=== PATIENT | female | born 1930 | race Caucasian/White ===

== ENCOUNTER 2017-01-24 07:34 | Observation (INO) | payer BC, MEDICARE ==
[2017-01-24] MEDS ORDERED: Zofran 4 MG/2 ML VIAL IV ONE (08:01)
[2017-01-24] MEDS ORDERED: Sodium Chloride 0.9% 1000 ML 1,000 ML IV STA (08:01)
[2017-01-24] MEDS ORDERED: Zofran 4 MG/2 ML VIAL ONE (08:03)
[2017-01-24] MEDS ORDERED: Sodium Chloride 0.9% 1000 ML 1,000 ML ONE (08:04)
[2017-01-24 08:14] LABS: BASOPHIL % 0.2 % (0.0-0.4); Granulocytes % 71.8 % (36.0-66.0); Lymphocytes % 14.2 % (24.0-44.0); Mean Cell Volume 100.2 fl (78-100); Mean Corpuscular Hemoglobin 32.6 pg (26-32); Mean Platelet Volume 8.9 fl (6-9.5); Monocytes % 11.8 % (0.0-12.0); Platelet Count 303 K/mm3 (150-450); Red Cell Distribution Width 13.2 % (11.5-14.0); White Blood Count 5.4 K/mm3 (4.0-10.5)
[2017-01-24 08:28] LABS: COMPLETE URINE MICROSCOPIC? YES; Collection Type CATH; Ph 8.5 (5-6)
[2017-01-24 08:29] LABS: ADD URINE CULTURE? YES (NO); Bacteria RARE /HPF (NEGATIVE)
--- NOTE | 2017-01-24 08:36 | ERPHSYRPT ---
- History of Present Illness Time Seen by Provider: 01/24/17 07:45 Historian: patient Exam Limitations: no limitations Patient Subjective Stated Complaint: vomiting/diarrhea since yesterday Triage Nursing Assessment: vomiting x3 since yesterday. diarrhea x2 since yesterday. frontal headache. poor appetite. moist oral membranes. skin warm/dry Timing/Duration: yesterday Activities at Onset: none Quality: cramping Abdominal Pain Onset Location: generalized abdomen Pain Radiation: no radiation Severity of Pain-Max: mild Severity of Pain-Current: mild Modifying Factors: Improves With: vomiting Associated Symptoms: diarrhea, nausea Previous symptoms: no prior history Allergies/Adverse Reactions: No Known Drug Allergies Allergy (Unverified 01/24/17 07:49) Home Medications: Amiodarone HCl 200 mg [Cordarone 200 MG] 200 mg PO DAILY 08/10/13 [History ] Clopidogrel Bisulfate 75 mg [PLAVIX 75 MG Tablet] 75 mg PO DAILY 08/10/13 [History] Hydrocodone/APAP 10/325 mg [[place] 10/325 MG Tablet] 1 tab PO Q6H PRN PRN 08/10/13 [History] Metoprolol Succinate 50 mg [Toprol Xl 50 MG] 50 mg PO BIDPRN PRN 08/10/13 [History] Pramipexole Di-HCl [Mirapex] 0.25 mg PO HS 08/10/13 [History] Pravastatin Sodium [Pravachol] 20 mg PO HS 08/10/13 [History] Zolpidem Tartrate 5 mg [Ambien 5 MG Tablet] 5 mg PO HS PRN PRN 08/10/13 [ History] Docusate Sodium 100 mg [Colace 100 MG] 1 tab PO DAILY 08/21/13 [History] Duloxetine HCl [Cymbalta] 60 mg PO DAILY 08/21/13 [History] Furosemide 20 mg [Lasix 20 mg] 20 mg PO DAILY 08/21/13 [History] Multivitamin [Multivitamins] 1 each PO DAILY 01/24/17 [History] Hx Tetanus, Diphtheria Vaccination/Date Given: Yes Hx Influenza Vaccination/Date Given: No Hx Pneumococcal Vaccination/Date Given: No Immunizations Up to Date: Yes - Review of Systems Constitutional: No Symptoms Eyes: No Symptoms Ears, Nose, & Throat: No Symptoms Respiratory: No Symptoms Cardiac: No Symptoms Abdominal/Gastrointestinal: Nausea, Vomiting, Diarrhea Genitourinary Symptoms: No Symptoms Musculoskeletal: No Symptoms Skin: No Symptoms Neurological: No Symptoms Psychological: No Symptoms Endocrine: No Symptoms Hematologic/Lymphatic: No Symptoms Immunological/Allergic: No Symptoms - Past Medical History Pertinent Past Medical History: Yes Neurological History: No Pertinent History ENT History: No Pertinent History Cardiac History: Angina, Coronary Artery Disease, High Cholesterol, Hypertension Respiratory History: No Pertinent History Endocrine Medical History: No Pertinent History Musculoskeletal History: Arthritis GI Medical History: No Pertinent History History: No Pertinent History Psycho-Social History: No Pertinent History Female Reproductive Disorders: Breast Cancer - Past Surgical History Past Surgical History: Yes Neuro Surgical History: No Pertinent History Cardiac: CABG, Cardiac Catheterization, Pacemaker Respiratory: No Pertinent History Gastrointestinal: No Pertinent History Genitourinary: No Pertinent History Musculoskeletal: Orthopedic Surgery Female Surgical History: Lumpectomy Other Surgical History: lumbar fusion with plate - Social History Smoking Status: Never smoker Exposure to second hand smoke: No Drug Use: none Patient Lives Alone: Yes - Female History Hx Now: No - Nursing Vital Signs Nursing Vital Signs: Initial Vital Signs Temperature 98.4 F Temperature Source Oral Pulse Rate 76 Respiratory Rate 20 Blood Pressure [Right Arm] 138/76 Pain Intensity 0 - Physical Exam General Appearance: moderate distress Eye Exam: PERRL/EOMI, eyes nml inspection Ears, Nose, Throat Exam: normal ENT inspection, pharynx normal Neck Exam: normal inspection, non-tender, supple Cardiovascular Exam: regular rate/rhythm, normal heart sounds, normal peripheral pulses Gastrointestinal/Abdomen Exam: soft, normal bowel sounds Back Exam: normal inspection, normal range of motion Extremity Exam: normal inspection, normal range of motion, pelvis stable Neurologic Exam: alert, oriented x 3, cooperative Skin Exam: normal color, warm, dry SpO2 Interpretation: normal SpO2: 94 Oxygen Delivery: Room Air - Course Nursing assessment & vital signs reviewed: Yes EKG Interpreted by Me: RATE (78. AV paced with 100% capture. ), Right Lerona Deviation (slightly D/T pacemaker) Ordered Tests: Active Orders 24 hr Category Date Time Status EKG-ER Only STAT Care 01/24/17 08:22 Active IV Insertion STAT Care 01/24/17 08:00 Active Orthostatic Vital Signs STAT Care 01/24/17 08:16 Active cath [Cath for Specimen-Straight] STAT Care 01/24/17 08:00 Active CBC W DIFF Stat Lab 01/24/17 08:00 Completed CMP Stat Lab 01/24/17 08:00 Completed CULTURE,URINE Stat Lab 01/24/17 08:00 Received LIPASE Stat Lab 01/24/17 08:00 Completed TROPONIN Stat Lab 01/24/17 08:00 Completed UA W/ MICROSCOPIC Stat Lab 01/24/17 08:00 Completed Medication Summary Discontinued Medications Generic Name Dose Route Start Last Admin Trade Name Judy PRN Reason Stop Dose Admin Sodium Chloride 1,000 mls @ 999 mls/hr 01/24/17 08:01 01/24/17 08:06 Sodium Chloride 0.9% 1000 Ml IV 01/24/17 09:01 999 mls/hr .Q1H1M STA Administration Sodium Chloride Confirm 01/24/17 08:04 Sodium Chloride 0.9% 1000 Ml Administered 01/24/17 08:05 Dose 1,000 mls @ ud .ROUTE .STK-MED ONE Ondansetron HCl 4 mg 01/24/17 08:01 01/24/17 08:06 Zofran 4 Mg/2 Ml Vial IV 01/24/17 08:02 4 mg STAT ONE Administration Ondansetron HCl Confirm 01/24/17 08:03 Zofran 4 Mg/2 Ml Vial Administered 01/24/17 08:04 Dose 4 mg .ROUTE .STK-MED ONE Lab/Rad Data: Laboratory Result Diagrams 01/24/17 08:00 01/24/17 08:00 Laboratory Results 01/24/17 01/24/17 01/24/17 Range/Units 08:00 08:00 08:00 WBC 5.4 (4.0-10.5) K/mm3 RBC 4.30 (4.1-5.4) M/mm3 Hgb 14.0 (12.0-16.0) gm/dl Hct 43.1 (35-47) % MCV 100.2 H (78-100) fl MCH 32.6 H (26-32) pg MCHC 32.5 (32-36) g/dl RDW 13.2 (11.5-14.0) % Plt Count 303 (150-450) K/mm3 MPV 8.9 (6-9.5) fl Gran % 71.8 H (36.0-66.0) % Lymphocytes % 14.2 L (24.0-44.0) % Monocytes % 11.8 (0.0-12.0) % Eosinophils % 2.0 (0.00-5.0) % Basophils % 0.2 (0.0-0.4) % Basophils # 0.01 (0-0.4) Sodium 140 (136-145) mEq/L Potassium 4.0 (3.5-5.1) mEq/L Chloride 99 (98-107) mEq/L Carbon Dioxide 30.2 (21-32) mEq/L Anion Gap 15.1 H (5-15) MEQ/L BUN 19 (9-20) mg/dL Creatinine 1.22 (0.55-1.30) mg/dl Estimated GFR 45 ML/MIN Glucose 108 (70-110) MG/DL Calcium 9.6 (8.5-10.1) mg/dL Total Bilirubin 0.60 (0.2-1.0) mg/dL AST 16 (15-37) U/L ALT 10 L (12-78) U/L Alkaline Phosphatase 70 (46-116) U/L Troponin I < 0.017 (0.000-0.056) ng/ml Serum Total Protein 7.9 (6.4-8.2) gm/dL Albumin 3.5 (3.4-5.0) g/dL Lipase 77 (73-393) U/L Ur Collection Type CATH Urine Color YELLOW (YELLOW) Urine Appearance CLEAR (CLEAR) Urine pH 8.5 (5-6) Ur Specific [place] 1.015 (1.005-1.025) Urine Protein TRACE (Negative) Urine Glucose (UA) NEGATIVE (NEGATIVE) mg/dL Urine Ketones NEGATIVE (NEGATIVE) Urine Nitrite NEGATIVE (NEGATIVE) Urine Bilirubin NEGATIVE (NEGATIVE) Urine Urobilinogen 0.2 (0-1) mg/dL Urine WBC (Auto) NEGATIVE (NEGATIVE) Urine RBC (Auto) NEGATIVE (0-5) [place]/ul Urine Microscopic RBC 0-2 (0-2) /HPF Urine Bacteria RARE (NEGATIVE) /HPF Specimen Received 01/24/17 0800 - Progress Progress: improved Discussed with : Nabil Will see patient in: hospital (observation) Counseled pt/family regarding: lab results, diagnosis, need for follow-up, rad results - Departure Time of Disposition: 09:30 Departure Disposition: Observation Clinical Impression: Pacemaker Vomiting Qualifiers: Vomiting type: unspecified Vomiting Intractability: unspecified Nausea presence : with nausea Qualified Code(s): R11.2 - Nausea with vomiting, unspecified Condition: Stable Critical Care Time: No
[2017-01-24 08:39] LABS: ALBUMIN 3.5 g/dL (3.4-5.0); ALKALINE PHOSPHATASE 70 U/L (46-116); ANION GAP 15.1 MEQ/L (5-15); BLOOD UREA NITROGEN 19 mg/dL (9-20); CHLORIDE 99 mEq/L (98-107); Carbon Dioxide 30.2 mEq/L (21-32); Glucose 108 MG/DL (70-110); LIPASE 77 U/L (73-393); SGOT/AST 16 U/L (15-37); SGPT/ALT 10 U/L (12-78); SODIUM 140 mEq/L (136-145); Total Protein 7.9 gm/dL (6.4-8.2)
[2017-01-24 08:42] LABS: TROPONIN < 0.017 ng/ml (0.000-0.056)
--- NOTE | 2017-01-24 09:44 | XRAY ---
Indication: Vomiting. Comparison: August 29, 2013. Portable chest again demonstrates cardiomegaly, CABG surgery, and left-sided dual-lead pacemaker. Vascularity normal. Stable blunting of the left costophrenic angle and focal eventration of the right hemidiaphragm. Remaining lungs clear. Bony thorax intact again with mild osteopenia, degenerative changes, scoliosis, and right axillary surgical clips. New spinal stimulator leads terminates mid thoracic spine. Impression: Nonacute chest with chronic features as detailed.
[2017-01-24] MEDS ORDERED: Norflex 60 MG/2 ML IM ONE (10:00)
[2017-01-24] MEDS ORDERED: TORAdol 30 mg Injection IM ONE (10:00)
[2017-01-24] MEDS ORDERED: TYLENOL 325 MG PO PRN (10:21)
[2017-01-24] MEDS ORDERED: Zofran 4 MG/2 ML VIAL IV PRN (10:21)
[2017-01-24] MEDS ORDERED: MAALOX ES 30 ML UNIT DOSE PO PRN (10:21)
[2017-01-24] MEDS ORDERED: MILK OF MAGNESIA 30 ML PO PRN (10:21)
[2017-01-24] MEDS ORDERED: Senokot-S Tablet PO PRN (10:21)
[2017-01-24] MEDS: Ecotrin 325 MG PO SCH (10:45)
[2017-01-24] MEDS: Pepcid 20 MG VIAL IV SCH ×2 (10:45→20:53)
[2017-01-24] MEDS: Sodium Chloride 0.9% 500 ML 500 ML IV SCH ×2 (10:45→20:55)
--- NOTE | 2017-01-24 12:41 | PCM.HP ---
History of Present Illness - Chief Complaint Chief Complaint: CHEST PAIN PATHWAY History of Present Illness: is a 86 year old female who presented to the ER this morning complaining of vomiting and diarrhea for 1 day. She has had 3 episodes of vomiting and 2-3 loose stools since yesterday, c/o fatigue. She denies chest pain, dyspnea or palpitations. She reports a history of CAD with hx of CABG, pacemaker and sees Dr Levy. She also has chronic back pain with a stimulator in place, she has not rain out of pain medication or abruptly stopped. She sees Dr De Guzman so was admitted to me as a service patient. She is feeling better after receiving IV fluids and nausea meds in the ER. - Review of Systems Constitutional: No Fever, No Chills Respiratory: No Cough, No Short Of Breath Cardiac: No Chest Pain, No Edema, No Syncope Abdominal/Gastrointestinal: Nausea, Vomiting, Diarrhea Genitourinary Symptoms: No Dysuria Skin: No Rash All Other Systems: Reviewed and Negative Medications & Allergies Home Medications: Home Medication List Amiodarone HCl 200 mg [Cordarone 200 MG] 200 mg PO DAILY 08/10/13 [ History Confirmed 01/24/17] Clopidogrel Bisulfate 75 mg [PLAVIX 75 MG Tablet] 75 mg PO DAILY 08/10/13 [History Confirmed 01/24/17] Hydrocodone/APAP 10/325 mg [[place] 10/325 MG Tablet] 1 tab PO Q6H PRN PRN 08/10/13 [History Confirmed 01/24/17] Metoprolol Succinate 50 mg [Toprol Xl 50 MG] 50 mg PO BIDPRN PRN 08/10/13 [History Confirmed 01/24/17] Pramipexole Di-HCl [Mirapex] 0.25 mg PO HS 08/10/13 [History Confirmed 01/24/17] Pravastatin Sodium [Pravachol] 20 mg PO HS 08/10/13 [History Confirmed 01/24/17] Zolpidem Tartrate 5 mg [Ambien 5 MG Tablet] 5 mg PO HS PRN PRN 08/10/13 [ History Confirmed 01/24/17] Docusate Sodium 100 mg [Colace 100 MG] 1 tab PO DAILY 08/21/13 [History Confirmed 01/24/17] Duloxetine HCl [Cymbalta] 60 mg PO DAILY 08/21/13 [History Confirmed 01/24/17] Furosemide 20 mg [Lasix 20 mg] 20 mg PO DAILY 08/21/13 [History Confirmed 01/24/17] Multivitamin [Multivitamins] 1 each PO DAILY 01/24/17 [History Confirmed ] Allergies/Adverse Reactions: Allergies Allergy/AdvReac Type Severity Reaction Status Date / Time No Known Drug Allergies Allergy Unverified 01/24/17 07:49 - Past Medical History Past Medical History: Yes Neurological History: No Pertinent History ENT History: No Pertinent History Cardiac History: Angina, Coronary Artery Disease, High Cholesterol, Hypertension Respiratory History: No Pertinent History Endocrine Medical History: No Pertinent History Musculoskelatal History: Arthritis GI Medical History: No Pertinent History History: No Pertinent History Pyscho-Social History: No Pertinent History Reproductive Disorders: Breast Cancer - Female History Are you now?: No - Past Surgical History Past Surgical History: Yes Neuro Surgical History: No Pertinent History Cardiac History: CABG, Cardiac Catheterization, Pacemaker Respiratory Surgery: No Pertinent History GI Surgical History: No Pertinent History Genitourinary Surgical Hx: No Pertinent History Musculskeletal Surgical Hx: Orthopedic Surgery Female Surgical History: Lumpectomy Other Surgical History: lumbar fusion with plate - Social History Smoking Status: Never smoker Exposure to second hand smoke: No Alcohol: None Drug Use: none - Physical Exam Vital Signs: Vital Signs - 24 hr Temp Pulse Resp BP Pulse Ox 01/24/17 11:25 98.4 F 82 20 171/79 95 01/24/17 10:31 98.4 F 82 20 171/79 95 01/24/17 09:57 67 18 134/100 01/24/17 09:41 94 L 01/24/17 08:57 76 20 138/76 01/24/17 07:44 98.4 F 76 18 155/95 94 L General Appearance: no apparent distress, alert Neurologic Exam: alert, oriented x 3, cooperative, normal mood/affect, nml cerebellar function, nml station & gait, sensation nml, No motor deficits Eye Exam: PERRL/EOMI, eyes nml inspection Neck Exam: normal inspection, non-tender, supple, full range of motion Respiratory Exam: normal breath sounds, lungs clear, No respiratory distress Cardiovascular Exam: regular rate/rhythm, normal heart sounds, normal peripheral pulses Gastrointestinal/Abdomen Exam: soft, normal bowel sounds, No tenderness, No mass Extremity Exam: normal inspection, normal range of motion, pelvis stable Skin Exam: normal color, warm, dry, No rash Results - Other Procedures and Tests Respiratory Therapy 01/24/17 16:25 EKG ONCE 01/25/17 05:00 EKG ONCE 01/26/17 05:00 EKG ONCE 01/27/17 05:00 EKG ONCE Assessment/Plan (1) Vomiting Current Visit: Yes Status: Acute Qualifiers: Vomiting type: unspecified Vomiting Intractability: unspecified Nausea presence: with nausea Qualified Code(s): R11.2 - Nausea with vomiting, unspecified Assessment & Plan: labs reassuring, will hydrate and treat with anti-emetics at this time Code(s): R11.10 - VOMITING, UNSPECIFIED (2) Diarrhea Current Visit: Yes Status: Acute Assessment & Plan: if continues will check stool studies Code(s): R19.7 - [place], UNSPECIFIED (3) Coronary artery disease Current Visit: Yes Status: Acute Assessment & Plan: stable at this time, no indication of angina or acute coronary syndrome etc Code(s): I25.10 - ATHSCL HEART DISEASE OF [place] CORONARY ARTERY W/O ANG PCTRS (4) Chronic back pain Current Visit: Yes Status: Acute Assessment & Plan: stable Code(s): M54.9 - D[place], UNSPECIFIED; G89.29 - OTHER CHRONIC PAIN
[2017-01-24] MEDS: Cymbalta 30 MG Capsule PO SCH (14:21)
[2017-01-24] MEDS: Imdur 30 MG PO SCH (14:21)
[2017-01-24] MEDS: Ranexa 500 MG PO SCH ×2 (14:21→20:53)
[2017-01-24] MEDS: NEURONTIN 300 MG PO SCH ×2 (14:22→20:53)
[2017-01-24] MEDS: NORCO 5/325 MG PO PRN ×2 (14:22→20:51)
[2017-01-24] MEDS: Zestril 5 MG PO SCH (14:25)
[2017-01-24] MEDS: Wellbutrin XL 150 MG PO SCH (14:27)
[2017-01-24] MEDS ORDERED: Mirapex 0.5 MG Tablet ONE (19:02)
[2017-01-24] MEDS ORDERED: Mirapex 0.5 MG Tablet PO SCH (22:00)
[2017-01-24] MEDS ORDERED: PRAMIPEXOLE DI HCL 0.5 MG PO SCH (22:00)
[2017-01-25] MEDS: NORCO 5/325 MG PO PRN ×2 (04:08→08:04)
[2017-01-25] MEDS: Sodium Chloride 0.9% 500 ML 500 ML IV SCH (06:19)
[2017-01-25 06:39] LABS: Cholesterol 147 mg/dL (100-200); LDL, DIRECT 66 mg/dL (5-99); TRIGLYCERIDE 105 mg/dL (30-200)
[2017-01-25 06:42] LABS: TROPONIN < 0.017 ng/ml (0.000-0.056)
--- NOTE | 2017-01-25 07:51 | PCM.DS ---
Discharge Summary Date of Admission: 01/24/17 10:10 Admitting Physician: BERTRAND BURDICK Primary Care Provider: SABA HARDEN Allergies Allergies No Known Drug Allergies Allergy (Unverified 01/24/17 07:49) Hospital Summary - Hospital Course Hospital Course: patient was admitted with vomiting, diarrhea and weakness. has hx CAD and pacemaker, she is doing well at this time. tolerating regular diet, no vomiting or diarrhea overnight. she denies any pain at this time. - Vitals & Intake/Output Vital Signs: Vital Signs Temperature 98.8 F 01/25/17 03:59 Pulse Rate 77 01/25/17 03:59 Respiratory Rate 17 01/25/17 03:59 Blood Pressure 122/59 01/25/17 03:59 O2 Sat by Pulse Oximetry 92 L 01/25/17 03:59 Intake & Output: Intake & Output 01/22/17 01/23/17 01/24/17 01/25/17 11:59 11:59 11:59 11:59 Intake Total 1740 Output Total 250 1100 Balance -250 640 Weight 82.554 kg 87.543 kg - Lab Result Diagrams: 01/24/17 08:00 01/24/17 08:00 Lab Results-Last 24 Hrs: Lab Results-Last 24 Hours 01/25/17 Range/Units 05:50 Troponin I < 0.017 (0.000-0.056) ng/ml Triglycerides 105 (30-200) mg/dL Cholesterol 147 (100-200) mg/dL LDL Cholesterol 66 (5-99) mg/dL HDL Cholesterol 71 H (35-60) mg/dL Heart Disease Risk Ratio 2.1 - Procedures and Test Procedures and Tests throughout Hospitalization: Therapy Orders & Screens 01/24/17 16:25 EKG ONCE Comment: Diagnosis: CHEST PAIN PATHWAY 01/25/17 05:00 EKG ONCE Comment: Diagnosis: CHEST PAIN PATHWAY 01/26/17 05:00 EKG ONCE Comment: Diagnosis: CHEST PAIN PATHWAY 01/27/17 05:00 EKG ONCE Comment: Diagnosis: CHEST PAIN PATHWAY Discharge Exam General Appearance: no apparent distress, alert Respiratory Exam: normal breath sounds, lungs clear, No respiratory distress Cardiovascular Exam: regular rate/rhythm, normal heart sounds Gastrointestinal/Abdomen Exam: soft, No tenderness, No mass Extremity Exam: normal inspection, normal range of motion Final Diagnosis/Problem List - Final Discharge Diagnosis/Problem (1) Vomiting Current Visit: Yes Status: Acute (2) Diarrhea Current Visit: Yes Status: Acute (3) Coronary artery disease Current Visit: Yes Status: Acute (4) Chronic back pain Current Visit: Yes Status: Acute - Discharge Disposition: Home, Self-Care Condition: Stable Prescriptions: Continue Pramipexole Di-HCl [Mirapex] 0.5 mg PO HS Duloxetine HCl [Cymbalta] 60 mg PO DAILY Bupropion HCl [Bupropion Xl] 150 mg PO DAILY Lisinopril 5 mg [Zestril 5 MG] 5 mg PO DAILY Ranolazine 500 MG [Ranexa 500 MG] 500 mg PO BID Hydrocodone/Acetaminophen [Hydrocodon-Acetaminophen 5-325] 1 tab PO Q4HPRN PRN PRN Reason: Pain Isosorbide Mononitrate 30 mg [Imdur 30 MG] 30 mg PO DAILY Gabapentin 300 mg PO TID Follow up with: SABA HARDEN [Primary Care Provider] - Forms: Patient Portal Information
[2017-01-25] MEDS: Imdur 30 MG PO SCH (08:04)
[2017-01-25] MEDS: Zestril 5 MG PO SCH (08:04)
[2017-01-25] MEDS: Ecotrin 325 MG PO SCH (08:04)
[2017-01-25] MEDS: Cymbalta 30 MG Capsule PO SCH (08:04)
[2017-01-25] MEDS: NEURONTIN 300 MG PO SCH (08:05)
[2017-01-25] MEDS: Ranexa 500 MG PO SCH (08:05)
[2017-01-25] MEDS: Wellbutrin XL 150 MG PO SCH (08:06)
[2017-01-25 08:08] VITALS: BP 123/68; PULSE 73; O2SAT 91
[2017-01-25] MEDS: Pepcid 20 MG VIAL IV SCH (09:40)
[2017-01-25] MEDS ORDERED: NON-FORMULARY ITEM (Duloxetine Hcl [Cymbalta] 60 MG) PO SCH (10:00)
== END 2017-01-25 09:44 | disposition home or self-care (01) ==
LOC: ED 07:34 → MED SURG 10:10
PROVIDERS: ADMIT Family Medicine; ATTEND Family Medicine
DX: R11.2 Nausea with vomiting, unspecified (principal); R19.7 Diarrhea, unspecified; I25.810 Atherosclerosis of coronary artery bypass graft(s) without angina pectoris; I10 Essential (primary) hypertension; M54.9 Dorsalgia, unspecified; G89.29 Other chronic pain; F45.42 Pain disorder with related psychological factors; Z79.899 Other long term (current) drug therapy; M19.90 Unspecified osteoarthritis, unspecified site; Z95.0 Presence of cardiac pacemaker; Z85.3 Personal history of malignant neoplasm of breast
CPT/HCPCS: 36000; 36415; 71010; 80053; 80061; 81000; 83690; 83721; 84484; 85025; 87086; 93005; 93268; 96360; 96374; 99285; G0378; J2405; P9612; A9270-GY

== ENCOUNTER 2017-05-08 17:31 | Observation (INO) | payer MEDICARE ==
[2017-05-08] MEDS ORDERED: Sodium Chloride 0.9% 1000 ML 1,000 ML IV SCH (18:15)
[2017-05-08 18:17] LABS: BASOPHIL % 0.2 % (0.0-0.4); Eosinophil % 3.7 % (0.00-5.0); Granulocytes % 65.8 % (36.0-66.0); Lymphocytes % 18.1 % (24.0-44.0); Mean Cell Volume 101.1 fl (78-100); Mean Platelet Volume 9.1 fl (6-9.5); Monocytes % 12.2 % (0.0-12.0); Platelet Count 231 K/mm3 (150-450); Red Cell Distribution Width 13.2 % (11.5-14.0); White Blood Count 5.1 K/mm3 (4.0-10.5)
[2017-05-08] MEDS ORDERED: Sodium Chloride 0.9% 1000 ML 1,000 ML ONE (18:22)
[2017-05-08 18:23] LABS: Mean Corpuscular Hemoglobin 34.5 pg (26-32)
[2017-05-08 18:31] LABS: Lactic Acid 2.3 (0.4-2.0)
[2017-05-08 18:44] LABS: ALBUMIN 3.5 g/dL (3.4-5.0); ANION GAP 14.5 MEQ/L (5-15); BILIRUBIN,TOTAL 0.3 mg/dL (0.2-1.0); Carbon Dioxide 30.9 mEq/L (21-32); Potassium 4.6 mEq/L (3.5-5.1); Total Protein 6.5 gm/dL (6.4-8.2)
[2017-05-08 19:01] LABS: Collection Type CATH; Glucose NEGATIVE (NEGATIVE); Leukocyte Esterase NEGATIVE (NEGATIVE)
[2017-05-08 19:02] LABS: ADD URINE CULTURE? NO (NO); Bilirubin NEGATIVE (NEGATIVE); Blood NEGATIVE Ery/ul (0-5); COMPLETE URINE MICROSCOPIC? NO
--- NOTE | 2017-05-08 19:16 | ERPHSYRPT ---
- History of Present Illness Time Seen by Provider: 05/08/17 18:04 Source: patient Patient Subjective Stated Complaint: PT REPORTS LOW BLOOD PRESSURE INTERMITTANT SINCE YETERDAY-REPORTS BP WAS 70/50 AT HOME-REPORTS DIZZINESS DURING THESE EPISODES-DENIES PAIN-DENIES VOMITING OR DIARRHEA Triage Nursing Assessment: PT PALE WARM ET DRY-MILD UNIVERSAL WEAKNESS NOTED TO EXTREMETIES-UNIVERSAL IN NATURE-LUNGS CLEAR-CAP REFILL 4 SECONDS IN RIGHT HAND Physician History: CC: low BP Hx: 86 y/o patient of Dr Ralph Harden and Mildred with hx of CHF, pacemaker. She had recent C diff colitis treated with two rounds of abtx ending 10 days ago. The diarrhea is gone. She was unable to take her normal meds. She has now restarted them. She noted episodes of general weakness, fatigue, and low BP since yesterday. No syncope. No fever or chills. Not particularly short of breath. No V/D. No chest or abd pain. Timing/Duration: yesterday Severity: moderate Allergies/Adverse Reactions: No Known Drug Allergies Allergy (Verified 05/08/17 18:00) Home Medications: Duloxetine HCl [Cymbalta] 60 mg PO DAILY 08/21/13 [History] Gabapentin 300 mg PO TID 01/24/17 [History] Isosorbide Mononitrate 30 mg [Imdur 30 MG] 30 mg PO DAILY 01/24/17 [History ] Lisinopril 5 mg [Zestril 5 MG] 5 mg PO DAILY 01/24/17 [History] Ranolazine 500 MG [Ranexa 500 MG] 500 mg PO BID 01/24/17 [History] Cyanocobalamin (Vitamin B-12) [B-12] 1,000 mcg PO DAILY 05/08/17 [History] Furosemide 20 mg [Lasix 20 mg] 20 mg PO DAILY 05/08/17 [History] Pravastatin Sodium [Pravachol] 20 mg PO HS 05/08/17 [History] Hx Tetanus, Diphtheria Vaccination/Date Given: Yes Hx Influenza Vaccination/Date Given: No Hx Pneumococcal Vaccination/Date Given: No Immunizations Up to Date: Yes - Review of Systems Constitutional: Fatigue, Malaise, Weakness, No Fever, No Chills Eyes: No Symptoms Ears, Nose, & Throat: No Symptoms Respiratory: No Cough, No Dyspnea Cardiac: No Chest Pain Abdominal/Gastrointestinal: No Abdominal Pain, No Nausea, No Vomiting, No Diarrhea Genitourinary Symptoms: No Dysuria Musculoskeletal: No Back Pain Skin: No Rash Neurological: No Headache All Other Systems: Reviewed and Negative - Past Medical History Pertinent Past Medical History: Yes Neurological History: No Pertinent History ENT History: No Pertinent History Cardiac History: Angina, Coronary Artery Disease, High Cholesterol, Hypertension Respiratory History: No Pertinent History Endocrine Medical History: No Pertinent History Musculoskeletal History: Arthritis GI Medical History: No Pertinent History History: No Pertinent History Psycho-Social History: No Pertinent History Female Reproductive Disorders: Breast Cancer - Past Surgical History Past Surgical History: Yes Neuro Surgical History: No Pertinent History Cardiac: CABG, Cardiac Catheterization, Pacemaker Respiratory: No Pertinent History Gastrointestinal: No Pertinent History Genitourinary: No Pertinent History Musculoskeletal: Orthopedic Surgery Female Surgical History: Lumpectomy Other Surgical History: lumbar fusion with plate - Social History Smoking Status: Never smoker Exposure to second hand smoke: No Drug Use: none Patient Lives Alone: No - Female History Hx Now: No - Nursing Vital Signs Nursing Vital Signs: Initial Vital Signs Temperature 98.4 F 05/08/17 17:57 Pulse Rate 84 05/08/17 17:57 Respiratory Rate 18 05/08/17 17:57 Blood Pressure 92/50 05/08/17 17:57 O2 Sat by Pulse Oximetry 98 05/08/17 17:57 Pain Scale Pain Intensity 0 - Physical Exam General Appearance: alert Eye Exam: PERRL/EOMI Ears, Nose, Throat Exam: normal ENT inspection, dry mucous membranes Neck Exam: normal inspection, supple Respiratory Exam: diminished breath sounds Cardiovascular Exam: regular rate/rhythm Gastrointestinal/Abdomen Exam: soft, No tenderness, No distention, No mass, No guarding Back Exam: normal inspection Extremity Exam: normal inspection, normal range of motion Neurologic Exam: alert, oriented x 3, cooperative, sensation nml, No motor deficits Skin Exam: warm, dry, No rash SpO2 Interpretation: hypoxic, O2 applied SpO2: 89 Oxygen Delivery: Room Air - Course Nursing assessment & vital signs reviewed: Yes EKG Interpreted by Me: RATE (85 pacemaker rhythm) - Radiology Exams cxr X-ray Interpretation: Reviewed by me (CM, pacemaker, no failure) Ordered Tests: Active Orders 24 hr Category Date Time Status Cath for Specimen-Straight STAT Care 05/08/17 18:05 Active EKG-ER Only STAT Care 05/08/17 18:04 Active IV Insertion STAT Care 05/08/17 18:04 Active Oxygen-ED Only NASAL CANNULA 2 lpm Care 05/08/17 19:09 Active CHEST 1 VIEW (PORTABLE) Stat Exams 05/08/17 19:09 Taken CBC W DIFF Stat Lab 05/08/17 18:10 Completed CMP Stat Lab 05/08/17 18:10 Completed Lactic Acid Stat Lab 05/08/17 18:15 Results NT PRO BNP Stat Lab 05/08/17 18:00 Completed TROPONIN Stat Lab 05/08/17 18:00 Completed UA W/RFX UR CULTURE Stat Lab 05/08/17 18:50 Completed Medication Summary Generic Name Dose Route Start Last Admin Trade Name Freq PRN Reason Stop Dose Admin Sodium Chloride 1,000 mls @ 100 mls/hr 05/08/17 18:15 05/08/17 18:35 Sodium Chloride 0.9% 1000 Ml IV 06/07/17 18:14 100 mls/hr .Q10H TONYA Administration Lab/Rad Data: Laboratory Result Diagrams 05/08/17 18:10 05/08/17 18:10 Laboratory Results 05/08/17 05/08/17 05/08/17 Range/Units 18:50 18:15 18:10 WBC (4.0-10.5) K/mm3 RBC (4.1-5.4) M/mm3 Hgb (12.0-16.0) gm/dl Hct (35-47) % MCV (78-100) fl MCH (26-32) pg MCHC (32-36) g/dl RDW (11.5-14.0) % Plt Count (150-450) K/mm3 MPV (6-9.5) fl Gran % (36.0-66.0) % Lymphocytes % (24.0-44.0) % Monocytes % (0.0-12.0) % Eosinophils % (0.00-5.0) % Basophils % (0.0-0.4) % Basophils # (0-0.4) Sodium 141 (136-145) mEq/L Potassium 4.6 (3.5-5.1) mEq/L Chloride 100 (98-107) mEq/L Carbon Dioxide 30.9 (21-32) mEq/L Anion Gap 14.5 (5-15) MEQ/L BUN 34 H (9-20) mg/dL Creatinine 1.95 H (0.55-1.30) mg/dl Estimated GFR 26 ML/MIN Glucose 93 (70-110) MG/DL Lactic Acid 2.3 H (0.4-2.0) Calcium 8.8 (8.5-10.1) mg/dL Total Bilirubin 0.30 (0.2-1.0) mg/dL AST 15 (15-37) U/L ALT 10 L (12-78) U/L Alkaline Phosphatase 80 (46-116) U/L Troponin I (0.000-0.056) ng/ml NT-Pro-B Natriuret Pep (0-450) pg/ml Serum Total Protein 6.5 (6.4-8.2) gm/dL Albumin 3.5 (3.4-5.0) g/dL Ur Collection Type CATH Urine Color YELLOW (YELLOW) Urine Appearance CLEAR (CLEAR) Urine pH 5.0 (5-6) Ur Specific [place] 1.020 (1.005-1.025) Urine Protein NEGATIVE (Negative) Urine Ketones NEGATIVE (NEGATIVE) Urine Blood NEGATIVE (0-5) [place]/ul Urine Nitrite NEGATIVE (NEGATIVE) Urine Bilirubin NEGATIVE (NEGATIVE) Urine Urobilinogen NORMAL (0-1) mg/dL Ur Leukocyte Esterase NEGATIVE (NEGATIVE) Urine Glucose NEGATIVE (NEGATIVE) mg/dL Specimen Received 05/08/17:1850 05/08/17 05/08/17 05/08/17 Range/Units 18:10 18:00 18:00 WBC 5.1 (4.0-10.5) K/mm3 RBC 3.50 L (4.1-5.4) M/mm3 Hgb 12.1 (12.0-16.0) gm/dl Hct 35.4 (35-47) % MCV 101.1 H (78-100) fl MCH 34.5 H (26-32) pg MCHC 34.2 (32-36) g/dl RDW 13.2 (11.5-14.0) % Plt Count 231 (150-450) K/mm3 MPV 9.1 (6-9.5) fl Gran % 65.8 (36.0-66.0) % Lymphocytes % 18.1 L (24.0-44.0) % Monocytes % 12.2 H (0.0-12.0) % Eosinophils % 3.7 (0.00-5.0) % Basophils % 0.2 (0.0-0.4) % Basophils # 0.01 (0-0.4) Sodium (136-145) mEq/L Potassium (3.5-5.1) mEq/L Chloride (98-107) mEq/L Carbon Dioxide (21-32) mEq/L Anion Gap (5-15) MEQ/L BUN (9-20) mg/dL Creatinine (0.55-1.30) mg/dl Estimated GFR ML/MIN Glucose (70-110) MG/DL Lactic Acid (0.4-2.0) Calcium (8.5-10.1) mg/dL Total Bilirubin (0.2-1.0) mg/dL AST (15-37) U/L ALT (12-78) U/L Alkaline Phosphatase (46-116) U/L Troponin I < 0.017 (0.000-0.056) ng/ml NT-Pro-B Natriuret Pep 221 (0-450) pg/ml Serum Total Protein (6.4-8.2) gm/dL Albumin (3.4-5.0) g/dL Ur Collection Type Urine Color (YELLOW) Urine Appearance (CLEAR) Urine pH (5-6) Ur Specific [place] (1.005-1.025) Urine Protein (Negative) Urine Ketones (NEGATIVE) Urine Blood (0-5) [place]/ul Urine Nitrite (NEGATIVE) Urine Bilirubin (NEGATIVE) Urine Urobilinogen (0-1) mg/dL Ur Leukocyte Esterase (NEGATIVE) Urine Glucose (NEGATIVE) mg/dL Specimen Received - Progress Progress Note: 05/08/17 19:54 Orthostatic- standing BP dropped to 80/40. No sign of infection. No current heart failure. It appears her medication is culprit and may have some dehydration. Called Dr Booker (oc) for observation, hold meds, IVF hydration gently. Counseled pt/family regarding: lab results, diagnosis, need for follow-up, rad results - Departure Time of Disposition: 19:55 Departure Disposition: Observation Clinical Impression: Orthostatic hypotension, Dehydration Condition: Fair Critical Care Time: No Referrals: SABA HARDEN [Primary Care Provider] -
[2017-05-08] MEDS: Ranexa 500 MG PO SCH (21:36)
[2017-05-08] MEDS: NEURONTIN 300 MG PO SCH (21:36)
[2017-05-08] MEDS ORDERED: ZOCOR 20MG PO SCH (22:00)
[2017-05-09] MEDS: Dextrose 5% -0.45 NaCl 1000 ML 1,000 ML IV SCH ×2 (04:28→13:28)
[2017-05-09 06:10] LABS: ANION GAP 10.9 MEQ/L (5-15); Carbon Dioxide 32.5 mEq/L (21-32); Potassium 4.9 mEq/L (3.5-5.1)
--- NOTE | 2017-05-09 08:34 | XRAY ---
Indication: Hypotension. Comparison: January 24, 2017. Portable chest unchanged again demonstrating cardiomegaly, CABG surgery, left-sided pacemaker, left costophrenic angle blunting, and hiatal hernia. Remaining lungs clear. No new/acute cardiopulmonary abnormalities.
--- NOTE | 2017-05-09 09:13 | PCM.DCORD ---
- Discharge Discharge Date: 05/09/17 Disposition: Home, Self-Care Condition: Fair Prescriptions: New Cefdinir 300 mg [Omnicef 300 mg] 300 mg PO BID #6 capsule Continue Duloxetine HCl [Cymbalta] 60 mg PO DAILY Ranolazine 500 MG [Ranexa 500 MG] 500 mg PO BID Gabapentin 300 mg PO TID Cyanocobalamin (Vitamin B-12) [B-12] 1,000 mcg PO DAILY Pravastatin Sodium [Pravachol] 20 mg PO HS Discontinued Lisinopril 5 mg [Zestril 5 MG] 5 mg PO DAILY Isosorbide Mononitrate 30 mg [Imdur 30 MG] 30 mg PO DAILY Furosemide 20 mg [Lasix 20 mg] 20 mg PO DAILY Nitroglycerin 0.4 mg Tablet [Nitrostat 0.4 MG Tablet] 0.4 mg SL UD Follow up with: SABA HARDEN [Primary Care Provider] - Forms: Patient Portal Information
[2017-05-09] MEDS: Ranexa 500 MG PO SCH (10:00)
[2017-05-09] MEDS ORDERED: NON-FORMULARY ITEM (Duloxetine Hcl [Cymbalta] 60 MG) PO SCH (10:00)
[2017-05-09] MEDS ORDERED: Vitamin B-12 500 MCG PO SCH (10:00)
[2017-05-09] MEDS ORDERED: NON-FORMULARY ITEM (Cyanocobalamin (Vitamin B-12) [B-12] 1,000 MCG) PO SCH (10:00)
[2017-05-09] MEDS: NEURONTIN 300 MG PO SCH (10:00)
[2017-05-09] MEDS ORDERED: Cymbalta 30 MG Capsule PO SCH (10:00)
[2017-05-09 11:04] VITALS: BP 122/68; PULSE 77; O2SAT 96
--- NOTE | 2017-05-09 14:19 | SSS ---
ADMISSION DIAGNOSES: 1) Hypotension. 2) Dehydration. 3) History of coronary artery disease. 4) History of chronic kidney disease stage IV. DISCHARGE DIAGNOSES: 1) HYPOTENSION. 2) DEHYDRATION. 3) HISTORY OF CORONARY ARTERY DISEASE. 4) HISTORY OF CHRONIC KIDNEY DISEASE STAGE IV. HISTORY OF PRESENT ILLNESS: This is an 86 year old patient without a physician in the local area. She usually sees Dr. De Guzman as her primary care physician and Dr. Levy as her precipitate washer. She presented to the emergency department with history of feeling dizzy with standing. She denied any recent falls but did have some falls approximately two months ago when she got up to quickly which she reports her primary care doctor was aware of. She reports that she just finished up two rounds of antibiotic for Clostridium difficile and feels like she was not drinking enough and has not had a good appetite. She reports her blood pressure sometimes varies. She reports feeling much better after being in the hospital overnight with IV fluids and was requesting discharge. REVIEW OF SYSTEMS: She denied chest pain. No dyspnea. No nausea or vomiting. She had some lower extremity edema which she said she takes Lasix for as needed and thinks this may have also attributed to her hypotension and dehydration. Otherwise review of systems is negative. PAST MEDICAL HISTORY: Coronary artery disease, congestive heart failure, pacemaker, syncope, chronic kidney disease stage IV, back pain. PAST SURGICAL HISTORY: She had coronary artery bypass graft x4, pacemaker placement, stimulator for her back, right lumpectomy for breast cancer and back surgery. MEDICATIONS: Vitamin B12 1,000 mcg daily, Cymbalta 60 mg daily, gabapentin 300 mg t.i.d., Pravastatin 20 mg q.h.s., Ranexa 500 mg b.i.d., lisinopril 5 mg p.o. daily, isosorbide mononitrate 30 mg p.o. daily. ALLERGIES: NKDA. SOCIAL HISTORY: She denies any tobacco or alcohol use. She is and lives with her and her will soon be turning 89. FAMILY HISTORY: Her mother is and had ovarian cancer, thyroid problems and arthritis. Her father is and had an aneurysm when he was in his 80's but lived to be 98. PHYSICAL EXAMINATION: VITAL SIGNS: Temperature current 97.9F, temperature max 98.4F, heart rate 68 to 94, respiratory rate 18 to 25, blood pressure 88 to 128 over 51 to 68 and at the time of discharge 122/68.0. Oxygen saturation 97% on 2 liters nasal cannula at the time of discharge. She had orthostatic vitals checked before discharge: Lying blood pressure 128/67, heart rate 71. Sitting blood pressure 120/63, heart rate 94. Standing blood pressure 125/65 with heart rate 85. GENERAL: The patient was lying in bed, pleasant, talkative lady in no acute distress. CVS: Her heart had a regular rate and rhythm. No murmurs, gallops or rubs. Pacemaker in place on her chest wall. CHEST: Clear to auscultation bilaterally. No crackles or wheezes were appreciated. ABDOMEN: Soft, nontender, nondistended with normal bowel sounds. SKIN: Warm, dry and intact. EXTREMITIES: No clubbing, cyanosis or edema. LABORATORY DATA AND TESTS: CBC within normal limits. Creatinine 1.59 at the time of discharge. CMP was normal on admission. UA was negative. Chest x-ray was read as history of cardiomegaly, coronary artery bypass graft surgery, left-sided pacemaker, left costophrenic angle blunting and hiatal hernia, remaining lungs clear. No new acute cardiopulmonary abnormalities. Please see the radiologist report for the full dictation. ASSESSMENT AND PLAN: 1) HYPOTENSION: This was corrected overnight with IV fluids as well as holding Lasix, lisinopril and isosorbide. The patient was not orthostatic at the time of discharge and was feeling well and able to ambulate without any problems. 2) DEHYDRATION: Again this was resolved with IV fluids overnight. 3) HISTORY OF CORONARY ARTERY DISEASE: I continued her Ranexa but we did hold her isosorbide, lisinopril and asked her to follow up with her primary care doctor and precipitate washer after discharge. 4) HISTORY OF CHRONIC KIDNEY DISEASE STAGE IV: This was stable during her hospitalization. DISPOSITION: The patient was discharged to home to follow up with Dr. Clark De Guzman and Dr. Miguel Levy. DISCHARGE MEDICATIONS: She is resuming all of her home medications except lisinopril, isosorbide and Lasix.
== END 2017-05-09 14:20 | disposition home or self-care (01) ==
LOC: ED 17:31 → MED SURG 20:26
PROVIDERS: ADMIT Internal Medicine; ATTEND Internal Medicine
DX: I95.9 Hypotension, unspecified (principal); E86.0 Dehydration; Z86.79 Personal history of other diseases of the circulatory system; Z87.19 Personal history of other diseases of the digestive system
CPT/HCPCS: 36000; 36415; 71010; 80048; 80053; 81002; 83605; 83880; 84484; 85025; 93005; 93268; 94760; 96360; 96365; 99285; G0378; P9612; A9270-GY

== ENCOUNTER 2018-01-15 15:42 | Emergency (ER) | payer MEDICARE ==
--- NOTE | 2018-01-15 16:44 | ERPHSYRPT ---
- History of Present Illness Time Seen by Provider: 01/15/18 16:36 Historian: patient Exam Limitations: no limitations Patient Subjective Stated Complaint: DIARRHEA FOR TWO DAYS. RECENT HX OF C-DIFF Triage Nursing Assessment: TO ROOM PER W/C. SKIN W/D, PALE. RESP EASY. ABD SOFT, TENDER. NORMAL BOWEL SOUNDS. Physician History: 87-year-old white female arrives with complaint of loose stools 4-5 times a day lower abdominal discomfort symptoms going on for 2 days she denies any vomiting no fevers. Patient does state she has a history of C. difficile in the past. Past medical history includes angina, coronary artery disease, hyperlipidemia, high blood pressure, arthritis. Past surgical history includes CABG, cardiac catheter, pacer, lumpectomy, orthopedic surgery, lumbar fusion Timing/Duration: day(s) (2 days) Activities at Onset: none Quality: cramping Abdominal Pain Onset Location: suprapubic Severity of Pain-Max: moderate Severity of Pain-Current: mild Associated Symptoms: diarrhea, No back, No chest pain, No diaphoresis, No fever/ chills, No fatigue, No headache, No heartburn, No loss of appetite, No nausea, No neck pain, No rash, No shortness of breath, No syncope, No vomiting, No weakness Previous symptoms: same symptoms as today Allergies/Adverse Reactions: No Known Drug Allergies Allergy (Verified 01/15/18 15:59) Home Medications: Duloxetine HCl [Cymbalta] 60 mg PO DAILY 08/21/13 [History] Gabapentin 300 mg PO TID 01/24/17 [History] Ranolazine 500 MG [Ranexa 500 MG] 500 mg PO BID 01/24/17 [History] Cyanocobalamin (Vitamin B-12) [B-12] 1,000 mcg PO DAILY 05/08/17 [History] Pravastatin Sodium [Pravachol] 20 mg PO HS 05/08/17 [History] Aspirin [Hustler Aspirin] 81 mg PO DAILY 01/15/18 [History] Bupropion HCl 150 mg Sr [Wellbutrin SR 150 MG] 150 mg PO DAILY 01/15/18 [ History] Fluocinonide 60 gm TP BID 01/15/18 [History] Furosemide 20 mg [Lasix 20 mg] 20 mg PO DAILY 01/15/18 [History] Hydrocodone/APAP 10/325 mg [Cedar 10/325 MG Tablet] 1 tab PO Q6H PRN PRN 01/15/18 [History] Isosorbide Mononitrate 30 mg [Imdur 30 MG] 30 mg PO DAILY 01/15/18 [History ] Lisinopril 5 mg [Zestril 5 MG] 5 mg PO DAILY 01/15/18 [History] Metoprolol Succinate 50 mg [Toprol Xl 50 MG] 50 mg PO BID 01/15/18 [ History] Pramipexole Di-HCl [Mirapex] 0.25 mg PO HS 01/15/18 [History] Pyridoxine HCl (Vitamin B6) [Vitamin B-6] 100 mg PO DAILY 01/15/18 [History] Hx Tetanus, Diphtheria Vaccination/Date Given: No Hx Influenza Vaccination/Date Given: Yes Hx Pneumococcal Vaccination/Date Given: Yes - Review of Systems Constitutional: No Fever, No Chills Eyes: No Symptoms Ears, Nose, & Throat: No Symptoms Respiratory: No Cough, No Dyspnea Cardiac: No Chest Pain, No Edema, No Syncope Abdominal/Gastrointestinal: Abdominal Pain, Diarrhea, No Nausea, No Vomiting, No Constipation, No Hematemesis, No Hematochezia, No Melena, No Dysphagia, No Appetite Changes Genitourinary Symptoms: No Dysuria Musculoskeletal: No Back Pain, No Neck Pain Skin: No Rash Neurological: No Dizziness, No Focal Weakness, No Sensory Changes Psychological: No Symptoms Endocrine: No Symptoms All Other Systems: Reviewed and Negative - Past Medical History Pertinent Past Medical History: Yes Neurological History: No Pertinent History ENT History: No Pertinent History Cardiac History: Angina, Coronary Artery Disease, High Cholesterol, Hypertension Respiratory History: No Pertinent History Endocrine Medical History: No Pertinent History Musculoskeletal History: Arthritis GI Medical History: No Pertinent History History: No Pertinent History Psycho-Social History: No Pertinent History Female Reproductive Disorders: Breast Cancer - Past Surgical History Past Surgical History: Yes Neuro Surgical History: No Pertinent History Cardiac: CABG, Cardiac Catheterization, Pacemaker Respiratory: No Pertinent History Gastrointestinal: No Pertinent History Genitourinary: No Pertinent History Musculoskeletal: Orthopedic Surgery Female Surgical History: Lumpectomy Other Surgical History: lumbar fusion with plate - Social History Smoking Status: Never smoker Exposure to second hand smoke: No Drug Use: none Patient Lives Alone: No - Female History Hx Now: No - Nursing Vital Signs Nursing Vital Signs: Initial Vital Signs Temperature 97.6 F 01/15/18 15:55 Pulse Rate 73 01/15/18 15:55 Respiratory Rate 16 01/15/18 15:55 Blood Pressure 192/88 01/15/18 15:55 O2 Sat by Pulse Oximetry 97 01/15/18 15:55 Pain Scale Pain Intensity 4 - Physical Exam General Appearance: no apparent distress, alert Eye Exam: PERRL/EOMI, eyes nml inspection Ears, Nose, Throat Exam: normal ENT inspection, pharynx normal, moist mucous membranes Neck Exam: normal inspection, non-tender, supple, full range of motion Respiratory Exam: normal breath sounds, lungs clear, No respiratory distress Cardiovascular Exam: regular rate/rhythm, normal heart sounds Gastrointestinal/Abdomen Exam: soft, No tenderness, No mass Back Exam: normal inspection, normal range of motion, No CVA tenderness, No vertebral tenderness Extremity Exam: normal inspection, normal range of motion, pelvis stable Neurologic Exam: alert, oriented x 3, cooperative, box hinge and lock attacher II-XII nml as tested, normal mood/affect, nml cerebellar function, sensation nml, No motor deficits Skin Exam: normal color SpO2 Interpretation: normal (97%) SpO2: 97 Oxygen Delivery: Room Air Ordered Tests: Active Orders 24 hr Category Date Time Status IV Insertion STAT Care 01/15/18 16:40 Active AMYLASE Stat Lab 01/15/18 16:51 Completed CBC W DIFF Stat Lab 01/15/18 16:51 Completed CMP Stat Lab 01/15/18 16:51 Completed CULTURE,URINE Stat Lab 01/15/18 17:47 Received LIPASE Stat Lab 01/15/18 16:51 Completed Occult Blood,Stool Other Stat Lab 01/15/18 18:48 Ordered UA W/ MICROSCOPIC Stat Lab 01/15/18 17:47 Completed Medication Summary Generic Name Dose Route Start Last Admin Trade Name Freq PRN Reason Stop Dose Admin Sodium Chloride 1,000 mls @ 100 mls/hr 01/15/18 16:45 01/15/18 17:00 Sodium Chloride 0.9% 1000 Ml IV 02/14/18 16:44 100 mls/hr .Q10H TONYA Administration Lab/Rad Data: Laboratory Result Diagrams 01/15/18 16:51 01/15/18 16:51 Laboratory Results 01/15/18 01/15/18 01/15/18 Range/Units 17:47 16:51 16:51 WBC 5.0 (4.0-10.5) K/mm3 RBC 4.00 L (4.1-5.4) M/mm3 Hgb 13.9 (12.0-16.0) gm/dl Hct 40.8 (35-47) % MCV 102.0 H (78-100) fl MCH 34.7 H (26-32) pg MCHC 34.1 (32-36) g/dl RDW 13.5 (11.5-14.0) % Plt Count 257 (150-450) K/mm3 MPV 8.8 (6-9.5) fl Gran % 65.2 (36.0-66.0) % Eos # (Auto) 0.09 (0-0.5) Absolute Lymphs (auto) 1.04 (1.0-4.6) Absolute Monos (auto) 0.61 (0.0-1.3) Lymphocytes % 20.7 L (24.0-44.0) % Monocytes % 12.1 H (0.0-12.0) % Eosinophils % 1.8 (0.00-5.0) % Basophils % 0.2 (0.0-0.4) % Absolute Granulocytes 3.28 (1.4-6.9) Basophils # 0.01 (0-0.4) Sodium 141 (137-145) mmol/L Potassium 3.8 (3.5-5.1) mmol/L Chloride 104 (98-107) mmol/L Carbon Dioxide 27 (22-30) mmol/L Anion Gap 13.0 (5-15) MEQ/L BUN 18 H (7-17) mg/dL Creatinine 0.92 (0.52-1.04) mg/dL Estimated GFR > 60.0 ML/MIN Glucose 93 (74-106) mg/dL Calcium 9.1 (8.4-10.2) mg/dL Total Bilirubin 0.60 (0.2-1.3) mg/dL AST 22 (14-36) U/L ALT 10 (0-35) U/L Alkaline Phosphatase 71 (38-126) U/L Serum Total Protein 6.9 (6.3-8.2) g/dL Albumin 3.8 (3.5-5.0) g/dL Amylase 59 (30-110) U/L Lipase 28 (23-300) U/L Ur Collection Type VOID Urine Color YELLOW (YELLOW) Urine Appearance CLEAR (CLEAR) Urine pH 7.0 (5-6) Ur Specific [place] 1.015 (1.005-1.025) Urine Protein TRACE (Negative) Urine Ketones MODERATE (NEGATIVE) Urine Blood TRACE NON-HEM (0-5) [place]/ul Urine Nitrite NEGATIVE (NEGATIVE) Urine Bilirubin NEGATIVE (NEGATIVE) Urine Urobilinogen NORMAL (0-1) mg/dL Ur Leukocyte Esterase NEGATIVE (NEGATIVE) Urine Microscopic RBC 0-2 (0-2) /HPF Ur Epithelial Cells RARE (FEW) /HPF Urine Culture Reflexed YES (NO) Urine Glucose NEGATIVE (NEGATIVE) mg/dL Specimen Received 01/15/18 1801 - Progress Progress: improved Progress Note: 01/15/18 18:54 87-year-old white female who has had a previous history of C. difficile. Arrives with complaint of 4-6 loose stools a day for 2 days she has some suprapubic tenderness. On physical examination patient is nontender abdomen is soft bowel sounds are positive. Labs are essentially normal. Patient is unable to produce stool for C. difficile. Rectal exam no obvious blood. Will release patient will give patient a slip for C. difficile for the lab results to Dr. Harden. Patient will be placed on clear fluids tonight. Patient appears to be stable and is in no distress vitals are stable. - Departure Time of Disposition: 18:55 Departure Disposition: Home Clinical Impression: Hx of Clostridium difficile infection Abdominal pain Qualifiers: Abdominal location: unspecified location Qualified Code(s): R10.9 - Unspecified abdominal pain Diarrhea Qualifiers: Diarrhea type: unspecified type Qualified Code(s): R19.7 - Diarrhea, unspecified Condition: Fair Critical Care Time: No Referrals: SABA HARDEN [Primary Care Provider] - Additional Instructions: Return home. Plenty of fluids. Clear fluids 24 hours if diarrhea or abdominal pain. Follow-up with your family doctor. You'll be given a slip for C. difficile. Bring sample to lab in accordance to lab instructions. Return for acute distress or for severe symptoms.
[2018-01-15] MEDS ORDERED: Sodium Chloride 0.9% 1000 ML 1,000 ML IV SCH (16:45)
[2018-01-15 16:54] LABS: BASOPHIL % 0.2 % (0.0-0.4); Basophil (Absolute #) 0.01 (0-0.4); Eosinophil % 1.8 % (0.00-5.0); Eosinophil (Absolute #) 0.09 (0-0.5); Granulocyte Absolute (ANC) 3.28 (1.4-6.9); Granulocytes % 65.2 % (36.0-66.0); Hematocrit 40.8 % (35-47); Hemoglobin 13.9 gm/dl (12.0-16.0); Lymphocyte (Absolute #) 1.04 (1.0-4.6); Lymphocytes % 20.7 % (24.0-44.0); Mean Corpuscular Hgb Concent. 34.1 g/dl (32-36); Mean Platelet Volume 8.8 fl (6-9.5); Monocyte (Absolute #) 0.61 (0.0-1.3); Monocytes % 12.1 % (0.0-12.0); Platelet Count 257 K/mm3 (150-450); Red Cell Distribution Width 13.5 % (11.5-14.0)
[2018-01-15 16:55] LABS: Mean Corpuscular Hemoglobin 34.7 pg (26-32)
[2018-01-15] MEDS ORDERED: Sodium Chloride 0.9% 1000 ML 1,000 ML ONE (16:58)
[2018-01-15 17:25] LABS: ALBUMIN 3.8 g/dL (3.5-5.0); ALKALINE PHOSPHATASE 71 U/L (38-126); AMYLASE 59 U/L (30-110); BLOOD UREA NITROGEN 18 mg/dL (7-17); CHLORIDE 104 mmol/L (98-107); Calcium 9.1 mg/dL (8.4-10.2); Carbon Dioxide 27 mmol/L (22-30); Creatinine 1 0.92 mg/dL (0.52-1.04); Glucose 93 mg/dL (74-106); LIPASE 28 U/L (23-300); Potassium 3.8 mmol/L (3.5-5.1); SGOT/AST 22 U/L (14-36); SGPT/ALT 10 U/L (0-35); SODIUM 141 mmol/L (137-145); Total Protein 6.9 g/dL (6.3-8.2)
[2018-01-15 18:01] LABS: Appearance CLEAR (CLEAR); Leukocyte Esterase NEGATIVE (NEGATIVE); Nitrite NEGATIVE (NEGATIVE); Specific Gravity 1.015 (1.005-1.025)
[2018-01-15 18:02] LABS: Bilirubin NEGATIVE (NEGATIVE); Blood TRACE NON-HEM Ery/ul (0-5); Glucose NEGATIVE (NEGATIVE); Ketones MODERATE (NEGATIVE); Protein,Urine Dip TRACE (Negative); Urobilinogen NORMAL mg/dL (0-1)
[2018-01-15 18:06] LABS: Epithelial Cells RARE /HPF (FEW); RBC 0-2 /HPF (0-2)
[2018-01-15 18:30] VITALS: BP 162/85
[2018-01-15 18:34] VITALS: PULSE 49
[2018-01-15 18:57] VITALS: O2SAT 97
== END 2018-01-15 17:30 | disposition home or self-care (01) ==
LOC: ED 15:42
DX: R19.7 Diarrhea, unspecified (principal); R10.9 Unspecified abdominal pain; Z79.82 Long term (current) use of aspirin; Z79.899 Other long term (current) drug therapy
CPT/HCPCS: 36000; 36415; 80053; 81000; 82150; 82272; 83690; 85025; 87086; 99283

== ENCOUNTER 2018-03-16 12:04 | Emergency (ER) | payer MEDICARE ==
--- NOTE | 2018-03-16 12:51 | ERPHSYRPT ---
- History of Present Illness Time Seen by Provider: 03/16/18 12:49 Historian: patient, family Exam Limitations: no limitations Patient Subjective Stated Complaint: has had vomiting and loose stool since . vomited x 1 now. has + C-Diff. abd pain at a 5 today. Triage Nursing Assessment: alert and ambulatory with walker.. has had a fall on sunday and was seen at [facility] and cleared of injry. has had vomiting and loose stools since .. mid abdominal pain no pain on palpation. + BS x 4 quads. denies urinazry sx. Physician History: The patient is a 7-year-old female with her daughter complaining that she has recurrent episode of C. difficile that began on . She complains of nausea, vomiting, and diarrhea. This has happened the other 2 times she had infection. The first time was several months ago when she was treated with vancomycin. The second time was January 15 and once again she was treated with vancomycin. She comes in requesting another treatment with vancomycin. She has some abdominal cramping. She denies fever or chills. She has vomited only a few times each day for the past 3 days. She's had numerous loose and watery stools over the past 3 days. Her past medical history is significant for C. difficile infection, hypertension, high cholesterol, edema, coronary artery disease, CABG, cardiac stent placement, and cardiac pacemaker. Timing/Duration: day(s) (3), gradual onset Activities at Onset: none Quality: cramping Abdominal Pain Onset Location: generalized abdomen Pain Radiation: no radiation Severity of Pain-Max: mild Severity of Pain-Current: mild Modifying Factors: Improves With: defecating Associated Symptoms: diarrhea, nausea, vomiting Previous symptoms: same symptoms as today, recently treated Allergies/Adverse Reactions: No Known Drug Allergies Allergy (Verified 03/16/18 14:41) Home Medications: Duloxetine HCl [Cymbalta] 60 mg PO DAILY 08/21/13 [History] Gabapentin 300 mg PO TID 01/24/17 [History] Ranolazine 500 MG [Ranexa 500 MG] 500 mg PO BID 01/24/17 [History] Cyanocobalamin (Vitamin B-12) [B-12] 1,000 mcg PO DAILY 05/08/17 [History] Pravastatin Sodium [Pravachol] 20 mg PO HS 05/08/17 [History] Aspirin [[place] Aspirin] 81 mg PO DAILY 01/15/18 [History] Bupropion HCl 150 mg Sr [Wellbutrin SR 150 MG] 150 mg PO DAILY 01/15/18 [ History] Fluocinonide 60 gm TP BID 01/15/18 [History] Furosemide 20 mg [Lasix 20 mg] 20 mg PO DAILY 01/15/18 [History] Hydrocodone/APAP 10/325 mg [[place] 10/325 MG Tablet] 1 tab PO Q6H PRN PRN 01/15/18 [History] Isosorbide Mononitrate 30 mg [Imdur 30 MG] 30 mg PO DAILY 01/15/18 [History ] Lisinopril 5 mg [Zestril 5 MG] 5 mg PO DAILY 01/15/18 [History] Metoprolol Succinate 50 mg [Toprol Xl 50 MG] 50 mg PO BID 01/15/18 [ History] Pramipexole Di-HCl [Mirapex] 0.25 mg PO HS 01/15/18 [History] Pyridoxine HCl (Vitamin B6) [Vitamin B-6] 100 mg PO DAILY 01/15/18 [History] Hx Tetanus, Diphtheria Vaccination/Date Given: No Hx Influenza Vaccination/Date Given: Yes Hx Pneumococcal Vaccination/Date Given: Yes Immunizations Up to Date: Yes - Review of Systems Constitutional: No Fever, No Chills Eyes: No Symptoms Ears, Nose, & Throat: No Symptoms Respiratory: No Cough, No Dyspnea Cardiac: No Chest Pain, No Edema, No Syncope Abdominal/Gastrointestinal: Abdominal Pain, Nausea, Vomiting, Diarrhea Genitourinary Symptoms: No Dysuria Musculoskeletal: No Back Pain, No Neck Pain Skin: No Rash Neurological: No Dizziness, No Focal Weakness, No Sensory Changes Psychological: No Symptoms Endocrine: No Symptoms Hematologic/Lymphatic: No Symptoms Immunological/Allergic: No Symptoms All Other Systems: Reviewed and Negative - Past Medical History Pertinent Past Medical History: Yes Neurological History: No Pertinent History ENT History: No Pertinent History Cardiac History: Angina, Coronary Artery Disease, High Cholesterol, Hypertension Respiratory History: No Pertinent History Endocrine Medical History: No Pertinent History Musculoskeletal History: Arthritis GI Medical History: No Pertinent History History: No Pertinent History Psycho-Social History: No Pertinent History Female Reproductive Disorders: Breast Cancer - Past Surgical History Past Surgical History: Yes Neuro Surgical History: No Pertinent History Cardiac: CABG, Cardiac Catheterization, Pacemaker Respiratory: No Pertinent History Gastrointestinal: No Pertinent History Genitourinary: No Pertinent History Musculoskeletal: Orthopedic Surgery Female Surgical History: Lumpectomy Other Surgical History: lumbar fusion with plate - Social History Smoking Status: Never smoker Exposure to second hand smoke: No Drug Use: none Patient Lives Alone: No - Female History Hx Now: No - Nursing Vital Signs Nursing Vital Signs: Initial Vital Signs Temperature 98.6 F 03/16/18 12:19 Pulse Rate 80 03/16/18 12:19 Respiratory Rate 18 03/16/18 12:19 Blood Pressure 186/101 03/16/18 12:19 O2 Sat by Pulse Oximetry 98 03/16/18 12:19 Pain Scale Pain Intensity 5 - Physical Exam General Appearance: no apparent distress, alert Eye Exam: PERRL/EOMI, eyes nml inspection Ears, Nose, Throat Exam: normal ENT inspection, pharynx normal, moist mucous membranes Neck Exam: normal inspection, non-tender, supple, full range of motion Respiratory Exam: normal breath sounds, lungs clear, No respiratory distress Cardiovascular Exam: regular rate/rhythm, normal heart sounds Gastrointestinal/Abdomen Exam: tenderness (mild) Pelvic Exam: not done Rectal Exam: not done Back Exam: normal inspection, normal range of motion, No CVA tenderness, No vertebral tenderness Extremity Exam: normal inspection, normal range of motion, pelvis stable Neurologic Exam: alert, oriented x 3, cooperative, normal mood/affect, nml cerebellar function, sensation nml, No motor deficits Skin Exam: normal color, warm, dry SpO2 Interpretation: normal SpO2: 98 Ordered Tests: Active Orders 24 hr Category Date Time Status OBSTR/ACUTE ABDOMEN SERIES Stat Exams 03/16/18 12:52 Taken BMP Stat Lab 03/16/18 13:15 Completed CBC W DIFF Stat Lab 03/16/18 13:15 Completed Lactic Acid Stat Lab 03/16/18 13:20 Completed Medication Summary Discontinued Medications Generic Name Dose Route Start Last Admin Trade Name Freq PRN Reason Stop Dose Admin Sodium Chloride 500 mls @ 999 mls/hr 03/16/18 12:51 03/16/18 14:35 Sodium Chloride 0.9% 1000 Ml IV 03/16/18 13:21 Infused .Q31M STA Infusion Sodium Chloride Confirm 03/16/18 13:16 Sodium Chloride 0.9% 1000 Ml Administered 03/16/18 13:17 Dose 1,000 mls @ ud .ROUTE .STK-MED ONE Ondansetron HCl 4 mg 03/16/18 12:53 03/16/18 13:24 Zofran 4 Mg/2 Ml Vial IV 03/16/18 12:54 4 mg STAT ONE Administration Ondansetron HCl Confirm 03/16/18 13:16 Zofran 4 Mg/2 Ml Vial Administered 03/16/18 13:17 Dose 4 mg .ROUTE .STK-MED ONE Lab/Rad Data: Laboratory Result Diagrams 03/16/18 13:15 03/16/18 13:15 Laboratory Results 03/16/18 03/16/18 03/16/18 Range/Units 15:22 13:20 13:15 WBC (4.0-10.5) K/mm3 RBC (4.1-5.4) M/mm3 Hgb (12.0-16.0) gm/dl Hct (35-47) % MCV (78-100) fl MCH (26-32) pg MCHC (32-36) g/dl RDW (11.5-14.0) % Plt Count (150-450) K/mm3 MPV (6-9.5) fl Gran % (36.0-66.0) % Eos # (Auto) (0-0.5) Absolute Lymphs (auto) (1.0-4.6) Absolute Monos (auto) (0.0-1.3) Lymphocytes % (24.0-44.0) % Monocytes % (0.0-12.0) % Eosinophils % (0.00-5.0) % Basophils % (0.0-0.4) % Absolute Granulocytes (1.4-6.9) Basophils # (0-0.4) Sodium 141 (137-145) mmol/L Potassium 4.2 (3.5-5.1) mmol/L Chloride 102 (98-107) mmol/L Carbon Dioxide 28 (22-30) mmol/L Anion Gap 15.0 (5-15) MEQ/L BUN 16 (7-17) mg/dL Creatinine 0.86 (0.52-1.04) mg/dL Estimated GFR > 60.0 ML/MIN Glucose 98 (74-106) mg/dL Lactic Acid 1.6 (0.4-2.0) Calcium 9.4 (8.4-10.2) mg/dL Stl C. diff Tox B Gene POSITIVE (NEGATIVE) C.difficile 027-NAP1-B1 PRESUMPTIVE NEGATIVE (NEGATIVE) 03/16/18 Range/Units 13:15 WBC 5.2 (4.0-10.5) K/mm3 RBC 4.19 (4.1-5.4) M/mm3 Hgb 14.1 (12.0-16.0) gm/dl Hct 41.8 (35-47) % MCV 99.8 (78-100) fl MCH 33.7 H (26-32) pg MCHC 33.7 (32-36) g/dl RDW 13.1 (11.5-14.0) % Plt Count 249 (150-450) K/mm3 MPV 8.9 (6-9.5) fl Gran % 58.6 (36.0-66.0) % Eos # (Auto) 0.11 (0-0.5) Absolute Lymphs (auto) 1.25 (1.0-4.6) Absolute Monos (auto) 0.78 (0.0-1.3) Lymphocytes % 24.1 (24.0-44.0) % Monocytes % 15.0 H (0.0-12.0) % Eosinophils % 2.1 (0.00-5.0) % Basophils % 0.2 (0.0-0.4) % Absolute Granulocytes 3.04 (1.4-6.9) Basophils # 0.01 (0-0.4) Sodium (137-145) mmol/L Potassium (3.5-5.1) mmol/L Chloride (98-107) mmol/L Carbon Dioxide (22-30) mmol/L Anion Gap (5-15) MEQ/L BUN (7-17) mg/dL Creatinine (0.52-1.04) mg/dL Estimated GFR ML/MIN Glucose (74-106) mg/dL Lactic Acid (0.4-2.0) Calcium (8.4-10.2) mg/dL Stl C. diff Tox B Gene (NEGATIVE) C.difficile 027-NAP1-B1 (NEGATIVE) - Progress Progress: improved Counseled pt/family regarding: lab results, diagnosis, need for follow-up - Departure Time of Disposition: 16:26 Departure Disposition: Home Clinical Impression: C. difficile diarrhea Condition: Stable Critical Care Time: No Referrals: SABA HARDEN [Primary Care Provider] - Additional Instructions: Once again you have C. difficile diarrhea. This was verified by laboratory testing today. Take vancomycin 125 mg orally 4 times a day for 10 days. Follow -up with your primary medical doctor next week for further discussion and possible treatment. Stay well hydrated. Prescriptions: Vancomycin HCl [Vancocin HCl] 125 mg PO QID #40 capsule
[2018-03-16] MEDS ORDERED: Zofran 4 MG/2 ML VIAL IV ONE (12:53)
[2018-03-16] MEDS ORDERED: Sodium Chloride 0.9% 1000 ML 1,000 ML ONE (13:16)
[2018-03-16] MEDS ORDERED: Zofran 4 MG/2 ML VIAL ONE (13:16)
[2018-03-16 13:26] LABS: BASOPHIL % 0.2 % (0.0-0.4); Basophil (Absolute #) 0.01 (0-0.4); Eosinophil % 2.1 % (0.00-5.0); Eosinophil (Absolute #) 0.11 (0-0.5); Granulocyte Absolute (ANC) 3.04 (1.4-6.9); Granulocytes % 58.6 % (36.0-66.0); Hematocrit 41.8 % (35-47); Hemoglobin 14.1 gm/dl (12.0-16.0); Lymphocyte (Absolute #) 1.25 (1.0-4.6); Lymphocytes % 24.1 % (24.0-44.0); Mean Cell Volume 99.8 fl (78-100); Mean Corpuscular Hemoglobin 33.7 pg (26-32); Mean Corpuscular Hgb Concent. 33.7 g/dl (32-36); Mean Platelet Volume 8.9 fl (6-9.5); Monocyte (Absolute #) 0.78 (0.0-1.3); Platelet Count 249 K/mm3 (150-450); Red Blood Count 4.19 M/mm3 (4.1-5.4); Red Cell Distribution Width 13.1 % (11.5-14.0); White Blood Count 5.2 K/mm3 (4.0-10.5)
[2018-03-16 13:42] LABS: BLOOD UREA NITROGEN 16 mg/dL (7-17); CHLORIDE 102 mmol/L (98-107); Calcium 9.4 mg/dL (8.4-10.2); Carbon Dioxide 28 mmol/L (22-30); Creatinine 1 0.86 mg/dL (0.52-1.04); Glucose 98 mg/dL (74-106); Potassium 4.2 mmol/L (3.5-5.1); SODIUM 141 mmol/L (137-145)
[2018-03-16 16:14] LABS: 027 TOX PROD PRESUMPTIVE NEGATIVE (NEGATIVE); TOXIGENIC C. DIFF ORG POSITIVE (NEGATIVE)
[2018-03-16 16:50] VITALS: BP 167/85; PULSE 82; O2SAT 95
--- NOTE | 2018-03-16 21:33 | XRAY ---
Indication: Nausea and vomiting. History C. difficile. Comparison: Chest exam May 08, 2017. 2 views of the abdomen nonacute in nonobstructed. Left pelvic calcified uterine fibroid versus large phlebolith. Remaining solid organs unremarkable. Moderate/advanced multilevel degenerative spondylosis, mild double curvature scoliosis, lower lumbar fusion surgery, and right-sided spinal stimulator with leads terminating T11 level. Single PA chest is clear again with cardiomegaly, left-sided dual-lead pacemaker, and large hiatal hernia. Bony thorax intact again with mild degenerative changes and scoliosis. Impression: 1. Nonacute nonobstructed abdomen. 2. One view chest demonstrates stable cardiomegaly and large hiatal hernia. No new/acute cardiopulmonary abnormalities.
[2018-03-18 12:11] LABS: Source: Feces
== END 2018-03-16 16:49 | disposition home or self-care (01) ==
LOC: ED 12:04
DX: A04.72 Enterocolitis due to Clostridium difficile, not specified as recurrent (principal); I25.810 Atherosclerosis of coronary artery bypass graft(s) without angina pectoris; I10 Essential (primary) hypertension; M19.90 Unspecified osteoarthritis, unspecified site; Z85.3 Personal history of malignant neoplasm of breast; Z95.0 Presence of cardiac pacemaker; Z79.899 Other long term (current) drug therapy
CPT/HCPCS: 36000; 36415; 74022; 80048; 83605; 85025; 87045; 87046; 87177; 87209; 87335; 87493; 96360; 96374; 99284; J2405

== ENCOUNTER 2018-04-15 12:53 | Emergency (ER) | payer MEDICARE ==
--- NOTE | 2018-04-15 13:21 | ERPHSYRPT ---
- History of Present Illness Time Seen by Provider: 04/15/18 13:17 Source: patient Patient Subjective Stated Complaint: STATES SHE WAS PUTTING WALKER INTO CAR AT [employer] AND LOST BALANCE AND FELL BACK ONTO CONCRETE STATES SHE HIT BACK OF HER HEAD AND RIGHT SIDE OF BODY. STATES SHE WAS DIZZY PRIOR TO FALL, BUT THIS IS CHRONIC. STATES PAIN IN RIGHT KNEE WELL. Triage Nursing Assessment: PT ALERT AND ORIENTED X 3. RAISED ROUND AREA ON POSTERIOR RIGHT HEADED NOTED. NO OPEN AREAS. LUNGS CLEAR. DENIES COUGH OR CONGESTION. PUPILS PERRLA. DENIES NAUSEA, VOMITING, DIARRHEA. MODERATE EDEMA TO BILATERAL LOWER EXTREMETIES. Physician History: mild to mod dizzy today [employer] boat [employer] and fell off the walker striking her head, mild headache, pt refused pain med, no neck pain, no bleeding, mild ache of the right knee, no other injury, speech fluent Allergies/Adverse Reactions: No Known Drug Allergies Allergy (Verified 03/16/18 14:41) Home Medications: Duloxetine HCl [Cymbalta] 60 mg PO DAILY 08/21/13 [History] Gabapentin 300 mg PO TID 01/24/17 [History] Ranolazine 500 MG [Ranexa 500 MG] 500 mg PO BID 01/24/17 [History] Cyanocobalamin (Vitamin B-12) [B-12] 1,000 mcg PO DAILY 05/08/17 [History] Pravastatin Sodium [Pravachol] 20 mg PO HS 05/08/17 [History] Aspirin [[place] Aspirin] 81 mg PO DAILY 01/15/18 [History] Bupropion HCl 150 mg Sr [Wellbutrin SR 150 MG] 150 mg PO DAILY 01/15/18 [ History] Fluocinonide 60 gm TP BID 01/15/18 [History] Furosemide 20 mg [Lasix 20 mg] 20 mg PO DAILY 01/15/18 [History] Hydrocodone/APAP 10/325 mg [[place] 10/325 MG Tablet] 1 tab PO Q6H PRN PRN 01/15/18 [History] Isosorbide Mononitrate 30 mg [Imdur 30 MG] 30 mg PO DAILY 01/15/18 [History ] Lisinopril 5 mg [Zestril 5 MG] 5 mg PO DAILY 01/15/18 [History] Metoprolol Succinate 50 mg [Toprol Xl 50 MG] 50 mg PO BID 01/15/18 [ History] Pramipexole Di-HCl [Mirapex] 0.25 mg PO HS 01/15/18 [History] Pyridoxine HCl (Vitamin B6) [Vitamin B-6] 100 mg PO DAILY 01/15/18 [History] Hx Tetanus, Diphtheria Vaccination/Date Given: Yes Hx Influenza Vaccination/Date Given: Yes Hx Pneumococcal Vaccination/Date Given: Yes Immunizations Up to Date: Yes - Review of Systems Constitutional: No Fever Eyes: No Vision Changes Ears, Nose, & Throat: No Mouth Pain Respiratory: No Dyspnea Cardiac: No Chest Pain Abdominal/Gastrointestinal: No Abdominal Pain, No Nausea, No Vomiting Genitourinary Symptoms: No Dysuria Musculoskeletal: Fall, No Back Pain, No Neck Pain Skin: No Rash Neurological: Dizziness, No Focal Weakness, No Lethargy, No Speech Changes - Past Medical History Pertinent Past Medical History: Yes Neurological History: No Pertinent History ENT History: No Pertinent History Cardiac History: Angina, Coronary Artery Disease, High Cholesterol, Hypertension Respiratory History: No Pertinent History Endocrine Medical History: No Pertinent History Musculoskeletal History: Arthritis GI Medical History: Other History: No Pertinent History Psycho-Social History: No Pertinent History Female Reproductive Disorders: Breast Cancer Other Medical History: C-DIFF DIAGNOSED AND BEGAN TREATMENT 4 WEEKS AGO - Past Surgical History Past Surgical History: Yes Neuro Surgical History: No Pertinent History Cardiac: CABG, Cardiac Catheterization, Pacemaker Respiratory: No Pertinent History Gastrointestinal: No Pertinent History Genitourinary: No Pertinent History Musculoskeletal: Orthopedic Surgery Female Surgical History: Lumpectomy Other Surgical History: lumbar fusion with plate - Social History Smoking Status: Never smoker Exposure to second hand smoke: No Drug Use: none Patient Lives Alone: No - Nursing Vital Signs Nursing Vital Signs: Initial Vital Signs Respiratory Rate 20 04/15/18 12:53 Blood Pressure 138/74 04/15/18 12:53 O2 Sat by Pulse Oximetry 93 L 04/15/18 12:53 Pain Scale Pain Intensity 5 - Deport Coma Score Best Eye Response ([place]): (4) open spontaneously Best Verbal Response ([place]ort): (5) oriented Best Motor Response ([place]): (6) obeys commands Leatha Total: 15 - Physical Exam General Appearance: no apparent distress Head Injury: contusions Eye Exam: bilateral eye: PERRL, EOMI ENT Exam: airway nml Neck Exam: supple, full range of motion, normal alignment Cardiovascular/Respiratory Exam: chest non-tender, regular rate/rhythm Gastrointestinal/Abdominal Exam: soft, non tender Back Exam: other (tender right scalp and anterior right knee, full milly, sen and pulses intact, nontender all spiinous processes on the back, nontender right hip and ankle) Extremity Exam: pelvis stable Mental Status Exam: alert, oriented x 3, cooperative apns Exam: normal hearing, normal speech, PERRL Skin Exam: warm, dry SpO2 Interpretation: borderline oxygenation SpO2: 93 Oxygen Delivery: Room Air - Course Nursing assessment & vital signs reviewed: Yes EKG Interpreted by Me: Other (av paced 71) - Radiology Exams Knee X-ray Interpretation: Discussed w/ radiologist, No Fracture - CT Exams Head CT Interpretation: Discussed w/radiologist, Other (no bleed) Ordered Tests: Active Orders 24 hr Category Date Time Status Terminal Supervisor STAT Care 04/15/18 13:21 Active EKG-ER Only STAT Care 04/15/18 13:21 Active IV Insertion STAT Care 04/15/18 13:21 Active Orthostatic Vital Signs STAT Care 04/15/18 14:39 Active HEAD WITHOUT CONTRAST [CT] Stat Exams 04/15/18 13:27 Completed KNEE (3 VIEWS) Stat Exams 04/15/18 13:48 Completed CBC W DIFF Stat Lab 04/15/18 14:01 Completed CMP Stat Lab 04/15/18 14:01 Completed PROTIME WITH INR Stat Lab 04/15/18 14:01 Completed TROPONIN Q3H Lab 04/15/18 14:01 Completed TROPONIN Q3H Lab 04/15/18 16:30 Ordered TROPONIN Q3H Lab 04/15/18 19:30 Ordered TROPONIN Q3H Lab 04/15/18 22:30 Ordered TROPONIN Q3H Lab 04/16/18 01:30 Ordered Lab/Rad Data: Laboratory Result Diagrams 04/15/18 14:01 04/15/18 14:01 Laboratory Results 04/15/18 04/15/18 04/15/18 Range/Units 14:01 14:01 14:01 WBC (4.0-10.5) K/mm3 RBC (4.1-5.4) M/mm3 Hgb (12.0-16.0) gm/dl Hct (35-47) % MCV (78-100) fl MCH (26-32) pg MCHC (32-36) g/dl RDW (11.5-14.0) % Plt Count (150-450) K/mm3 MPV (6-9.5) fl Gran % (36.0-66.0) % Eos # (Auto) (0-0.5) Absolute Lymphs (auto) (1.0-4.6) Absolute Monos (auto) (0.0-1.3) Lymphocytes % (24.0-44.0) % Monocytes % (0.0-12.0) % Eosinophils % (0.00-5.0) % Basophils % (0.0-0.4) % Absolute Granulocytes (1.4-6.9) Basophils # (0-0.4) PT 12.1 (9.95-12.35) SECONDS INR 1.04 (0.8-3.0) Sodium 139 (137-145) mmol/L Potassium 4.3 (3.5-5.1) mmol/L Chloride 100 (98-107) mmol/L Carbon Dioxide 30 (22-30) mmol/L Anion Gap 12.7 (5-15) MEQ/L BUN 34 H (7-17) mg/dL Creatinine 1.33 H (0.52-1.04) mg/dL Estimated GFR 40.2 ML/MIN Glucose 79 (74-106) mg/dL Calcium 9.0 (8.4-10.2) mg/dL Total Bilirubin 0.30 (0.2-1.3) mg/dL AST 20 (14-36) U/L ALT 9 (0-35) U/L Alkaline Phosphatase 64 (38-126) U/L Troponin I < 0.012 (0.000-0.034) ng/mL Serum Total Protein 6.1 L (6.3-8.2) g/dL Albumin 3.6 (3.5-5.0) g/dL 04/15/18 Range/Units 14:01 WBC 5.3 (4.0-10.5) K/mm3 RBC 3.56 L (4.1-5.4) M/mm3 Hgb 11.8 L (12.0-16.0) gm/dl Hct 35.6 (35-47) % MCV 100.0 (78-100) fl MCH 33.1 H (26-32) pg MCHC 33.1 (32-36) g/dl RDW 12.7 (11.5-14.0) % Plt Count 247 (150-450) K/mm3 MPV 8.9 (6-9.5) fl Gran % 63.7 (36.0-66.0) % Eos # (Auto) 0.13 (0-0.5) Absolute Lymphs (auto) 1.09 (1.0-4.6) Absolute Monos (auto) 0.68 (0.0-1.3) Lymphocytes % 20.7 L (24.0-44.0) % Monocytes % 12.9 H (0.0-12.0) % Eosinophils % 2.5 (0.00-5.0) % Basophils % 0.2 (0.0-0.4) % Absolute Granulocytes 3.35 (1.4-6.9) Basophils # 0.01 (0-0.4) PT (9.95-12.35) SECONDS INR (0.8-3.0) Sodium (137-145) mmol/L Potassium (3.5-5.1) mmol/L Chloride (98-107) mmol/L Carbon Dioxide (22-30) mmol/L Anion Gap (5-15) MEQ/L BUN (7-17) mg/dL Creatinine (0.52-1.04) mg/dL Estimated GFR ML/MIN Glucose (74-106) mg/dL Calcium (8.4-10.2) mg/dL Total Bilirubin (0.2-1.3) mg/dL AST (14-36) U/L ALT (0-35) U/L Alkaline Phosphatase (38-126) U/L Troponin I (0.000-0.034) ng/mL Serum Total Protein (6.3-8.2) g/dL Albumin (3.5-5.0) g/dL - Progress Progress: unchanged Counseled pt/family regarding: lab results, diagnosis, need for follow-up, rad results - Departure Time of Disposition: 15:17 Departure Disposition: Home Clinical Impression: Head injury Qualifiers: Encounter type: initial encounter Qualified Code(s): S09.90XA - Unspecified injury of head, initial encounter Condition: Stable Critical Care Time: No Referrals: SABA HARDEN [Primary Care Provider] - Instructions: Contusion (DC) Additional Instructions: ice, tylenol, see your doctor, return if worse
--- NOTE | 2018-04-15 13:59 | XRAY ---
Indication: Head injury following fall. Multiple contiguous axial images obtained through the head without contrast. Comparison: June 17, 2009. Age-appropriate global atrophy and minimal periventricular degenerative micro-ischemia bilaterally. No acute intracranial hemorrhage, abnormal extra-axial fluid collection, or mass effect. Fourth ventricle is midline without hydrocephalus. Bony calvarium intact. Small right posterior scalp hematoma. Minimal mucosal thickening of the left sphenoid sinus and minimal opacification of the inferior right mastoid air cells. Remaining visualized paranasal sinuses and mastoid air cells are clear. Impression: 1. Right posterior scalp hematoma. No underlying fracture or acute intracranial abnormalities. 2. Normal aging brain as evidenced by atrophy and degenerative micro-ischemia. 3. Incidental minimal left sphenoid sinus mucosal thickening and partial opacification of the right mastoid air cells both presumed inflammatory. CT DI 51.54
--- NOTE | 2018-04-15 14:01 | XRAY ---
Indication: Pain following fall. Comparison: None 3 views of the right knee demonstrates mild osteopenia, moderate/advanced tricompartmental degenerative changes, and scattered vascular calcifications. No other bony, articular, or soft tissue abnormalities.
[2018-04-15 14:03] LABS: BASOPHIL % 0.2 % (0.0-0.4); Basophil (Absolute #) 0.01 (0-0.4); Eosinophil % 2.5 % (0.00-5.0); Eosinophil (Absolute #) 0.13 (0-0.5); Granulocyte Absolute (ANC) 3.35 (1.4-6.9); Granulocytes % 63.7 % (36.0-66.0); Hematocrit 35.6 % (35-47); Hemoglobin 11.8 gm/dl (12.0-16.0); Lymphocyte (Absolute #) 1.09 (1.0-4.6); Lymphocytes % 20.7 % (24.0-44.0); Mean Corpuscular Hemoglobin 33.1 pg (26-32); Mean Corpuscular Hgb Concent. 33.1 g/dl (32-36); Mean Platelet Volume 8.9 fl (6-9.5); Monocyte (Absolute #) 0.68 (0.0-1.3); Monocytes % 12.9 % (0.0-12.0); Platelet Count 247 K/mm3 (150-450); Red Blood Count 3.56 M/mm3 (4.1-5.4); Red Cell Distribution Width 12.7 % (11.5-14.0); White Blood Count 5.3 K/mm3 (4.0-10.5)
[2018-04-15 14:23] LABS: ALBUMIN 3.6 g/dL (3.5-5.0); ANION GAP 12.7 MEQ/L (5-15); BILIRUBIN,TOTAL 0.3 mg/dL (0.2-1.3); Creatinine 1 1.33 mg/dL (0.52-1.04); Potassium 4.3 mmol/L (3.5-5.1); Total Protein 6.1 g/dL (6.3-8.2)
[2018-04-15 14:32] VITALS: PULSE 70
[2018-04-15 14:33] LABS: INR 1.04 (0.8-3.0)
[2018-04-15 15:09] VITALS: BP 113/62
[2018-04-15 15:20] VITALS: O2SAT 93
== END 2018-04-15 15:45 | disposition home or self-care (01) ==
LOC: ED 12:53
DX: S09.90XA Unspecified injury of head, initial encounter (principal); R42 Dizziness and giddiness; R51 Headache; M25.561 Pain in right knee; Z79.899 Other long term (current) drug therapy; W18.39XA Other fall on same level, initial encounter; Y92.512 Supermarket, store or market as the place of occurrence of the external cause
CPT/HCPCS: 36000; 36415; 70450; 73562; 80053; 84484; 85025; 85610; 93005; 93041; 99284; 99291

== ENCOUNTER 2018-05-25 08:32 | Emergency (ER) | payer MEDICARE ==
[2018-05-25] MEDS ORDERED: Zofran 4 MG/2 ML VIAL IV ONE (09:11)
[2018-05-25] MEDS ORDERED: Sodium Chloride 0.9% 1000 ML 1,000 ML IV STA (09:11)
--- NOTE | 2018-05-25 09:11 | ERPHSYRPT ---
- History of Present Illness Time Seen by Provider: 05/25/18 09:07 Source: patient, family Exam Limitations: no limitations Patient Subjective Stated Complaint: pt reports diarrhea starting yesterday, reports approx 12 diarrhea stools. states she has recently taken 3 courses of vancomycin for c diff. reports nausea. Triage Nursing Assessment: pt is aox3, pupils perrl, afebrile, resps easy and non labored, radial pulses strong and equal, abd soft non tender, bowel sounds present and active x4. skin pale warm dry. Physician History: The patient is an 87-year-old female with her daughter complaining of watery diarrhea that began 2 days ago. She has a loose bowel movement every 2 hours. She has a recent history of C. difficile infection. I saw the patient in this ER on March 16, 2018 for the same complaint. On that date she had C. difficile positive stool. She was treated at that time with vancomycin. She feels like she has same infection again today. She is nauseated. She denies abdominal pain. Her past medical history is significant for C. difficile infection, hypertension, cardiac pacemaker, and high cholesterol. Timing/Duration: day(s) (3), sudden, worse Severity: severe Modifying Factors: Improves With: nothing Associated Symptoms: nausea, other (diarrhea), No vomiting, No abdominal pain Allergies/Adverse Reactions: No Known Drug Allergies Allergy (Verified 05/25/18 08:49) Home Medications: Duloxetine HCl [Cymbalta] 60 mg PO DAILY 08/21/13 [History] Gabapentin 300 mg PO TID 01/24/17 [History] Ranolazine 500 MG [Ranexa 500 MG] 500 mg PO BID 01/24/17 [History] Cyanocobalamin (Vitamin B-12) [B-12] 1,000 mcg PO DAILY 05/08/17 [History] Pravastatin Sodium [Pravachol] 20 mg PO HS 05/08/17 [History] Aspirin [[place] Aspirin] 81 mg PO DAILY 01/15/18 [History] Bupropion HCl 150 mg Sr [Wellbutrin SR 150 MG] 150 mg PO DAILY 01/15/18 [ History] Fluocinonide 60 gm TP BID 01/15/18 [History] Furosemide 20 mg [Lasix 20 mg] 20 mg PO DAILY 01/15/18 [History] Hydrocodone/APAP 10/325 mg [[place] 10/325 MG Tablet] 1 tab PO Q6H PRN PRN 01/15/18 [History] Isosorbide Mononitrate 30 mg [Imdur 30 MG] 30 mg PO DAILY 01/15/18 [History ] Lisinopril 5 mg [Zestril 5 MG] 5 mg PO DAILY 01/15/18 [History] Metoprolol Succinate 50 mg [Toprol Xl 50 MG] 50 mg PO BID 01/15/18 [ History] Pramipexole Di-HCl [Mirapex] 0.25 mg PO HS 01/15/18 [History] Pyridoxine HCl (Vitamin B6) [Vitamin B-6] 100 mg PO DAILY 01/15/18 [History] Hx Tetanus, Diphtheria Vaccination/Date Given: Yes Hx Influenza Vaccination/Date Given: No Hx Pneumococcal Vaccination/Date Given: Yes Immunizations Up to Date: Yes - Review of Systems Constitutional: No Fever, No Chills Eyes: No Symptoms Ears, Nose, & Throat: No Symptoms Respiratory: No Cough, No Dyspnea Cardiac: No Chest Pain, No Edema, No Syncope Abdominal/Gastrointestinal: Nausea, Diarrhea, No Vomiting Genitourinary Symptoms: No Dysuria Musculoskeletal: No Back Pain, No Neck Pain Skin: No Rash Neurological: No Dizziness, No Focal Weakness, No Sensory Changes Psychological: No Symptoms Endocrine: No Symptoms Hematologic/Lymphatic: No Symptoms Immunological/Allergic: No Symptoms All Other Systems: Reviewed and Negative - Past Medical History Pertinent Past Medical History: Yes Neurological History: No Pertinent History ENT History: No Pertinent History Cardiac History: Angina, Coronary Artery Disease, High Cholesterol, Hypertension Respiratory History: No Pertinent History Endocrine Medical History: No Pertinent History Musculoskeletal History: Arthritis GI Medical History: Other History: No Pertinent History Psycho-Social History: No Pertinent History Female Reproductive Disorders: Breast Cancer Other Medical History: C-DIFF DIAGNOSED AND BEGAN TREATMENT 4 WEEKS AGO - Past Surgical History Past Surgical History: Yes Neuro Surgical History: No Pertinent History Cardiac: CABG, Cardiac Catheterization, Pacemaker Respiratory: No Pertinent History Gastrointestinal: No Pertinent History Genitourinary: No Pertinent History Musculoskeletal: Orthopedic Surgery Female Surgical History: Lumpectomy Other Surgical History: lumbar fusion with plate - Social History Smoking Status: Never smoker Exposure to second hand smoke: No Drug Use: none Patient Lives Alone: No - Female History Hx Now: No - Nursing Vital Signs Nursing Vital Signs: Initial Vital Signs Temperature 98.4 F 05/25/18 08:40 Pulse Rate 76 05/25/18 08:40 Respiratory Rate 20 05/25/18 08:40 Blood Pressure 172/94 05/25/18 08:40 O2 Sat by Pulse Oximetry 95 05/25/18 08:40 Pain Scale Pain Intensity 0 - Physical Exam General Appearance: mild distress Eye Exam: PERRL/EOMI, eyes nml inspection Ears, Nose, Throat Exam: dry mucous membranes Neck Exam: normal inspection, non-tender, supple, full range of motion Respiratory Exam: normal breath sounds, lungs clear, No respiratory distress Cardiovascular Exam: regular rate/rhythm, murmur Gastrointestinal/Abdomen Exam: soft, other (hyperactive BS), No tenderness Pelvic Exam: not done Rectal Exam: not done Back Exam: normal inspection, normal range of motion, No CVA tenderness, No vertebral tenderness Extremity Exam: normal inspection, normal range of motion, pelvis stable Neurologic Exam: alert, oriented x 3, cooperative, normal mood/affect, nml cerebellar function, nml station & gait, sensation nml, No motor deficits Skin Exam: normal color, warm, dry, No rash Lymphatic Exam: No adenopathy SpO2 Interpretation: normal SpO2: 95 Oxygen Delivery: Room Air Ordered Tests: Active Orders 24 hr Category Date Time Status IV Insertion STAT Care 05/25/18 09:11 Active Orthostatic Vital Signs STAT Care 05/25/18 09:11 Active Oxygen-ED Only NASAL CANNULA 2 lpm Care 05/25/18 09:48 Active BMP Stat Lab 05/25/18 09:20 Completed CBC W DIFF Stat Lab 05/25/18 09:20 Completed Lactic Acid Stat Lab 05/25/18 09:11 Completed Medication Summary Generic Name Dose Route Start Last Admin Trade Name Freq PRN Reason Stop Dose Admin Sodium Chloride 1,000 mls @ 999 mls/hr 05/25/18 09:11 05/25/18 09:26 Sodium Chloride 0.9% 1000 Ml IV 05/25/18 10:11 999 mls/hr .Q1H1M STA Administration Discontinued Medications Generic Name Dose Route Start Last Admin Trade Name Freq PRN Reason Stop Dose Admin Sodium Chloride Confirm 05/25/18 09:24 Sodium Chloride 0.9% 1000 Ml Administered 05/25/18 09:25 Dose 1,000 mls @ ud .ROUTE .STK-MED ONE Ondansetron HCl 4 mg 05/25/18 09:11 05/25/18 09:26 Zofran 4 Mg/2 Ml Vial IV 05/25/18 09:12 4 mg STAT ONE Administration Ondansetron HCl Confirm 05/25/18 09:24 Zofran 4 Mg/2 Ml Vial Administered 05/25/18 09:25 Dose 4 mg .ROUTE .STK-MED ONE Lab/Rad Data: Laboratory Result Diagrams 05/25/18 09:20 05/25/18 09:20 Laboratory Results 05/25/18 05/25/18 05/25/18 Range/Units 09:20 09:20 09:11 WBC 6.2 (4.0-10.5) K/mm3 RBC 4.01 L (4.1-5.4) M/mm3 Hgb 13.4 (12.0-16.0) gm/dl Hct 38.9 (35-47) % MCV 97.0 (78-100) fl MCH 33.4 H (26-32) pg MCHC 34.4 (32-36) g/dl RDW 13.7 (11.5-14.0) % Plt Count 241 (150-450) K/mm3 MPV 8.7 (6-9.5) fl Gran % 69.8 H (36.0-66.0) % Eos # (Auto) 0.09 (0-0.5) Absolute Lymphs (auto) 1.02 (1.0-4.6) Absolute Monos (auto) 0.77 (0.0-1.3) Lymphocytes % 16.3 L (24.0-44.0) % Monocytes % 12.3 H (0.0-12.0) % Eosinophils % 1.4 (0.00-5.0) % Basophils % 0.2 (0.0-0.4) % Absolute Granulocytes 4.35 (1.4-6.9) Basophils # 0.01 (0-0.4) Sodium 139 (137-145) mmol/L Potassium 3.6 (3.5-5.1) mmol/L Chloride 101 (98-107) mmol/L Carbon Dioxide 29 (22-30) mmol/L Anion Gap 12.7 (5-15) MEQ/L BUN 13 (7-17) mg/dL Creatinine 0.93 (0.52-1.04) mg/dL Estimated GFR > 60.0 ML/MIN Glucose 87 (74-106) mg/dL Lactic Acid 1.3 (0.4-2.0) Calcium 9.1 (8.4-10.2) mg/dL - Progress Progress: improved Counseled pt/family regarding: lab results, diagnosis, need for follow-up - Departure Time of Disposition: 10:05 Departure Disposition: Home Clinical Impression: Diarrhea, Hx of Clostridium difficile infection Condition: Stable Critical Care Time: No Referrals: SABA HARDEN [Primary Care Provider] - Additional Instructions: You are having another episode of diarrhea that is likely being caused once again by a C. difficile infection. You did not give a stool sample while in the ER. You were given Zofran 4 mg and fluids by IV in the ER. Take vancomycin 125 mg 4 times a day for 10 days. Take Zofran 4 mg ODT every 6 hours as needed for nausea. Follow-up with your primary medical doctor on Sunday. Prescriptions: Ondansetron ODT 4 MG [Zofran Odt 4 mg] 1 tab PO Q6H PRN PRN #10 tab.rapdis PRN Reason: Nausea/Vomiting Vancomycin HCl [Vancocin HCl] 125 mg PO QID #40 capsule
[2018-05-25] MEDS ORDERED: Sodium Chloride 0.9% 1000 ML 1,000 ML ONE (09:24)
[2018-05-25] MEDS ORDERED: Zofran 4 MG/2 ML VIAL ONE (09:24)
[2018-05-25 09:27] LABS: BASOPHIL % 0.2 % (0.0-0.4); Basophil (Absolute #) 0.01 (0-0.4); Eosinophil % 1.4 % (0.00-5.0); Eosinophil (Absolute #) 0.09 (0-0.5); Granulocyte Absolute (ANC) 4.35 (1.4-6.9); Granulocytes % 69.8 % (36.0-66.0); Hematocrit 38.9 % (35-47); Hemoglobin 13.4 gm/dl (12.0-16.0); Lymphocyte (Absolute #) 1.02 (1.0-4.6); Lymphocytes % 16.3 % (24.0-44.0); Mean Corpuscular Hemoglobin 33.4 pg (26-32); Mean Corpuscular Hgb Concent. 34.4 g/dl (32-36); Mean Platelet Volume 8.7 fl (6-9.5); Monocyte (Absolute #) 0.77 (0.0-1.3); Monocytes % 12.3 % (0.0-12.0); Platelet Count 241 K/mm3 (150-450); Red Blood Count 4.01 M/mm3 (4.1-5.4); Red Cell Distribution Width 13.7 % (11.5-14.0); White Blood Count 6.2 K/mm3 (4.0-10.5)
[2018-05-25 09:45] LABS: ANION GAP 12.7 MEQ/L (5-15); BLOOD UREA NITROGEN 13 mg/dL (7-17); CHLORIDE 101 mmol/L (98-107); Calcium 9.1 mg/dL (8.4-10.2); Carbon Dioxide 29 mmol/L (22-30); Creatinine 1 0.93 mg/dL (0.52-1.04); Glucose 87 mg/dL (74-106); Potassium 3.6 mmol/L (3.5-5.1); SODIUM 139 mmol/L (137-145)
[2018-05-25 10:29] VITALS: BP 164/88; PULSE 70; O2SAT 96
== END 2018-05-25 10:30 | disposition home or self-care (01) ==
LOC: ED 08:32
DX: R19.7 Diarrhea, unspecified (principal); R11.0 Nausea; Z86.19 Personal history of other infectious and parasitic diseases; Z79.899 Other long term (current) drug therapy
CPT/HCPCS: 36000; 36415; 80048; 83605; 85025; 96360; 96374; 99284; J2405

== ENCOUNTER 2018-10-17 10:11 | Observation (INO) | payer MEDICARE ==
--- NOTE | 2018-10-17 10:50 | ERPHSYRPT ---
- History of Present Illness Time Seen by Provider: 10/17/18 10:38 Source: patient Exam Limitations: no limitations Patient Subjective Stated Complaint: pt here generalized weakness since sunday after getting a tooth pulled pt denies any pain to mouth, she states she also feels nauseated but is abble to eat some,she cos of pain to both hips but that is normal for her Triage Nursing Assessment: pt alert, oriented, resp easy, abd soft, no edema noted, Physician History: 88-year-old white female arrives with complaint of generalized weakness since Sunday patient apparently had a tooth pulled on that day patient also is complaining of nauseousness and pain in the right lower quadrant she denies any urinary symptoms she has no chest pain or shortness of breath. Also some diarrhea. 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 difficile Timing/Duration: day(s) (2 days) Severity: moderate Modifying Factors: Improves With: nothing Associated Symptoms: nausea, abdominal pain (right lower quadrant abdominal pain ), malaise, weakness, No vomiting, No shortness of breath, No heartburn, No diaphoresis, No cough, No chills, No chest pain, No fever, No headaches, No loss of appetite, No rash, No syncope, No seizure Allergies/Adverse Reactions: No Known Drug Allergies Allergy (Verified 10/17/18 10:27) Home Medications: Duloxetine HCl [Cymbalta] 60 mg PO DAILY 08/21/13 [History] Gabapentin 300 mg PO TID 01/24/17 [History] Ranolazine 500 MG [Ranexa 500 MG] 500 mg PO BID 01/24/17 [History] Cyanocobalamin (Vitamin B-12) [B-12] 1,000 mcg PO DAILY 05/08/17 [History] Pravastatin Sodium [Pravachol] 20 mg PO HS 05/08/17 [History] Aspirin [[place] Aspirin] 81 mg PO DAILY 01/15/18 [History] Bupropion HCl 150 mg Sr [Wellbutrin SR 150 MG] 150 mg PO DAILY 01/15/18 [ History] Fluocinonide 60 gm TP BID 01/15/18 [History] Furosemide 20 mg [Lasix 20 mg] 20 mg PO DAILY 01/15/18 [History] Hydrocodone/APAP 10/325 mg [[place] 10/325 MG Tablet] 1 tab PO Q6H PRN PRN 01/15/18 [History] Isosorbide Mononitrate 30 mg [Imdur 30 MG] 30 mg PO DAILY 01/15/18 [History ] Lisinopril 5 mg [Zestril 5 MG] 5 mg PO DAILY 01/15/18 [History] Metoprolol Succinate 50 mg [Toprol Xl 50 MG] 50 mg PO BID 01/15/18 [ History] Pramipexole Di-HCl [Mirapex] 0.25 mg PO HS 01/15/18 [History] Pyridoxine HCl (Vitamin B6) [Vitamin B-6] 100 mg PO DAILY 01/15/18 [History] Hx Tetanus, Diphtheria Vaccination/Date Given: Yes Hx Influenza Vaccination/Date Given: Yes Hx Pneumococcal Vaccination/Date Given: Yes Immunizations Up to Date: Yes - Review of Systems Constitutional: Fatigue, Malaise, Weakness, No Fever, No Chills, No Lethargy, No Night Sweats, No Weight Loss Eyes: No Symptoms Ears, Nose, & Throat: No Symptoms Respiratory: No Cough, No Dyspnea Cardiac: No Chest Pain, No Edema, No Syncope Abdominal/Gastrointestinal: Abdominal Pain (right lower quadrant abdominal pain) , Nausea, Diarrhea, No Vomiting, No Constipation, No Hematemesis, No Hematochezia, No Melena, No Dysphagia, No Appetite Changes Genitourinary Symptoms: No Dysuria Musculoskeletal: No Back Pain, No Neck Pain Skin: No Rash Neurological: No Dizziness, No Focal Weakness, No Sensory Changes Psychological: No Symptoms Endocrine: No Symptoms All Other Systems: Reviewed and Negative - Past Medical History Pertinent Past Medical History: Yes Neurological History: Other ENT History: No Pertinent History Cardiac History: Angina, Arrhythmia, Coronary Artery Disease, Hypertension Respiratory History: No Pertinent History Endocrine Medical History: Other Musculoskeletal History: Osteoarthritis GI Medical History: Other History: No Pertinent History Psycho-Social History: No Pertinent History Female Reproductive Disorders: Breast Cancer Other Medical History: Essential tremors, trochanteric bursitis, numbness in fingers, incontinence, Open heart surgery CABG x4. Back surgery, Internal TENS, Pacemaker, hx of c diff - Past Surgical History Past Surgical History: Yes Neuro Surgical History: No Pertinent History Cardiac: CABG, Cardiac Catheterization, Pacemaker Respiratory: No Pertinent History Gastrointestinal: No Pertinent History Genitourinary: No Pertinent History Musculoskeletal: Orthopedic Surgery Female Surgical History: Lumpectomy Other Surgical History: lumbar fusion with plate - Social History Smoking Status: Never smoker Exposure to second hand smoke: No Drug Use: none Patient Lives Alone: No - Female History Hx Last Menstrual Period: psot Hx Now: No - Nursing Vital Signs Nursing Vital Signs: Initial Vital Signs Temperature 96.9 F 10/17/18 10:18 Pulse Rate 75 10/17/18 10:18 Respiratory Rate 16 10/17/18 10:18 Blood Pressure 198/111 10/17/18 10:18 O2 Sat by Pulse Oximetry 97 10/17/18 10:18 Pain Scale Pain Intensity 3 - Physical Exam General Appearance: mild distress, alert Eye Exam: PERRL/EOMI, eyes nml inspection Ears, Nose, Throat Exam: normal ENT inspection, TMs normal, pharynx normal, moist mucous membranes Neck Exam: normal inspection, non-tender, supple, full range of motion Respiratory Exam: normal breath sounds, lungs clear, No respiratory distress Cardiovascular Exam: regular rate/rhythm, normal heart sounds, normal peripheral pulses, capillary refill <2 sec Gastrointestinal/Abdomen Exam: soft, normal bowel sounds, tenderness (rlq tenderness), No distention, No mass, No guarding, No ecchymosis, No pulsatile mass, No rebound, No hernia, No hepatomegaly, No organomegaly, No splenomegaly, No bruit Back Exam: normal inspection, normal range of motion, No CVA tenderness, No vertebral tenderness Extremity Exam: normal inspection, normal range of motion, pelvis stable Neurologic Exam: alert, oriented x 3, cooperative, medical malpractice paralegal II-XII nml as tested, normal mood/affect, nml cerebellar function, nml station & gait, sensation nml, No motor deficits Skin Exam: normal color, warm, dry, No rash SpO2 Interpretation: normal (97%) SpO2: 97 - Course Nursing assessment & vital signs reviewed: Yes EKG Interpreted by Me: RATE (71 bpm), Other (EKG: Paced rhythm at 71 bpm no acute STOR T wave changes, ) - CT Exams Abdomen/Pelvis CT Interpretation: Discussed w/radiologist (CT abdomen and pelvis without contrast: Impression: 1. No definite acute process within the abdomen or pelvis. No evidence of bowel obstruction, abscess, or focal inflammatory pocess, or appendicitis or free air/fluid. 2. Cardiomegaly with coronary artery v. Moderate size hiatal hernia extending to the left of midline, pacemaker, neurostimulator, diffuse pancreatic atrophy. Fat-containing ventral hernias and fat-containing inguinal hernias, probable calcified uterine fibroid , evidence of prior L4-L5 fusion with grade 1 anterior subluxation of L4 over L5 , mid lumbar levoscoliosis, and advanced degenerative disc disease and degenerative joint disease throughout the visualized lower thoracolumbar spine are seen.) Ordered Tests: Active Orders 24 hr Category Date Time Status EKG-ER Only STAT Care 10/17/18 10:56 Active IV Insertion STAT Care 10/17/18 10:43 Active ABDOMEN AND PELVIS W/0 CONTRAS [CT] Stat Exams 10/17/18 12:41 Completed AMYLASE Stat Lab 10/17/18 10:45 Completed BLOOD CULTURE Stat Lab 10/17/18 11:05 Received CBC W DIFF Stat Lab 10/17/18 10:45 Completed CMP Stat Lab 10/17/18 10:45 Completed LIPASE Stat Lab 10/17/18 10:45 Completed Lactic Acid Stat Lab 10/17/18 11:28 Completed TROPONIN Q3H Lab 10/17/18 10:45 Completed TROPONIN Q3H Lab 10/17/18 13:55 Completed TROPONIN Q3H Lab 10/17/18 16:45 Ordered TROPONIN Q3H Lab 10/17/18 19:45 Ordered TROPONIN Q3H Lab 10/17/18 22:45 Ordered UA W/RFX UR CULTURE Stat Lab 10/17/18 10:30 Completed Medication Summary Generic Name Dose Route Start Last Admin Trade Name Freq PRN Reason Stop Dose Admin Sodium Chloride 1,000 mls @ 100 mls/hr 10/17/18 10:45 10/17/18 10:53 Sodium Chloride 0.9% 1000 Ml IV 11/16/18 10:44 100 mls/hr .Q10H TONYA Administration Discontinued Medications Generic Name Dose Route Start Last Admin Trade Name Freq PRN Reason Stop Dose Admin Morphine Sulfate 2 mg 10/17/18 11:59 10/17/18 12:04 Morphine Sulfate 2 Mg Inj IV 10/17/18 12:00 2 mg STAT ONE Administration Morphine Sulfate Confirm 10/17/18 12:03 Morphine Sulfate 2 Mg Inj Administered 10/17/18 12:04 Dose 2 mg .ROUTE .STK-MED ONE Morphine Sulfate 2 mg 10/17/18 12:49 10/17/18 12:51 Morphine Sulfate 2 Mg Inj IV 10/17/18 12:50 2 mg STAT ONE Administration Morphine Sulfate Confirm 10/17/18 12:50 Morphine Sulfate 2 Mg Inj Administered 10/17/18 12:51 Dose 2 mg .ROUTE .STK-MED ONE Morphine Sulfate 2 mg 10/17/18 15:02 Morphine Sulfate 2 Mg Inj IV 10/17/18 15:03 STAT ONE Lab/Rad Data: Laboratory Result Diagrams 10/17/18 10:45 10/17/18 10:45 Laboratory Results 10/17/18 10/17/18 10/17/18 Range/Units 13:55 11:28 10:45 WBC (4.0-10.5) K/mm3 RBC (4.1-5.4) M/mm3 Hgb (12.0-16.0) gm/dl Hct (35-47) % MCV (78-100) fl MCH (26-32) pg MCHC (32-36) g/dl RDW (11.5-14.0) % Plt Count (150-450) K/mm3 MPV (6-9.5) fl Gran % (36.0-66.0) % Eos # (Auto) (0-0.5) Absolute Lymphs (auto) (1.0-4.6) Absolute Monos (auto) (0.0-1.3) Lymphocytes % (24.0-44.0) % Monocytes % (0.0-12.0) % Eosinophils % (0.00-5.0) % Basophils % (0.0-0.4) % Absolute Granulocytes (1.4-6.9) Basophils # (0-0.4) Sodium (137-145) mmol/L Potassium (3.5-5.1) mmol/L Chloride (98-107) mmol/L Carbon Dioxide (22-30) mmol/L Anion Gap (5-15) MEQ/L BUN (7-17) mg/dL Creatinine (0.52-1.04) mg/dL Estimated GFR ML/MIN Glucose (74-106) mg/dL Lactic Acid 1.7 (0.4-2.0) Calcium (8.4-10.2) mg/dL Total Bilirubin (0.2-1.3) mg/dL AST (14-36) U/L ALT (0-35) U/L Alkaline Phosphatase (38-126) U/L Troponin I 0.016 0.013 (0.000-0.034) ng/mL Serum Total Protein (6.3-8.2) g/dL Albumin (3.5-5.0) g/dL Amylase (30-110) U/L Lipase (23-300) U/L Urine Color (YELLOW) Urine Appearance (CLEAR) Urine pH (5-6) Ur Specific [place] (1.005-1.025) Urine Protein (Negative) Urine Ketones (NEGATIVE) Urine Blood (0-5) [place]/ul Urine Nitrite (NEGATIVE) Urine Bilirubin (NEGATIVE) Urine Urobilinogen (0-1) mg/dL Ur Leukocyte Esterase (NEGATIVE) Urine WBC (Auto) (0-5) /HPF Urine RBC (Auto) (0-2) /HPF U Epithel Cells (Auto) (FEW) /HPF Urine Bacteria (Auto) (NEGATIVE) /HPF Urine Culture Reflexed (NO) Urine Glucose (NEGATIVE) mg/dL 10/17/18 10/17/18 10/17/18 Range/Units 10:45 10:45 10:30 WBC 5.5 (4.0-10.5) K/mm3 RBC 4.15 (4.1-5.4) M/mm3 Hgb 14.1 (12.0-16.0) gm/dl Hct 42.6 (35-47) % MCV 102.7 H (78-100) fl MCH 34.0 H (26-32) pg MCHC 33.1 (32-36) g/dl RDW 13.4 (11.5-14.0) % Plt Count 215 (150-450) K/mm3 MPV 8.9 (6-9.5) fl Gran % 73.0 H (36.0-66.0) % Eos # (Auto) 0.07 (0-0.5) Absolute Lymphs (auto) 0.88 L (1.0-4.6) Absolute Monos (auto) 0.53 (0.0-1.3) Lymphocytes % 15.9 L (24.0-44.0) % Monocytes % 9.6 (0.0-12.0) % Eosinophils % 1.3 (0.00-5.0) % Basophils % 0.2 (0.0-0.4) % Absolute Granulocytes 4.05 (1.4-6.9) Basophils # 0.01 (0-0.4) Sodium 139 (137-145) mmol/L Potassium 4.1 (3.5-5.1) mmol/L Chloride 102 (98-107) mmol/L Carbon Dioxide 31 H (22-30) mmol/L Anion Gap 10.1 (5-15) MEQ/L BUN 13 (7-17) mg/dL Creatinine 0.88 (0.52-1.04) mg/dL Estimated GFR > 60.0 ML/MIN Glucose 106 (74-106) mg/dL Lactic Acid (0.4-2.0) Calcium 9.2 (8.4-10.2) mg/dL Total Bilirubin 0.80 (0.2-1.3) mg/dL AST 22 (14-36) U/L ALT 12 (0-35) U/L Alkaline Phosphatase 82 (38-126) U/L Troponin I (0.000-0.034) ng/mL Serum Total Protein 7.1 (6.3-8.2) g/dL Albumin 4.0 (3.5-5.0) g/dL Amylase 53 (30-110) U/L Lipase 31 (23-300) U/L Urine Color STRAW (YELLOW) Urine Appearance CLEAR (CLEAR) Urine pH 9.0 (5-6) Ur Specific [place] 1.009 (1.005-1.025) Urine Protein NEGATIVE (Negative) Urine Ketones NEGATIVE (NEGATIVE) Urine Blood NEGATIVE (0-5) [place]/ul Urine Nitrite NEGATIVE (NEGATIVE) Urine Bilirubin NEGATIVE (NEGATIVE) Urine Urobilinogen NEGATIVE (0-1) mg/dL Ur Leukocyte Esterase NEGATIVE (NEGATIVE) Urine WBC (Auto) NONE (0-5) /HPF Urine RBC (Auto) 0-2 (0-2) /HPF U Epithel Cells (Auto) NONE (FEW) /HPF Urine Bacteria (Auto) NONE (NEGATIVE) /HPF Urine Culture Reflexed NO (NO) Urine Glucose NEGATIVE (NEGATIVE) mg/dL - Progress Progress: improved Progress Note: 10/17/18 15:04 88-year-old white female arrives with complaint of generalized weakness and right lower quadrant abdominal pain. Symptoms for several days patient apparently had a tooth pulled the other day and began experiencing the symptoms. Patient with a paced rhythm at 71 bpm on chest x-ray CT of the abdomen and pelvis due to does not show any definite acute process patient's troponin within normal limits patient's urine is essentially normal patient's lactate is 1.7 CBC essentially normal chemistry is essentially normal However patient continues to have abdominal pain in the right lower quadrant in general malaise. She was asking for pain medications first for restless legs degenerative secondary for general aches and pains. And she complains of pain in her belly she does appear to be weak. I've discussed the case with Dr. Burdick will admit patient to observation. Diagnosis weakness, right lower quadrant abdominal pain. Will provide IV fluidsAND CONTINUE TO MONITOR. - Departure Time of Disposition: 15:07 Departure Disposition: Observation Clinical Impression: Generalized weakness Abdominal pain Qualifiers: Abdominal location: right lower quadrant Qualified Code(s): R10.31 - Right lower quadrant pain Condition: Fair Critical Care Time: No Referrals: BERTRAND BURDICK MD [Primary Care Provider] -
[2018-10-17] MEDS: Sodium Chloride 0.9% 1000 ML 1,000 ML IV SCH ×2 (10:53→22:41)
[2018-10-17 10:57] LABS: BASOPHIL % 0.2 % (0.0-0.4); Basophil (Absolute #) 0.01 (0-0.4); Eosinophil % 1.3 % (0.00-5.0); Eosinophil (Absolute #) 0.07 (0-0.5); Granulocyte Absolute (ANC) 4.05 (1.4-6.9); Hematocrit 42.6 % (35-47); Hemoglobin 14.1 gm/dl (12.0-16.0); Lymphocyte (Absolute #) 0.88 (1.0-4.6); Lymphocytes % 15.9 % (24.0-44.0); Mean Cell Volume 102.7 fl (78-100); Mean Corpuscular Hgb Concent. 33.1 g/dl (32-36); Mean Platelet Volume 8.9 fl (6-9.5); Monocyte (Absolute #) 0.53 (0.0-1.3); Monocytes % 9.6 % (0.0-12.0); Platelet Count 215 K/mm3 (150-450); Red Blood Count 4.15 M/mm3 (4.1-5.4); Red Cell Distribution Width 13.4 % (11.5-14.0); White Blood Count 5.5 K/mm3 (4.0-10.5)
[2018-10-17 10:58] LABS: Appearance CLEAR (CLEAR); Bilirubin NEGATIVE (NEGATIVE); Blood NEGATIVE Ery/ul (0-5); Glucose NEGATIVE (NEGATIVE); Ketones NEGATIVE (NEGATIVE); Leukocyte Esterase NEGATIVE (NEGATIVE); Nitrite NEGATIVE (NEGATIVE); Protein,Urine Dip NEGATIVE (Negative); RBC 0-2 /HPF (0-2); Specific Gravity 1.009 (1.005-1.025); Urobilinogen NEGATIVE mg/dL (0-1)
[2018-10-17 11:25] LABS: ALKALINE PHOSPHATASE 82 U/L (38-126); AMYLASE 53 U/L (30-110); ANION GAP 10.1 MEQ/L (5-15); BLOOD UREA NITROGEN 13 mg/dL (7-17); CHLORIDE 102 mmol/L (98-107); Calcium 9.2 mg/dL (8.4-10.2); Carbon Dioxide 31 mmol/L (22-30); Creatinine 1 0.88 mg/dL (0.52-1.04); Glucose 106 mg/dL (74-106); LIPASE 31 U/L (23-300); Potassium 4.1 mmol/L (3.5-5.1); SGOT/AST 22 U/L (14-36); SGPT/ALT 12 U/L (0-35); SODIUM 139 mmol/L (137-145); Total Protein 7.1 g/dL (6.3-8.2)
[2018-10-17] MEDS ORDERED: MORPHINE SULFATE 2 MG INJ IV ONE ×3 (11:59→15:02)
[2018-10-17] MEDS ORDERED: MORPHINE SULFATE 2 MG INJ ONE ×3 (12:03→15:06)
--- NOTE | 2018-10-17 14:07 | XRAY ---
Exam: CT of the abdomen and pelvis without IV contrast from 10/17/2018. CTDI: 22.21 Comparison: None. Indication: Right lower quadrant abdominal pain and nausea, history of prior pacemaker and neurostimulator, history of prior lower lumbar surgery. Technique: Non-IV contrast axial images were obtained through the abdomen and pelvis. No oral contrast was given. Reconstructed coronal and sagittal images were created and reviewed. Findings: The lung bases reveal no infiltrates or pleural fluid. A small calcified granuloma is seen at the anterior left lung base. There is at least a moderate-sized retrocardiac hiatal hernia extending to the left of midline on axial image #14. There is mild to moderate cardiac argument. Dense vascular calcification is seen within the left coronary artery. Leads from a pacemaker are seen overlying the right side of the heart. A metallic generator is seen within the upper posterior right flank with 2 leads extending from this into the spinal canal at the thoracolumbar junction with the leads extending up to the upper T8 level. The liver appears unremarkable. No intrahepatic biliary duct distention is seen. The gallbladder is partially distended and reveals no dense calcifications within it. The spleen is not enlarged and reveals no mass. There is diffuse atrophy of the pancreas. No other pancreatic abnormality is seen. The adrenal glands appear of unremarkable size and configuration. The kidneys reveal no gross mass, hydronephrosis, or renal calculi. A calcified, tortuous abdominal aorta is seen. No abdominal aortic aneurysm or abnormal retroperitoneal lymphadenopathy is seen. I see a small ventral hernia within the upper abdominal midline on axial image #24. This is composed mainly of intraperitoneal fat. There also appears to be a moderate-sized fat-containing umbilical hernia on axial images #47 through #51. No ventral bowel containing hernia is seen. No free intraperitoneal air is seen. I do not definitely see the appendix within the right lower quadrant, but no secondary findings are seen to suggest acute appendicitis. The region of the ileocecal valve and terminal ileum appears unremarkable. The bowel is not distended. No definite bowel wall thickening is seen. No abnormal focal fluid collections or free intraperitoneal fluid is seen. The uterus is anteflexed and tilted to the left of midline. A 1.95 cm in diameter calcification abuts the anterior left margin of the uterine fundus, probably representing a calcified fibroid. Mild vascular calcification is seen within the lower pelvis with phleboliths. The urinary bladder appears grossly unremarkable. The deep pelvic sidewalls appear normal. Bilateral fat-containing inguinal hernias are seen, larger on the left right. See axial image #78 and axial image #74. Moderate femoral artery vascular calcification is seen within each groin. No abnormal inguinal lymphadenopathy is seen. The skeleton reveals evidence of prior surgical fusion at L4-L5. There is at least grade 1 anterior spondylolisthesis of L4 over L5. Presumably, this is old. Advanced multilevel degenerative disc disease is seen throughout the lower thoracolumbar spine with vacuum disc phenomena at multiple interspace levels as well as prominent anterior lateral spurs. No compression fracture or definite bone destruction is seen. Some sternal wires are seen within the lower chest. Moderate degenerative change of the symphysis pubis is seen. There is mild to moderate convexity of the mid lumbar spine toward the left. Impression: 1. I see no definite acute process within the abdomen or pelvis. Specifically, there is no evidence of bowel obstruction, abscess or focal inflammatory process, appendicitis, or free air/free fluid. 2. Cardiomegaly with coronary artery vascular calcification, moderate sized hiatal hernia extending to the left of midline, pacemaker, neurostimulator, diffuse pancreatic atrophy, fat-containing ventral hernias and fat-containing inguinal hernias, probable calcified uterine fibroid, evidence of prior L4-L5 fusion with grade 1 anterior subluxation of L4 over L5, mid lumbar levoscoliosis, and advanced degenerative disc disease and degenerative joint disease throughout the visualized lower thoracolumbar spine are seen.
[2018-10-17] MEDS ORDERED: MORPHINE SULFATE 2 MG INJ IV PRN (15:08)
[2018-10-17] MEDS ORDERED: Zofran 4 MG/2 ML VIAL IV PRN (15:08)
[2018-10-17] MEDS ORDERED: Sodium Chloride 0.9% 1000 ML 1,000 ML IV SCH (15:15)
[2018-10-17] MEDS ORDERED: Norco 10/325 MG Tablet PO PRN (18:42)
[2018-10-17] MEDS ORDERED: ZOCOR 20MG PO SCH (22:00)
[2018-10-17] MEDS ORDERED: Mirapex 0.5 MG Tablet PO SCH (22:00)
[2018-10-17] MEDS: Ranexa 500 MG PO SCH (22:48)
[2018-10-17] MEDS: Toprol Xl 50 MG PO SCH (22:49)
[2018-10-17] MEDS: NEURONTIN 300 MG PO SCH (22:49)
[2018-10-17] MEDS ORDERED: Ambien 5 MG Tablet PO SCH (23:45)
[2018-10-18 06:30] LABS: BASOPHIL % 0.2 % (0.0-0.4); Basophil (Absolute #) 0.01 (0-0.4); Eosinophil % 2.4 % (0.00-5.0); Eosinophil (Absolute #) 0.15 (0-0.5); Granulocyte Absolute (ANC) 4.34 (1.4-6.9); Granulocytes % 68.9 % (36.0-66.0); Hematocrit 41.5 % (35-47); Hemoglobin 13.7 gm/dl (12.0-16.0); Lymphocyte (Absolute #) 1.08 (1.0-4.6); Lymphocytes % 17.1 % (24.0-44.0); Mean Cell Volume 103.2 fl (78-100); Mean Platelet Volume 8.6 fl (6-9.5); Monocyte (Absolute #) 0.72 (0.0-1.3); Monocytes % 11.4 % (0.0-12.0); Platelet Count 193 K/mm3 (150-450); Red Blood Count 4.02 M/mm3 (4.1-5.4); Red Cell Distribution Width 13.5 % (11.5-14.0); White Blood Count 6.3 K/mm3 (4.0-10.5)
[2018-10-18 06:47] LABS: ALBUMIN 3.5 g/dL (3.5-5.0); ALKALINE PHOSPHATASE 63 U/L (38-126); ANION GAP 10.3 MEQ/L (5-15); BLOOD UREA NITROGEN 13 mg/dL (7-17); CHLORIDE 107 mmol/L (98-107); Calcium 8.5 mg/dL (8.4-10.2); Carbon Dioxide 28 mmol/L (22-30); Creatinine 1 0.87 mg/dL (0.52-1.04); Glucose 90 mg/dL (74-106); Potassium 3.8 mmol/L (3.5-5.1); SGOT/AST 24 U/L (14-36); SGPT/ALT 11 U/L (0-35); SODIUM 141 mmol/L (137-145); Total Protein 6.3 g/dL (6.3-8.2)
[2018-10-18] MEDS: Sodium Chloride 0.9% 1000 ML 1,000 ML IV SCH (08:02)
--- NOTE | 2018-10-18 08:36 | PCM.SSS ---
History of Present Illness - Chief Complaint Chief Complaint: generalized weakness History of Present Illness: is a 88 year old female who reported to the ER complaining of generalized weakness and feeling poorly after having teeth pulled. she has no significant cough, fever, vomiting but does have decreased po intake. - Review of Systems Constitutional: Weakness, No Fever, No Chills Respiratory: No Cough, No Short Of Breath Cardiac: No Chest Pain, No Edema, No Syncope Abdominal/Gastrointestinal: No Abdominal Pain, No Nausea, No Vomiting, No Diarrhea Genitourinary Symptoms: No Dysuria Skin: No Rash All Other Systems: Reviewed and Negative Medications & Allergies Home Medications: Home Medication List Duloxetine HCl [Cymbalta] 60 mg PO DAILY 08/21/13 [History Confirmed 10/17/18] Gabapentin 300 mg PO TID 01/24/17 [History Confirmed 10/17/18] Ranolazine 500 MG [Ranexa 500 MG] 500 mg PO BID 01/24/17 [History Confirmed 10/17/18] Cyanocobalamin (Vitamin B-12) [B-12] 1,000 mcg PO DAILY 05/08/17 [History Confirmed 10/17/18] Pravastatin Sodium [Pravachol] 20 mg PO HS 05/08/17 [History Confirmed 10/17/18] Aspirin [[place] Aspirin EC] 81 mg PO DAILY 01/15/18 [History Confirmed 10/17] Bupropion HCl 150 mg Sr [Wellbutrin SR 150 MG] 150 mg PO DAILY 01/15/18 [ History Confirmed 10/17/18] Fluocinonide 60 gm TP BID 01/15/18 [History Confirmed 10/17/18] Furosemide 20 mg [Lasix 20 mg] 20 mg PO DAILY 01/15/18 [History Confirmed 10/17/18] Hydrocodone/APAP 10/325 mg [[place] 10/325 MG Tablet] 1 tab PO Q6H PRN PRN 01/15/18 [History Confirmed 10/17/18] Isosorbide Mononitrate 30 mg [Imdur 30 MG] 30 mg PO DAILY 01/15/18 [ History Confirmed 10/17/18] Metoprolol Succinate 50 mg [Toprol Xl 50 MG] 50 mg PO BID 01/15/18 [ History Confirmed 10/17/18] Pramipexole Di-HCl [Mirapex] 0.25 mg PO HS 01/15/18 [History Confirmed 10/17/18] Pyridoxine HCl (Vitamin B6) [Vitamin B-6] 100 mg PO DAILY 01/15/18 [History Confirmed 10/17/18] Clopidogrel Bisulfate 75 mg [PLAVIX 75 MG Tablet] 75 mg PO DAILY 10/17/18 [History Confirmed 10/17/18] Nitroglycerin 0.4 mg Tablet [Nitrostat 0.4 MG Tablet] 0.4 mg SL 10/17/18 [ History] Allergies/Adverse Reactions: Allergies Allergy/AdvReac Type Severity Reaction Status Date / Time No Known Drug Allergies Allergy Verified 10/17/18 10:27 - Past Medical History Past Medical History: Yes Neurological History: Other ENT History: No Pertinent History Cardiac History: Angina, Arrhythmia, Coronary Artery Disease, Hypertension Respiratory History: No Pertinent History Endocrine Medical History: Other Musculoskelatal History: Osteoarthritis GI Medical History: Other History: No Pertinent History Pyscho-Social History: No Pertinent History Reproductive Disorders: Breast Cancer Comment: Essential tremors, trochanteric bursitis, numbness in fingers, lumpectomy R breast and 8 lymph nodes, incontinence, Open heart surgery CABG x4. Back surgery, Internal TENS, Pacemaker, hx of c diff - Female History Hx Last Menstrual Period: postmenopausal Are you now?: No - Past Surgical History Past Surgical History: Yes Neuro Surgical History: No Pertinent History Cardiac History: CABG, Cardiac Catheterization, Pacemaker Respiratory Surgery: No Pertinent History GI Surgical History: No Pertinent History Genitourinary Surgical Hx: No Pertinent History Musculskeletal Surgical Hx: Orthopedic Surgery Female Surgical History: Lumpectomy Other Surgical History: lumbar fusion with plate - Social History Smoking Status: Never smoker Exposure to second hand smoke: No Alcohol: None Drug Use: none - Physical Exam Vital Signs: Vital Signs - 24 hr Temp Pulse Resp BP Pulse Ox 10/18/18 03:35 98.6 F 72 18 185/88 90 L 10/18/18 00:00 99 F 71 16 147/72 90 L 10/17/18 20:00 98.9 F 85 18 184/78 93 L 10/17/18 17:14 92 L 10/17/18 16:00 94 L 10/17/18 15:45 98.8 F 63 18 172/82 94 L 10/17/18 15:44 98.8 F 63 18 172/82 94 L 10/17/18 15:40 98.8 F 63 18 172/82 94 L 10/17/18 15:07 97 10/17/18 14:51 82 16 168/109 93 L 10/17/18 14:16 71 16 178/96 95 10/17/18 12:52 78 16 175/94 95 10/17/18 11:51 75 16 142/89 95 10/17/18 10:18 96.9 F 75 16 198/111 97 General Appearance: no apparent distress, alert Neurologic Exam: alert, oriented x 3, cooperative, normal mood/affect, nml cerebellar function, nml station & gait, sensation nml, No motor deficits Eye Exam: PERRL/EOMI, eyes nml inspection Respiratory Exam: normal breath sounds, lungs clear, No respiratory distress Cardiovascular Exam: regular rate/rhythm, normal heart sounds, normal peripheral pulses Gastrointestinal/Abdomen Exam: soft, normal bowel sounds, No tenderness, No mass Extremity Exam: normal inspection, normal range of motion, pelvis stable Skin Exam: normal color, warm, dry, No rash Results - Labs Lab/Micro Results: Lab Results-Last 24 Hours 10/17/18 10/17/18 10/17/18 Range/Units 10:30 10:45 10:45 WBC 5.5 (4.0-10.5) K/mm3 RBC 4.15 (4.1-5.4) M/mm3 Hgb 14.1 (12.0-16.0) gm/dl Hct 42.6 (35-47) % MCV 102.7 H (78-100) fl MCH 34.0 H (26-32) pg MCHC 33.1 (32-36) g/dl RDW 13.4 (11.5-14.0) % Plt Count 215 (150-450) K/mm3 MPV 8.9 (6-9.5) fl Gran % 73.0 H (36.0-66.0) % Eos # (Auto) 0.07 (0-0.5) Absolute Lymphs (auto) 0.88 L (1.0-4.6) Absolute Monos (auto) 0.53 (0.0-1.3) Lymphocytes % 15.9 L (24.0-44.0) % Monocytes % 9.6 (0.0-12.0) % Eosinophils % 1.3 (0.00-5.0) % Basophils % 0.2 (0.0-0.4) % Absolute Granulocytes 4.05 (1.4-6.9) Basophils # 0.01 (0-0.4) Sodium 139 (137-145) mmol/L Potassium 4.1 (3.5-5.1) mmol/L Chloride 102 (98-107) mmol/L Carbon Dioxide 31 H (22-30) mmol/L Anion Gap 10.1 (5-15) MEQ/L BUN 13 (7-17) mg/dL Creatinine 0.88 (0.52-1.04) mg/dL Estimated GFR > 60.0 ML/MIN Glucose 106 (74-106) mg/dL Lactic Acid (0.4-2.0) Calcium 9.2 (8.4-10.2) mg/dL Total Bilirubin 0.80 (0.2-1.3) mg/dL AST 22 (14-36) U/L ALT 12 (0-35) U/L Alkaline Phosphatase 82 (38-126) U/L Troponin I (0.000-0.034) ng/mL Serum Total Protein 7.1 (6.3-8.2) g/dL Albumin 4.0 (3.5-5.0) g/dL Amylase 53 (30-110) U/L Lipase 31 (23-300) U/L Urine Color STRAW (YELLOW) Urine Appearance CLEAR (CLEAR) Urine pH 9.0 (5-6) Ur Specific [place] 1.009 (1.005-1.025) Urine Protein NEGATIVE (Negative) Urine Ketones NEGATIVE (NEGATIVE) Urine Blood NEGATIVE (0-5) [place]/ul Urine Nitrite NEGATIVE (NEGATIVE) Urine Bilirubin NEGATIVE (NEGATIVE) Urine Urobilinogen NEGATIVE (0-1) mg/dL Ur Leukocyte Esterase NEGATIVE (NEGATIVE) Urine WBC (Auto) NONE (0-5) /HPF Urine RBC (Auto) 0-2 (0-2) /HPF U Epithel Cells (Auto) NONE (FEW) /HPF Urine Bacteria (Auto) NONE (NEGATIVE) /HPF Urine Culture Reflexed NO (NO) Urine Glucose NEGATIVE (NEGATIVE) mg/dL 10/17/18 10/17/18 10/17/18 Range/Units 10:45 11:28 13:55 WBC (4.0-10.5) K/mm3 RBC (4.1-5.4) M/mm3 Hgb (12.0-16.0) gm/dl Hct (35-47) % MCV (78-100) fl MCH (26-32) pg MCHC (32-36) g/dl RDW (11.5-14.0) % Plt Count (150-450) K/mm3 MPV (6-9.5) fl Gran % (36.0-66.0) % Eos # (Auto) (0-0.5) Absolute Lymphs (auto) (1.0-4.6) Absolute Monos (auto) (0.0-1.3) Lymphocytes % (24.0-44.0) % Monocytes % (0.0-12.0) % Eosinophils % (0.00-5.0) % Basophils % (0.0-0.4) % Absolute Granulocytes (1.4-6.9) Basophils # (0-0.4) Sodium (137-145) mmol/L Potassium (3.5-5.1) mmol/L Chloride (98-107) mmol/L Carbon Dioxide (22-30) mmol/L Anion Gap (5-15) MEQ/L BUN (7-17) mg/dL Creatinine (0.52-1.04) mg/dL Estimated GFR ML/MIN Glucose (74-106) mg/dL Lactic Acid 1.7 (0.4-2.0) Calcium (8.4-10.2) mg/dL Total Bilirubin (0.2-1.3) mg/dL AST (14-36) U/L ALT (0-35) U/L Alkaline Phosphatase (38-126) U/L Troponin I 0.013 0.016 (0.000-0.034) ng/mL Serum Total Protein (6.3-8.2) g/dL Albumin (3.5-5.0) g/dL Amylase (30-110) U/L Lipase (23-300) U/L Urine Color (YELLOW) Urine Appearance (CLEAR) Urine pH (5-6) Ur Specific [place] (1.005-1.025) Urine Protein (Negative) Urine Ketones (NEGATIVE) Urine Blood (0-5) [place]/ul Urine Nitrite (NEGATIVE) Urine Bilirubin (NEGATIVE) Urine Urobilinogen (0-1) mg/dL Ur Leukocyte Esterase (NEGATIVE) Urine WBC (Auto) (0-5) /HPF Urine RBC (Auto) (0-2) /HPF U Epithel Cells (Auto) (FEW) /HPF Urine Bacteria (Auto) (NEGATIVE) /HPF Urine Culture Reflexed (NO) Urine Glucose (NEGATIVE) mg/dL 10/17/18 10/17/18 10/17/18 Range/Units 16:58 19:57 22:57 WBC (4.0-10.5) K/mm3 RBC (4.1-5.4) M/mm3 Hgb (12.0-16.0) gm/dl Hct (35-47) % MCV (78-100) fl MCH (26-32) pg MCHC (32-36) g/dl RDW (11.5-14.0) % Plt Count (150-450) K/mm3 MPV (6-9.5) fl Gran % (36.0-66.0) % Eos # (Auto) (0-0.5) Absolute Lymphs (auto) (1.0-4.6) Absolute Monos (auto) (0.0-1.3) Lymphocytes % (24.0-44.0) % Monocytes % (0.0-12.0) % Eosinophils % (0.00-5.0) % Basophils % (0.0-0.4) % Absolute Granulocytes (1.4-6.9) Basophils # (0-0.4) Sodium (137-145) mmol/L Potassium (3.5-5.1) mmol/L Chloride (98-107) mmol/L Carbon Dioxide (22-30) mmol/L Anion Gap (5-15) MEQ/L BUN (7-17) mg/dL Creatinine (0.52-1.04) mg/dL Estimated GFR ML/MIN Glucose (74-106) mg/dL Lactic Acid (0.4-2.0) Calcium (8.4-10.2) mg/dL Total Bilirubin (0.2-1.3) mg/dL AST (14-36) U/L ALT (0-35) U/L Alkaline Phosphatase (38-126) U/L Troponin I 0.017 0.020 0.023 (0.000-0.034) ng/mL Serum Total Protein (6.3-8.2) g/dL Albumin (3.5-5.0) g/dL Amylase (30-110) U/L Lipase (23-300) U/L Urine Color (YELLOW) Urine Appearance (CLEAR) Urine pH (5-6) Ur Specific [place] (1.005-1.025) Urine Protein (Negative) Urine Ketones (NEGATIVE) Urine Blood (0-5) [place]/ul Urine Nitrite (NEGATIVE) Urine Bilirubin (NEGATIVE) Urine Urobilinogen (0-1) mg/dL Ur Leukocyte Esterase (NEGATIVE) Urine WBC (Auto) (0-5) /HPF Urine RBC (Auto) (0-2) /HPF U Epithel Cells (Auto) (FEW) /HPF Urine Bacteria (Auto) (NEGATIVE) /HPF Urine Culture Reflexed (NO) Urine Glucose (NEGATIVE) mg/dL 10/18/18 10/18/18 Range/Units 06:23 06:23 WBC 6.3 (4.0-10.5) K/mm3 RBC 4.02 L (4.1-5.4) M/mm3 Hgb 13.7 (12.0-16.0) gm/dl Hct 41.5 (35-47) % MCV 103.2 H (78-100) fl MCH 34.0 H (26-32) pg MCHC 33.0 (32-36) g/dl RDW 13.5 (11.5-14.0) % Plt Count 193 (150-450) K/mm3 MPV 8.6 (6-9.5) fl Gran % 68.9 H (36.0-66.0) % Eos # (Auto) 0.15 (0-0.5) Absolute Lymphs (auto) 1.08 (1.0-4.6) Absolute Monos (auto) 0.72 (0.0-1.3) Lymphocytes % 17.1 L (24.0-44.0) % Monocytes % 11.4 (0.0-12.0) % Eosinophils % 2.4 (0.00-5.0) % Basophils % 0.2 (0.0-0.4) % Absolute Granulocytes 4.34 (1.4-6.9) Basophils # 0.01 (0-0.4) Sodium 141 (137-145) mmol/L Potassium 3.8 (3.5-5.1) mmol/L Chloride 107 (98-107) mmol/L Carbon Dioxide 28 (22-30) mmol/L Anion Gap 10.3 (5-15) MEQ/L BUN 13 (7-17) mg/dL Creatinine 0.87 (0.52-1.04) mg/dL Estimated GFR > 60.0 ML/MIN Glucose 90 (74-106) mg/dL Lactic Acid (0.4-2.0) Calcium 8.5 (8.4-10.2) mg/dL Total Bilirubin 0.90 (0.2-1.3) mg/dL AST 24 (14-36) U/L ALT 11 (0-35) U/L Alkaline Phosphatase 63 (38-126) U/L Troponin I (0.000-0.034) ng/mL Serum Total Protein 6.3 (6.3-8.2) g/dL Albumin 3.5 (3.5-5.0) g/dL Amylase (30-110) U/L Lipase (23-300) U/L Urine Color (YELLOW) Urine Appearance (CLEAR) Urine pH (5-6) Ur Specific [place] (1.005-1.025) Urine Protein (Negative) Urine Ketones (NEGATIVE) Urine Blood (0-5) [place]/ul Urine Nitrite (NEGATIVE) Urine Bilirubin (NEGATIVE) Urine Urobilinogen (0-1) mg/dL Ur Leukocyte Esterase (NEGATIVE) Urine WBC (Auto) (0-5) /HPF Urine RBC (Auto) (0-2) /HPF U Epithel Cells (Auto) (FEW) /HPF Urine Bacteria (Auto) (NEGATIVE) /HPF Urine Culture Reflexed (NO) Urine Glucose (NEGATIVE) mg/dL - Radiology Impressions Radiology Exams & Impressions: Radiology Procedures Category Date Time Status ABDOMEN AND PELVIS W/0 CONTRAS [CT] Stat Exams 10/17/18 12:41 Completed - Other Procedures and Tests Respiratory Therapy 10/17/18 17:14 Respiratory Therapy Assessment DAILY Assessment/Plan (1) Generalized weakness Current Visit: Yes Status: Acute Assessment & Plan: feelling much better after hydration overnight, she feels back to her usual functional status, she is agreeable to home health, her is currently in the care home. Code(s): R53.1 - WEAKNESS (2) Dehydration Current Visit: No Status: Acute Code(s): E86.0 - DEHYDRATION Hospital Summary - Vitals & Intake/Output Vital Signs: Vital Signs Temperature 98.6 F 10/18/18 03:35 Pulse Rate 72 10/18/18 03:35 Respiratory Rate 18 10/18/18 03:35 Blood Pressure 185/88 10/18/18 03:35 O2 Sat by Pulse Oximetry 90 L 10/18/18 03:35 Intake & Output: Intake & Output 10/15/18 10/16/18 10/17/18 10/18/18 11:59 11:59 11:59 11:59 Intake Total 1552 Output Total 600 Balance 952 Weight 83.915 kg 77.1 kg - Lab Result Diagrams: 10/18/18 06:23 10/18/18 06:23 Lab Results-Last 24 Hrs: Lab Results-Last 24 Hours 10/17/18 10/17/18 10/17/18 Range/Units 10:30 10:45 10:45 WBC 5.5 (4.0-10.5) K/mm3 RBC 4.15 (4.1-5.4) M/mm3 Hgb 14.1 (12.0-16.0) gm/dl Hct 42.6 (35-47) % MCV 102.7 H (78-100) fl MCH 34.0 H (26-32) pg MCHC 33.1 (32-36) g/dl RDW 13.4 (11.5-14.0) % Plt Count 215 (150-450) K/mm3 MPV 8.9 (6-9.5) fl Gran % 73.0 H (36.0-66.0) % Eos # (Auto) 0.07 (0-0.5) Absolute Lymphs (auto) 0.88 L (1.0-4.6) Absolute Monos (auto) 0.53 (0.0-1.3) Lymphocytes % 15.9 L (24.0-44.0) % Monocytes % 9.6 (0.0-12.0) % Eosinophils % 1.3 (0.00-5.0) % Basophils % 0.2 (0.0-0.4) % Absolute Granulocytes 4.05 (1.4-6.9) Basophils # 0.01 (0-0.4) Sodium 139 (137-145) mmol/L Potassium 4.1 (3.5-5.1) mmol/L Chloride 102 (98-107) mmol/L Carbon Dioxide 31 H (22-30) mmol/L Anion Gap 10.1 (5-15) MEQ/L BUN 13 (7-17) mg/dL Creatinine 0.88 (0.52-1.04) mg/dL Estimated GFR > 60.0 ML/MIN Glucose 106 (74-106) mg/dL Lactic Acid (0.4-2.0) Calcium 9.2 (8.4-10.2) mg/dL Total Bilirubin 0.80 (0.2-1.3) mg/dL AST 22 (14-36) U/L ALT 12 (0-35) U/L Alkaline Phosphatase 82 (38-126) U/L Troponin I (0.000-0.034) ng/mL Serum Total Protein 7.1 (6.3-8.2) g/dL Albumin 4.0 (3.5-5.0) g/dL Amylase 53 (30-110) U/L Lipase 31 (23-300) U/L Urine Color STRAW (YELLOW) Urine Appearance CLEAR (CLEAR) Urine pH 9.0 (5-6) Ur Specific [place] 1.009 (1.005-1.025) Urine Protein NEGATIVE (Negative) Urine Ketones NEGATIVE (NEGATIVE) Urine Blood NEGATIVE (0-5) [place]/ul Urine Nitrite NEGATIVE (NEGATIVE) Urine Bilirubin NEGATIVE (NEGATIVE) Urine Urobilinogen NEGATIVE (0-1) mg/dL Ur Leukocyte Esterase NEGATIVE (NEGATIVE) Urine WBC (Auto) NONE (0-5) /HPF Urine RBC (Auto) 0-2 (0-2) /HPF U Epithel Cells (Auto) NONE (FEW) /HPF Urine Bacteria (Auto) NONE (NEGATIVE) /HPF Urine Culture Reflexed NO (NO) Urine Glucose NEGATIVE (NEGATIVE) mg/dL 10/17/18 10/17/1819 Range/Units 10:45 11:28 13:55 WBC (4.0-10.5) K/mm3 RBC (4.1-5.4) M/mm3 Hgb (12.0-16.0) gm/dl Hct (35-47) % MCV (78-100) fl MCH (26-32) pg MCHC (32-36) g/dl RDW (11.5-14.0) % Plt Count (150-450) K/mm3 MPV (6-9.5) fl Gran % (36.0-66.0) % Eos # (Auto) (0-0.5) Absolute Lymphs (auto) (1.0-4.6) Absolute Monos (auto) (0.0-1.3) Lymphocytes % (24.0-44.0) % Monocytes % (0.0-12.0) % Eosinophils % (0.00-5.0) % Basophils % (0.0-0.4) % Absolute Granulocytes (1.4-6.9) Basophils # (0-0.4) Sodium (137-145) mmol/L Potassium (3.5-5.1) mmol/L Chloride (98-107) mmol/L Carbon Dioxide (22-30) mmol/L Anion Gap (5-15) MEQ/L BUN (7-17) mg/dL Creatinine (0.52-1.04) mg/dL Estimated GFR ML/MIN Glucose (74-106) mg/dL Lactic Acid 1.7 (0.4-2.0) Calcium (8.4-10.2) mg/dL Total Bilirubin (0.2-1.3) mg/dL AST (14-36) U/L ALT (0-35) U/L Alkaline Phosphatase (38-126) U/L Troponin I 0.013 0.016 (0.000-0.034) ng/mL Serum Total Protein (6.3-8.2) g/dL Albumin (3.5-5.0) g/dL Amylase (30-110) U/L Lipase (23-300) U/L Urine Color (YELLOW) Urine Appearance (CLEAR) Urine pH (5-6) Ur Specific [place] (1.005-1.025) Urine Protein (Negative) Urine Ketones (NEGATIVE) Urine Blood (0-5) [place]/ul Urine Nitrite (NEGATIVE) Urine Bilirubin (NEGATIVE) Urine Urobilinogen (0-1) mg/dL Ur Leukocyte Esterase (NEGATIVE) Urine WBC (Auto) (0-5) /HPF Urine RBC (Auto) (0-2) /HPF U Epithel Cells (Auto) (FEW) /HPF Urine Bacteria (Auto) (NEGATIVE) /HPF Urine Culture Reflexed (NO) Urine Glucose (NEGATIVE) mg/dL 10/17/18 10/17/18 10/17/18 Range/Units 16:58 19:57 22:57 WBC (4.0-10.5) K/mm3 RBC (4.1-5.4) M/mm3 Hgb (12.0-16.0) gm/dl Hct (35-47) % MCV (78-100) fl MCH (26-32) pg MCHC (32-36) g/dl RDW (11.5-14.0) % Plt Count (150-450) K/mm3 MPV (6-9.5) fl Gran % (36.0-66.0) % Eos # (Auto) (0-0.5) Absolute Lymphs (auto) (1.0-4.6) Absolute Monos (auto) (0.0-1.3) Lymphocytes % (24.0-44.0) % Monocytes % (0.0-12.0) % Eosinophils % (0.00-5.0) % Basophils % (0.0-0.4) % Absolute Granulocytes (1.4-6.9) Basophils # (0-0.4) Sodium (137-145) mmol/L Potassium (3.5-5.1) mmol/L Chloride (98-107) mmol/L Carbon Dioxide (22-30) mmol/L Anion Gap (5-15) MEQ/L BUN (7-17) mg/dL Creatinine (0.52-1.04) mg/dL Estimated GFR ML/MIN Glucose (74-106) mg/dL Lactic Acid (0.4-2.0) Calcium (8.4-10.2) mg/dL Total Bilirubin (0.2-1.3) mg/dL AST (14-36) U/L ALT (0-35) U/L Alkaline Phosphatase (38-126) U/L Troponin I 0.017 0.020 0.023 (0.000-0.034) ng/mL Serum Total Protein (6.3-8.2) g/dL Albumin (3.5-5.0) g/dL Amylase (30-110) U/L Lipase (23-300) U/L Urine Color (YELLOW) Urine Appearance (CLEAR) Urine pH (5-6) Ur Specific [place] (1.005-1.025) Urine Protein (Negative) Urine Ketones (NEGATIVE) Urine Blood (0-5) [place]/ul Urine Nitrite (NEGATIVE) Urine Bilirubin (NEGATIVE) Urine Urobilinogen (0-1) mg/dL Ur Leukocyte Esterase (NEGATIVE) Urine WBC (Auto) (0-5) /HPF Urine RBC (Auto) (0-2) /HPF U Epithel Cells (Auto) (FEW) /HPF Urine Bacteria (Auto) (NEGATIVE) /HPF Urine Culture Reflexed (NO) Urine Glucose (NEGATIVE) mg/dL 10/18/18 10/18/18 Range/Units 06:23 06:23 WBC 6.3 (4.0-10.5) K/mm3 RBC 4.02 L (4.1-5.4) M/mm3 Hgb 13.7 (12.0-16.0) gm/dl Hct 41.5 (35-47) % MCV 103.2 H (78-100) fl MCH 34.0 H (26-32) pg MCHC 33.0 (32-36) g/dl RDW 13.5 (11.5-14.0) % Plt Count 193 (150-450) K/mm3 MPV 8.6 (6-9.5) fl Gran % 68.9 H (36.0-66.0) % Eos # (Auto) 0.15 (0-0.5) Absolute Lymphs (auto) 1.08 (1.0-4.6) Absolute Monos (auto) 0.72 (0.0-1.3) Lymphocytes % 17.1 L (24.0-44.0) % Monocytes % 11.4 (0.0-12.0) % Eosinophils % 2.4 (0.00-5.0) % Basophils % 0.2 (0.0-0.4) % Absolute Granulocytes 4.34 (1.4-6.9) Basophils # 0.01 (0-0.4) Sodium 141 (137-145) mmol/L Potassium 3.8 (3.5-5.1) mmol/L Chloride 107 (98-107) mmol/L Carbon Dioxide 28 (22-30) mmol/L Anion Gap 10.3 (5-15) MEQ/L BUN 13 (7-17) mg/dL Creatinine 0.87 (0.52-1.04) mg/dL Estimated GFR > 60.0 ML/MIN Glucose 90 (74-106) mg/dL Lactic Acid (0.4-2.0) Calcium 8.5 (8.4-10.2) mg/dL Total Bilirubin 0.90 (0.2-1.3) mg/dL AST 24 (14-36) U/L ALT 11 (0-35) U/L Alkaline Phosphatase 63 (38-126) U/L Troponin I (0.000-0.034) ng/mL Serum Total Protein 6.3 (6.3-8.2) g/dL Albumin 3.5 (3.5-5.0) g/dL Amylase (30-110) U/L Lipase (23-300) U/L Urine Color (YELLOW) Urine Appearance (CLEAR) Urine pH (5-6) Ur Specific [place] (1.005-1.025) Urine Protein (Negative) Urine Ketones (NEGATIVE) Urine Blood (0-5) [place]/ul Urine Nitrite (NEGATIVE) Urine Bilirubin (NEGATIVE) Urine Urobilinogen (0-1) mg/dL Ur Leukocyte Esterase (NEGATIVE) Urine WBC (Auto) (0-5) /HPF Urine RBC (Auto) (0-2) /HPF U Epithel Cells (Auto) (FEW) /HPF Urine Bacteria (Auto) (NEGATIVE) /HPF Urine Culture Reflexed (NO) Urine Glucose (NEGATIVE) mg/dL - Radiology Exams Ordered Rad Exams-Entire Visit: Radiology Procedures Category Date Time Status ABDOMEN AND PELVIS W/0 CONTRAS [CT] Stat Exams 10/17/18 12:41 Completed - Procedures and Test Procedures and Tests throughout Hospitalization: Therapy Orders & Screens 10/17/18 15:08 Respiratory Therapy Consult ROUTINE Comment: Reason For Exam: 10/17/18 17:14 Respiratory Therapy Assessment DAILY Comment: Diagnosis: generalized weakness - Discharge Disposition: Home, Self-Care Condition: Good Prescriptions: Continue Duloxetine HCl [Cymbalta] 60 mg PO DAILY Ranolazine 500 MG [Ranexa 500 MG] 500 mg PO BID Gabapentin 300 mg PO TID Cyanocobalamin (Vitamin B-12) [B-12] 1,000 mcg PO DAILY Pravastatin Sodium [Pravachol] 20 mg PO HS Isosorbide Mononitrate 30 mg [Imdur 30 MG] 30 mg PO DAILY Bupropion HCl 150 mg Sr [Wellbutrin SR 150 MG] 150 mg PO DAILY Pyridoxine HCl (Vitamin B6) [Vitamin B-6] 100 mg PO DAILY Furosemide 20 mg [Lasix 20 mg] 20 mg PO DAILY Aspirin [[place] Aspirin EC] 81 mg PO DAILY Hydrocodone/APAP 10/325 mg [[place] 10/325 MG Tablet] 1 tab PO Q6H PRN PRN PRN Reason: Pain Fluocinonide 60 gm TP BID Pramipexole Di-HCl [Mirapex] 0.25 mg PO HS Metoprolol Succinate 50 mg [Toprol Xl 50 MG] 50 mg PO BID Clopidogrel Bisulfate 75 mg [PLAVIX 75 MG Tablet] 75 mg PO DAILY Nitroglycerin 0.4 mg Tablet [Nitrostat 0.4 MG Tablet] 0.4 mg SL Follow up with: BERTRAND BURDICK MD [Primary Care Provider] - 1 Week
[2018-10-18 08:51] VITALS: BP 174/80; PULSE 66; O2SAT 93
[2018-10-18] MEDS: Ranexa 500 MG PO SCH (09:47)
[2018-10-18] MEDS: Toprol Xl 50 MG PO SCH (09:47)
[2018-10-18] MEDS: NEURONTIN 300 MG PO SCH (09:47)
[2018-10-18] MEDS ORDERED: FLUOCINONIDE TP SCH (22:00)
[2018-10-19] MEDS ORDERED: Wellbutrin SR 150 MG PO SCH (10:00)
[2018-10-19] MEDS ORDERED: Vitamin B-6 (Pyridoxine) 100 MG PO SCH (10:00)
[2018-10-19] MEDS ORDERED: PLAVIX 75 MG Tablet PO SCH (10:00)
[2018-10-19] MEDS ORDERED: ECOTRIN 81 MG PO SCH (10:00)
[2018-10-19] MEDS ORDERED: Imdur 30 MG PO SCH (10:00)
[2018-10-19] MEDS ORDERED: LASIX 20 MG PO SCH (10:00)
[2018-10-19] MEDS ORDERED: NON-FORMULARY ITEM (Cyanocobalamin (Vitamin B-12) [B-12] 1,000 MCG) PO SCH (10:00)
[2018-10-19] MEDS ORDERED: NON-FORMULARY ITEM (Duloxetine Hcl [Cymbalta] 60 MG) PO SCH (10:00)
== END 2018-10-18 10:15 | disposition home health service (06) ==
LOC: ED 10:11 → MED SURG 15:30
PROVIDERS: ADMIT Family Medicine; ATTEND Family Medicine
DX: R53.1 Weakness (principal); E86.0 Dehydration; R10.31 Right lower quadrant pain; Z79.899 Other long term (current) drug therapy; Z95.0 Presence of cardiac pacemaker; Z79.01 Long term (current) use of anticoagulants; I10 Essential (primary) hypertension; K08.409 Partial loss of teeth, unspecified cause, unspecified class; Z85.3 Personal history of malignant neoplasm of breast
CPT/HCPCS: 36415; 74176; 80053; 81001; 82150; 83605; 83690; 84484; 85025; 87040; 93005; 93268; 94762; 96360; 96361; 96374; 96376; 99285; G0378; J2270; A9270-GY

== ENCOUNTER 2018-10-26 05:01 | Emergency (ER) | payer MEDICARE ==
--- NOTE | 2018-10-26 05:38 | ERPHSYRPT ---
- History of Present Illness Historian: patient Exam Limitations: no limitations Patient Subjective Stated Complaint: started vomiting with stomach pain. over mid abdomen. states ate a blizzard from [employer] at 4pm. Triage Nursing Assessment: pt brought in by EMS. A/O speech clear, c/o abdominal pain. abd soft, tender to palp. c/o pain in center of abdomen. hypoactive bowel sounds X 4 quads. last BM 1 hour ago. diarrhea stools Timing/Duration: today Activities at Onset: none Quality: cramping Abdominal Pain Onset Location: periumbilical, generalized abdomen Pain Radiation: no radiation Severity of Pain-Current: moderate Modifying Factors: Improves With: other (patient ate a [employer] blizzard prior to onset of symptoms) Associated Symptoms: diarrhea, nausea, vomiting, weakness, No back, No chest pain, No diaphoresis, No fever/chills, No fatigue, No headache, No heartburn, No loss of appetite, No neck pain, No rash, No shortness of breath, No syncope Previous symptoms: recent hospitalization (Patient hospitalized October 17 and was discharged October 18 with right lower quadrant pain, dehydration, generalized weakness) Hx Tetanus, Diphtheria Vaccination/Date Given: No Hx Influenza Vaccination/Date Given: Yes Hx Pneumococcal Vaccination/Date Given: Yes Immunizations Up to Date: Yes <RORY SAVAGE - Last Filed: 10/26/18 07:07> <MURPHY PHAN - Last Filed: 10/26/18 08:01> - History of Present Illness Time Seen by Provider: 10/26/18 05:27 Physician History: 88-year-old white female with history of angina, arrhythmia, coronary artery disease, high blood pressure, osteoarthritis Patient who was recently admitted to observation on 17 October secondary to generalized weakness and right lower quadrant pain. Patient arrives with complaint of. Umbilical pain nausea vomiting and diarrhea symptoms since 4:00 this evening patient states she ate a [employer] blizzard prior to onset of symptoms. She denies any fever she denies any dysuria she denies melena hematochezia. Past medical history includes angina, arrhythmias, coronary artery disease, high blood pressure, osteoarthritis, breast cancer, essential tremor, trochanteric bursitis, numbness in her finger, incontinence, CABG, back surgery , internal TENS unit, pacemaker, C. difficile Past surgical history includes CABG, cardiac catheter, pacer, orthopedic surgery , lumpectomy, lumbar fusion with a plate Social history denies tobacco alcohol or illicit drug use (RORY SAVAGE) Allergies/Adverse Reactions: No Known Drug Allergies Allergy (Verified 10/17/18 10:27) Home Medications: Duloxetine HCl [Cymbalta] 60 mg PO DAILY 08/21/13 [History] Gabapentin 300 mg PO TID 01/24/17 [History] Ranolazine 500 MG [Ranexa 500 MG] 500 mg PO BID 01/24/17 [History] Cyanocobalamin (Vitamin B-12) [B-12] 1,000 mcg PO DAILY 05/08/17 [History] Pravastatin Sodium [Pravachol] 20 mg PO HS 05/08/17 [History] Aspirin [[place]field Aspirin EC] 81 mg PO DAILY 01/15/18 [History] Bupropion HCl 150 mg Sr [Wellbutrin SR 150 MG] 300 mg PO DAILY 01/15/18 [ History] Fluocinonide 60 gm TP BID 01/15/18 [History] Furosemide 20 mg [Lasix 20 mg] 20 mg PO DAILY 01/15/18 [History] Hydrocodone/APAP 10/325 mg [[place] 10/325 MG Tablet] 1 tab PO Q6H PRN PRN 01/15/18 [History] Metoprolol Succinate 50 mg [Toprol Xl 50 MG] 50 mg PO DAILY 01/15/18 [ History] Pramipexole Di-HCl [Mirapex] 0.5 mg PO HS 01/15/18 [History] Pyridoxine HCl (Vitamin B6) [Vitamin B-6] 100 mg PO DAILY 01/15/18 [History] Clopidogrel Bisulfate 75 mg [PLAVIX 75 MG Tablet] 75 mg PO DAILY 10/17/18 [History] Nitroglycerin 0.4 mg Tablet [Nitrostat 0.4 MG Tablet] 0.4 mg SL 10/17/18 [ History] - Review of Systems Constitutional: No Fever, No Chills Eyes: No Symptoms Ears, Nose, & Throat: No Symptoms Respiratory: No Cough, No Dyspnea Cardiac: No Chest Pain, No Edema, No Syncope Abdominal/Gastrointestinal: Abdominal Pain, Nausea, Vomiting, Diarrhea, No Constipation, No Hematemesis, No Hematochezia, No Melena, No Dysphagia, No Appetite Changes Genitourinary Symptoms: No Dysuria Musculoskeletal: No Back Pain, No Neck Pain Skin: No Rash Neurological: No Dizziness, No Focal Weakness, No Sensory Changes Psychological: No Symptoms Endocrine: No Symptoms All Other Systems: Reviewed and Negative <HUSSEINRORY LELA - Last Filed: 10/26/18 07:07> - Past Medical History Pertinent Past Medical History: Yes Neurological History: Other ENT History: No Pertinent History Cardiac History: Angina, Arrhythmia, Coronary Artery Disease, Hypertension Respiratory History: No Pertinent History Endocrine Medical History: Other Musculoskeletal History: Osteoarthritis GI Medical History: Other History: No Pertinent History Psycho-Social History: No Pertinent History Female Reproductive Disorders: Breast Cancer Other Medical History: Essential tremors, trochanteric bursitis, numbness in fingers, lumpectomy R breast and 8 lymph nodes, incontinence, Open heart surgery CABG x4. Back surgery, Internal TENS, Pacemaker, hx of c diff - Past Surgical History Past Surgical History: Yes Neuro Surgical History: No Pertinent History Cardiac: CABG, Cardiac Catheterization, Pacemaker Respiratory: No Pertinent History Gastrointestinal: No Pertinent History Genitourinary: No Pertinent History Musculoskeletal: Orthopedic Surgery Female Surgical History: Lumpectomy Other Surgical History: lumbar fusion with plate, stimulator implant - Social History Smoking Status: Never smoker Exposure to second hand smoke: No Drug Use: none Patient Lives Alone: No <RORY SAVAGE - Last Filed: 10/26/18 07:07> - Physical Exam General Appearance: moderate distress, alert Eye Exam: PERRL/EOMI, eyes nml inspection Ears, Nose, Throat Exam: normal ENT inspection, pharynx normal, moist mucous membranes Neck Exam: normal inspection, non-tender, supple, full range of motion Respiratory Exam: normal breath sounds, lungs clear, No respiratory distress Cardiovascular Exam: regular rate/rhythm, normal heart sounds, capillary refill <2 sec Gastrointestinal/Abdomen Exam: soft, tenderness (Periumbilical tendernes), No distention, No mass, No guarding, No ecchymosis, No pulsatile mass, No rebound, No hernia, No hepatomegaly, No organomegaly, No splenomegaly Back Exam: normal inspection, normal range of motion, No CVA tenderness, No vertebral tenderness Extremity Exam: normal inspection, normal range of motion, pelvis stable Neurologic Exam: alert, oriented x 3, cooperative, ore roaster II-XII nml as tested, normal mood/affect, nml cerebellar function, sensation nml, No motor deficits Skin Exam: normal color, warm, dry SpO2 Interpretation: normal (93%) <RORY SAVAGE - Last Filed: 10/26/18 07:07> - Nursing Vital Signs Nursing Vital Signs: Initial Vital Signs Temperature 98.7 F 10/26/18 05:01 Pulse Rate 57 L 10/26/18 05:01 Blood Pressure 209/92 10/26/18 05:01 Pain Scale Pain Intensity 4 - Course Nursing assessment & vital signs reviewed: Yes EKG Interpreted by Me: RATE (66 bpm), Other (EKG: dual paced rhythm, [address] or T wave changes, compared to October 17, 2018) <RORY SAVAGE - Last Filed: 10/26/18 07:07> - CT Exams Abdomen/Pelvis CT Interpretation: Tele-radiologist Report (no acute changes) <MURPHY PHAN - Last Filed: 10/26/18 08:01> Ordered Tests: Active Orders 24 hr Category Date Time Status EKG-ER Only STAT Care 10/26/18 05:30 Active IV Insertion STAT Care 10/26/18 05:30 Active ABDOMEN AND PELVIS W/0 CONTRAS [CT] Stat Exams 10/26/18 06:01 Taken AMYLASE Stat Lab 10/26/18 05:45 Completed CBC W DIFF Stat Lab 10/26/18 05:45 Completed CMP Stat Lab 10/26/18 05:45 Completed CULTURE,URINE Stat Lab 10/26/18 05:59 Received LIPASE Stat Lab 10/26/18 05:45 Completed TROPONIN Q3H Lab 10/26/18 05:45 Completed TROPONIN Q3H Lab 10/26/18 08:45 Ordered TROPONIN Q3H Lab 10/26/18 11:45 Ordered TROPONIN Q3H Lab 10/26/18 14:45 Ordered TROPONIN Q3H Lab 10/26/18 17:45 Ordered UA W/RFX UR CULTURE Stat Lab 10/26/18 05:59 Completed Medication Summary Generic Name Dose Route Start Last Admin Trade Name Freq PRN Reason Stop Dose Admin Sodium Chloride 1,000 mls @ 100 mls/hr 10/26/18 05:30 10/26/18 05:42 Sodium Chloride 0.9% 1000 Ml IV 11/25/18 05:29 100 mls/hr .Q10H TONYA Administration Discontinued Medications Generic Name Dose Route Start Last Admin Trade Name Judy PRN Reason Stop Dose Admin Morphine Sulfate 4 mg 10/26/18 05:30 10/26/18 05:42 Morphine Sulfate 4 Mg Inj IV 10/26/18 05:31 4 mg STAT ONE Administration Morphine Sulfate Confirm 10/26/18 05:39 Morphine Sulfate 4 Mg Inj Administered 10/26/18 05:40 Dose 4 mg .ROUTE .STK-MED ONE Ondansetron HCl 4 mg 10/26/18 07:35 10/26/18 07:39 Zofran 4 Mg/2 Ml Vial IV 10/26/18 07:36 4 mg STAT ONE Administration Ondansetron HCl Confirm 10/26/18 07:38 Zofran 4 Mg/2 Ml Vial Administered 10/26/18 07:39 Dose 4 mg .ROUTE .STK-MED ONE Lab/Rad Data: Laboratory Result Diagrams 10/26/18 05:45 10/26/18 05:45 Laboratory Results 10/26/18 10/26/18 10/26/18 Range/Units 05:59 05:45 05:45 WBC (4.0-10.5) K/mm3 RBC (4.1-5.4) M/mm3 Hgb (12.0-16.0) gm/dl Hct (35-47) % MCV (78-100) fl MCH (26-32) pg MCHC (32-36) g/dl RDW (11.5-14.0) % Plt Count (150-450) K/mm3 MPV (6-9.5) fl Gran % (36.0-66.0) % Eos # (Auto) (0-0.5) Absolute Lymphs (auto) (1.0-4.6) Absolute Monos (auto) (0.0-1.3) Lymphocytes % (24.0-44.0) % Monocytes % (0.0-12.0) % Eosinophils % (0.00-5.0) % Basophils % (0.0-0.4) % Absolute Granulocytes (1.4-6.9) Basophils # (0-0.4) Sodium 138 (137-145) mmol/L Potassium 3.9 (3.5-5.1) mmol/L Chloride 97 L (98-107) mmol/L Carbon Dioxide 33 H (22-30) mmol/L Anion Gap 11.6 (5-15) MEQ/L BUN 24 H (7-17) mg/dL Creatinine 0.86 (0.52-1.04) mg/dL Estimated GFR > 60.0 ML/MIN Glucose 142 H (74-106) mg/dL Calcium 9.8 (8.4-10.2) mg/dL Total Bilirubin 0.70 (0.2-1.3) mg/dL AST 23 (14-36) U/L ALT 13 (0-35) U/L Alkaline Phosphatase 89 (38-126) U/L Troponin I 0.029 (0.000-0.034) ng/mL Serum Total Protein 7.3 (6.3-8.2) g/dL Albumin 4.2 (3.5-5.0) g/dL Amylase 63 (30-110) U/L Lipase 44 (23-300) U/L Urine Color YELLOW (YELLOW) Urine Appearance SLIGHTLY CLOUDY (CLEAR) Urine pH 8.0 (5-6) Ur Specific [place] 1.010 (1.005-1.025) Urine Protein 30 (Negative) Urine Ketones NEGATIVE (NEGATIVE) Urine Blood SMALL (0-5) [place]/ul Urine Nitrite POSITIVE (NEGATIVE) Urine Bilirubin NEGATIVE (NEGATIVE) Urine Urobilinogen NEGATIVE (0-1) mg/dL Ur Leukocyte Esterase SMALL (NEGATIVE) Urine WBC (Auto) 6-10 (0-5) /HPF Urine RBC (Auto) 3-5 (0-2) /HPF U Epithel Cells (Auto) RARE (FEW) /HPF Urine Bacteria (Auto) MODERATE (NEGATIVE) /HPF Urine Mucus (Auto) SLIGHT (NEGATIVE) /HPF Urine Culture Reflexed YES (NO) Urine Glucose NEGATIVE (NEGATIVE) mg/dL 10/26/18 Range/Units 05:45 WBC 5.8 (4.0-10.5) K/mm3 RBC 4.25 (4.1-5.4) M/mm3 Hgb 14.4 (12.0-16.0) gm/dl Hct 43.2 (35-47) % MCV 101.6 H (78-100) fl MCH 33.9 H (26-32) pg MCHC 33.3 (32-36) g/dl RDW 12.9 (11.5-14.0) % Plt Count 242 (150-450) K/mm3 MPV 8.9 (6-9.5) fl Gran % 68.7 H (36.0-66.0) % Eos # (Auto) 0.09 (0-0.5) Absolute Lymphs (auto) 1.15 (1.0-4.6) Absolute Monos (auto) 0.58 (0.0-1.3) Lymphocytes % 19.7 L (24.0-44.0) % Monocytes % 9.9 (0.0-12.0) % Eosinophils % 1.5 (0.00-5.0) % Basophils % 0.2 (0.0-0.4) % Absolute Granulocytes 4.00 (1.4-6.9) Basophils # 0.01 (0-0.4) Sodium (137-145) mmol/L Potassium (3.5-5.1) mmol/L Chloride (98-107) mmol/L Carbon Dioxide (22-30) mmol/L Anion Gap (5-15) MEQ/L BUN (7-17) mg/dL Creatinine (0.52-1.04) mg/dL Estimated GFR ML/MIN Glucose (74-106) mg/dL Calcium (8.4-10.2) mg/dL Total Bilirubin (0.2-1.3) mg/dL AST (14-36) U/L ALT (0-35) U/L Alkaline Phosphatase (38-126) U/L Troponin I (0.000-0.034) ng/mL Serum Total Protein (6.3-8.2) g/dL Albumin (3.5-5.0) g/dL Amylase (30-110) U/L Lipase (23-300) U/L Urine Color (YELLOW) Urine Appearance (CLEAR) Urine pH (5-6) Ur Specific [place] (1.005-1.025) Urine Protein (Negative) Urine Ketones (NEGATIVE) Urine Blood (0-5) [place]/ul Urine Nitrite (NEGATIVE) Urine Bilirubin (NEGATIVE) Urine Urobilinogen (0-1) mg/dL Ur Leukocyte Esterase (NEGATIVE) Urine WBC (Auto) (0-5) /HPF Urine RBC (Auto) (0-2) /HPF U Epithel Cells (Auto) (FEW) /HPF Urine Bacteria (Auto) (NEGATIVE) /HPF Urine Mucus (Auto) (NEGATIVE) /HPF Urine Culture Reflexed (NO) Urine Glucose (NEGATIVE) mg/dL - Progress Progress: improved <RORY SAVAGE - Last Filed: 10/26/18 07:07> - Progress Counseled pt/family regarding: lab results, diagnosis, need for follow-up, rad results <MURPHY PHAN - Last Filed: 10/26/18 08:01> - Progress Progress Note: 10/26/18 05:38 88-year-old white female with history angina, arrhythmias, coronary artery disease, high blood pressure Patient recently placed on observation in this hospital secondary to right lower quadrant pain, dehydration, generalized weakness. Patient was placed on observation on October 17 and was discharged October 18. She apparently hasn't seen her family doctor on October 25 for follow-up. She apparently had eaten at [employer] at around 4:00 and began to have periumbilical pain. She arrives with moderate pain in the periumbilical region she was given Zofran 4 mg by medics IV. She continues to complain of nauseous she states she has periumbilical tenderness. She has no shortness of breath or chest pain she denies any urinary symptoms melena or hematochezia. Patient is started on normal saline at 100 mL per hour will give patient morphine 4 mg IV. Obtain appropriate labs i.e. CBC CMP amylase lipase troponin EKG and a urine. 10/26/18 07:06 the patient's case has been discussed with Dr Phan. He will assume care of this patient due to shift change. (RORY SAVAGE) 10/26/18 07:19 patient seen, doing ok, still some nausea (MURPHY PHAN) <RORY SAVAGE - Last Filed: 10/26/18 07:07> - Departure Time of Disposition: 07:50 Departure Disposition: Home Critical Care Time: Yes Critical Care Time(excluding separately billable procedures): 30-74 minutes <MURPHY PHAN - Last Filed: 10/26/18 08:01> - Departure Clinical Impression: Chronic intestinal ischemic syndrome Abdominal pain Qualifiers: Abdominal location: generalized Qualified Code(s): R10.84 - Generalized abdominal pain Condition: Stable Referrals: BERTRAND BURDICK MD [Primary Care Provider] - Instructions: Ischemic Bowel Disease (DC) Additional Instructions: Please read the instructions. We have given you about chronic ischemic bowel disease. No abdominal pain and nausea and vomiting is due to impaired circulation in her gastrointestinal system, as well as pancreatic dystrophy. Yesterday, small frequent meals instead of large meal and that she in your lifestyle Help you avoiding your abdominal pain, nausea and vomiting. Please follow the instructions given to you. Please take your medication as prescribed if given. If symptoms recur or get worse, come back to the emergency room if you cannot reach your primary care physician, or call your primary care physician for an appointment. Again if your symptoms get worse, come back to the emergency room. Thanks for visiting emergency room, and let us take care of you. Prescriptions: Ondansetron ODT 4 MG [Zofran Odt 4 mg] 4 mg PO Q6H PRN PRN #30 tab.rapdis PRN Reason: Nausea/Vomiting
[2018-10-26] MEDS ORDERED: MORPHINE SULFATE 4 MG INJ ONE (05:39)
[2018-10-26] MEDS ORDERED: Sodium Chloride 0.9% 1000 ML 1,000 ML ONE (05:39)
[2018-10-26] MEDS: Sodium Chloride 0.9% 1000 ML 1,000 ML IV SCH (05:42)
[2018-10-26] MEDS: MORPHINE SULFATE 4 MG INJ IV ONE (05:42)
[2018-10-26 05:48] LABS: BASOPHIL % 0.2 % (0.0-0.4); Basophil (Absolute #) 0.01 (0-0.4); Eosinophil % 1.5 % (0.00-5.0); Eosinophil (Absolute #) 0.09 (0-0.5); Granulocytes % 68.7 % (36.0-66.0); Hematocrit 43.2 % (35-47); Hemoglobin 14.4 gm/dl (12.0-16.0); Lymphocyte (Absolute #) 1.15 (1.0-4.6); Lymphocytes % 19.7 % (24.0-44.0); Mean Cell Volume 101.6 fl (78-100); Mean Corpuscular Hemoglobin 33.9 pg (26-32); Mean Corpuscular Hgb Concent. 33.3 g/dl (32-36); Mean Platelet Volume 8.9 fl (6-9.5); Monocyte (Absolute #) 0.58 (0.0-1.3); Monocytes % 9.9 % (0.0-12.0); Platelet Count 242 K/mm3 (150-450); Red Blood Count 4.25 M/mm3 (4.1-5.4); Red Cell Distribution Width 12.9 % (11.5-14.0); White Blood Count 5.8 K/mm3 (4.0-10.5)
[2018-10-26 06:04] LABS: ALBUMIN 4.2 g/dL (3.5-5.0); ALKALINE PHOSPHATASE 89 U/L (38-126); AMYLASE 63 U/L (30-110); ANION GAP 11.6 MEQ/L (5-15); BLOOD UREA NITROGEN 24 mg/dL (7-17); CHLORIDE 97 mmol/L (98-107); Calcium 9.8 mg/dL (8.4-10.2); Carbon Dioxide 33 mmol/L (22-30); Creatinine 1 0.86 mg/dL (0.52-1.04); Glucose 142 mg/dL (74-106); LIPASE 44 U/L (23-300); Potassium 3.9 mmol/L (3.5-5.1); SGOT/AST 23 U/L (14-36); SGPT/ALT 13 U/L (0-35); SODIUM 138 mmol/L (137-145); Total Protein 7.3 g/dL (6.3-8.2)
[2018-10-26 06:34] LABS: Appearance SLIGHTLY CLOUDY (CLEAR); Bacteria MODERATE /HPF (NEGATIVE); Bilirubin NEGATIVE (NEGATIVE); Blood SMALL Ery/ul (0-5); Epithelial Cells RARE /HPF (FEW); Glucose NEGATIVE (NEGATIVE); Ketones NEGATIVE (NEGATIVE); Leukocyte Esterase SMALL (NEGATIVE); Mucus SLIGHT /HPF (NEGATIVE); Nitrite POSITIVE (NEGATIVE); Protein,Urine Dip 30 (Negative); Urobilinogen NEGATIVE mg/dL (0-1)
[2018-10-26] MEDS ORDERED: Zofran 4 MG/2 ML VIAL ONE (07:38)
[2018-10-26] MEDS: Zofran 4 MG/2 ML VIAL IV ONE (07:39)
[2018-10-26 08:19] VITALS: BP 172/78; PULSE 68; O2SAT 96
--- NOTE | 2018-10-26 22:21 | XRAY ---
Indication: Abdomen pain, nausea, vomiting, and diarrhea one day. Multiple contiguous axial images obtained through the abdomen and pelvis without contrast as ordered. Comparison: October 17, 2018. Lung bases again demonstrates cardiomegaly, large hiatal hernia with partial intrathoracic stomach, and bibasilar atelectasis. No infiltrate or effusion. Right lower back spinal stimulator device and L4-L5 posterior fusion hardware again produces beam artifact. Noncontrasted stomach and bowel loops appear nonobstructed. Stable fundal calcified uterine fibroid. No free fluid/air. Remaining liver, gallbladder, pancreas, spleen, adrenal glands, kidneys, ureters, and bladder again appear unremarkable for noncontrast exam. Stable moderate aortoiliac calcifications without AAA. Stable small fatty ventral hernia and fatty left inguinal hernia. Impression: 1. Stable cardiomegaly, large hilar hernia with partial intrathoracic stomach, calcified uterine fibroid, fatty ventral hernia, and fatty left inguinal hernia. 2. No new or acute intra-abdominal/pelvic abnormalities on this noncontrast exam. Comment: Preliminary interpretation was made by C. No critical discrepancy. CTDI 19.80
== END 2018-10-26 08:19 | disposition home or self-care (01) ==
LOC: ED 05:01
DX: K55.9 Vascular disorder of intestine, unspecified (principal); R10.33 Periumbilical pain; I10 Essential (primary) hypertension; I25.810 Atherosclerosis of coronary artery bypass graft(s) without angina pectoris; M19.90 Unspecified osteoarthritis, unspecified site; Z85.3 Personal history of malignant neoplasm of breast; Z95.0 Presence of cardiac pacemaker; Z79.899 Other long term (current) drug therapy
CPT/HCPCS: 36000; 36415; 74176; 80053; 81001; 82150; 83690; 84484; 85025; 87077; 87086; 87186; 93005; 96374; 96375; 99284; J2270; J2405

== ENCOUNTER 2019-05-01 14:25 | Observation (INO) | payer MEDICARE ==
--- NOTE | 2019-05-01 14:39 | ERPHSYRPT ---
- History of Present Illness Time Seen by Provider: 05/01/19 14:25 Source: patient Exam Limitations: no limitations Physician History: Patient has had generalized weakness for the past 6 days, worsening over the past day. Patient seen by her doctor yesterday and diagnosed with shingle and given a medication to take 5 times a day for the next 5 days. Patient lives alone. Timing/Duration: day(s) (6) Severity: moderate Modifying Factors: Improves With: movement Associated Symptoms: malaise, rash, weakness, No nausea, No vomiting, No abdominal pain, No shortness of breath, No heartburn, No diaphoresis, No cough, No chills, No chest pain, No fever, No headaches, No loss of appetite, No syncope, No seizure Allergies/Adverse Reactions: No Known Drug Allergies Allergy (Verified 05/01/19 14:43) Home Medications: Duloxetine HCl [Cymbalta] 60 mg PO DAILY 08/21/13 [History] Gabapentin 300 mg PO TID 01/24/17 [History] Ranolazine 500 MG [Ranexa 500 MG] 500 mg PO BID 01/24/17 [History] Cyanocobalamin (Vitamin B-12) [B-12] 1,000 mcg PO DAILY 05/08/17 [History] Pravastatin Sodium [Pravachol] 20 mg PO HS 05/08/17 [History] Aspirin [[place] Aspirin EC] 81 mg PO DAILY 01/15/18 [History] Bupropion HCl 150 mg Sr [Wellbutrin SR 150 MG] 300 mg PO DAILY 01/15/18 [ History] Fluocinonide 60 gm TP BID 01/15/18 [History] Furosemide 20 mg [Lasix 20 mg] 20 mg PO DAILY 01/15/18 [History] Hydrocodone/APAP 10/325 mg [[place] 10/325 MG Tablet] 1 tab PO Q6H PRN PRN 01/15/18 [History] Metoprolol Succinate 50 mg [Toprol Xl 50 MG] 50 mg PO DAILY 01/15/18 [ History] Pramipexole Di-HCl [Mirapex] 0.5 mg PO HS 01/15/18 [History] Pyridoxine HCl (Vitamin B6) [Vitamin B-6] 100 mg PO DAILY 01/15/18 [History] Clopidogrel Bisulfate 75 mg [PLAVIX 75 MG Tablet] 75 mg PO DAILY 10/17/18 [History] Hx Tetanus, Diphtheria Vaccination/Date Given: No Hx Influenza Vaccination/Date Given: Yes Hx Pneumococcal Vaccination/Date Given: Yes - Review of Systems Constitutional: Weakness, No Fever, No Chills Eyes: Eye Pain, Double Vision Ears, Nose, & Throat: No Ear Pain, No Mouth Pain, No Throat Pain Respiratory: No Cough, No Dyspnea Cardiac: No Chest Pain, No Edema, No Syncope Abdominal/Gastrointestinal: Diarrhea, No Abdominal Pain, No Nausea, No Vomiting , No Hematemesis, No Hematochezia, No Melena Genitourinary Symptoms: No Dysuria, No Hematuria, No Urinary Retention, No Flank Pain Musculoskeletal: No Back Pain, No Neck Pain Skin: Rash Neurological: No Dizziness, No Focal Weakness, No Sensory Changes Psychological: No Symptoms Endocrine: No Symptoms Hematologic/Lymphatic: No Easy Bleeding, No Easy Bruising All Other Systems: Reviewed and Negative - Past Medical History Pertinent Past Medical History: Yes Neurological History: Other ENT History: No Pertinent History Cardiac History: Angina, Arrhythmia, Coronary Artery Disease, Hypertension Respiratory History: No Pertinent History Endocrine Medical History: Other Musculoskeletal History: Osteoarthritis GI Medical History: Other History: No Pertinent History Psycho-Social History: No Pertinent History Female Reproductive Disorders: Breast Cancer Other Medical History: Essential tremors, trochanteric bursitis, numbness in fingers, lumpectomy R breast and 8 lymph nodes, incontinence, Open heart surgery CABG x4. Back surgery, Internal TENS, Pacemaker, hx of c diff - Past Surgical History Past Surgical History: Yes Neuro Surgical History: No Pertinent History Cardiac: CABG, Cardiac Catheterization, Pacemaker Respiratory: No Pertinent History Gastrointestinal: No Pertinent History Genitourinary: No Pertinent History Musculoskeletal: Orthopedic Surgery Female Surgical History: Lumpectomy Other Surgical History: lumbar fusion with plate, stimulator implant - Social History Smoking Status: Never smoker Exposure to second hand smoke: No Drug Use: none Patient Lives Alone: No - Nursing Vital Signs Nursing Vital Signs: Initial Vital Signs Temperature 97.3 F 05/01/19 14:26 Pulse Rate 60 05/01/19 14:26 Respiratory Rate 05/01/19 14:26 Blood Pressure 116/61 05/01/19 14:26 O2 Sat by Pulse Oximetry 96 05/01/19 14:26 Pain Scale Pain Intensity 6 - Physical Exam General Appearance: no apparent distress, alert Eye Exam: PERRL/EOMI, eyes nml inspection Ears, Nose, Throat Exam: normal ENT inspection, TMs normal, pharynx normal, moist mucous membranes Neck Exam: normal inspection, non-tender, supple, full range of motion Respiratory Exam: normal breath sounds, lungs clear, airway intact, No respiratory distress, No accessory muscle use, No crackles/rales, No rhonchi, No wheezing Cardiovascular Exam: regular rate/rhythm, normal heart sounds, normal peripheral pulses, capillary refill <2 sec Gastrointestinal/Abdomen Exam: soft, normal bowel sounds, No tenderness, No distention, No mass, No guarding Back Exam: normal inspection, normal range of motion, No CVA tenderness, No vertebral tenderness Extremity Exam: normal inspection, normal range of motion, pelvis stable, No evelyn's sign, No pedal edema, No swelling Neurologic Exam: alert, oriented x 3, cooperative, milk runner II-XII nml as tested, normal mood/affect, sensation nml, No motor deficits Skin Exam: normal color, warm, dry, rash (T11-T12 right sided dermatome vesicular rash on an erythematous base, does not cross the midline) Lymphatic Exam: No adenopathy SpO2 Interpretation: normal O2 Delivery: Room Air - Course EKG Interpreted by Me: RATE (75), Other (Ventricular Paced Rhythm, unchanged from comparison EKG from 10/26/2018) - Radiology Exams Chest X-ray Interpretation: Other (per radiologist interpretation: Chest remains clear. Heart remains enlarged again with CABG and left-sided pacemaker. Previous large hiatal hernia appear slightly smaller. Bony thorax intact again with mild osteopenia, degenerative changes, and scoliosis. No new/acute findings. Overall impression: Not acute chest with chronic features.) Ordered Tests: Active Orders 24 hr Category Date Time Status Accucheck STAT Care 05/01/19 14:41 Active Chief Specialist Leed STAT Care 05/01/19 14:41 Active Catheter-[place] STAT Care 05/01/19 15:31 Active EKG-ER Only STAT Care 05/01/19 14:41 Active IV Insertion STAT Care 05/01/19 14:41 Active Pulse Oximetry (ED) STAT Care 05/01/19 14:41 Active CHEST 1 VIEW (PORTABLE) Stat Exams 05/01/19 14:41 Completed ABG [ARTERIAL BLOOD GASES] Stat Lab 05/01/19 15:23 Completed BLOOD CULTURE Stat Lab 05/01/19 15:25 Received CBC W DIFF Stat Lab 05/01/19 15:25 Completed CMP Stat Lab 05/01/19 15:25 Completed CULTURE,URINE Stat Lab 05/01/19 15:34 Ordered Lactic Acid Stat Lab 05/01/19 15:23 Completed MAGNESIUM Stat Lab 05/01/19 15:25 Completed Manual Differential NC Stat Lab 05/01/19 15:25 Completed PROTIME WITH INR Stat Lab 05/01/19 15:25 Completed PTT Stat Lab 05/01/19 15:25 Completed TROPONIN Q3H Lab 05/01/19 15:25 Completed TROPONIN Q3H Lab 05/01/19 17:45 Ordered TROPONIN Q3H Lab 05/01/19 20:45 Ordered TROPONIN Q3H Lab 05/01/19 23:45 Ordered TROPONIN Q3H Lab 05/02/19 02:45 Ordered Urinalysis with Microscopy Stat Lab 05/01/19 15:39 Completed Transfer Order Routine Transfer 05/01/19 Ordered Medication Summary Generic Name Dose Route Start Last Admin Trade Name Freq PRN Reason Stop Dose Admin Sodium Chloride 1,000 mls @ 999 mls/hr 05/01/19 14:45 Sodium Chloride 0.9% 1000 Ml IV 05/01/19 16:45 .Q1H1M TONYA Discontinued Medications Generic Name Dose Route Start Last Admin Trade Name Freq PRN Reason Stop Dose Admin Potassium Bicarbonate 50 meq 05/01/19 16:06 K-Lyte 25 Meq PO 05/01/19 16:07 STAT ONE Lab/Rad Data: Laboratory Result Diagrams 05/01/19 15:25 05/01/19 15:25 Laboratory Results 05/01/19 05/01/19 05/01/19 Range/Units 15:39 15:25 15:25 WBC (4.0-10.5) K/mm3 RBC (4.1-5.4) M/mm3 Hgb (12.0-16.0) gm/dl Hct (35-47) % MCV (78-100) fl MCH (26-32) pg MCHC (32-36) g/dl RDW (11.5-14.0) % Plt Count (150-450) K/mm3 MPV (6-9.5) fl Segmented Neutrophils (36.0-66.0) % Band Neutrophils (0.0-2.0) % Lymphocytes (Manual) (24-44) % Monocytes (Manual) (0.0-12.0) % Toxic Granulation Platelet Estimate (NORMAL) RBC Morphology Anisocytosis PT 12.1 (9.95-12.35) SECONDS INR 1.07 (0.8-3.0) APTT 28.1 (25.3-37.0) SECONDS Puncture Site pCO2 (35-45) mmHg pO2 (75-100) mmHg Base Excess (-2.0-2.0) O2 Saturation (94-100) g/dF ABG pH (7.35-7.45) ABG HCO3 (22-28) ABG O2 Sat (Measured) (95-100) % Lazarus Test A-a Gradient a/A Ratio Hemoglobin Carboxyhemoglobin (0.0-6.9) % THgb Methemoglobin (1.4-1.5) % Potassium (3.5-5.1) Temperature C POC O2 Flow Rate % Sodium (137-145) mmol/L Chloride (98-107) mmol/L Carbon Dioxide (22-30) mmol/L Anion Gap (5-15) MEQ/L BUN (7-17) mg/dL Creatinine (0.52-1.04) mg/dL Estimated GFR ML/MIN Glucose (74-106) mg/dL Lactic Acid (0.4-2.0) Calcium (8.4-10.2) mg/dL Magnesium (1.6-2.3) mg/dL Total Bilirubin (0.2-1.3) mg/dL AST (14-36) U/L ALT (0-35) U/L Alkaline Phosphatase (38-126) U/L Troponin I 0.119 H* (0.000-0.034) ng/mL Serum Total Protein (6.3-8.2) g/dL Albumin (3.5-5.0) g/dL Urine Color IVELISSE (YELLOW) Urine Appearance TURBID (CLEAR) Urine pH 5.0 (5-6) Ur Specific [place] 1.023 (1.005-1.025) Urine Protein 30 (Negative) Urine Ketones NEGATIVE (NEGATIVE) Urine Blood SMALL (0-5) [place]/ul Urine Nitrite NEGATIVE (NEGATIVE) Urine Bilirubin NEGATIVE (NEGATIVE) Urine Urobilinogen 2 (0-1) mg/dL Ur Leukocyte Esterase NEGATIVE (NEGATIVE) Urine WBC (Auto) 0-2 (0-5) /HPF Urine RBC (Auto) 3-5 (0-2) /HPF U Hyaline Cast (Auto) 26-50 (0-2) /LPF U Epithel Cells (Auto) RARE (FEW) /HPF Urine Bacteria (Auto) RARE (NEGATIVE) /HPF Urine Mucus (Auto) SLIGHT (NEGATIVE) /HPF Urine Glucose NEGATIVE (NEGATIVE) mg/dL 05/01/19 05/01/19 05/01/19 Range/Units 15:25 15:25 15:23 WBC 7.9 (4.0-10.5) K/mm3 RBC 4.86 (4.1-5.4) M/mm3 Hgb 15.8 (12.0-16.0) gm/dl Hct 45.0 (35-47) % MCV 92.6 (78-100) fl MCH 32.5 H (26-32) pg MCHC 35.1 (32-36) g/dl RDW 13.7 (11.5-14.0) % Plt Count 205 (150-450) K/mm3 MPV 9.4 (6-9.5) fl Segmented Neutrophils 59 (36.0-66.0) % Band Neutrophils 1 (0.0-2.0) % Lymphocytes (Manual) 31 (24-44) % Monocytes (Manual) 9 (0.0-12.0) % Toxic Granulation 1+ Platelet Estimate NORMAL (NORMAL) RBC Morphology ABNORMAL Anisocytosis RARE PT (9.95-12.35) SECONDS INR (0.8-3.0) APTT (25.3-37.0) SECONDS Puncture Site LEFT RADIAL pCO2 29 L (35-45) mmHg pO2 80 (75-100) mmHg Base Excess -2.3 L (-2.0-2.0) O2 Saturation 95.5 (94-100) g/dF ABG pH 7.45 (7.35-7.45) ABG HCO3 20.2 L (22-28) ABG O2 Sat (Measured) 98.2 (95-100) % Lazarus Test YES A-a Gradient 33 a/A Ratio 0.71 Hemoglobin 16.5 Carboxyhemoglobin 2.1 (0.0-6.9) % THgb Methemoglobin 0.6 L (1.4-1.5) % Potassium 2.9 L* 2.7 L* (3.5-5.1) Temperature 37.0 C POC O2 Flow Rate 21 % Sodium 134 L (137-145) mmol/L Chloride 100 (98-107) mmol/L Carbon Dioxide 21 L (22-30) mmol/L Anion Gap 15.5 H (5-15) MEQ/L BUN 52 H (7-17) mg/dL Creatinine 1.91 H (0.52-1.04) mg/dL Estimated GFR 26.4 ML/MIN Glucose 107 H (74-106) mg/dL Lactic Acid (0.4-2.0) Calcium 9.3 (8.4-10.2) mg/dL Magnesium 1.6 (1.6-2.3) mg/dL Total Bilirubin 0.70 (0.2-1.3) mg/dL AST 46 H (14-36) U/L ALT 22 (0-35) U/L Alkaline Phosphatase 79 (38-126) U/L Troponin I (0.000-0.034) ng/mL Serum Total Protein 7.0 (6.3-8.2) g/dL Albumin 3.9 (3.5-5.0) g/dL Urine Color (YELLOW) Urine Appearance (CLEAR) Urine pH (5-6) Ur Specific [place] (1.005-1.025) Urine Protein (Negative) Urine Ketones (NEGATIVE) Urine Blood (0-5) [place]/ul Urine Nitrite (NEGATIVE) Urine Bilirubin (NEGATIVE) Urine Urobilinogen (0-1) mg/dL Ur Leukocyte Esterase (NEGATIVE) Urine WBC (Auto) (0-5) /HPF Urine RBC (Auto) (0-2) /HPF U Hyaline Cast (Auto) (0-2) /LPF U Epithel Cells (Auto) (FEW) /HPF Urine Bacteria (Auto) (NEGATIVE) /HPF Urine Mucus (Auto) (NEGATIVE) /HPF Urine Glucose (NEGATIVE) mg/dL 05/01/19 Range/Units 15:23 WBC (4.0-10.5) K/mm3 RBC (4.1-5.4) M/mm3 Hgb (12.0-16.0) gm/dl Hct (35-47) % MCV (78-100) fl MCH (26-32) pg MCHC (32-36) g/dl RDW (11.5-14.0) % Plt Count (150-450) K/mm3 MPV (6-9.5) fl Segmented Neutrophils (36.0-66.0) % Band Neutrophils (0.0-2.0) % Lymphocytes (Manual) (24-44) % Monocytes (Manual) (0.0-12.0) % Toxic Granulation Platelet Estimate (NORMAL) RBC Morphology Anisocytosis PT (9.95-12.35) SECONDS INR (0.8-3.0) APTT (25.3-37.0) SECONDS Puncture Site pCO2 (35-45) mmHg pO2 (75-100) mmHg Base Excess (-2.0-2.0) O2 Saturation (94-100) g/dF ABG pH (7.35-7.45) ABG HCO3 (22-28) ABG O2 Sat (Measured) (95-100) % Lazarus Test A-a Gradient a/A Ratio Hemoglobin Carboxyhemoglobin (0.0-6.9) % THgb Methemoglobin (1.4-1.5) % Potassium (3.5-5.1) Temperature C POC O2 Flow Rate % Sodium (137-145) mmol/L Chloride (98-107) mmol/L Carbon Dioxide (22-30) mmol/L Anion Gap (5-15) MEQ/L BUN (7-17) mg/dL Creatinine (0.52-1.04) mg/dL Estimated GFR ML/MIN Glucose (74-106) mg/dL Lactic Acid 1.4 (0.4-2.0) Calcium (8.4-10.2) mg/dL Magnesium (1.6-2.3) mg/dL Total Bilirubin (0.2-1.3) mg/dL AST (14-36) U/L ALT (0-35) U/L Alkaline Phosphatase (38-126) U/L Troponin I (0.000-0.034) ng/mL Serum Total Protein (6.3-8.2) g/dL Albumin (3.5-5.0) g/dL Urine Color (YELLOW) Urine Appearance (CLEAR) Urine pH (5-6) Ur Specific [place] (1.005-1.025) Urine Protein (Negative) Urine Ketones (NEGATIVE) Urine Blood (0-5) [place]/ul Urine Nitrite (NEGATIVE) Urine Bilirubin (NEGATIVE) Urine Urobilinogen (0-1) mg/dL Ur Leukocyte Esterase (NEGATIVE) Urine WBC (Auto) (0-5) /HPF Urine RBC (Auto) (0-2) /HPF U Hyaline Cast (Auto) (0-2) /LPF U Epithel Cells (Auto) (FEW) /HPF Urine Bacteria (Auto) (NEGATIVE) /HPF Urine Mucus (Auto) (NEGATIVE) /HPF Urine Glucose (NEGATIVE) mg/dL - Progress Progress: unchanged Progress Note: 05/01/19 16:14 the patient has remained hemodynamically in good condition and in a paced rhythm on a cardiac nurse during her time in the emergency department. Patient has remained afebrile throughout her time in the emergency department. Patient has not had any episodes of diarrhea while in the emergency department. 05/01/19 16:[address] Burdick the patient's lab results with the elevated troponin, which clinically is most likely from the elevated creatinine/decreased renal function as patient did not complain of any chest pain, shortness of breath, nausea, upper abdominal pain or any back pain at any time. Dr. Burdick also agreed and we will continue to follow the troponin in the hospital and Dr. Burdick may be able to teleconsult her needlemaker at [place], [place] if the troponin continues to increase. Discussed with : Giuseppe Will see patient in: hospital (observation) Counseled pt/family regarding: lab results, diagnosis, need for follow-up, rad results - Departure Departure Disposition: Home, Observation ([facility]) Clinical Impression: Generalized weakness, Hypokalemia, Elevated troponin Diarrhea Qualifiers: Diarrhea type: unspecified type Qualified Code(s): R19.7 - Diarrhea, unspecified Condition: Fair Critical Care Time: No Referrals: BERTRAND BURDICK MD [Primary Care Provider] -
--- NOTE | 2019-05-01 15:02 | XRAY ---
Indication: Possible sepsis. Multiple falls. Comparison: November 14, 2018. Portable chest remains clear. Heart remains enlarged again with CABG and left-sided pacemaker. Previous large hiatal hernia appears slightly smaller. Bony thorax intact again with mild osteopenia, degenerative changes, and scoliosis. No new/acute findings. Impression: Nonacute chest with chronic features.
[2019-05-01 15:29] LABS: Hemoglobin 15.8 gm/dl (12.0-16.0); Mean Cell Volume 92.6 fl (78-100); Mean Corpuscular Hemoglobin 32.5 pg (26-32); Mean Corpuscular Hgb Concent. 35.1 g/dl (32-36); Mean Platelet Volume 9.4 fl (6-9.5); Platelet Count 205 K/mm3 (150-450); Red Blood Count 4.86 M/mm3 (4.1-5.4); Red Cell Distribution Width 13.7 % (11.5-14.0); White Blood Count 7.9 K/mm3 (4.0-10.5)
[2019-05-01 15:29] LABS: A-aADO2 33; ABG HEMOGLOBIN 16.5; ABG POTASSIUM 2.7 (3.5-5.1); ABG SITE LEFT RADIAL; ALLEN TEST OK? YES; ARTERIAL BLD GAS O2 SATURATION 98.2 % (95-100); ARTERIAL BLOOD GAS BASE EXCESS -2.3 (-2.0-2.0); ARTERIAL BLOOD GAS FIO2 21 %; ARTERIAL BLOOD GAS PCO2 29 mmHg (35-45); ARTERIAL BLOOD GAS PO2 80 mmHg (75-100); ARTERIAL BLOOD GAS pH 7.45 (7.35-7.45); CARBOXYHEMOGLOBIN 2.1 % THgb (0.0-6.9); HCO3- 20.2 (22-28); HGB O2 SAT 95.5 g/dF (94-100); Methhemoglobin 0.6 % (1.4-1.5); paO2 pAO1 0.71
[2019-05-01 15:39] LABS: INR 1.07 (0.8-3.0); PROTIME 12.1 SECONDS (9.95-12.35)
[2019-05-01 15:42] LABS: PTT 28.1 SECONDS (25.3-37.0)
[2019-05-01 15:44] LABS: ALBUMIN 3.9 g/dL (3.5-5.0); ANION GAP 15.5 MEQ/L (5-15); BILIRUBIN,TOTAL 0.7 mg/dL (0.2-1.3); Calcium 9.3 mg/dL (8.4-10.2); Creatinine 1 1.91 mg/dL (0.52-1.04); MAGNESIUM 1.6 mg/dL (1.6-2.3)
[2019-05-01 16:01] LABS: Appearance TURBID (CLEAR); Bacteria RARE /HPF (NEGATIVE); Bilirubin NEGATIVE (NEGATIVE); Blood SMALL Ery/ul (0-5); Epithelial Cells RARE /HPF (FEW); Glucose NEGATIVE (NEGATIVE); Hyaline Casts 26-50 /LPF (0-2); Ketones NEGATIVE (NEGATIVE); Leukocyte Esterase NEGATIVE (NEGATIVE); Mucus SLIGHT /HPF (NEGATIVE); Nitrite NEGATIVE (NEGATIVE); Protein,Urine Dip 30 (Negative); Specific Gravity 1.023 (1.005-1.025); Urobilinogen 2 mg/dL (0-1); WBC 0-2 /HPF (0-5)
[2019-05-01 16:03] LABS: Potassium 2.9 mmol/L (3.5-5.1)
[2019-05-01] MEDS ORDERED: K-LYTE 25 MEQ PO ONE ×2 (16:06→17:56)
[2019-05-01 16:22] LABS: ANISOCYTOSIS RARE; BAND 1 % (0.0-2.0); Lymphocytes 31 % (24-44); Monocyte 9 % (0.0-12.0); Neutrophils 59 % (36.0-66.0); Platelet Estimate NORMAL (NORMAL); Total Cells Counted 100; Toxic Granulation 1+
[2019-05-01] MEDS ORDERED: Sodium Chloride 0.9% 1000 ML 1,000 ML IV STA (17:10)
[2019-05-01] MEDS ORDERED: TYLENOL 325 MG PO PRN (17:10)
[2019-05-01] MEDS ORDERED: MORPHINE SULFATE 2 MG INJ IV PRN (17:10)
[2019-05-01] MEDS: ZOVIRAX 800 MG PO SCH ×2 (17:22→21:39)
[2019-05-01] MEDS: Sodium Chloride 0.9% 1000 ML 1,000 ML IV SCH ×3 (17:35→17:59)
[2019-05-01] MEDS: Sodium Chloride 0.9% W/ 20 mEq KCl/LITER 1,000 ML IV SCH (18:05)
[2019-05-01] MEDS ORDERED: ZOVIRAX 800 MG PO SCH ×2 (19:00)
[2019-05-01] MEDS: Mirapex 0.5 MG Tablet PO SCH (21:39)
[2019-05-01] MEDS: Pepcid 20 MG PO SCH (21:39)
[2019-05-01] MEDS: Ranexa 500 MG PO SCH (21:40)
[2019-05-01] MEDS: NEURONTIN 300 MG PO SCH (21:40)
[2019-05-01] MEDS: ZOCOR 20MG PO SCH (21:41)
[2019-05-01] MEDS: Norco 10/325 MG Tablet PO PRN (22:43)
[2019-05-02] MEDS: Sodium Chloride 0.9% W/ 20 mEq KCl/LITER 1,000 ML IV SCH ×3 (04:13→23:22)
[2019-05-02 05:05] LABS: Hematocrit 40.5 % (35-47); Hemoglobin 13.6 gm/dl (12.0-16.0); Mean Cell Volume 95.7 fl (78-100); Mean Corpuscular Hemoglobin 32.2 pg (26-32); Mean Corpuscular Hgb Concent. 33.6 g/dl (32-36); Mean Platelet Volume 9.5 fl (6-9.5); Platelet Count 176 K/mm3 (150-450); Red Blood Count 4.23 M/mm3 (4.1-5.4); Red Cell Distribution Width 13.9 % (11.5-14.0); White Blood Count 6.1 K/mm3 (4.0-10.5)
[2019-05-02 05:17] LABS: ANION GAP 9.7 MEQ/L (5-15); Calcium 8.3 mg/dL (8.4-10.2); Creatinine 1 1.55 mg/dL (0.52-1.04); MAGNESIUM 1.6 mg/dL (1.6-2.3); Potassium 4.3 mmol/L (3.5-5.1)
[2019-05-02] MEDS: ZOVIRAX 800 MG PO SCH ×3 (05:18→20:33)
[2019-05-02] MEDS: Norco 10/325 MG Tablet PO PRN ×2 (05:18→20:33)
[2019-05-02 07:10] LABS: ATYPICAL LYMPHS 1 %; BAND 1 % (0.0-2.0); Lymphocytes 27 % (24-44); Monocyte 8 % (0.0-12.0); Neutrophils 63 % (36.0-66.0); Platelet Estimate NORMAL (NORMAL); Total Cells Counted 100
[2019-05-02 07:11] LABS: Granulocyte Absolute (ANC) 3.93 (1.4-6.9)
--- NOTE | 2019-05-02 08:23 | PCM.HP ---
History of Present Illness - Chief Complaint Chief Complaint: KATHY, Hypokalemia, Generalized Weakness History of Present Illness: is a 88 year old female who was recently seen in my office and diagnosed with herpes zoster, she has had diarrhea and poor po intake for the last several days and became very weak yesterday so came to ER. found to have elevated bun/cr, low potassium and dehydration. she has had no chest pain or shortness of breath, no vomiting but continues to have diarrhea. - Review of Systems Constitutional: Weakness, No Fever, No Chills Eyes: No Symptoms Respiratory: No Cough, No Short Of Breath Cardiac: No Chest Pain, No Edema, No Syncope Abdominal/Gastrointestinal: Diarrhea, No Abdominal Pain, No Nausea, No Vomiting Skin: Rash (painful rash in right abdomen/back) Neurological: No Symptoms All Other Systems: Reviewed and Negative Medications & Allergies Home Medications: Home Medication List Duloxetine HCl [Cymbalta] 60 mg PO DAILY 08/21/13 [History Confirmed 05/01/19] Gabapentin 300 mg PO TID 01/24/17 [History Confirmed 05/01/19] Ranolazine 500 MG [Ranexa 500 MG] 500 mg PO BID 01/24/17 [History Confirmed 05/01/19] Cyanocobalamin (Vitamin B-12) [B-12] 1,000 mcg PO DAILY 05/08/17 [History Confirmed 05/01/19] Pravastatin Sodium [Pravachol] 20 mg PO HS 05/08/17 [History Confirmed 05/01/19] Aspirin [[place] Aspirin EC] 81 mg PO DAILY 01/15/18 [History Confirmed 05/01] Bupropion HCl 150 mg Sr [Wellbutrin SR 150 MG] 300 mg PO DAILY 01/15/18 [ History Confirmed 05/01/19] Fluocinonide 60 gm TP BID 01/15/18 [History Confirmed 05/01/19] Furosemide 20 mg [Lasix 20 mg] 20 mg PO DAILY 01/15/18 [History Confirmed 05/01/19] Hydrocodone/APAP 10/325 mg [[place] 10/325 MG Tablet] 1 tab PO Q6H PRN PRN 01/15/18 [History Confirmed 05/01/19] Metoprolol Succinate 50 mg [Toprol Xl 50 MG] 50 mg PO DAILY 01/15/18 [ History Confirmed 05/01/19] Pramipexole Di-HCl [Mirapex] 0.5 mg PO HS 01/15/18 [History Confirmed 05/01/19] Pyridoxine HCl (Vitamin B6) [Vitamin B-6] 100 mg PO DAILY 01/15/18 [History Confirmed 05/01/19] Clopidogrel Bisulfate 75 mg [PLAVIX 75 MG Tablet] 75 mg PO DAILY 10/17/18 [History Confirmed 05/01/19] Acyclovir 800 mg [Zovirax 800 mg] 1 tab PO 5XD 05/01/19 [History Confirmed 05/01/19] Allergies/Adverse Reactions: Allergies Allergy/AdvReac Type Severity Reaction Status Date / Time No Known Drug Allergies Allergy Verified 05/01/19 14:43 - Past Medical History Past Medical History: Yes Neurological History: Other ENT History: No Pertinent History Cardiac History: Angina, Arrhythmia, Coronary Artery Disease, Hypertension Respiratory History: No Pertinent History Endocrine Medical History: Other Musculoskelatal History: Osteoarthritis GI Medical History: Other History: No Pertinent History Pyscho-Social History: No Pertinent History Reproductive Disorders: Breast Cancer Comment: Essential tremors, trochanteric bursitis, numbness in fingers, lumpectomy R breast and 8 lymph nodes, incontinence, Open heart surgery CABG x4. Back surgery, Internal TENS, Pacemaker, hx of c diff - Female History Are you now?: No - Past Surgical History Past Surgical History: Yes Neuro Surgical History: No Pertinent History Cardiac History: CABG, Cardiac Catheterization, Pacemaker Respiratory Surgery: No Pertinent History GI Surgical History: No Pertinent History Genitourinary Surgical Hx: No Pertinent History Musculskeletal Surgical Hx: Orthopedic Surgery Female Surgical History: Lumpectomy Other Surgical History: lumbar fusion with plate, stimulator implant - Social History Smoking Status: Never smoker Exposure to second hand smoke: No Alcohol: None Drug Use: none - Physical Exam Vital Signs: Vital Signs - 24 hr Temp Pulse Resp BP Pulse Ox 05/02/19 04:07 94 L 05/02/19 04:00 97.8 F 83 15 128/73 94 L 05/01/19 23:45 98.1 F 65 17 134/65 93 L 05/01/19 19:58 97.9 F 59 L 19 128/72 94 L 05/01/19 17:38 95 05/01/19 16:06 60 118/70 97 05/01/19 15:38 99 05/01/19 15:29 86 100/62 05/01/19 14:26 97.3 F 60 19 116/61 96 General Appearance: no apparent distress, alert Neurologic Exam: alert, oriented x 3, cooperative Eye Exam: PERRL/EOMI, eyes nml inspection Respiratory Exam: normal breath sounds, lungs clear, No respiratory distress Cardiovascular Exam: regular rate/rhythm, normal heart sounds, normal peripheral pulses Gastrointestinal/Abdomen Exam: soft, normal bowel sounds, No tenderness, No mass Skin Exam: other (vesicular rash in dermatomal distribution right lower abdomen/ flank) Wound Assessment: Skin/Wound Assessment Wound/Incision Assessment Start: 05/01/19 17: 41 Text: Status: Active Freq: Q6H Protocol: Document 05/02/19 02:00 LB (Rec: 05/02/19 02:24 LB [id number]) Wound/Incision Assessment Left Posterior Back Wound Assessment Shift Assessment Wound Type RASH-SHINGLES Drainage Amount None Drainage Odor None/Absent General Appearance Open to air Wound Photo Photo Taken No Results - Labs Lab/Micro Results: Accuchecks Accucheck Value: 102 Lab Results-Last 24 Hours 05/01/19 05/01/19 05/01/19 Range/Units 15:23 15:23 15:25 WBC 7.9 (4.0-10.5) K/mm3 RBC 4.86 (4.1-5.4) M/mm3 Hgb 15.8 (12.0-16.0) gm/dl Hct 45.0 (35-47) % MCV 92.6 (78-100) fl MCH 32.5 H (26-32) pg MCHC 35.1 (32-36) g/dl RDW 13.7 (11.5-14.0) % Plt Count 205 (150-450) K/mm3 MPV 9.4 (6-9.5) fl Absolute Granulocytes (1.4-6.9) Segmented Neutrophils 59 (36.0-66.0) % Band Neutrophils 1 (0.0-2.0) % Lymphocytes (Manual) 31 (24-44) % Monocytes (Manual) 9 (0.0-12.0) % Atypical Lymphocytes % Toxic Granulation 1+ Platelet Estimate NORMAL (NORMAL) RBC Morphology ABNORMAL Anisocytosis RARE PT (9.95-12.35) SECONDS INR (0.8-3.0) APTT (25.3-37.0) SECONDS Puncture Site LEFT RADIAL pCO2 29 L (35-45) mmHg pO2 80 (75-100) mmHg Base Excess -2.3 L (-2.0-2.0) O2 Saturation 95.5 (94-100) g/dF ABG pH 7.45 (7.35-7.45) ABG HCO3 20.2 L (22-28) ABG O2 Sat (Measured) 98.2 (95-100) % Lazarus Test YES A-a Gradient 33 a/A Ratio 0.71 Hemoglobin 16.5 Carboxyhemoglobin 2.1 (0.0-6.9) % THgb Methemoglobin 0.6 L (1.4-1.5) % Potassium 2.7 L* (3.5-5.1) Temperature 37.0 C POC O2 Flow Rate 21 % Sodium (137-145) mmol/L Chloride (98-107) mmol/L Carbon Dioxide (22-30) mmol/L Anion Gap (5-15) MEQ/L BUN (7-17) mg/dL Creatinine (0.52-1.04) mg/dL Estimated GFR ML/MIN Glucose (74-106) mg/dL Lactic Acid 1.4 (0.4-2.0) Calcium (8.4-10.2) mg/dL Magnesium (1.6-2.3) mg/dL Total Bilirubin (0.2-1.3) mg/dL AST (14-36) U/L ALT (0-35) U/L Alkaline Phosphatase (38-126) U/L Troponin I (0.000-0.034) ng/mL Serum Total Protein (6.3-8.2) g/dL Albumin (3.5-5.0) g/dL Prealbumin (17.6-36.0) mg/dL Urine Color (YELLOW) Urine Appearance (CLEAR) Urine pH (5-6) Ur Specific [place] (1.005-1.025) Urine Protein (Negative) Urine Ketones (NEGATIVE) Urine Blood (0-5) [place]/ul Urine Nitrite (NEGATIVE) Urine Bilirubin (NEGATIVE) Urine Urobilinogen (0-1) mg/dL Ur Leukocyte Esterase (NEGATIVE) Urine WBC (Auto) (0-5) /HPF Urine RBC (Auto) (0-2) /HPF U Hyaline Cast (Auto) (0-2) /LPF U Epithel Cells (Auto) (FEW) /HPF Urine Bacteria (Auto) (NEGATIVE) /HPF Urine Mucus (Auto) (NEGATIVE) /HPF Urine Glucose (NEGATIVE) mg/dL 05/01/19 05/01/19 05/01/19 Range/Units 15:25 15:25 15:25 WBC (4.0-10.5) K/mm3 RBC (4.1-5.4) M/mm3 Hgb (12.0-16.0) gm/dl Hct (35-47) % MCV (78-100) fl MCH (26-32) pg MCHC (32-36) g/dl RDW (11.5-14.0) % Plt Count (150-450) K/mm3 MPV (6-9.5) fl Absolute Granulocytes (1.4-6.9) Segmented Neutrophils (36.0-66.0) % Band Neutrophils (0.0-2.0) % Lymphocytes (Manual) (24-44) % Monocytes (Manual) (0.0-12.0) % Atypical Lymphocytes % Toxic Granulation Platelet Estimate (NORMAL) RBC Morphology Anisocytosis PT 12.1 (9.95-12.35) SECONDS INR 1.07 (0.8-3.0) APTT 28.1 (25.3-37.0) SECONDS Puncture Site pCO2 (35-45) mmHg pO2 (75-100) mmHg Base Excess (-2.0-2.0) O2 Saturation (94-100) g/dF ABG pH (7.35-7.45) ABG HCO3 (22-28) ABG O2 Sat (Measured) (95-100) % Lazarus Test A-a Gradient a/A Ratio Hemoglobin Carboxyhemoglobin (0.0-6.9) % THgb Methemoglobin (1.4-1.5) % Potassium 2.9 L* (3.5-5.1) Temperature C POC O2 Flow Rate % Sodium 134 L (137-145) mmol/L Chloride 100 (98-107) mmol/L Carbon Dioxide 21 L (22-30) mmol/L Anion Gap 15.5 H (5-15) MEQ/L BUN 52 H (7-17) mg/dL Creatinine 1.91 H (0.52-1.04) mg/dL Estimated GFR 26.4 ML/MIN Glucose 107 H (74-106) mg/dL Lactic Acid (0.4-2.0) Calcium 9.3 (8.4-10.2) mg/dL Magnesium 1.6 (1.6-2.3) mg/dL Total Bilirubin 0.70 (0.2-1.3) mg/dL AST 46 H (14-36) U/L ALT 22 (0-35) U/L Alkaline Phosphatase 79 (38-126) U/L Troponin I 0.119 H* (0.000-0.034) ng/mL Serum Total Protein 7.0 (6.3-8.2) g/dL Albumin 3.9 (3.5-5.0) g/dL Prealbumin (17.6-36.0) mg/dL Urine Color (YELLOW) Urine Appearance (CLEAR) Urine pH (5-6) Ur Specific [place] (1.005-1.025) Urine Protein (Negative) Urine Ketones (NEGATIVE) Urine Blood (0-5) [place]/ul Urine Nitrite (NEGATIVE) Urine Bilirubin (NEGATIVE) Urine Urobilinogen (0-1) mg/dL Ur Leukocyte Esterase (NEGATIVE) Urine WBC (Auto) (0-5) /HPF Urine RBC (Auto) (0-2) /HPF U Hyaline Cast (Auto) (0-2) /LPF U Epithel Cells (Auto) (FEW) /HPF Urine Bacteria (Auto) (NEGATIVE) /HPF Urine Mucus (Auto) (NEGATIVE) /HPF Urine Glucose (NEGATIVE) mg/dL 05/01/19 05/01/19 05/01/19 Range/Units 15:39 18:00 18:00 WBC (4.0-10.5) K/mm3 RBC (4.1-5.4) M/mm3 Hgb (12.0-16.0) gm/dl Hct (35-47) % MCV (78-100) fl MCH (26-32) pg MCHC (32-36) g/dl RDW (11.5-14.0) % Plt Count (150-450) K/mm3 MPV (6-9.5) fl Absolute Granulocytes (1.4-6.9) Segmented Neutrophils (36.0-66.0) % Band Neutrophils (0.0-2.0) % Lymphocytes (Manual) (24-44) % Monocytes (Manual) (0.0-12.0) % Atypical Lymphocytes % Toxic Granulation Platelet Estimate (NORMAL) RBC Morphology Anisocytosis PT (9.95-12.35) SECONDS INR (0.8-3.0) APTT (25.3-37.0) SECONDS Puncture Site pCO2 (35-45) mmHg pO2 (75-100) mmHg Base Excess (-2.0-2.0) O2 Saturation (94-100) g/dF ABG pH (7.35-7.45) ABG HCO3 (22-28) ABG O2 Sat (Measured) (95-100) % Lazarus Test A-a Gradient a/A Ratio Hemoglobin Carboxyhemoglobin (0.0-6.9) % THgb Methemoglobin (1.4-1.5) % Potassium (3.5-5.1) Temperature C POC O2 Flow Rate % Sodium (137-145) mmol/L Chloride (98-107) mmol/L Carbon Dioxide (22-30) mmol/L Anion Gap (5-15) MEQ/L BUN (7-17) mg/dL Creatinine (0.52-1.04) mg/dL Estimated GFR ML/MIN Glucose (74-106) mg/dL Lactic Acid (0.4-2.0) Calcium (8.4-10.2) mg/dL Magnesium (1.6-2.3) mg/dL Total Bilirubin (0.2-1.3) mg/dL AST (14-36) U/L ALT (0-35) U/L Alkaline Phosphatase (38-126) U/L Troponin I 0.132 H* (0.000-0.034) ng/mL Serum Total Protein (6.3-8.2) g/dL Albumin (3.5-5.0) g/dL Prealbumin 20.37 (17.6-36.0) mg/dL Urine Color [place] (YELLOW) Urine Appearance TURBID (CLEAR) Urine pH 5.0 (5-6) Ur Specific [place] 1.023 (1.005-1.025) Urine Protein 30 (Negative) Urine Ketones NEGATIVE (NEGATIVE) Urine Blood SMALL (0-5) [place]/ul Urine Nitrite NEGATIVE (NEGATIVE) Urine Bilirubin NEGATIVE (NEGATIVE) Urine Urobilinogen 2 (0-1) mg/dL Ur Leukocyte Esterase NEGATIVE (NEGATIVE) Urine WBC (Auto) 0-2 (0-5) /HPF Urine RBC (Auto) 3-5 (0-2) /HPF U Hyaline Cast (Auto) 26-50 (0-2) /LPF U Epithel Cells (Auto) RARE (FEW) /HPF Urine Bacteria (Auto) RARE (NEGATIVE) /HPF Urine Mucus (Auto) SLIGHT (NEGATIVE) /HPF Urine Glucose NEGATIVE (NEGATIVE) mg/dL 05/02/19 05/02/19 05/02/19 Range/Units 04:50 04:50 04:50 WBC 6.1 (4.0-10.5) K/mm3 RBC 4.23 (4.1-5.4) M/mm3 Hgb 13.6 (12.0-16.0) gm/dl Hct 40.5 (35-47) % MCV 95.7 (78-100) fl MCH 32.2 H (26-32) pg MCHC 33.6 (32-36) g/dl RDW 13.9 (11.5-14.0) % Plt Count 176 (150-450) K/mm3 MPV 9.5 (6-9.5) fl Absolute Granulocytes 3.93 (1.4-6.9) Segmented Neutrophils 63 (36.0-66.0) % Band Neutrophils 1 (0.0-2.0) % Lymphocytes (Manual) 27 (24-44) % Monocytes (Manual) 8 (0.0-12.0) % Atypical Lymphocytes 1 % Toxic Granulation Platelet Estimate NORMAL (NORMAL) RBC Morphology NORMAL Anisocytosis PT (9.95-12.35) SECONDS INR (0.8-3.0) APTT (25.3-37.0) SECONDS Puncture Site pCO2 (35-45) mmHg pO2 (75-100) mmHg Base Excess (-2.0-2.0) O2 Saturation (94-100) g/dF ABG pH (7.35-7.45) ABG HCO3 (22-28) ABG O2 Sat (Measured) (95-100) % Lazarus Test A-a Gradient a/A Ratio Hemoglobin Carboxyhemoglobin (0.0-6.9) % THgb Methemoglobin (1.4-1.5) % Potassium 4.3 D (3.5-5.1) Temperature C POC O2 Flow Rate % Sodium 137 (137-145) mmol/L Chloride 105 (98-107) mmol/L Carbon Dioxide 26 (22-30) mmol/L Anion Gap 9.7 (5-15) MEQ/L BUN 46 H (7-17) mg/dL Creatinine 1.55 H (0.52-1.04) mg/dL Estimated GFR 33.6 ML/MIN Glucose 82 (74-106) mg/dL Lactic Acid (0.4-2.0) Calcium 8.3 L (8.4-10.2) mg/dL Magnesium 1.6 (1.6-2.3) mg/dL Total Bilirubin (0.2-1.3) mg/dL AST (14-36) U/L ALT (0-35) U/L Alkaline Phosphatase (38-126) U/L Troponin I 0.105 H* (0.000-0.034) ng/mL Serum Total Protein (6.3-8.2) g/dL Albumin (3.5-5.0) g/dL Prealbumin (17.6-36.0) mg/dL Urine Color (YELLOW) Urine Appearance (CLEAR) Urine pH (5-6) Ur Specific [place] (1.005-1.025) Urine Protein (Negative) Urine Ketones (NEGATIVE) Urine Blood (0-5) [place]/ul Urine Nitrite (NEGATIVE) Urine Bilirubin (NEGATIVE) Urine Urobilinogen (0-1) mg/dL Ur Leukocyte Esterase (NEGATIVE) Urine WBC (Auto) (0-5) /HPF Urine RBC (Auto) (0-2) /HPF U Hyaline Cast (Auto) (0-2) /LPF U Epithel Cells (Auto) (FEW) /HPF Urine Bacteria (Auto) (NEGATIVE) /HPF Urine Mucus (Auto) (NEGATIVE) /HPF Urine Glucose (NEGATIVE) mg/dL Microbiology 05/01/19 16:15 Urine Culture - Preliminary Clean Catch Midstream <10K NORMAL SKIN PHIL PROBABLE SKIN CONTAMINANT Accuchecks Accucheck Value: 102 - Radiology Impressions Radiology Exams & Impressions: Radiology Procedures Category Date Time Status CHEST 1 VIEW (PORTABLE) Stat Exams 05/01/19 14:41 Completed Assessment/Plan (1) Acute kidney injury Current Visit: Yes Status: Acute Assessment & Plan: improved with hydration, will follow Code(s): N17.9 - ACUTE KIDNEY FAILURE, UNSPECIFIED (2) Elevated troponin Current Visit: Yes Status: Acute Assessment & Plan: no symptoms, patient is SCO and EKG shows paced rhythm. definitely related to dehydration/KATHY. trending down this morning, will monitor for now. Code(s): R74.8 - ABNORMAL LEVELS OF OTHER SERUM ENZYMES (3) Herpes zoster Current Visit: Yes Status: Acute Assessment & Plan: po norco, on po acyclovir at this time Code(s): B02.9 - ZOSTER WITHOUT COMPLICATIONS (4) Diarrhea Current Visit: Yes Status: Acute Qualifiers: Diarrhea type: unspecified type Qualified Code(s): R19.7 - Diarrhea, unspecified Assessment & Plan: check gi pathogen panel, hx c diff. may be related to zoster Code(s): R19.7 - DIARRHEA, UNSPECIFIED (5) Hypokalemia Current Visit: Yes Status: Acute Assessment & Plan: replaced Code(s): E87.6 - HYPOKALEMIA (6) Dehydration Current Visit: No Status: Acute Code(s): E86.0 - DEHYDRATION
[2019-05-02] MEDS ORDERED: NON-FORMULARY ITEM (Duloxetine Hcl [Cymbalta] 60 MG) PO SCH (10:00)
[2019-05-02] MEDS ORDERED: ENOXAPARIN SODIUM SQ SCH (10:00)
[2019-05-02] MEDS ORDERED: FLUOCINONIDE TP SCH (10:00)
[2019-05-02] MEDS ORDERED: NON-FORMULARY ITEM (Cyanocobalamin (Vitamin B-12) [B-12] 1,000 MCG) PO SCH (10:00)
[2019-05-02] MEDS: Cymbalta 30 MG Capsule PO SCH (11:00)
[2019-05-02] MEDS: Ranexa 500 MG PO SCH ×2 (11:01→20:32)
[2019-05-02] MEDS: ECOTRIN 81 MG PO SCH (11:01)
[2019-05-02] MEDS: Toprol Xl 50 MG PO SCH (11:01)
[2019-05-02] MEDS: Pepcid 20 MG PO SCH ×2 (11:01→20:32)
[2019-05-02] MEDS: PLAVIX 75 MG Tablet PO SCH (11:01)
[2019-05-02] MEDS: Vitamin B-12 500 MCG PO SCH (11:01)
[2019-05-02] MEDS: Wellbutrin SR 150 MG PO SCH (11:01)
[2019-05-02] MEDS: NEURONTIN 300 MG PO SCH ×3 (11:02→20:32)
[2019-05-02] MEDS: KENALOG 0.1% OINTMENT TP SCH ×2 (11:02→20:31)
[2019-05-02] MEDS: ENOXAPARIN SODIUM SQ SCH (11:02)
[2019-05-02] MEDS: Vitamin B-6 (Pyridoxine) 100 MG PO SCH (11:03)
[2019-05-02 12:46] LABS: Campylobacter NEGATIVE (NEGATIVE)
[2019-05-02 12:48] LABS: C. Difficile Organism POSITIVE (NEGATIVE); Plesiomonas shigelloides NEGATIVE (NEGATIVE); Salmonella NEGATIVE (NEGATIVE); Vibrio NEGATIVE (NEGATIVE); Vibrio cholerae NEGATIVE (NEGATIVE)
[2019-05-02 12:49] LABS: Adenovirus F 40/41 NEGATIVE (NEGATIVE); Astrovirus NEGATIVE (NEGATIVE); Cryptosporidium NEGATIVE (NEGATIVE); Cyclospora cayentanensis NEGATIVE (NEGATIVE); Entamoeaba histolytica NEGATIVE (NEGATIVE); Enteroaggregative E.coli NEGATIVE (NEGATIVE); Enteropathogenic E.coli NEGATIVE (NEGATIVE); Enterotoxigenic E.coli NEGATIVE (NEGATIVE); Giardia lamblia NEGATIVE (NEGATIVE); Norovirus GI/GII NEGATIVE (NEGATIVE); Rotavirus A NEGATIVE (NEGATIVE); Sapovirus NEGATIVE (NEGATIVE); Shiga-like toxin prod.E.coli NEGATIVE (NEGATIVE); Yersinia enterocolitica NEGATIVE (NEGATIVE)
[2019-05-02] MEDS: FLAGYL 500 MG IVPB 500 MG/100 ML BAG IV SCH ×2 (14:13→19:47)
[2019-05-02] MEDS: ZOCOR 20MG PO SCH (20:32)
[2019-05-02] MEDS: Mirapex 0.5 MG Tablet PO SCH (20:32)
[2019-05-03] MEDS: FLAGYL 500 MG IVPB 500 MG/100 ML BAG IV SCH ×5 (00:20→23:33)
[2019-05-03 05:43] LABS: Hematocrit 35.4 % (35-47); Hemoglobin 11.7 gm/dl (12.0-16.0); Mean Cell Volume 99.2 fl (78-100); Mean Corpuscular Hgb Concent. 33.1 g/dl (32-36); Mean Platelet Volume 9.2 fl (6-9.5); Platelet Count 153 K/mm3 (150-450); Red Blood Count 3.57 M/mm3 (4.1-5.4); Red Cell Distribution Width 14.3 % (11.5-14.0); White Blood Count 4.8 K/mm3 (4.0-10.5)
[2019-05-03 05:51] LABS: Mean Corpuscular Hemoglobin 32.7 pg (26-32)
[2019-05-03] MEDS: ZOVIRAX 800 MG PO SCH ×3 (06:01→20:56)
[2019-05-03 06:06] LABS: ANION GAP 8.9 MEQ/L (5-15); Calcium 7.8 mg/dL (8.4-10.2); Creatinine 1 1.09 mg/dL (0.52-1.04); MAGNESIUM 1.4 mg/dL (1.6-2.3); Potassium 4.3 mmol/L (3.5-5.1)
[2019-05-03 06:08] LABS: TROPONIN 0.059 ng/mL (0.000-0.034)
--- NOTE | 2019-05-03 08:27 | PCM.NOTE ---
Date and Time: 05/03/19821 Subjective Assessment: Pt. reports improved po intake, feeling better, less pain in the region of the shingles. - Review of Systems Constitutional: No Fever, No Chills Ears, Nose, & Throat: No Symptoms Respiratory: No Cough, No Short Of Breath Cardiac: No Chest Pain, No Edema, No Syncope Abdominal/Gastrointestinal: No Abdominal Pain, No Nausea, No Vomiting, No Diarrhea Skin: No Rash Objective Exam General Appearance: no apparent distress, alert Neurologic Exam: alert, oriented x 3, cooperative, normal mood/affect, nml cerebellar function, sensation nml, No motor deficits Skin Exam: normal color, warm, dry, other (shingles rash on right lower back) Wound Assessment: Skin/Wound Assessment Wound/Incision Assessment Start: 05/01/19 17: 41 Text: Status: Active Freq: Q6H Protocol: Document 05/03/19 02:00 MG (Rec: 05/03/19 03:11 MG [id number]) Wound/Incision Assessment Left Posterior Back Wound Assessment Shift Assessment Wound Type RASH-SHINGLES Drainage Amount None Drainage Odor None/Absent General Appearance Open to air Surrounding Tissue [place] Comment Blisters are intact at this time, no drainage noted, right back, right lateral Ears, Nose, Throat Exam: normal ENT inspection, pharynx normal, moist mucous membranes Respiratory Exam: normal breath sounds, lungs clear, No respiratory distress Cardiovascular Exam: regular rate/rhythm, normal heart sounds OBJECTIVE DATA Vital Signs: Vital Signs - 24 hr Temp Pulse Resp BP Pulse Ox 05/03/19 07:30 97.2 F 62 16 126/69 96 05/03/19 04:23 97.3 F 63 19 116/69 96 05/02/19 23:37 97.5 F 69 16 100/55 93 L 05/02/19 19:54 98.2 F 66 18 106/64 96 05/02/19 16:00 97.0 F 65 16 106/63 96 05/02/19 12:00 98.1 F 89 18 131/81 95 Pain Assessment - Last Documented Pain Intensity 4 Pain Scale Used 0-10 Pain Scale Intake and Output: Intake & Output 04/30/19 05/01/19 05/02/19 05/03/19 11:59 11:59 11:59 11:59 Intake Total 2821 2021 Output Total 500 1475 Balance 2322 547 Weight 86.3 kg 86.5 kg Lab Results: Lab Results-Last 24 Hours 05/02/19 05/03/19 05/03/19 Range/Units Unknown 05:49 05:49 WBC 4.8 (4.0-10.5) K/mm3 RBC 3.57 L (4.1-5.4) M/mm3 Hgb 11.7 L (12.0-16.0) gm/dl Hct 35.4 (35-47) % MCV 99.2 (78-100) fl MCH 32.7 H (26-32) pg MCHC 33.1 (32-36) g/dl RDW 14.3 H (11.5-14.0) % Plt Count 153 (150-450) K/mm3 MPV 9.2 (6-9.5) fl Sodium 137 (137-145) mmol/L Potassium 4.3 (3.5-5.1) mmol/L Chloride 110 H (98-107) mmol/L Carbon Dioxide 23 (22-30) mmol/L Anion Gap 8.9 (5-15) MEQ/L BUN 33 H (7-17) mg/dL Creatinine 1.09 H (0.52-1.04) mg/dL Estimated GFR 50.5 ML/MIN Glucose 70 L (74-106) mg/dL Calcium 7.8 L (8.4-10.2) mg/dL Magnesium 1.4 L (1.6-2.3) mg/dL Troponin I 0.059 H* (0.000-0.034) ng/mL Stl C. cayetanensis PCR NEGATIVE (NEGATIVE) Stl Adenov F 40/41 PCR NEGATIVE (NEGATIVE) Stool Astrovirus (PCR) NEGATIVE (NEGATIVE) Stool Cryptosporidium PCR NEGATIVE (NEGATIVE) Stool EPEC (PCR) NEGATIVE (NEGATIVE) Stool EAEC (PCR) NEGATIVE (NEGATIVE) Stl E. histolytica PCR NEGATIVE (NEGATIVE) Stl P. shigelloides PCR NEGATIVE (NEGATIVE) Stool Sapovirus (PCR) NEGATIVE (NEGATIVE) St Y.enterocolitica PCR NEGATIVE (NEGATIVE) Stool Vibrio (PCR) NEGATIVE (NEGATIVE) Stl Vibrio cholerae PCR NEGATIVE (NEGATIVE) Stl Norovirus GI/GII PCR NEGATIVE (NEGATIVE) Campylobacter (PCR) NEGATIVE (NEGATIVE) C. difficile (PCR) POSITIVE A (NEGATIVE) Enterotoxigenic E. coli NEGATIVE (NEGATIVE) E.coli Shiga Toxins NEGATIVE (NEGATIVE) Giardia lamblia NEGATIVE (NEGATIVE) Rotavirus A (PCR) NEGATIVE (NEGATIVE) Salmonella (PCR) NEGATIVE (NEGATIVE) Shigella (PCR) NEGATIVE (NEGATIVE) Radiology Exams: Radiology Procedures Category Date Time Status CHEST 1 VIEW (PORTABLE) Stat Exams 05/01/19 14:41 Completed Assessment/Plan (1) Acute kidney injury Current Visit: Yes Status: Acute Assessment & Plan: continue current treatment plan, kidney function has returned to normal Code(s): N17.9 - ACUTE KIDNEY FAILURE, UNSPECIFIED (2) Generalized weakness Current Visit: Yes Status: Acute Assessment & Plan: Pt. reports improved strength Code(s): R53.1 - WEAKNESS (3) Herpes zoster Current Visit: Yes Status: Acute Assessment & Plan: Pain well controlled Code(s): B02.9 - ZOSTER WITHOUT COMPLICATIONS (4) Dehydration Current Visit: No Status: Acute Assessment & Plan: resolved with iv hydration Code(s): E86.0 - DEHYDRATION
[2019-05-03 09:21] LABS: Eosinophil 2 % (0.00-3.0); Lymphocytes 29 % (24-44); Monocyte 13 % (0.0-12.0); Neutrophils 56 % (36.0-66.0); Platelet Estimate NORMAL (NORMAL); Total Cells Counted 100
[2019-05-03] MEDS: Wellbutrin SR 150 MG PO SCH (09:42)
[2019-05-03] MEDS: Cymbalta 30 MG Capsule PO SCH (09:42)
[2019-05-03] MEDS: Ranexa 500 MG PO SCH ×2 (09:42→20:56)
[2019-05-03] MEDS: Vitamin B-12 500 MCG PO SCH (09:42)
[2019-05-03] MEDS: PLAVIX 75 MG Tablet PO SCH (09:42)
[2019-05-03] MEDS: ECOTRIN 81 MG PO SCH (09:43)
[2019-05-03] MEDS: Pepcid 20 MG PO SCH ×2 (09:43→20:56)
[2019-05-03] MEDS: ENOXAPARIN SODIUM SQ SCH (09:43)
[2019-05-03] MEDS: Toprol Xl 50 MG PO SCH (09:43)
[2019-05-03] MEDS: NEURONTIN 300 MG PO SCH ×3 (09:43→20:56)
[2019-05-03] MEDS: KENALOG 0.1% OINTMENT TP SCH ×2 (09:44→20:55)
[2019-05-03] MEDS: Vitamin B-6 (Pyridoxine) 100 MG PO SCH (09:45)
[2019-05-03] MEDS: Sodium Chloride 0.9% W/ 20 mEq KCl/LITER 1,000 ML IV SCH ×2 (09:48→19:31)
[2019-05-03] MEDS: Norco 10/325 MG Tablet PO PRN ×2 (11:04→20:56)
[2019-05-03] MEDS: ZOCOR 20MG PO SCH (20:56)
[2019-05-03] MEDS: Mirapex 0.5 MG Tablet PO SCH (20:56)
[2019-05-04 04:37] LABS: ANION GAP 8.1 MEQ/L (5-15); Calcium 8.1 mg/dL (8.4-10.2); Creatinine 1 0.95 mg/dL (0.52-1.04); Potassium 5.1 mmol/L (3.5-5.1)
[2019-05-04] MEDS: Sodium Chloride 0.9% W/ 20 mEq KCl/LITER 1,000 ML IV SCH ×2 (05:05→09:46)
[2019-05-04] MEDS: FLAGYL 500 MG IVPB 500 MG/100 ML BAG IV SCH (05:05)
[2019-05-04] MEDS: Norco 10/325 MG Tablet PO PRN (05:06)
[2019-05-04] MEDS: ZOVIRAX 800 MG PO SCH (05:06)
[2019-05-04 08:25] VITALS: BP 139/61; PULSE 65; O2SAT 93
--- NOTE | 2019-05-04 08:31 | PCM.DS ---
Discharge Summary Date of Admission: 05/01/19 17:09 Date of Discharge: 05/04/2019 Admitting Physician: BERTRAND BURDICK Primary Care Provider: BERTRAND BURDICK Allergies Allergies No Known Drug Allergies Allergy (Verified 05/01/19 14:43) Hospital Summary - Hospital Course Hospital Course: Pt. admitted on 05/01 with dehydration, general weakness secondary to shingles, also found to have c. diff. IVF and flagyl initiated. Pt. with some improvement in labs by next am. AM 05/03 pt. felt near baseline with no stool complaints, good po intake and return of general well being. AM of pt. felt back to herself and ready for discharge. - Vitals & Intake/Output Vital Signs: Vital Signs Temperature 96.9 F 05/04/19 08:00 Pulse Rate 65 05/04/19 08:00 Respiratory Rate 18 05/04/19 08:00 Blood Pressure 139/61 05/04/19 08:00 O2 Sat by Pulse Oximetry 93 L 05/04/19 08:00 Intake & Output: Intake & Output 05/01/19 05/02/19 05/03/19 05/04/19 11:59 11:59 11:59 11:59 Intake Total 2822 2262 3620 Output Total 500 1475 1100 Balance 2322 787 2520 Weight 86.3 kg 86.5 kg 75 kg - Lab Result Diagrams: 05/03/19 05:49 05/04/19 04:25 Lab Results-Last 24 Hrs: Lab Results-Last 24 Hours 05/03/19 05/04/19 Range/Units 05:49 04:25 Segmented Neutrophils 56 (36.0-66.0) % Lymphocytes (Manual) 29 (24-44) % Monocytes (Manual) 13 H (0.0-12.0) % Eosinophils (Manual) 2 (0.00-3.0) % Platelet Estimate NORMAL (NORMAL) RBC Morphology NORMAL Sodium 141 (137-145) mmol/L Potassium 5.1 (3.5-5.1) mmol/L Chloride 114 H (98-107) mmol/L Carbon Dioxide 24 (22-30) mmol/L Anion Gap 8.1 (5-15) MEQ/L BUN 27 H (7-17) mg/dL Creatinine 0.95 (0.52-1.04) mg/dL Estimated GFR 59.1 ML/MIN Glucose 78 (74-106) mg/dL Calcium 8.1 L (8.4-10.2) mg/dL Micro Results-Entire Visit: Microbiology 05/01/19 16:15 Urine Culture - Final Clean Catch Midstream <10K NORMAL SKIN PHIL PROBABLE SKIN CONTAMINANT 05/01/19 15:25 Blood Culture - Preliminary Blood NO GROWTH TO DATE 05/01/19 15:15 Blood Culture - Preliminary Blood NO GROWTH TO DATE - Procedures and Test Procedures and Tests throughout Hospitalization: Therapy Orders & Screens 05/01/19 17:10 OT Eval and Treat ( Order) Comment: Consulting Provider: Physician Instructions: Reason For Exam: PT Eval & Treat ( Order) Reason for Eval:: Generalized Weakness Diagnosis: KATHY, Hypokalemia, Generalized Weakness 05/01/19 22:34 EKG ONCE Comment: Diagnosis: KATHY, Hypokalemia, Generalized Weakness Discharge Exam General Appearance: no apparent distress, alert Neurologic Exam: alert, oriented x 3, cooperative, normal mood/affect, nml cerebellar function, sensation nml, No motor deficits Eye Exam: PERRL, EOMI, eyes nml inspection Ears, Nose, Throat Exam: normal ENT inspection, moist mucous membranes Neck Exam: normal inspection, non-tender, supple, full range of motion Respiratory Exam: normal breath sounds, lungs clear, No respiratory distress Cardiovascular Exam: regular rate/rhythm, normal heart sounds Gastrointestinal/Abdomen Exam: soft, No tenderness, No mass Skin Exam: normal color, warm, dry, other (rash persist on lower right back region) Wound Assessment: Skin/Wound Assessment Wound/Incision Assessment Start: 05/01/19 17: 41 Text: Status: Active Freq: Q6H Protocol: Document 05/04/19 01:50 MG (Rec: 05/04/19 01:53 MG [id number]) Wound/Incision Assessment Left Posterior Back Wound Assessment Shift Assessment Wound Type RASH-SHINGLES Drainage Amount None Drainage Odor None/Absent General Appearance Open to air Surrounding Tissue [place] Comment Shingles rash noted to left lower back, left flank, and extends to left lower abdomen. A few small open areas noted on back. Lymphatic Exam: adenopathy Final Diagnosis/Problem List - Final Discharge Diagnosis/Problem (1) Acute kidney injury Current Visit: Yes Status: Acute Code(s): N17.9 - ACUTE KIDNEY FAILURE, UNSPECIFIED (2) Generalized weakness Current Visit: Yes Status: Acute Code(s): R53.1 - WEAKNESS (3) Herpes zoster Current Visit: Yes Status: Acute Code(s): B02.9 - ZOSTER WITHOUT COMPLICATIONS (4) Dehydration Current Visit: No Status: Acute Code(s): E86.0 - DEHYDRATION (5) C. difficile diarrhea Current Visit: No Status: Acute Code(s): A04.72 - ENTEROCOLITIS D/T CLOSTRIDIUM DIFFICILE, NOT SPCF RECUR - Discharge Discharge Date: 05/04/19 Disposition: Home, Self-Care Condition: Fair Prescriptions: No Action Duloxetine HCl [Cymbalta] 60 mg PO DAILY Ranolazine 500 MG [Ranexa 500 MG] 500 mg PO BID Gabapentin 300 mg PO TID Cyanocobalamin (Vitamin B-12) [B-12] 1,000 mcg PO DAILY Pravastatin Sodium [Pravachol] 20 mg PO HS Bupropion HCl 150 mg Sr [Wellbutrin SR 150 MG] 300 mg PO DAILY Pyridoxine HCl (Vitamin B6) [Vitamin B-6] 100 mg PO DAILY Furosemide 20 mg [Lasix 20 mg] 20 mg PO DAILY Aspirin [[place] Aspirin EC] 81 mg PO DAILY Hydrocodone/APAP 10/325 mg [[place] 10/325 MG Tablet] 1 tab PO Q6H PRN PRN PRN Reason: Pain Fluocinonide 60 gm TP BID Pramipexole Di-HCl [Mirapex] 0.5 mg PO HS Metoprolol Succinate 50 mg [Toprol Xl 50 MG] 50 mg PO DAILY Clopidogrel Bisulfate 75 mg [PLAVIX 75 MG Tablet] 75 mg PO DAILY Acyclovir 800 mg [Zovirax 800 mg] 1 tab PO 5XD
[2019-05-04] MEDS: Vitamin B-12 500 MCG PO SCH (09:47)
[2019-05-04] MEDS: Ranexa 500 MG PO SCH (09:47)
[2019-05-04] MEDS: PLAVIX 75 MG Tablet PO SCH (09:47)
[2019-05-04] MEDS: Cymbalta 30 MG Capsule PO SCH (09:47)
[2019-05-04] MEDS: ECOTRIN 81 MG PO SCH (09:47)
[2019-05-04] MEDS: Pepcid 20 MG PO SCH (09:47)
[2019-05-04] MEDS: NEURONTIN 300 MG PO SCH (09:47)
[2019-05-04] MEDS: KENALOG 0.1% OINTMENT TP SCH (09:48)
[2019-05-04] MEDS: Toprol Xl 50 MG PO SCH (09:48)
[2019-05-04] MEDS: Wellbutrin SR 150 MG PO SCH (09:48)
[2019-05-04] MEDS: Vitamin B-6 (Pyridoxine) 100 MG PO SCH (09:49)
[2019-05-04] MEDS: ENOXAPARIN SODIUM SQ SCH (10:01)
== END 2019-05-04 12:35 | disposition home or self-care (01) ==
LOC: ED 14:25 → MED SURG 17:09
PROVIDERS: ADMIT Family Medicine; ATTEND Family Medicine
DX: N17.9 Acute kidney failure, unspecified (principal); R53.1 Weakness; A04.72 Enterocolitis due to Clostridium difficile, not specified as recurrent; B02.9 Zoster without complications; E87.6 Hypokalemia; R74.8 Abnormal levels of other serum enzymes; E86.0 Dehydration; Z79.01 Long term (current) use of anticoagulants; Z79.899 Other long term (current) drug therapy
CPT/HCPCS: 36415; 36600; 51702; 71045; 80048; 80053; 81001; 82375; 82803; 82962; 83605; 83735; 84134; 84484; 85025; 85610; 85730; 87040; 87086; 87507; 93005; 93041; 93268; 94760; 94762; 97110; 97530; 99285; G0378; J1650; A9270-GY

== ENCOUNTER 2019-05-08 08:50 | Inpatient (IN) | payer MEDICARE ==
[2019-05-08] MEDS ORDERED: MORPHINE SULFATE 4 MG INJ IV PRN (11:08)
[2019-05-08] MEDS ORDERED: Zofran 4 MG/2 ML VIAL IV PRN (11:09)
[2019-05-08] MEDS: PERCOCET TABLET 5/325MG PO PRN ×2 (11:15→16:16)
[2019-05-08] MEDS: Sodium Chloride 0.9% 1000 ML 1,000 ML IV SCH ×2 (11:17→21:59)
[2019-05-08] MEDS: Flagyl 500 MG PO SCH ×2 (11:17→17:35)
[2019-05-08 12:00] LABS: BASOPHIL % 0.1 % (0.0-0.4); Basophil (Absolute #) 0.01 (0-0.4); Eosinophil (Absolute #) 0.07 (0-0.5); Granulocyte Absolute (ANC) 3.78 (1.4-6.9); Granulocytes % 55.5 % (36.0-66.0); Hematocrit 41.2 % (35-47); Hemoglobin 14.2 gm/dl (12.0-16.0); Lymphocyte (Absolute #) 1.75 (1.0-4.6); Lymphocytes % 25.7 % (24.0-44.0); Mean Cell Volume 95.2 fl (78-100); Mean Corpuscular Hemoglobin 32.8 pg (26-32); Mean Corpuscular Hgb Concent. 34.5 g/dl (32-36); Mean Platelet Volume 9.1 fl (6-9.5); Monocyte (Absolute #) 1.21 (0.0-1.3); Monocytes % 17.7 % (0.0-12.0); Platelet Count 238 K/mm3 (150-450); Red Blood Count 4.33 M/mm3 (4.1-5.4); Red Cell Distribution Width 13.7 % (11.5-14.0); White Blood Count 6.8 K/mm3 (4.0-10.5)
[2019-05-08 12:11] LABS: ALBUMIN 3.5 g/dL (3.5-5.0); ALKALINE PHOSPHATASE 70 U/L (38-126); ANION GAP 13.8 MEQ/L (5-15); BLOOD UREA NITROGEN 13 mg/dL (7-17); CHLORIDE 102 mmol/L (98-107); Calcium 9.1 mg/dL (8.4-10.2); Carbon Dioxide 26 mmol/L (22-30); Creatinine 1 0.74 mg/dL (0.52-1.04); Glucose 107 mg/dL (74-106); Potassium 3.3 mmol/L (3.5-5.1); SGOT/AST 32 U/L (14-36); SGPT/ALT 20 U/L (0-35); SODIUM 138 mmol/L (137-145); Total Protein 6.5 g/dL (6.3-8.2)
[2019-05-08] MEDS ORDERED: MORPHINE SULFATE 4 MG INJ IV ONE (13:20)
[2019-05-08] MEDS ORDERED: Flagyl 500 MG PO SCH (15:00)
[2019-05-08] MEDS: NEURONTIN 300 MG PO SCH ×2 (15:05→23:07)
[2019-05-08] MEDS: ZOVIRAX 800 MG PO SCH ×3 (15:05→23:07)
[2019-05-08] MEDS: MORPHINE SULFATE 10 MG/ML IV PRN (17:34)
[2019-05-08] MEDS ORDERED: NON-FORMULARY ITEM (Pravastatin Sodium [Pravachol] 20 MG) PO SCH (22:00)
[2019-05-08] MEDS ORDERED: FLUOCINONIDE TP SCH (22:00)
[2019-05-08] MEDS ORDERED: EMOLLIENT BASE TP SCH (22:00)
[2019-05-08] MEDS ORDERED: PRAMIPEXOLE DI HCL 0.5 MG PO SCH (22:00)
[2019-05-08] MEDS: ZOCOR 20MG PO SCH (23:07)
[2019-05-08] MEDS: Mirapex 0.5 MG Tablet PO SCH (23:07)
[2019-05-08] MEDS: Ranexa 500 MG PO SCH (23:07)
[2019-05-08] MEDS: ANUSOL-HC 2.5% CREAM 30 GM TOP SCH (23:08)
[2019-05-09] MEDS: Flagyl 500 MG PO SCH ×5 (00:12→23:48)
[2019-05-09] MEDS: PERCOCET TABLET 5/325MG PO PRN (03:18)
[2019-05-09 03:48] LABS: Appearance CLOUDY (CLEAR); Bacteria PACKED /HPF (NEGATIVE); Bilirubin NEGATIVE (NEGATIVE); Blood SMALL Ery/ul (0-5); Epithelial Cells RARE /HPF (FEW); Glucose NEGATIVE (NEGATIVE); Ketones NEGATIVE (NEGATIVE); Leukocyte Esterase LARGE (NEGATIVE); Mucus SLIGHT /HPF (NEGATIVE); Nitrite POSITIVE (NEGATIVE); Protein,Urine Dip NEGATIVE (Negative); Urobilinogen NEGATIVE mg/dL (0-1); WBC >100 /HPF (0-5)
[2019-05-09] MEDS: MORPHINE SULFATE 10 MG/ML IV PRN ×2 (05:06→09:23)
[2019-05-09] MEDS: ROCEPHIN 1 Gm-D5w 50 ml Bag** 1 G/50 ML IVPB IV SCH ×2 (05:20→09:20)
[2019-05-09] MEDS: ZOVIRAX 800 MG PO SCH ×5 (06:21→23:48)
--- NOTE | 2019-05-09 08:52 | PCM.NOTE ---
Date and Time: 05/09/19 0850 Subjective Assessment: patient is still having significant breakthrough pain but better controlled than yesterday. she is now taking some PO intake, no new complaints Objective Exam General Appearance: no apparent distress, obese Neurologic Exam: alert, oriented x 3 Wound Assessment: Skin/Wound Assessment Wound/Incision Assessment Start: 05/08/19 10: 23 Text: Status: Active Freq: Q6H Protocol: Document 05/09/19 08:00 BA (Rec: 05/09/19 08:43 BA [id number]) Wound/Incision Assessment Right Lower Medial Back Wound Assessment Shift Assessment Wound Type shingles Wound Stage Non Pressure Wound Drainage Amount Moderate Drainage Description Yellow General Appearance Open to air Reddened Comment R lateral/abd. Red and scaly. Open to air. shingles. tender to touch Respiratory Exam: normal breath sounds, lungs clear, No respiratory distress Cardiovascular Exam: regular rate/rhythm, normal heart sounds Gastrointestinal/Abdomen Exam: soft, other (vesicular rash in dermatomal distribution on right abdomen/flank), No tenderness, No mass OBJECTIVE DATA Vital Signs: Vital Signs - 24 hr Temp Pulse Resp BP Pulse Ox 05/09/19 08:00 98.2 F 60 18 146/64 93 L 05/09/19 04:18 98.3 F 89 24 176/74 94 L 05/09/19 00:16 97.7 F 62 18 132/63 95 05/08/19 19:52 97.4 F 73 20 118/71 95 05/08/19 16:43 97.9 F 68 18 146/70 95 05/08/19 13:00 60 130/63 05/08/19 12:00 97.4 F 60 18 199/91 95 05/08/19 10:04 97.7 F 70 18 187/91 97 Pain Assessment - Last Documented Pain Intensity 6 Pain Scale Used 0-10 Pain Scale Intake and Output: Intake & Output 05/06/19 05/07/19 05/08/19 05/09/19 11:59 11:59 11:59 11:59 Intake Total 2102 Output Total 200 Balance 1902 Weight 67.8 kg Lab Results: Lab Results-Last 24 Hours 05/08/19 05/08/19 05/08/19 Range/Units 03:38 11:55 11:55 WBC 6.8 (4.0-10.5) K/mm3 RBC 4.33 (4.1-5.4) M/mm3 Hgb 14.2 (12.0-16.0) gm/dl Hct 41.2 (35-47) % MCV 95.2 (78-100) fl MCH 32.8 H (26-32) pg MCHC 34.5 (32-36) g/dl RDW 13.7 (11.5-14.0) % Plt Count 238 (150-450) K/mm3 MPV 9.1 (6-9.5) fl Gran % 55.5 (36.0-66.0) % Eos # (Auto) 0.07 (0-0.5) Absolute Lymphs (auto) 1.75 (1.0-4.6) Absolute Monos (auto) 1.21 (0.0-1.3) Lymphocytes % 25.7 (24.0-44.0) % Monocytes % 17.7 H (0.0-12.0) % Eosinophils % 1.0 (0.00-5.0) % Basophils % 0.1 (0.0-0.4) % Absolute Granulocytes 3.78 (1.4-6.9) Basophils # 0.01 (0-0.4) Sodium 138 (137-145) mmol/L Potassium 3.3 L (3.5-5.1) mmol/L Chloride 102 (98-107) mmol/L Carbon Dioxide 26 (22-30) mmol/L Anion Gap 13.8 (5-15) MEQ/L BUN 13 (7-17) mg/dL Creatinine 0.74 (0.52-1.04) mg/dL Estimated GFR > 60.0 ML/MIN Glucose 107 H (74-106) mg/dL Calcium 9.1 (8.4-10.2) mg/dL Total Bilirubin 0.50 (0.2-1.3) mg/dL AST 32 (14-36) U/L ALT 20 (0-35) U/L Alkaline Phosphatase 70 (38-126) U/L Serum Total Protein 6.5 (6.3-8.2) g/dL Albumin 3.5 (3.5-5.0) g/dL Urine Color IVELISSE (YELLOW) Urine Appearance CLOUDY (CLEAR) Urine pH 5.0 (5-6) Ur Specific [place] 1.010 (1.005-1.025) Urine Protein NEGATIVE (Negative) Urine Ketones NEGATIVE (NEGATIVE) Urine Blood SMALL (0-5) [place]/ul Urine Nitrite POSITIVE (NEGATIVE) Urine Bilirubin NEGATIVE (NEGATIVE) Urine Urobilinogen NEGATIVE (0-1) mg/dL Ur Leukocyte Esterase LARGE (NEGATIVE) Urine WBC (Auto) >100 (0-5) /HPF Urine RBC (Auto) 11-15 (0-2) /HPF U Epithel Cells (Auto) RARE (FEW) /HPF Urine Bacteria (Auto) PACKED (NEGATIVE) /HPF Urine Mucus (Auto) SLIGHT (NEGATIVE) /HPF Urine Culture Reflexed YES (NO) Urine Glucose NEGATIVE (NEGATIVE) mg/dL Assessment/Plan (1) Shingles Current Visit: Yes Status: Acute Assessment & Plan: on po acyclovir, fluids and pain control Code(s): B02.9 - ZOSTER WITHOUT COMPLICATIONS (2) UTI (urinary tract infection) Current Visit: Yes Status: Acute Assessment & Plan: rocephin, culture pending Code(s): N39.0 - URINARY TRACT INFECTION, SITE NOT SPECIFIED (3) C. difficile colitis Current Visit: Yes Status: Acute Assessment & Plan: on flagyl Code(s): A04.72 - ENTEROCOLITIS D/T CLOSTRIDIUM DIFFICILE, NOT SPCF RECUR (4) Dehydration Current Visit: Yes Status: Acute Code(s): E86.0 - DEHYDRATION
[2019-05-09] MEDS: Sodium Chloride 0.9% 1000 ML 1,000 ML IV SCH ×2 (09:20→19:04)
[2019-05-09] MEDS: LASIX 20 MG PO SCH (09:21)
[2019-05-09] MEDS: NEURONTIN 300 MG PO SCH ×3 (09:21→21:16)
[2019-05-09] MEDS: Vitamin B-12 500 MCG PO SCH (09:21)
[2019-05-09] MEDS: Toprol Xl 50 MG PO SCH (09:21)
[2019-05-09] MEDS: ANUSOL-HC 2.5% CREAM 30 GM TOP SCH ×2 (09:21→21:15)
[2019-05-09] MEDS: ECOTRIN 81 MG PO SCH (09:21)
[2019-05-09] MEDS: PLAVIX 75 MG Tablet PO SCH (09:21)
[2019-05-09] MEDS: Ranexa 500 MG PO SCH ×2 (09:21→21:16)
[2019-05-09] MEDS: Cymbalta 30 MG Capsule PO SCH (09:21)
[2019-05-09] MEDS: Vitamin B-6 (Pyridoxine) 100 MG PO SCH (09:23)
[2019-05-09] MEDS: Wellbutrin XL 150 MG PO SCH (09:23)
[2019-05-09] MEDS ORDERED: Wellbutrin SR 150 MG PO SCH (10:00)
[2019-05-09] MEDS ORDERED: NON-FORMULARY ITEM (Cyanocobalamin (Vitamin B-12) [B-12] 1,000 MCG) PO SCH (10:00)
[2019-05-09] MEDS ORDERED: NON-FORMULARY ITEM (Duloxetine Hcl [Cymbalta] 60 MG) PO SCH (10:00)
[2019-05-09] MEDS: OXYCODONE-ACETAMINOPHEN 10-325 PO PRN ×3 (11:36→21:16)
[2019-05-09] MEDS ORDERED: Sodium Chloride 0.9% 500 ML 500 ML IV ONE (19:00)
[2019-05-09] MEDS: ZOCOR 20MG PO SCH (21:16)
[2019-05-09] MEDS: Mirapex 0.5 MG Tablet PO SCH (21:16)
[2019-05-10] MEDS: Sodium Chloride 0.9% 1000 ML 1,000 ML IV SCH (00:39)
[2019-05-10] MEDS: OXYCODONE-ACETAMINOPHEN 10-325 PO PRN ×4 (04:09→23:55)
[2019-05-10] MEDS: Flagyl 500 MG PO SCH ×4 (05:53→23:56)
[2019-05-10] MEDS: ZOVIRAX 800 MG PO SCH ×5 (05:58→23:55)
[2019-05-10 06:42] LABS: BASOPHIL % 0.3 % (0.0-0.4); Basophil (Absolute #) 0.02 (0-0.4); Eosinophil % 2.5 % (0.00-5.0); Eosinophil (Absolute #) 0.17 (0-0.5); Granulocyte Absolute (ANC) 4.06 (1.4-6.9); Granulocytes % 60.7 % (36.0-66.0); Hematocrit 35.6 % (35-47); Hemoglobin 11.5 gm/dl (12.0-16.0); Lymphocyte (Absolute #) 1.56 (1.0-4.6); Lymphocytes % 23.3 % (24.0-44.0); Mean Cell Volume 101.7 fl (78-100); Mean Corpuscular Hgb Concent. 32.3 g/dl (32-36); Mean Platelet Volume 8.6 fl (6-9.5); Monocyte (Absolute #) 0.88 (0.0-1.3); Monocytes % 13.2 % (0.0-12.0); Platelet Count 186 K/mm3 (150-450); Red Cell Distribution Width 14.5 % (11.5-14.0); White Blood Count 6.7 K/mm3 (4.0-10.5)
[2019-05-10 06:43] LABS: Mean Corpuscular Hemoglobin 32.8 pg (26-32)
[2019-05-10 06:59] LABS: ALBUMIN 2.8 g/dL (3.5-5.0); ANION GAP 11.3 MEQ/L (5-15); BILIRUBIN,TOTAL 0.3 mg/dL (0.2-1.3); Calcium 8.2 mg/dL (8.4-10.2); Creatinine 1 0.94 mg/dL (0.52-1.04); MAGNESIUM 1.2 mg/dL (1.6-2.3); Potassium 3.7 mmol/L (3.5-5.1); Total Protein 5.4 g/dL (6.3-8.2)
[2019-05-10] MEDS: PLAVIX 75 MG Tablet PO SCH (08:53)
[2019-05-10] MEDS: NEURONTIN 300 MG PO SCH ×3 (08:53→20:10)
[2019-05-10] MEDS: Ranexa 500 MG PO SCH ×2 (08:53→20:10)
[2019-05-10] MEDS: ECOTRIN 81 MG PO SCH (08:53)
[2019-05-10] MEDS: Toprol Xl 50 MG PO SCH (08:53)
[2019-05-10] MEDS: Vitamin B-12 500 MCG PO SCH (08:53)
[2019-05-10] MEDS: LASIX 20 MG PO SCH (08:53)
[2019-05-10] MEDS: Cymbalta 30 MG Capsule PO SCH (08:53)
[2019-05-10] MEDS: ANUSOL-HC 2.5% CREAM 30 GM TOP SCH ×2 (08:54→20:10)
[2019-05-10] MEDS: Vitamin B-6 (Pyridoxine) 100 MG PO SCH (08:54)
[2019-05-10] MEDS: ROCEPHIN 1 Gm-D5w 50 ml Bag** 1 G/50 ML IVPB IV SCH (08:55)
[2019-05-10] MEDS: Wellbutrin XL 150 MG PO SCH (08:56)
[2019-05-10] MEDS ORDERED: Sodium Chloride 0.9% 10 ML FLUSH Syringe IV PRN (09:30)
[2019-05-10] MEDS: Sodium Chloride 0.9% 10 ML FLUSH Syringe IV SCH ×2 (16:29→20:11)
[2019-05-10] MEDS: Mirapex 0.5 MG Tablet PO SCH (20:11)
[2019-05-10] MEDS: ZOCOR 20MG PO SCH (20:11)
[2019-05-11] MEDS: OXYCODONE-ACETAMINOPHEN 10-325 PO PRN ×3 (03:49→18:30)
[2019-05-11] MEDS: ZOVIRAX 800 MG PO SCH ×5 (05:12→23:38)
[2019-05-11] MEDS: Flagyl 500 MG PO SCH ×4 (05:12→23:38)
[2019-05-11] MEDS: Sodium Chloride 0.9% 10 ML FLUSH Syringe IV SCH ×3 (05:13→21:07)
[2019-05-11] MEDS: ROCEPHIN 1 Gm-D5w 50 ml Bag** 1 G/50 ML IVPB IV SCH (10:37)
[2019-05-11] MEDS: PLAVIX 75 MG Tablet PO SCH (10:37)
[2019-05-11] MEDS: LASIX 20 MG PO SCH (10:38)
[2019-05-11] MEDS: NEURONTIN 300 MG PO SCH ×3 (10:38→21:06)
[2019-05-11] MEDS: Wellbutrin XL 150 MG PO SCH (10:38)
[2019-05-11] MEDS: ECOTRIN 81 MG PO SCH (10:38)
[2019-05-11] MEDS: Toprol Xl 50 MG PO SCH (10:38)
[2019-05-11] MEDS: Cymbalta 30 MG Capsule PO SCH (10:38)
[2019-05-11] MEDS: Ranexa 500 MG PO SCH ×2 (10:38→21:06)
[2019-05-11] MEDS: Vitamin B-12 500 MCG PO SCH (10:38)
[2019-05-11] MEDS: Vitamin B-6 (Pyridoxine) 100 MG PO SCH (10:39)
[2019-05-11] MEDS: ANUSOL-HC 2.5% CREAM 30 GM TOP SCH ×2 (11:26→21:06)
[2019-05-11] MEDS: ZOCOR 20MG PO SCH (21:06)
[2019-05-11] MEDS: Mirapex 0.5 MG Tablet PO SCH (21:06)
[2019-05-12] MEDS: OXYCODONE-ACETAMINOPHEN 10-325 PO PRN ×4 (00:40→21:10)
[2019-05-12] MEDS: ZOVIRAX 800 MG PO SCH ×5 (05:11→23:29)
[2019-05-12] MEDS: Flagyl 500 MG PO SCH ×4 (05:11→23:29)
[2019-05-12] MEDS: Sodium Chloride 0.9% 10 ML FLUSH Syringe IV SCH ×3 (05:11→21:11)
[2019-05-12 05:54] LABS: Hematocrit 34.1 % (35-47); Hemoglobin 11.8 gm/dl (12.0-16.0); Mean Cell Volume 98.6 fl (78-100); Mean Corpuscular Hemoglobin 34.1 pg (26-32); Mean Corpuscular Hgb Concent. 34.6 g/dl (32-36); Mean Platelet Volume 9.6 fl (6-9.5); Platelet Count 181 K/mm3 (150-450); Red Blood Count 3.46 M/mm3 (4.1-5.4); Red Cell Distribution Width 14.2 % (11.5-14.0); White Blood Count 5.4 K/mm3 (4.0-10.5)
[2019-05-12 06:21] LABS: ANION GAP 11.2 MEQ/L (5-15); BLOOD UREA NITROGEN 15 mg/dL (7-17); CHLORIDE 103 mmol/L (98-107); Calcium 8.3 mg/dL (8.4-10.2); Carbon Dioxide 30 mmol/L (22-30); Creatinine 1 0.82 mg/dL (0.52-1.04); Glucose 85 mg/dL (74-106); Potassium 3.6 mmol/L (3.5-5.1); SODIUM 141 mmol/L (137-145)
--- NOTE | 2019-05-12 08:17 | PCM.NOTE ---
Date and Time: 05/12/19813 Subjective Assessment: patient reports she is improved, po intake is adequate and pain is fairly well controlled. Objective Exam General Appearance: no apparent distress, alert, obese Skin Exam: other (zoster in right abdomen/back dermatomal distribution. dry) Wound Assessment: Skin/Wound Assessment Wound/Incision Assessment Start: 05/08/19 10: 23 Text: Status: Active Freq: Q6H Protocol: Document 05/12/19 02:00 AW (Rec: 05/12/19 04:09 AW [id number]) Wound/Incision Assessment Right Lower Medial Back Wound Assessment Shift Assessment Wound Type shingles Wound Stage Non Pressure Wound Drainage Amount None General Appearance Open to air Reddened Wound Bed Greatest Portion Red (Granulation) Wound Bed Lesser Portion Pale [place] Surrounding Tissue [place] Comment R side winding around to back, red and scaly shingles rash, Open to air. medicated ointment applied Wound Photo Photo Taken No Respiratory Exam: normal breath sounds, lungs clear, No respiratory distress Cardiovascular Exam: regular rate/rhythm, normal heart sounds Gastrointestinal/Abdomen Exam: soft, No tenderness, No mass Extremity Exam: normal inspection, normal range of motion OBJECTIVE DATA Vital Signs: Vital Signs - 24 hr Temp Pulse Resp BP Pulse Ox 05/12/19 07:15 98.4 F 63 18 136/70 94 L 05/12/19 04:00 98.9 F 64 18 118/56 94 L 05/11/19 23:36 98.7 F 65 18 140/65 93 L 05/11/19 20:00 98.5 F 66 18 128/62 95 05/11/19 16:00 98.6 F 69 18 141/63 95 05/11/19 12:00 98.3 F 80 18 134/66 95 05/11/19 08:24 96 Pain Assessment - Last Documented Pain Intensity 6 Pain Scale Used 0-10 Pain Scale Intake and Output: Intake & Output 05/09/19 05/10/19 05/11/19 05/12/19 11:59 11:59 11:59 11:59 Intake Total 2102 1701 1854 535 Output Total 200 850 550 850 Balance 9782 699 5295 -315 Lab Results: Lab Results-Last 24 Hours 05/12/19 05/12/19 Range/Units 05:15 05:15 WBC 5.4 (4.0-10.5) K/mm3 RBC 3.46 L (4.1-5.4) M/mm3 Hgb 11.8 L (12.0-16.0) gm/dl Hct 34.1 L (35-47) % MCV 98.6 (78-100) fl MCH 34.1 H (26-32) pg MCHC 34.6 (32-36) g/dl RDW 14.2 H (11.5-14.0) % Plt Count 181 (150-450) K/mm3 MPV 9.6 H (6-9.5) fl Sodium 141 (137-145) mmol/L Potassium 3.6 (3.5-5.1) mmol/L Chloride 103 (98-107) mmol/L Carbon Dioxide 30 (22-30) mmol/L Anion Gap 11.2 (5-15) MEQ/L BUN 15 (7-17) mg/dL Creatinine 0.82 (0.52-1.04) mg/dL Estimated GFR > 60.0 ML/MIN Glucose 85 (74-106) mg/dL Calcium 8.3 L (8.4-10.2) mg/dL Multi-Disciplinary Progress Notes: Multi-Disciplinary Progress Notes 05/12/19 06:58 Respiratory Note by Juana Zuniga D/Deandra O2 PT HAS NOT USED IN 3 DAYS Initialized on 05/12/19 06:58 - END OF NOTE Assessment/Plan (1) Shingles Current Visit: Yes Status: Acute Assessment & Plan: improved Code(s): B02.9 - ZOSTER WITHOUT COMPLICATIONS (2) UTI (urinary tract infection) Current Visit: Yes Status: Acute Assessment & Plan: on rocephin day#4, klebsiella/proteus sens Code(s): N39.0 - URINARY TRACT INFECTION, SITE NOT SPECIFIED (3) C. difficile colitis Current Visit: Yes Status: Acute Assessment & Plan: on flagyl po, no diarrhea at this time Code(s): A04.72 - ENTEROCOLITIS D/T CLOSTRIDIUM DIFFICILE, NOT SPCF RECUR (4) Dehydration Current Visit: Yes Status: Acute Code(s): E86.0 - DEHYDRATION
[2019-05-12] MEDS: Vitamin B-12 500 MCG PO SCH (09:35)
[2019-05-12] MEDS: ECOTRIN 81 MG PO SCH (09:35)
[2019-05-12] MEDS: Ranexa 500 MG PO SCH ×2 (09:35→21:10)
[2019-05-12] MEDS: NEURONTIN 300 MG PO SCH ×3 (09:35→21:10)
[2019-05-12] MEDS: LASIX 20 MG PO SCH (09:35)
[2019-05-12] MEDS: Toprol Xl 50 MG PO SCH (09:35)
[2019-05-12] MEDS: Cymbalta 30 MG Capsule PO SCH (09:35)
[2019-05-12] MEDS: PLAVIX 75 MG Tablet PO SCH (09:35)
[2019-05-12] MEDS: Wellbutrin XL 150 MG PO SCH (09:36)
[2019-05-12] MEDS: ROCEPHIN 1 Gm-D5w 50 ml Bag** 1 G/50 ML IVPB IV SCH (09:36)
[2019-05-12] MEDS: Vitamin B-6 (Pyridoxine) 100 MG PO SCH (09:36)
[2019-05-12] MEDS: ANUSOL-HC 2.5% CREAM 30 GM TOP SCH ×2 (10:44→21:10)
[2019-05-12] MEDS: Mirapex 0.5 MG Tablet PO SCH (21:10)
[2019-05-12] MEDS: ZOCOR 20MG PO SCH (21:10)
[2019-05-13] MEDS: OXYCODONE-ACETAMINOPHEN 10-325 PO PRN ×5 (02:29→23:02)
[2019-05-13] MEDS: ZOVIRAX 800 MG PO SCH ×5 (04:33→22:55)
[2019-05-13] MEDS: Sodium Chloride 0.9% 10 ML FLUSH Syringe IV SCH ×3 (04:33→22:59)
[2019-05-13] MEDS: Flagyl 500 MG PO SCH ×4 (04:33→22:55)
[2019-05-13 05:06] LABS: BASOPHIL % 0.2 % (0.0-0.4); Basophil (Absolute #) 0.01 (0-0.4); Eosinophil % 1.8 % (0.00-5.0); Eosinophil (Absolute #) 0.11 (0-0.5); Granulocyte Absolute (ANC) 4.26 (1.4-6.9); Granulocytes % 67.8 % (36.0-66.0); Hematocrit 35.8 % (35-47); Hemoglobin 11.8 gm/dl (12.0-16.0); Lymphocyte (Absolute #) 1.09 (1.0-4.6); Lymphocytes % 17.4 % (24.0-44.0); Mean Cell Volume 99.4 fl (78-100); Mean Platelet Volume 8.8 fl (6-9.5); Monocytes % 12.8 % (0.0-12.0); Platelet Count 203 K/mm3 (150-450); White Blood Count 6.3 K/mm3 (4.0-10.5)
[2019-05-13 05:15] LABS: Mean Corpuscular Hemoglobin 32.7 pg (26-32)
[2019-05-13 05:38] LABS: ANION GAP 12.6 MEQ/L (5-15); BLOOD UREA NITROGEN 12 mg/dL (7-17); CHLORIDE 100 mmol/L (98-107); Calcium 8.8 mg/dL (8.4-10.2); Carbon Dioxide 32 mmol/L (22-30); Creatinine 1 0.88 mg/dL (0.52-1.04); Glucose 102 mg/dL (74-106); Potassium 3.6 mmol/L (3.5-5.1); SODIUM 141 mmol/L (137-145)
--- NOTE | 2019-05-13 09:19 | PCM.NOTE ---
Date and Time: 05/13/19916 Subjective Assessment: pt is feeling some better, she reports she was in pain so refused therapy yesterday Objective Exam General Appearance: no apparent distress, obese Neurologic Exam: alert, oriented x 3 Skin Exam: normal color, warm, dry Wound Assessment: Skin/Wound Assessment Wound/Incision Assessment Start: 05/08/19 10: 23 Text: Status: Active Freq: Q6H Protocol: Document 05/13/19 07:29 REBA (Rec: 05/13/19 07:32 REBA [id number]) Wound/Incision Assessment Right Lower Medial Back Wound Assessment Shift Assessment Wound Type shingles Wound Stage Non Pressure Wound Drainage Amount None General Appearance Open to air Reddened Wound Bed Greatest Portion Red (Granulation) Wound Bed Lesser Portion Pale [place] Surrounding Tissue [place] Topical Solution/Irrigant Medicated Ointment Comment Shingles rash on right side into right back spreading around to right abdomen, red, dry, scaling and flaking,open to air; hydrocortisone cream applied per nursing bid. Wound Photo Photo Taken No Respiratory Exam: normal breath sounds, lungs clear, No respiratory distress Cardiovascular Exam: regular rate/rhythm, normal heart sounds Gastrointestinal/Abdomen Exam: other (vesicular, dry flaking rash in right abdomen and flank) OBJECTIVE DATA Vital Signs: Vital Signs - 24 hr Temp Pulse Resp BP Pulse Ox 05/13/19 08:00 98.5 F 92 H 20 144/65 92 L 05/13/19 04:00 98.1 F 97 H 20 136/68 92 L 05/12/19 23:42 97.3 F 78 18 121/63 92 L 05/12/19 20:00 98.2 F 97 H 18 112/70 93 L 05/12/19 16:00 98.2 F 71 18 123/58 95 05/12/19 12:00 98.1 F 75 18 109/59 96 Pain Assessment - Last Documented Pain Intensity 3 Pain Scale Used 0-10 Pain Scale Intake and Output: Intake & Output 05/10/19 05/11/19 05/12/19 05/13/19 11:59 11:59 11:59 11:59 Intake Total 1701 1854 535 490 Output Total 850 778 917 8341 Balance 851 1304 -315 -560 Weight 67.8 kg Lab Results: Lab Results-Last 24 Hours 05/13/19 05/13/19 Range/Units 04:46 04:46 WBC 6.3 (4.0-10.5) K/mm3 RBC 3.60 L (4.1-5.4) M/mm3 Hgb 11.8 L (12.0-16.0) gm/dl Hct 35.8 (35-47) % MCV 99.4 (78-100) fl MCH 32.7 H (26-32) pg MCHC 33.0 (32-36) g/dl RDW 14.0 (11.5-14.0) % Plt Count 203 (150-450) K/mm3 MPV 8.8 (6-9.5) fl Gran % 67.8 H (36.0-66.0) % Eos # (Auto) 0.11 (0-0.5) Absolute Lymphs (auto) 1.09 (1.0-4.6) Absolute Monos (auto) 0.80 (0.0-1.3) Lymphocytes % 17.4 L (24.0-44.0) % Monocytes % 12.8 H (0.0-12.0) % Eosinophils % 1.8 (0.00-5.0) % Basophils % 0.2 (0.0-0.4) % Absolute Granulocytes 4.26 (1.4-6.9) Basophils # 0.01 (0-0.4) Sodium 141 (137-145) mmol/L Potassium 3.6 (3.5-5.1) mmol/L Chloride 100 (98-107) mmol/L Carbon Dioxide 32 H (22-30) mmol/L Anion Gap 12.6 (5-15) MEQ/L BUN 12 (7-17) mg/dL Creatinine 0.88 (0.52-1.04) mg/dL Estimated GFR > 60.0 ML/MIN Glucose 102 (74-106) mg/dL Calcium 8.8 (8.4-10.2) mg/dL Assessment/Plan (1) Shingles Current Visit: Yes Status: Acute Assessment & Plan: completed zovirax course, pain controlled at this time Code(s): B02.9 - ZOSTER WITHOUT COMPLICATIONS (2) UTI (urinary tract infection) Current Visit: Yes Status: Acute Assessment & Plan: on rocephin, today is day #5 so will d/c after today to complete treatment Code(s): N39.0 - URINARY TRACT INFECTION, SITE NOT SPECIFIED (3) C. difficile colitis Current Visit: Yes Status: Acute Assessment & Plan: diarrhea resolved, on po flagyl. once rocephin completed will likely be able to d/c flagyl in the next day or two Code(s): A04.72 - ENTEROCOLITIS D/T CLOSTRIDIUM DIFFICILE, NOT SPCF RECUR (4) Dehydration Current Visit: Yes Status: Acute Assessment & Plan: resolved, concerned with functional status. encouraged to participate in rehab and may need to consider rehab, pt wishes to return to home on discharge. Code(s): E86.0 - DEHYDRATION
[2019-05-13] MEDS: LASIX 20 MG PO SCH (09:30)
[2019-05-13] MEDS: Cymbalta 30 MG Capsule PO SCH (09:30)
[2019-05-13] MEDS: ECOTRIN 81 MG PO SCH (09:30)
[2019-05-13] MEDS: Vitamin B-12 500 MCG PO SCH (09:30)
[2019-05-13] MEDS: Ranexa 500 MG PO SCH ×2 (09:30→22:55)
[2019-05-13] MEDS: ROCEPHIN 1 Gm-D5w 50 ml Bag** 1 G/50 ML IVPB IV SCH (09:30)
[2019-05-13] MEDS: NEURONTIN 300 MG PO SCH ×3 (09:30→22:55)
[2019-05-13] MEDS: Toprol Xl 50 MG PO SCH (09:31)
[2019-05-13] MEDS: PLAVIX 75 MG Tablet PO SCH (09:31)
[2019-05-13] MEDS: Vitamin B-6 (Pyridoxine) 100 MG PO SCH (09:32)
[2019-05-13] MEDS: Wellbutrin XL 150 MG PO SCH (09:32)
[2019-05-13] MEDS: ANUSOL-HC 2.5% CREAM 30 GM TOP SCH ×2 (10:08→23:00)
[2019-05-13] MEDS: Mirapex 0.5 MG Tablet PO SCH (22:55)
[2019-05-13] MEDS: ZOCOR 20MG PO SCH (22:58)
[2019-05-14 04:16] VITALS: O2SAT 95
[2019-05-14] MEDS: OXYCODONE-ACETAMINOPHEN 10-325 PO PRN ×2 (04:18→09:50)
[2019-05-14] MEDS: Flagyl 500 MG PO SCH (06:04)
[2019-05-14] MEDS: Sodium Chloride 0.9% 10 ML FLUSH Syringe IV SCH (06:05)
[2019-05-14] MEDS: ZOVIRAX 800 MG PO SCH (06:51)
[2019-05-14 07:36] VITALS: BP 129/60; PULSE 63
--- NOTE | 2019-05-14 09:18 | PCM.DS ---
Discharge Summary Date of Admission: 05/09/19 08:50 Admitting Physician: BERTRAND BURDICK Primary Care Provider: BERTRAND BURDICK Allergies Allergies No Known Drug Allergies Allergy (Verified 05/01/19 14:43) Hospital Summary - Hospital Course Hospital Course: patient was direct admit with shingles, weakness, poor po intake, found to have UTI, fully treated with rocephin x 5 days. tolerating po, able to ambulate and doing much better now. - Vitals & Intake/Output Vital Signs: Vital Signs Temperature 98.1 F 05/14/19 07:35 Pulse Rate 63 05/14/19 07:35 Respiratory Rate 18 05/14/19 07:35 Blood Pressure 129/60 05/14/19 07:35 O2 Sat by Pulse Oximetry 95 05/14/19 07:35 Oxygen-Last Documented O2 Percentage 2 Liters = 28% Intake & Output: Intake & Output 05/11/19 05/12/19 05/13/19 05/14/19 11:59 11:59 11:59 11:59 Intake Total 1854 535 490 900 Output Total 036 515 0573 650 Balance 1304 -315 -560 250 Weight 67.8 kg - Lab Result Diagrams: 05/13/19 04:46 05/13/19 04:46 Micro Results-Entire Visit: Microbiology 05/08/19 03:38 Urine Culture - Final Urine, Void Klebsiella Pneumoniae Proteus Mirabilis - Procedures and Test Procedures and Tests throughout Hospitalization: Therapy Orders & Screens 05/08/19 10:23 OT Screen per Nursing Assess Comment: Protocol Order Physician Instructions: Greater than 3 points order OT Admission Screening Reason For Exam: Triggered on Admission Diagnosis: Shingles. acute pain. Open Wound/Cellutlitis/Pressure Ulcers: Yes Acute Fx/ORIF/Change in wt bearing status: No Severe MUSCULOSKELETAL pain: Yes ADL Dysfunction: No Acute CVA w/Hemiparesis/Hemiplegia: No Decreased Functional Mobility/Strength: No Sprain/Strain: No Acute Post-op Mobility Dysfunction: No Total Points: 10 PT Screen per Nursing Assess ONCE Comment: Protocol Order Physician Instructions: Greater than 3 points order PT Admission Screenin Reason For Exam: Triggered on Admission Diagnosis: Shingles. acute pain. Open Wound/Cellutlitis/Pressure Ulcers: Yes Acute Fx/ORIF/Change in wt bearing status: No Severe MUSCULOSKELETAL pain: Yes ADL Dysfunction: No Acute CVA w/Hemiparesis/Hemiplegia: No Decreased Functional Mobility/Strength: No Sprain/Strain: No Acute Post-op Mobility Dysfunction: No Total Points: 10 05/12/19 08:24 PT Eval & Treat (MD Order) Reason for Eval:: weakness, shingles, poor po intake. Diagnosis: HERPES ZOSTER,CDIFF COLITIS Discharge Exam General Appearance: no apparent distress, obese Neurologic Exam: alert, oriented x 3 Respiratory Exam: normal breath sounds, lungs clear, No respiratory distress Cardiovascular Exam: regular rate/rhythm Gastrointestinal/Abdomen Exam: soft Skin Exam: other (dry, healing vesicular lesions in dermatomal distr right flank /abd) Wound Assessment: Skin/Wound Assessment Wound/Incision Assessment Start: 05/08/19 10: 23 Text: Status: Active Freq: Q6H Protocol: Document 05/14/19 07:58 RDUHNE (Rec: 05/14/19 08:13 RDUHNE [id number]) Wound/Incision Assessment Right Lower Medial Back Wound Assessment Shift Assessment Wound Type shingles Wound Stage Non Pressure Wound Drainage Amount None General Appearance Open to air Reddened Wound Bed Greatest Portion Red (Granulation) Wound Bed Lesser Portion Pale [place] Surrounding Tissue [place] Topical Solution/Irrigant Medicated Ointment Wound Photo Photo Taken No Final Diagnosis/Problem List - Final Discharge Diagnosis/Problem (1) Shingles Current Visit: Yes Status: Acute Code(s): B02.9 - ZOSTER WITHOUT COMPLICATIONS (2) UTI (urinary tract infection) Current Visit: Yes Status: Acute Assessment & Plan: no further tx required on rocephin Code(s): N39.0 - URINARY TRACT INFECTION, SITE NOT SPECIFIED (3) C. difficile colitis Current Visit: Yes Status: Acute Assessment & Plan: resolved with flagyl, no further tx required Code(s): A04.72 - ENTEROCOLITIS D/T CLOSTRIDIUM DIFFICILE, NOT SPCF RECUR (4) Dehydration Current Visit: Yes Status: Acute Code(s): E86.0 - DEHYDRATION - Discharge Disposition: Home, Self-Care Condition: Stable Prescriptions: New Oxycodone / APAP 10/325 mg [Oxycodone-Acetaminophen 10-325] 1 tab PO Q4H PRN PRN #30 tablet MDD 6 PRN Reason: Pain Continue Duloxetine HCl [Cymbalta] 60 mg PO DAILY Ranolazine 500 MG [Ranexa 500 MG] 500 mg PO BID Gabapentin 300 mg PO TID Cyanocobalamin (Vitamin B-12) [B-12] 1,000 mcg PO DAILY Pravastatin Sodium [Pravachol] 20 mg PO HS Bupropion HCl 150 mg Sr [Wellbutrin SR 150 MG] 300 mg PO DAILY Pyridoxine HCl (Vitamin B6) [Vitamin B-6] 100 mg PO DAILY Furosemide 20 mg [Lasix 20 mg] 20 mg PO DAILY Aspirin [[place] Aspirin EC] 81 mg PO DAILY Pramipexole Di-HCl [Mirapex] 0.5 mg PO HS Metoprolol Succinate 50 mg [Toprol Xl 50 MG] 50 mg PO DAILY Clopidogrel Bisulfate 75 mg [PLAVIX 75 MG Tablet] 75 mg PO DAILY Fluocinonide/Emollient Base [Fluocinonide-E 0.05% Cream] 60 gm TP BID 10 Days #60 cream..g. Discontinued Hydrocodone/APAP 10/325 mg [[place] 10/325 MG Tablet] 1 tab PO Q6H PRN PRN PRN Reason: Pain Acyclovir 800 mg [Zovirax 800 mg] 1 tab PO 5XD Metronidazole 500 mg [Flagyl 500 MG] 500 mg PO TID #30 tablet Follow up with: BERTRAND BURDICK MD [Primary Care Provider] - 1 Week
[2019-05-14] MEDS: Cymbalta 30 MG Capsule PO SCH (09:33)
[2019-05-14] MEDS: Toprol Xl 50 MG PO SCH (09:33)
[2019-05-14] MEDS: PLAVIX 75 MG Tablet PO SCH (09:33)
[2019-05-14] MEDS: Ranexa 500 MG PO SCH (09:33)
[2019-05-14] MEDS: ECOTRIN 81 MG PO SCH (09:33)
[2019-05-14] MEDS: NEURONTIN 300 MG PO SCH (09:35)
[2019-05-14] MEDS: LASIX 20 MG PO SCH (09:35)
[2019-05-14] MEDS: Vitamin B-12 500 MCG PO SCH (09:36)
[2019-05-14] MEDS: Wellbutrin XL 150 MG PO SCH (09:36)
[2019-05-14] MEDS: Vitamin B-6 (Pyridoxine) 100 MG PO SCH (09:36)
[2019-05-14] MEDS: ROCEPHIN 1 Gm-D5w 50 ml Bag** 1 G/50 ML IVPB IV SCH (09:39)
[2019-05-14] MEDS: ANUSOL-HC 2.5% CREAM 30 GM TOP SCH (09:40)
== END 2019-05-14 11:05 | disposition home or self-care (01) | DRG 596 ==
LOC: MED SURG 08:50 → OBSVTOIN 05-09 08:50
PROVIDERS: ADMIT Family Medicine; ATTEND Family Medicine
DX: B02.9 Zoster without complications (principal); N39.0 Urinary tract infection, site not specified; A04.72 Enterocolitis due to Clostridium difficile, not specified as recurrent; E86.0 Dehydration; Z79.01 Long term (current) use of anticoagulants; Z79.899 Other long term (current) drug therapy; M62.81 Muscle weakness (generalized)
CPT/HCPCS: 36415; 80048; 80053; 81001; 83735; 85025; 85027; 87077; 87086; 87186; 94760; 97161; 97530; G0378; J0696; J2270; A9270-GY

== ENCOUNTER 2020-12-04 18:23 | Emergency (ER) | payer MEDICARE ==
--- NOTE | 2020-12-04 18:25 | ERPHSYRPT ---
- History of Present Illness Time Seen by Provider: 12/04/20 18:25 Source: patient, family Exam Limitations: no limitations Physician History: This is an 89-year-old white female who fell back hitting her lower back and posterior pelvis 2 days ago. Patient is able to ambulate and move around well. However she has increased pain when doing so. Patient chronically is taking [place] 10/325. She states that this helps her pain. The last dose she took was over 12 hours ago. Her and her family member that is with her concerned that maybe she might of fractured something when she fell. She did not hit her head. She had no loss of consciousness. She has no headache. She has no neck pain. She has no chest pain. She is not short of breath and she has no abdominal pain. Timing/Duration: day(s) (2) Method of Injury: fall Quality: aching Back Pain Location: lumbar spine Severity of Pain-Max: moderate Severity of Pain-Current: moderate Modifying Factors: Improves With: movement Associated Symptoms: denies symptoms Previous symptoms: no prior history Allergies/Adverse Reactions: No Known Drug Allergies Allergy (Verified 12/04/20 18:46) Home Medications: Gabapentin 300 mg PO TID 01/24/17 [History] Ranolazine 500 MG [Ranexa 500 MG] 500 mg PO BID 01/24/17 [History] Cyanocobalamin (Vitamin B-12) [B-12] 1,000 mcg PO DAILY 05/08/17 [History] Furosemide 20 mg [Lasix 20 mg] 20 mg PO DAILY 01/15/18 [History] Metoprolol Succinate 50 mg [Toprol Xl 50 MG] 50 mg PO BID 01/15/18 [History] Pramipexole Di-HCl [Mirapex] 0.5 mg PO HS 01/15/18 [History] Pyridoxine HCl (Vitamin B6) [Vitamin B-6] 100 mg PO DAILY 01/15/18 [History] Calcium Carb/Vitamin D3/Vit K1 [Calcium + D Soft Chewable Tab] 1 each PO DAILY 12/04/20 [History] L.acidoph,Paracasei, B.lactis [Probiotic] 1 each PO DAILY 12/04/20 [History] Melatonin 3 mg PO HS 12/04/20 [History] Methimazole 10 mg PO BID 12/04/20 [History] Mirtazapine [Remeron] 15 mg PO HS 12/04/20 [History] PANTOPRAZOLE 40 mg Tablet [Protonix 40MG Tablet] 40 mg PO QAM 12/04/20 [History] Paroxetine HCl 20 mg [Paxil 20 MG] 20 mg PO DAILY 12/04/20 [History] Sotalol HCl 80 mg [Betapace 80 MG] 80 mg PO BID 12/04/20 [History] Topiramate 50 mg PO BID 12/04/20 [History] Hx Tetanus, Diphtheria Vaccination/Date Given: No Hx Influenza Vaccination/Date Given: Yes Hx Pneumococcal Vaccination/Date Given: Yes Travel Risk - International Travel Have you traveled outside of the country in past 3 weeks: No - Coronavirus Screening Are you exhibiting any of the following symptoms?: No Close contact with a COVID-19 positive Pt in past 14-21 Days: No - Vaccine Status Have you recieved a Covid-19 vaccination: No - Review of Systems Constitutional: No Symptoms Eyes: No Symptoms Ears, Nose, & Throat: No Symptoms Respiratory: No Symptoms Cardiac: No Symptoms Abdominal/Gastrointestinal: No Symptoms Genitourinary Symptoms: No Symptoms Musculoskeletal: Fall, Injury Skin: No Symptoms Neurological: No Symptoms Psychological: No Symptoms Endocrine: No Symptoms Hematologic/Lymphatic: No Symptoms Immunological/Allergic: No Symptoms All Other Systems: Reviewed and Negative - Past Medical History Pertinent Past Medical History: Yes Neurological History: Other ENT History: No Pertinent History Cardiac History: Angina, Arrhythmia, Coronary Artery Disease, Hypertension Respiratory History: No Pertinent History Endocrine Medical History: Other Musculoskeletal History: Osteoarthritis GI Medical History: Other History: No Pertinent History Psycho-Social History: No Pertinent History Female Reproductive Disorders: Breast Cancer Other Medical History: Essential tremors, trochanteric bursitis, numbness in fingers, lumpectomy R breast and 8 lymph nodes, incontinence, Open heart surgery CABG x4. Back surgery, Internal TENS, Pacemaker, c diff and shingles. - Past Surgical History Past Surgical History: Yes Neuro Surgical History: No Pertinent History Cardiac: CABG, Cardiac Catheterization, Pacemaker Respiratory: No Pertinent History Gastrointestinal: No Pertinent History Genitourinary: No Pertinent History Musculoskeletal: Orthopedic Surgery Female Surgical History: Lumpectomy Other Surgical History: lumbar fusion with plate, stimulator implant - Social History Smoking Status: Never smoker Exposure to second hand smoke: No Drug Use: none Patient Lives Alone: No - Nursing Vital Signs Nursing Vital Signs: Initial Vital Signs Temperature 98.1 F 12/04/20 18:32 Pulse Rate 61 12/04/20 18:32 Blood Pressure 179/92 12/04/20 18:32 O2 Sat by Pulse Oximetry 95 12/04/20 18:32 Pain Scale Pain Intensity [Left Lower 8 Back] Pain Intensity 7 - Physical Exam General Appearance: no apparent distress, alert, anxiety Eye Exam: PERRL/EOMI, eyes nml inspection Ears, Nose, Throat Exam: normal ENT inspection, moist mucous membranes Neck Exam: normal inspection, non-tender, supple, full range of motion Respiratory Exam: normal breath sounds, lungs clear, airway intact, No chest tenderness, No respiratory distress Cardiovascular Exam: regular rate/rhythm, normal heart sounds, normal peripheral pulses Gastrointestinal Exam: soft, normal bowel sounds, No tenderness Pelvic Exam: not done Rectal Exam: not done Back Exam: normal inspection, normal range of motion, vertebral tenderness (Lower lumbar region), No CVA tenderness Extremity Exam: normal inspection, normal range of motion, pelvis stable Neurologic Exam: alert, oriented x 3, cooperative, senior technical manager II-XII nml as tested, normal mood/affect, nml cerebellar function, nml station & gait, sensation nml Skin Exam: normal color, warm, dry Lymphatic Exam: No adenopathy SpO2 Interpretation: normal O2 Delivery: Room Air - Course Nursing assessment & vital signs reviewed: Yes Ordered Tests: Active Orders 24 hr Category Date Time Status LUMBAR LIMITED (2 OR 3 VIEWS) Stat Exams 12/04/20 18:48 Completed PELVIS (1 OR 2 VIEWS) Stat Exams 12/04/20 18:48 Completed Medication Summary Discontinued Medications Generic Name Dose Route Start Last Admin Trade Name Freq PRN Reason Stop Dose Admin Hydrocodone Bitart/Acetaminophen 1 tab 12/04/20 19:34 12/04/20 20:00 [place] 7.5/325 Mg Tab PO 12/04/20 19:35 1 tab STAT ONE Administration - Progress Progress: unchanged Progress Note: 12/04/20 20:08 X-ray of the pelvis shows no acute fractures present. There are chronic arthritic changes present. X-ray of the lumbar spine shows no acute fracture or subluxation. There are chronic changes noted Counseled pt/family regarding: need for follow-up, rad results - Departure Departure Disposition: Home Clinical Impression: Fall with no injury, Contusion Condition: Stable Critical Care Time: No Referrals: BERTRAND BURDICK MD [Primary Care Provider] - Additional Instructions: Continue your [place] pain medicine. Over the next 48 hours may increase your pain medication from 2 times a day to 3 times a day as needed/if needed to help control your back pain. If your pain persists beyond the next 48 hours, follow- up with your primary care physician for further management.
[2020-12-04 19:53] VITALS: BP 164/97; PULSE 60; O2SAT 94
--- NOTE | 2020-12-04 19:55 | XRAY ---
Indication: Pain following fall. 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 Impression: Nonacute lumbar spine with chronic features.
--- NOTE | 2020-12-04 19:57 | XRAY ---
Indication: Pain following fall. Comparison: None AP pelvis demonstrates osteopenia, 2.3 cm calcified uterine fibroid, and moderate scattered vascular calcifications. No other bony, articular, or soft tissue abnormalities. Lumbar spine reported separately.
[2020-12-04] MEDS: NORCO 7.5/325 MG TAB PO ONE (20:00)
== END 2020-12-04 20:33 | disposition home or self-care (01) ==
LOC: ED 18:23
DX: S30.0XXA Contusion of lower back and pelvis, initial encounter (principal); W18.39XA Other fall on same level, initial encounter; Y93.9 Activity, unspecified; Y92.9 Unspecified place or not applicable; Z79.899 Other long term (current) drug therapy; I10 Essential (primary) hypertension; I25.10 Atherosclerotic heart disease of native coronary artery without angina pectoris; Z85.3 Personal history of malignant neoplasm of breast; I25.810 Atherosclerosis of coronary artery bypass graft(s) without angina pectoris; Z95.0 Presence of cardiac pacemaker
CPT/HCPCS: 72100; 72170; 99283; A9270-GY

== ENCOUNTER 2020-12-06 09:08 | Emergency (ER) | payer MEDICARE ==
--- NOTE | 2020-12-06 09:13 | ERPHSYRPT ---
- History of Present Illness Time Seen by Provider: 12/06/20 09:12 Historian: patient, family Exam Limitations: no limitations Physician History: This is an 89-year-old white female patient of Dr. Burdick who was evaluated 2 days ago by me in this emergency department for complaints of lower back and pelvic pain posteriorly after a fall. The fall occurred prior to this evaluation. 2 days ago, the patient and her daughter did not mention any complaints of abdominal pain, vomiting or diarrhea. However, on today's evaluation and history the patient and her daughter state that since her evaluation in the emergency room 2 days ago, she has had vomiting, diarrhea and generalized abdominal pain. She continues to states she has no headache and she has no neck pain. States that her back pain and posterior pelvic pain have improved. Patient denies shortness of breath and she denies chest pain. Timing/Duration: day(s) (2) Activities at Onset: none Quality: cramping, pressure Abdominal Pain Onset Location: generalized abdomen Pain Radiation: no radiation Severity of Pain-Max: moderate Severity of Pain-Current: moderate Modifying Factors: Improves With: vomiting Associated Symptoms: diarrhea, nausea, vomiting Previous symptoms: recently seen, recently treated (For bony pain after fall) Allergies/Adverse Reactions: No Known Drug Allergies Allergy (Verified 12/06/20 09:25) Home Medications: Gabapentin 300 mg PO TID 01/24/17 [History] Ranolazine 500 MG [Ranexa 500 MG] 500 mg PO BID 01/24/17 [History] Cyanocobalamin (Vitamin B-12) [B-12] 1,000 mcg PO DAILY 05/08/17 [History] Furosemide 20 mg [Lasix 20 mg] 20 mg PO DAILY 01/15/18 [History] Metoprolol Succinate 50 mg [Toprol Xl 50 MG] 50 mg PO BID 01/15/18 [History] Pramipexole Di-HCl [Mirapex] 0.5 mg PO HS 01/15/18 [History] Pyridoxine HCl (Vitamin B6) [Vitamin B-6] 100 mg PO DAILY 01/15/18 [History] Calcium Carb/Vitamin D3/Vit K1 [Calcium + D Soft Chewable Tab] 1 each PO DAILY 12/04/20 [History] L.acidoph,Paracasei, B.lactis [Probiotic] 1 each PO DAILY 12/04/20 [History] Melatonin 3 mg PO HS 12/04/20 [History] Methimazole 10 mg PO BID 12/04/20 [History] Mirtazapine [Remeron] 15 mg PO HS 12/04/20 [History] PANTOPRAZOLE 40 mg Tablet [Protonix 40MG Tablet] 40 mg PO QAM 12/04/20 [History] Paroxetine HCl 20 mg [Paxil 20 MG] 20 mg PO DAILY 12/04/20 [History] Sotalol HCl 80 mg [Betapace 80 MG] 80 mg PO BID 12/04/20 [History] Topiramate 50 mg PO BID 12/04/20 [History] Hx Tetanus, Diphtheria Vaccination/Date Given: No Hx Influenza Vaccination/Date Given: Yes Hx Pneumococcal Vaccination/Date Given: Yes Travel Risk - International Travel Have you traveled outside of the country in past 3 weeks: No - Coronavirus Screening Are you exhibiting any of the following symptoms?: No Close contact with a COVID-19 positive Pt in past 14-21 Days: No - Vaccine Status Have you recieved a Covid-19 vaccination: No Asw Specialist: Moderna - Vaccination Dates Date of 2cond Vaccination (if applicable): 10/13/2020 - Review of Systems Constitutional: No Symptoms Eyes: No Symptoms Ears, Nose, & Throat: No Symptoms Respiratory: No Symptoms Cardiac: No Symptoms Abdominal/Gastrointestinal: Abdominal Pain, Nausea, Vomiting, Diarrhea Genitourinary Symptoms: No Symptoms Musculoskeletal: No Symptoms Skin: No Symptoms Neurological: No Symptoms Psychological: No Symptoms Endocrine: No Symptoms Hematologic/Lymphatic: No Symptoms Immunological/Allergic: No Symptoms All Other Systems: Reviewed and Negative - Past Medical History Pertinent Past Medical History: Yes Neurological History: Other ENT History: No Pertinent History Cardiac History: Angina, Arrhythmia, Coronary Artery Disease, Hypertension Respiratory History: No Pertinent History Endocrine Medical History: Other Musculoskeletal History: Osteoarthritis GI Medical History: Other History: No Pertinent History Psycho-Social History: No Pertinent History Female Reproductive Disorders: Breast Cancer Other Medical History: Essential tremors, trochanteric bursitis, numbness in fingers, lumpectomy R breast and 8 lymph nodes, incontinence, Open heart surgery CABG x4. Back surgery, Internal TENS, Pacemaker, c diff and shingles. - Past Surgical History Past Surgical History: Yes Neuro Surgical History: No Pertinent History Cardiac: CABG, Cardiac Catheterization, Pacemaker Respiratory: No Pertinent History Gastrointestinal: No Pertinent History Genitourinary: No Pertinent History Musculoskeletal: Orthopedic Surgery Female Surgical History: Lumpectomy Other Surgical History: lumbar fusion with plate, stimulator implant - Social History Smoking Status: Never smoker Exposure to second hand smoke: No Drug Use: none Patient Lives Alone: No - Nursing Vital Signs Nursing Vital Signs: Initial Vital Signs Temperature 97.6 F 12/06/20 09:16 Pulse Rate 60 12/06/20 09:16 Respiratory Rate 14 12/06/20 09:16 Blood Pressure 186/111 12/06/20 09:16 O2 Sat by Pulse Oximetry 97 12/06/20 09:16 Pain Scale Pain Intensity 3 - Physical Exam General Appearance: no apparent distress, alert, anxiety Eye Exam: PERRL/EOMI, eyes nml inspection Ears, Nose, Throat Exam: normal ENT inspection, moist mucous membranes Neck Exam: normal inspection, non-tender, supple, full range of motion Respiratory Exam: normal breath sounds, lungs clear, airway intact, No chest tenderness, No respiratory distress Cardiovascular Exam: regular rate/rhythm, normal heart sounds, normal peripheral pulses Gastrointestinal/Abdomen Exam: soft, normal bowel sounds, tenderness (Mild generalized), guarding, No rebound Pelvic Exam: not done Rectal Exam: not done Back Exam: normal inspection, normal range of motion, No CVA tenderness, No vertebral tenderness Extremity Exam: normal inspection, normal range of motion, pelvis stable Neurologic Exam: alert, oriented x 3, cooperative, tub attendant II-XII nml as tested, normal mood/affect, nml cerebellar function Skin Exam: normal color, warm, dry Lymphatic Exam: No adenopathy SpO2 Interpretation: normal O2 Delivery: Room Air Ordered Tests: Active Orders 24 hr Category Date Time Status IV Insertion STAT Care 12/06/20 09:46 Active Oxygen-ED Only Nasal Cannula 2 lpm Care 12/06/20 13:10 Active ABDOMEN AND PELVIS W/0 CONTRAS [CT] Stat Exams 12/06/20 09:46 Completed HEAD WITHOUT CONTRAST [CT] Stat Exams 12/06/20 09:47 Completed AMYLASE Stat Lab 12/06/20 10:00 Completed CBC W DIFF Stat Lab 12/06/20 10:00 Completed CMP Stat Lab 12/06/20 10:00 Completed LIPASE Stat Lab 12/06/20 10:00 Completed Lactic Acid Stat Lab 12/06/20 09:46 Completed TROPONIN Q3H Lab 12/06/20 10:00 Completed TROPONIN Q3H Lab 12/06/20 13:20 Received TROPONIN Q3H Lab 12/06/20 16:00 Ordered TROPONIN Q3H Lab 12/06/20 19:00 Ordered TROPONIN Q3H Lab 12/06/20 22:00 Ordered UA W/RFX UR CULTURE Stat Lab 12/06/20 12:30 Completed Medication Summary Generic Name Dose Route Start Last Admin Trade Name Freq PRN Reason Stop Dose Admin Sodium Chloride 1,000 mls @ 100 mls/hr 12/06/20 10:00 12/06/20 10:50 Sodium Chloride 0.9% 1000 Ml IV 01/05/21 09:59 100 mls/hr .Q10H TONYA Administration Discontinued Medications Generic Name Dose Route Start Last Admin Trade Name Freq PRN Reason Stop Dose Admin Hydromorphone HCl 0.5 mg 12/06/20 09:46 12/06/20 10:50 Hydromorphone 1 Mg/Ml Injection IV 12/06/20 09:47 0.5 mg STAT ONE Administration Hydromorphone HCl Confirm 12/06/20 10:47 Hydromorphone 1 Mg/Ml Injection Administered 12/06/20 10:48 Dose 1 mg .ROUTE .STK-MED ONE Ondansetron HCl 4 mg 12/06/20 09:46 12/06/20 10:50 Zofran 4 Mg/2 Ml Vial IV 12/06/20 09:47 4 mg STAT ONE Administration Ondansetron HCl Confirm 12/06/20 10:48 Zofran 4 Mg/2 Ml Vial Administered 12/06/20 10:49 Dose 4 mg .ROUTE .STK-MED ONE Lab/Rad Data: Laboratory Result Diagrams 12/06/20 10:00 12/06/20 10:00 Laboratory Results 12/06/20 12/06/20 12/06/20 Range/Units 12:30 10:00 10:00 WBC (4.0-10.5) K/mm3 RBC (4.1-5.4) M/mm3 Hgb (12.0-16.0) gm/dl Hct (35-47) % MCV (78-100) fl MCH (26-32) pg MCHC (32-36) g/dl RDW (11.5-14.0) % Plt Count (150-450) K/mm3 MPV (7.5-11.0) fl Gran % (36.0-66.0) % Eos # (Auto) (0-0.5) Absolute Lymphs (auto) (1.0-4.6) Absolute Monos (auto) (0.0-1.3) Lymphocytes % (24.0-44.0) % Monocytes % (0.0-12.0) % Eosinophils % (0.00-5.0) % Basophils % (0.0-0.4) % Absolute Granulocytes (1.4-6.9) Basophils # (0-0.4) Sodium 132 L (137-145) mmol/L Potassium 3.4 L (3.5-5.1) mmol/L Chloride 95 L (98-107) mmol/L Carbon Dioxide 27 (22-30) mmol/L Anion Gap 13.9 (5-15) MEQ/L BUN 18 H (7-17) mg/dL Creatinine 1.06 H (0.52-1.04) mg/dL Estimated GFR 51.9 ML/MIN Glucose 101 (74-106) mg/dL Lactic Acid (0.4-2.0) Calcium 8.9 (8.4-10.2) mg/dL Total Bilirubin 0.70 (0.2-1.3) mg/dL AST 28 (14-36) U/L ALT 10 (0-35) U/L Alkaline Phosphatase 99 (38-126) U/L Troponin I 0.015 (0.000-0.034) ng/mL Serum Total Protein 7.5 (6.3-8.2) g/dL Albumin 4.2 (3.5-5.0) g/dL Amylase 48 (30-110) U/L Lipase 41 (23-300) U/L Urine Color YELLOW (YELLOW) Urine Appearance CLEAR (CLEAR) Urine pH 7.0 (5-6) Ur Specific [place] 1.013 (1.005-1.025) Urine Protein 100 (Negative) Urine Ketones TRACE (NEGATIVE) Urine Blood NEGATIVE (0-5) [place]/ul Urine Nitrite NEGATIVE (NEGATIVE) Urine Bilirubin NEGATIVE (NEGATIVE) Urine Urobilinogen NEGATIVE (0-1) mg/dL Ur Leukocyte Esterase NEGATIVE (NEGATIVE) Urine WBC (Auto) NONE (0-5) /HPF Urine RBC (Auto) 0-2 (0-2) /HPF U Epithel Cells (Auto) NONE (FEW) /HPF Urine Bacteria (Auto) NONE (NEGATIVE) /HPF Urine Mucus (Auto) SLIGHT (NEGATIVE) /HPF Urine Culture Reflexed NO (NO) Urine Glucose NEGATIVE (NEGATIVE) mg/dL 12/06/20 12/06/20 Range/Units 10:00 09:46 WBC 6.3 (4.0-10.5) K/mm3 RBC 3.81 L (4.1-5.4) M/mm3 Hgb 12.4 (12.0-16.0) gm/dl Hct 37.4 (35-47) % MCV 98.2 (78-100) fl MCH 32.5 H (26-32) pg MCHC 33.2 (32-36) g/dl RDW 13.5 (11.5-14.0) % Plt Count 285 (150-450) K/mm3 MPV 8.3 (7.5-11.0) fl Gran % 74.2 H (36.0-66.0) % Eos # (Auto) 0 (0-0.5) Absolute Lymphs (auto) 0.98 L (1.0-4.6) Absolute Monos (auto) 0.64 (0.0-1.3) Lymphocytes % 15.5 L (24.0-44.0) % Monocytes % 10.1 (0.0-12.0) % Eosinophils % 0.0 (0.00-5.0) % Basophils % 0.2 (0.0-0.4) % Absolute Granulocytes 4.70 (1.4-6.9) Basophils # 0.01 (0-0.4) Sodium (137-145) mmol/L Potassium (3.5-5.1) mmol/L Chloride (98-107) mmol/L Carbon Dioxide (22-30) mmol/L Anion Gap (5-15) MEQ/L BUN (7-17) mg/dL Creatinine (0.52-1.04) mg/dL Estimated GFR ML/MIN Glucose (74-106) mg/dL Lactic Acid 1.6 (0.4-2.0) Calcium (8.4-10.2) mg/dL Total Bilirubin (0.2-1.3) mg/dL AST (14-36) U/L ALT (0-35) U/L Alkaline Phosphatase (38-126) U/L Troponin I (0.000-0.034) ng/mL Serum Total Protein (6.3-8.2) g/dL Albumin (3.5-5.0) g/dL Amylase (30-110) U/L Lipase (23-300) U/L Urine Color (YELLOW) Urine Appearance (CLEAR) Urine pH (5-6) Ur Specific [place]y (1.005-1.025) Urine Protein (Negative) Urine Ketones (NEGATIVE) Urine Blood (0-5) [place]/ul Urine Nitrite (NEGATIVE) Urine Bilirubin (NEGATIVE) Urine Urobilinogen (0-1) mg/dL Ur Leukocyte Esterase (NEGATIVE) Urine WBC (Auto) (0-5) /HPF Urine RBC (Auto) (0-2) /HPF U Epithel Cells (Auto) (FEW) /HPF Urine Bacteria (Auto) (NEGATIVE) /HPF Urine Mucus (Auto) (NEGATIVE) /HPF Urine Culture Reflexed (NO) Urine Glucose (NEGATIVE) mg/dL - Progress Progress: improved, pain not gone completely, re-examined Progress Note: 12/06/20 10:53 CAT scan of the head without contrast shows a nonacute senile brain. CAT scan of the abdomen and pelvis without contrast shows a large hiatal hernia with partial intrathoracic stomach. No other acute intra-abdominal or intrapelvic process or pathology. 12/06/20 13:28 Medical decision making: This patient presented with vomiting and diarrhea. She had trace ketones in urine but no urinary tract infection. We provide the patient with antiemetic as well as a bolus of 500 mL normal saline. Patient states she feels a lot better. There is no acute intra-abdominal or intrapelvic process present. Patient states that she wants to go home and not be admitted into the hospital. I think this is reasonable given the fact that she has no evidence of any emergent issues. I will send a prescription of Zofran to the patient's pharmacy. Patient has no abdominal pain on repeat examination. Counseled pt/family regarding: lab results, diagnosis, rad results - Departure Departure Disposition: Home Clinical Impression: Vomiting and diarrhea Condition: Stable Critical Care Time: No Referrals: BERTRAND BURDICK MD [Primary Care Provider] - Additional Instructions: Drink plenty of fluids. Take your medication as prescribed. Return to the emergency department if symptoms worsen. Follow-up with Dr. Burdick in his office if symptoms are not worse but persist. Prescriptions: Ondansetron ODT 4 MG [Zofran Odt 4 mg] 4 mg PO Q6H PRN PRN #10 tab.rapdis PRN Reason: Vomiting
[2020-12-06] MEDS ORDERED: Hydromorphone 1 mg/ml Injection IV ONE (09:46)
[2020-12-06] MEDS ORDERED: Zofran 4 MG/2 ML VIAL IV ONE (09:46)
[2020-12-06] MEDS ORDERED: Sodium Chloride 0.9% 1000 ML 1,000 ML IV SCH (10:00)
[2020-12-06 10:10] LABS: BASOPHIL % 0.2 % (0.0-0.4); Basophil (Absolute #) 0.01 (0-0.4); Eosinophil (Absolute #) 0 (0-0.5); Hematocrit 37.4 % (35-47); Hemoglobin 12.4 gm/dl (12.0-16.0); Lymphocyte (Absolute #) 0.98 (1.0-4.6); Lymphocytes % 15.5 % (24.0-44.0); Mean Cell Volume 98.2 fl (78-100); Mean Corpuscular Hemoglobin 32.5 pg (26-32); Mean Corpuscular Hgb Concent. 33.2 g/dl (32-36); Mean Platelet Volume 8.3 fl (7.5-11.0); Monocyte (Absolute #) 0.64 (0.0-1.3); Monocytes % 10.1 % (0.0-12.0); Neutrophil % 74.2 % (36.0-66.0); Platelet Count 285 K/mm3 (150-450); Red Blood Count 3.81 M/mm3 (4.1-5.4); Red Cell Distribution Width 13.5 % (11.5-14.0); White Blood Count 6.3 K/mm3 (4.0-10.5)
[2020-12-06 10:22] LABS: ALBUMIN 4.2 g/dL (3.5-5.0); ANION GAP 13.9 MEQ/L (5-15); BILIRUBIN,TOTAL 0.7 mg/dL (0.2-1.3); Calcium 8.9 mg/dL (8.4-10.2); Creatinine 1 1.06 mg/dL (0.52-1.04); EST GLOMERULAR FILTRATION RATE 51.9 ML/MIN; Potassium 3.4 mmol/L (3.5-5.1); Total Protein 7.5 g/dL (6.3-8.2)
--- NOTE | 2020-12-06 10:40 | XRAY ---
Indication: Abdomen pain, vomiting, diarrhea. Multiple contiguous axial images obtained through the abdomen and pelvis without contrast. Comparison: January 22, 2020. Lung bases again demonstrate large hiatal hernia with partial intrathoracic stomach. No infiltrate or effusion. Heart remains enlarged. Right lower back spinal stimulator device and L4-L5 fusion hardware again produces extreme beam artifact limiting these levels. Noncontrasted stomach and bowel loops appear grossly nonobstructed. No free fluid/air. Stable small fundal calcified uterine fibroid. Remaining liver, gallbladder, pancreas, spleen, adrenal glands, kidneys, ureters, and bladder appear grossly unremarkable for noncontrast exam. There remains moderate aortoiliac calcifications without AAA. Osseous structures again demonstrate osteopenia, mild/moderate multilevel degenerative spondylosis, grade 1 L4 spondylolisthesis, and moderate levorotoscoliosis. Stable small fatty left inguinal hernia. Impression: 1. Again extreme beam artifact from spinal stimulator device and lumbar fusion hardware. 2. 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 3. Remaining CT abdomen/pelvis without contrast exam is negative.
--- NOTE | 2020-12-06 10:42 | XRAY ---
Indication: Posterior head injury. Headache following fall. Multiple contiguous axial images obtained through the head without contrast. Comparison: April 15, 2018. There is again age-appropriate global atrophy and mild periventricular degenerative micro-ischemia bilaterally. No acute intracranial hemorrhage, abnormal extra-axial fluid collection, or mass effect. Fourth ventricle is midline without hydrocephalus. Bony calvarium intact. Visualized paranasal sinuses and mastoid air cells are clear. Impression: Continued nonacute senile brain.
[2020-12-06] MEDS ORDERED: Hydromorphone 1 mg/ml Injection ONE (10:47)
[2020-12-06] MEDS ORDERED: Zofran 4 MG/2 ML VIAL ONE (10:48)
[2020-12-06] MEDS ORDERED: Sodium Chloride 0.9% 1000 ML 1,000 ML ONE (10:48)
[2020-12-06 12:53] LABS: Appearance CLEAR (CLEAR); Bilirubin NEGATIVE (NEGATIVE); Blood NEGATIVE Ery/ul (0-5); Glucose NEGATIVE (NEGATIVE); Ketones TRACE (NEGATIVE); Leukocyte Esterase NEGATIVE (NEGATIVE); Mucus SLIGHT /HPF (NEGATIVE); Nitrite NEGATIVE (NEGATIVE); Protein,Urine Dip 100 (Negative); RBC 0-2 /HPF (0-2); Specific Gravity 1.013 (1.005-1.025); Urobilinogen NEGATIVE mg/dL (0-1)
[2020-12-06 13:12] VITALS: BP 158/83; PULSE 68; O2SAT 99
== END 2020-12-06 13:52 | disposition home or self-care (01) ==
LOC: ED 09:08
DX: R11.10 Vomiting, unspecified (principal); R19.7 Diarrhea, unspecified; I10 Essential (primary) hypertension; Z79.899 Other long term (current) drug therapy; I25.10 Atherosclerotic heart disease of native coronary artery without angina pectoris
CPT/HCPCS: 36000; 36415; 70450; 74176; 80053; 81001; 82150; 83605; 83690; 84484; 85025; 96360; 96361; 96374; 96375; 99284; J1170; J2405

== ENCOUNTER 2021-02-08 18:21 | Emergency (ER) | payer MEDICARE ==
[2021-02-08 19:52] LABS: ALBUMIN 4.4 g/dL (3.5-5.0); ALKALINE PHOSPHATASE 110 U/L (38-126); ANION GAP 15.6 MEQ/L (5-15); BLOOD UREA NITROGEN 15 mg/dL (7-17); CHLORIDE 98 mmol/L (98-107); Calcium 9.1 mg/dL (8.4-10.2); Carbon Dioxide 25 mmol/L (22-30); Creatinine 1 0.88 mg/dL (0.52-1.04); EST GLOMERULAR FILTRATION RATE > 60.0 ML/MIN; Glucose 104 mg/dL (74-106); LIPASE 58 U/L (23-300); MAGNESIUM 1.6 mg/dL (1.6-2.3); Potassium 3.8 mmol/L (3.5-5.1); SGOT/AST 37 U/L (14-36); SGPT/ALT 9 U/L (0-35); SODIUM 134 mmol/L (137-145); Total Protein 7.8 g/dL (6.3-8.2)
[2021-02-08 19:57] LABS: Absolute Neutrophil Ct (ANC) 3.61 (1.4-6.9); BASOPHIL % 0.2 % (0.0-0.4); Basophil (Absolute #) 0.01 (0-0.4); Eosinophil % 0.7 % (0.00-5.0); Eosinophil (Absolute #) 0.04 (0-0.5); Hematocrit 40.7 % (35-47); Hemoglobin 13.1 gm/dl (12.0-16.0); Lymphocyte (Absolute #) 1.51 (1.0-4.6); Lymphocytes % 25.3 % (24.0-44.0); Mean Cell Volume 100.2 fl (78-100); Mean Corpuscular Hemoglobin 32.3 pg (26-32); Mean Corpuscular Hgb Concent. 32.2 g/dl (32-36); Mean Platelet Volume 9.1 fl (7.5-11.0); Monocytes % 13.4 % (0.0-12.0); Neutrophil % 60.4 % (36.0-66.0); Platelet Count 327 K/mm3 (150-450); Red Blood Count 4.06 M/mm3 (4.1-5.4); Red Cell Distribution Width 14.9 % (11.5-14.0)
[2021-02-08 20:26] LABS: Appearance CLEAR (CLEAR); Bilirubin NEGATIVE (NEGATIVE); Blood NEGATIVE Ery/ul (0-5); Glucose NEGATIVE (NEGATIVE); Ketones NEGATIVE (NEGATIVE); Leukocyte Esterase NEGATIVE (NEGATIVE); Nitrite NEGATIVE (NEGATIVE); Protein,Urine Dip NEGATIVE (Negative); Specific Gravity 1.006 (1.005-1.025); Urobilinogen NEGATIVE mg/dL (0-1)
[2021-02-08 20:28] LABS: Bacteria NONE SEEN /HPF (NEGATIVE)
[2021-02-08] MEDS ORDERED: MORPHINE SULFATE 2 MG INJ IV ONE (22:00)
[2021-02-08] MEDS ORDERED: MORPHINE SULFATE 2 MG INJ ONE (22:03)
--- NOTE | 2021-02-08 22:40 | ERPHSYRPT ---
- History of Present Illness Time Seen by Provider: 02/08/21 19:00 Historian: patient Exam Limitations: no limitations Patient Subjective Stated Complaint: Pt states that she has been vomiting and having diarrhea for the past 3 days Triage Nursing Assessment: Pt was brought to the ER by her daughter, hypertensive, rates abdominal pain as 6/10, pain to the RUQ with palpatation, pt still has gallbladder, unable to keep anything down for 3 days, skin n/w/d, kimberlee lower ext edemetous, appears weak and lethargic Physician History: Patient is an 89-year-old female presents to our ED with her daughter for evaluation of progressive right upper quadrant pain. Pain started approximately 3 days ago. Pain has been progressive. Patient currently 6 out of 10. Pain is associated with nausea and vomiting. No trauma. No fever. Family states that patient still has gallbladder in place. Patient has been weak and not eating much. Patient denies chest pain. Patient voices no other complaints or concerns at this time. Timing/Duration: day(s) (3 days) Activities at Onset: none Quality: aching Abdominal Pain Onset Location: RUQ Pain Radiation: no radiation Severity of Pain-Max: moderate Severity of Pain-Current: mild Modifying Factors: Improves With: nothing Associated Symptoms: nausea, vomiting, No headache, No rash Previous symptoms: no prior history Allergies/Adverse Reactions: No Known Drug Allergies Allergy (Verified 02/08/21 18:50) Home Medications: Gabapentin 300 mg PO TID 01/24/17 [History] Ranolazine 500 MG [Ranexa 500 MG] 500 mg PO BID 01/24/17 [History] Cyanocobalamin (Vitamin B-12) [B-12] 1,000 mcg PO DAILY 05/08/17 [History] Furosemide 20 mg [Lasix 20 mg] 20 mg PO DAILY 01/15/18 [History] Metoprolol Succinate 50 mg [Toprol Xl 50 MG] 50 mg PO BID 01/15/18 [History] Pramipexole Di-HCl [Mirapex] 0.5 mg PO HS 01/15/18 [History] Pyridoxine HCl (Vitamin B6) [Vitamin B-6] 100 mg PO DAILY 01/15/18 [History] Calcium Carb/Vitamin D3/Vit K1 [Calcium + D Soft Chewable Tab] 1 each PO DAILY 12/04/20 [History] L.acidoph,Paracasei, B.lactis [Probiotic] 1 each PO DAILY 12/04/20 [History] Melatonin 3 mg PO HS 12/04/20 [History] Methimazole 10 mg PO BID 12/04/20 [History] Mirtazapine [Remeron] 15 mg PO HS 12/04/20 [History] PANTOPRAZOLE 40 mg Tablet [Protonix 40MG Tablet] 40 mg PO QAM 12/04/20 [History] Paroxetine HCl 20 mg [Paxil 20 MG] 20 mg PO DAILY 12/04/20 [History] Sotalol HCl 80 mg [Betapace 80 MG] 80 mg PO BID 12/04/20 [History] Topiramate 50 mg PO BID 12/04/20 [History] Hx Tetanus, Diphtheria Vaccination/Date Given: No Hx Influenza Vaccination/Date Given: Yes Hx Pneumococcal Vaccination/Date Given: Yes Travel Risk - International Travel Have you traveled outside of the country in past 3 weeks: No - Coronavirus Screening Are you exhibiting any of the following symptoms?: No Close contact with a COVID-19 positive Pt in past 14-21 Days: No - Vaccine Status Have you recieved a Covid-19 vaccination: Yes Hand Cultivator: Moderna - Vaccination Dates Date of 2cond Vaccination (if applicable): 10/13/2020 - Review of Systems Constitutional: No Symptoms, No Fever, No Chills Eyes: No Symptoms Ears, Nose, & Throat: No Symptoms Respiratory: No Symptoms, No Cough, No Dyspnea Cardiac: No Symptoms, No Chest Pain, No Edema, No Syncope Abdominal/Gastrointestinal: No Symptoms, No Abdominal Pain, No Nausea, No Vomiting, No Diarrhea Genitourinary Symptoms: No Symptoms, No Dysuria Musculoskeletal: No Symptoms, No Back Pain, No Neck Pain Skin: No Symptoms, No Rash Neurological: No Symptoms, No Dizziness, No Focal Weakness, No Sensory Changes Psychological: No Symptoms Endocrine: No Symptoms Hematologic/Lymphatic: No Symptoms Immunological/Allergic: No Symptoms All Other Systems: Reviewed and Negative - Past Medical History Pertinent Past Medical History: Yes Neurological History: Other ENT History: No Pertinent History Cardiac History: Angina, Arrhythmia, Coronary Artery Disease, Hypertension Respiratory History: No Pertinent History Endocrine Medical History: Other Musculoskeletal History: Osteoarthritis GI Medical History: Other History: No Pertinent History Psycho-Social History: No Pertinent History Female Reproductive Disorders: Breast Cancer Other Medical History: Essential tremors, trochanteric bursitis, numbness in fingers, lumpectomy R breast and 8 lymph nodes, incontinence, Open heart surgery CABG x4. Back surgery, Internal TENS, Pacemaker, c diff and shingles. - Past Surgical History Past Surgical History: Yes Neuro Surgical History: No Pertinent History Cardiac: CABG, Cardiac Catheterization, Pacemaker Respiratory: No Pertinent History Gastrointestinal: No Pertinent History Genitourinary: No Pertinent History Musculoskeletal: Orthopedic Surgery Female Surgical History: Lumpectomy Other Surgical History: lumbar fusion with plate, stimulator implant - Social History Smoking Status: Never smoker Exposure to second hand smoke: No Drug Use: none Patient Lives Alone: No - Female History Hx Now: No - Nursing Vital Signs Nursing Vital Signs: Initial Vital Signs Pulse Rate 102 H 02/08/21 18:36 Respiratory Rate 20 02/08/21 18:36 Blood Pressure 196/109 02/08/21 18:36 O2 Sat by Pulse Oximetry 94 L 02/08/21 18:36 Pain Scale Pain Intensity 2 - Physical Exam General Appearance: no apparent distress, alert Eye Exam: PERRL/EOMI, eyes nml inspection Ears, Nose, Throat Exam: normal ENT inspection, pharynx normal, moist mucous membranes Neck Exam: normal inspection, non-tender, supple, full range of motion Respiratory Exam: normal breath sounds, lungs clear, No respiratory distress Cardiovascular Exam: regular rate/rhythm, normal heart sounds Gastrointestinal/Abdomen Exam: soft, No tenderness, No mass Back Exam: normal inspection, normal range of motion, No CVA tenderness, No vertebral tenderness Extremity Exam: normal inspection, normal range of motion, pelvis stable, other (1+ pitting edema bilaterally) Neurologic Exam: alert, oriented x 3, cooperative, normal mood/affect, nml cerebellar function, sensation nml, No motor deficits Skin Exam: normal color, warm, dry Lymphatic Exam: No adenopathy SpO2 Interpretation: normal SpO2: 95 O2 Delivery: Room Air - Course Nursing assessment & vital signs reviewed: Yes EKG Interpreted by Me: RATE (95, ventricular paced rhythm.) - CT Exams Abdomen/Pelvis CT Interpretation: Tele-radiologist Report (14 mm diameter chronically dilated common bile duct and dilated intrahepatic ducts with severe chronic left hepatic lobe atrophy. Differential includes radiolucent downstream common bile duct stone sludge or debris versus periampullary stricture. Wrist with diffuse fatty infiltration. ) Ordered Tests: Medication Summary Discontinued Medications Generic Name Dose Route Start Last Admin Trade Name Judy PRN Reason Stop Dose Admin Morphine Sulfate 2 mg 02/08/21 22:00 02/08/21 22:03 Morphine Sulfate 2 Mg Inj IV 02/08/21 22:01 2 mg STAT ONE Administration Morphine Sulfate Confirm 02/08/21 22:03 Morphine Sulfate 2 Mg Inj Administered 02/08/21 22:04 Dose 2 mg .ROUTE .[employer] ONE Lab/Rad Data: Laboratory Result Diagrams 02/08/21 19:12 02/08/21 19:12 Laboratory Results 02/08/21 02/08/21 02/08/21 Range/Units 21:43 19:44 19:12 WBC (4.0-10.5) K/mm3 RBC (4.1-5.4) M/mm3 Hgb (12.0-16.0) gm/dl Hct (35-47) % MCV (78-100) fl MCH (26-32) pg MCHC (32-36) g/dl RDW (11.5-14.0) % Plt Count (150-450) K/mm3 MPV (7.5-11.0) fl Gran % (36.0-66.0) % Eos # (Auto) (0-0.5) Absolute Lymphs (auto) (1.0-4.6) Absolute Monos (auto) (0.0-1.3) Lymphocytes % (24.0-44.0) % Monocytes % (0.0-12.0) % Eosinophils % (0.00-5.0) % Basophils % (0.0-0.4) % Absolute Granulocytes (1.4-6.9) Basophils # (0-0.4) Sodium (137-145) mmol/L Potassium (3.5-5.1) mmol/L Chloride (98-107) mmol/L Carbon Dioxide (22-30) mmol/L Anion Gap (5-15) MEQ/L BUN (7-17) mg/dL Creatinine (0.52-1.04) mg/dL Estimated GFR ML/MIN Glucose (74-106) mg/dL Calcium (8.4-10.2) mg/dL Magnesium (1.6-2.3) mg/dL Total Bilirubin (0.2-1.3) mg/dL AST (14-36) U/L ALT (0-35) U/L Alkaline Phosphatase (38-126) U/L Troponin I 0.017 0.015 (0.000-0.034) ng/mL Serum Total Protein (6.3-8.2) g/dL Albumin (3.5-5.0) g/dL Lipase (23-300) U/L Urine Color STRAW (YELLOW) Urine Appearance CLEAR (CLEAR) Urine pH 8.0 (5-6) Ur Specific [place] 1.006 (1.005-1.025) Urine Protein NEGATIVE (Negative) Urine Ketones NEGATIVE (NEGATIVE) Urine Blood NEGATIVE (0-5) [place]/ul Urine Nitrite NEGATIVE (NEGATIVE) Urine Bilirubin NEGATIVE (NEGATIVE) Urine Urobilinogen NEGATIVE (0-1) mg/dL Ur Leukocyte Esterase NEGATIVE (NEGATIVE) Urine WBC (Auto) 3-5 (0-5) /HPF Urine RBC (Auto) NONE (0-2) /HPF U Epithel Cells (Auto) NONE (FEW) /HPF Urine Bacteria (Auto) NONE SEEN (NEGATIVE) /HPF Urine Culture Reflexed NO (NO) Urine Glucose NEGATIVE (NEGATIVE) mg/dL 02/08/21 02/08/21 Range/Units 19:12 19:12 WBC 6.0 (4.0-10.5) K/mm3 RBC 4.06 L (4.1-5.4) M/mm3 Hgb 13.1 (12.0-16.0) gm/dl Hct 40.7 (35-47) % MCV 100.2 H (78-100) fl MCH 32.3 H (26-32) pg MCHC 32.2 (32-36) g/dl RDW 14.9 H (11.5-14.0) % Plt Count 327 (150-450) K/mm3 MPV 9.1 (7.5-11.0) fl Gran % 60.4 (36.0-66.0) % Eos # (Auto) 0.04 (0-0.5) Absolute Lymphs (auto) 1.51 (1.0-4.6) Absolute Monos (auto) 0.80 (0.0-1.3) Lymphocytes % 25.3 (24.0-44.0) % Monocytes % 13.4 H (0.0-12.0) % Eosinophils % 0.7 (0.00-5.0) % Basophils % 0.2 (0.0-0.4) % Absolute Granulocytes 3.61 (1.4-6.9) Basophils # 0.01 (0-0.4) Sodium 134 L (137-145) mmol/L Potassium 3.8 (3.5-5.1) mmol/L Chloride 98 (98-107) mmol/L Carbon Dioxide 25 (22-30) mmol/L Anion Gap 15.6 H (5-15) MEQ/L BUN 15 (7-17) mg/dL Creatinine 0.88 (0.52-1.04) mg/dL Estimated GFR > 60.0 ML/MIN Glucose 104 (74-106) mg/dL Calcium 9.1 (8.4-10.2) mg/dL Magnesium 1.6 (1.6-2.3) mg/dL Total Bilirubin 0.80 (0.2-1.3) mg/dL AST 37 H (14-36) U/L ALT 9 (0-35) U/L Alkaline Phosphatase 110 (38-126) U/L Troponin I (0.000-0.034) ng/mL Serum Total Protein 7.8 (6.3-8.2) g/dL Albumin 4.4 (3.5-5.0) g/dL Lipase 58 (23-300) U/L Urine Color (YELLOW) Urine Appearance (CLEAR) Urine pH (5-6) Ur Specific [place] (1.005-1.025) Urine Protein (Negative) Urine Ketones (NEGATIVE) Urine Blood (0-5) [place]/ul Urine Nitrite (NEGATIVE) Urine Bilirubin (NEGATIVE) Urine Urobilinogen (0-1) mg/dL Ur Leukocyte Esterase (NEGATIVE) Urine WBC (Auto) (0-5) /HPF Urine RBC (Auto) (0-2) /HPF U Epithel Cells (Auto) (FEW) /HPF Urine Bacteria (Auto) (NEGATIVE) /HPF Urine Culture Reflexed (NO) Urine Glucose (NEGATIVE) mg/dL - Progress Progress: improved Progress Note: Case discussed with general surgery Dr. Roberts who advised transfer for ERCP. patient transferred to [facility] for further evaluation and treatment. Plan of care discussed with patient. She agrees to transfer further evaluation and treatment. 02/11/21 02:09 Discussed with .: Lion Will see patient in: office Counseled pt/family regarding: lab results, diagnosis, rad results - Departure Departure Disposition: Transfer Clinical Impression: Common bile duct dilatation, Intrahepatic bile duct dilation, Atrophic pancreas, Contraction, gallbladder, Atherosclerotic vascular disease, Hiatal hernia, Cardiomegaly Condition: Stable Critical Care Time: No Referrals: BERTRAND BURDICK MD [Primary Care Provider] -
[2021-02-09 00:21] VITALS: BP 176/104; PULSE 88
--- NOTE | 2021-02-09 20:01 | XRAY ---
Exam: CT of the abdomen and pelvis without IV contrast from 02/08/2021. CTDI: 7.33 mGy Comparison: CT of the abdomen and pelvis without IV contrast from 12/06/2020. Indication: 89-year-old female with abdominal pain and chronic diarrhea; history of prior lumbar spine surgery with pain; history of neurostimulator placement, CABG, and right breast lumpectomy. Technique: Non-IV contrast axial images were obtained through the abdomen and pelvis. Reconstructed coronal and sagittal images were created and reviewed. Findings: Pacemaker leads are seen overlying the lower chest. Neurostimulator electrodes are in place within the lower thoracic spinal canal. A neurostimulator power pack is seen posteriorly within the subcutaneous fat of the right flank. I also see evidence of prior posterior spinal surgery at L4-L5 which causes beam hardening artifact. Minimal posterior left basilar atelectasis is seen. The transverse heart size again appears enlarged. There is a large retrocardiac hiatal hernia containing more than half of the stomach representing no change. I also see a fat-containing subxiphoid ventral hernia measuring about 3.9 cm in diameter representing no significant interval change. The liver is not enlarged. There appears to be marked atrophy of the left hepatic lobe representing no change. The gallbladder appears to be contracted representing no change. The common bile duct measures up to 14 mm in diameter on axial image #39. In retrospect, I believe this is unchanged. No dense calcification is seen within the distal common bile duct. Major differential possibilities include a radiolucent distal common bile duct stone, sludge, or debris versus a periampullary stricture. Again, this appears unchanged from 12/06/2020. In fact, it is similar to a prior CT study from 06/02/2019. Correlate with laboratory data. The spleen appears of unremarkable size. No focal splenic mass is seen. Mild diffuse pancreatic atrophy and diffuse fatty infiltration are seen. The adrenal glands appear grossly unremarkable. The kidneys appear of unremarkable size and reveal no definite mass, renal calculi, or hydronephrosis. Some atherosclerotic vascular calcification is seen within a tortuous abdominal aorta and iliac arteries. No abdominal aortic aneurysm or abnormal retroperitoneal lymphadenopathy is seen. I again note a small fat-containing umbilical hernia. A bowel containing ventral hernia is not seen. No free intraperitoneal air is seen. I see no significant bowel distention to suggest bowel obstruction. No definite findings of appendicitis are seen within the right lower quadrant. The uterus is anteflexed and tilted mildly to the left of midline. There appears to be a 2.0 cm calcified fibroid at the anterior left margin of the uterus representing no change. The urinary bladder appears grossly unremarkable. No other pelvic mass or abnormal pelvic lymphadenopathy is seen. Some vascular calcification is evident. Bilateral fat-containing inguinal hernias are seen, larger on the left than right. This is not significantly changed. Moderate rotary levoscoliosis is seen centered at L3-L4. I again see metallic posterior fixation hardware at L4-L5. There is extensive multilevel spondylosis and degenerative bony changes. There is evidence of prior L4-L5 discectomy. Impression: 1. I don't believe there has been any new significant change as compared to the prior CT of the abdomen and pelvis from 12/06/2020. I again note a small contracted gallbladder with a chronically dilated 14 mm in diameter common bile duct and severe chronic left hepatic lobe atrophy. See above. 2. Atrophic pancreas with diffuse fatty infiltration. 3. Large hiatal hernia, fatty subxiphoid ventral hernia, small fat-containing umbilical hernia, and mild bilateral fat-containing inguinal hernias, larger on the left than right, are again seen. 4. Cardiomegaly, prior CABG, and atherosclerotic vascular disease are seen. 5. Thoracolumbar scoliosis, extensive multilevel spondylosis, and chronic degenerative bony changes are seen. I also see evidence of prior L4-L5 discectomy and fusion with metallic hardware in place. 6. 2.0 cm calcified uterine fibroid representing no change.
[2021-02-11 02:05] VITALS: O2SAT 95
== END 2021-02-09 00:55 | disposition home or self-care (01) ==
LOC: ED 18:21
DX: K83.1 Obstruction of bile duct (principal); K83.8 Other specified diseases of biliary tract; K86.89 Other specified diseases of pancreas; I25.10 Atherosclerotic heart disease of native coronary artery without angina pectoris; K44.9 Diaphragmatic hernia without obstruction or gangrene; I51.7 Cardiomegaly; Z79.899 Other long term (current) drug therapy
CPT/HCPCS: 36000; 36415; 74176; 80053; 81001; 83690; 83735; 84484; 85025; 93005; 93041; 94760; 96374; 99285; J2270

== ENCOUNTER 2021-03-28 15:29 | Observation (INO) | payer MEDICARE ==
[2021-03-28 15:53] LABS: Absolute Neutrophil Ct (ANC) 3.35 (1.4-6.9); BASOPHIL % 0.2 % (0.0-0.4); Basophil (Absolute #) 0.01 (0-0.4); Eosinophil % 2.5 % (0.00-5.0); Eosinophil (Absolute #) 0.14 (0-0.5); Hemoglobin 11.2 gm/dl (12.0-16.0); Lymphocyte (Absolute #) 1.27 (1.0-4.6); Lymphocytes % 22.6 % (24.0-44.0); Mean Cell Volume 103.6 fl (78-100); Mean Corpuscular Hemoglobin 33.1 pg (26-32); Mean Platelet Volume 8.3 fl (7.5-11.0); Monocyte (Absolute #) 0.85 (0.0-1.3); Monocytes % 15.1 % (0.0-12.0); Neutrophil % 59.6 % (36.0-66.0); Platelet Count 335 K/mm3 (150-450); Red Blood Count 3.38 M/mm3 (4.1-5.4); White Blood Count 5.6 K/mm3 (4.0-10.5)
[2021-03-28 16:19] LABS: ALKALINE PHOSPHATASE 89 U/L (38-126); AMYLASE 56 U/L (30-110); ANION GAP 13.1 MEQ/L (5-15); BLOOD UREA NITROGEN 13 mg/dL (7-17); CHLORIDE 99 mmol/L (98-107); Carbon Dioxide 29 mmol/L (22-30); Creatinine 1 0.75 mg/dL (0.52-1.04); EST GLOMERULAR FILTRATION RATE > 60.0 ML/MIN; Glucose 99 mg/dL (74-106); LIPASE 49 U/L (23-300); SGOT/AST 41 U/L (14-36); SGPT/ALT 8 U/L (0-35); SODIUM 136 mmol/L (137-145); Total Protein 7.5 g/dL (6.3-8.2)
--- NOTE | 2021-03-28 16:36 | ERPHSYRPT ---
- History of Present Illness Historian: patient Exam Limitations: no limitations Patient Subjective Stated Complaint: " I've been sick having diarrhea and vomiting for three days, I hurt all over and feel so weak". Triage Nursing Assessment: Pt presents to ER with complaints of vomiting and diarrhea x 3 days. Pt had gallbladder removed 1 week ago in [place]. Pt incision looks to be intact. Pt complains of all over generalized weakness and pain. Pt has mild peripheral edema in bilateral lower extremities. Pt is mildly short of breath, wheezes noted. Oxygen saturations in low 90s upon triage, placed on 2L via NC. Pt skin is pale, hot, and dry to touch. Pt states has been incontent of stool. Physician History: 89 yo wf s/p lap melissa 1 wk ago in presents w N/V/D/lethargy. Pt denies chest pain and states that she is no more dyspnic than usual. She denies melena/hematochezia/dysuria/hematuria/fever/cough. Timing/Duration: other (1wk) Activities at Onset: rest Quality: other (Usual post-op pain) Abdominal Pain Onset Location: generalized abdomen Pain Radiation: no radiation Severity of Pain-Max: moderate Severity of Pain-Current: moderate Modifying Factors: Improves With: nothing Associated Symptoms: diarrhea, fatigue, loss of appetite, nausea, vomiting, weakness, No back, No chest pain, No diaphoresis, No fever/chills, No headache, No heartburn, No neck pain, No rash, No shortness of breath, No syncope Previous symptoms: no prior history Allergies/Adverse Reactions: No Known Drug Allergies Allergy (Verified 03/28/21 15:44) Home Medications: Gabapentin 300 mg PO TID 01/24/17 [History] Ranolazine 500 MG [Ranexa 500 MG] 500 mg PO BID 01/24/17 [History] Cyanocobalamin (Vitamin B-12) [B-12] 1,000 mcg PO DAILY 05/08/17 [History] Furosemide 20 mg [Lasix 20 mg] 20 mg PO DAILY 01/15/18 [History] Metoprolol Succinate 50 mg [Toprol Xl 50 MG] 50 mg PO BID 01/15/18 [History] Pramipexole Di-HCl [Mirapex] 0.5 mg PO HS 01/15/18 [History] Pyridoxine HCl (Vitamin B6) [Vitamin B-6] 100 mg PO DAILY 01/15/18 [History] Calcium Carb/Vitamin D3/Vit K1 [Calcium + D Soft Chewable Tab] 1 each PO DAILY 12/04/20 [History] L.acidoph,Paracasei, B.lactis [Probiotic] 1 each PO DAILY 12/04/20 [History] Melatonin 3 mg PO HS 12/04/20 [History] Methimazole 5 mg PO BID 12/04/20 [History] Mirtazapine [Remeron] 15 mg PO HS 12/04/20 [History] PANTOPRAZOLE 40 mg Tablet [Protonix 40MG Tablet] 40 mg PO QAM 12/04/20 [History] Paroxetine HCl 20 mg [Paxil 20 MG] 20 mg PO DAILY 12/04/20 [History] Sotalol HCl 80 mg [Betapace 80 MG] 80 mg PO BID 12/04/20 [History] Topiramate 50 mg PO BID 12/04/20 [History] Hydrocodone/Acetaminophen [Hydrocodone-Acetamin 10-325 mg] 1 tab PO QID PRN PRN 03/28/21 [History] Nitroglycerin 0.4 mg Tablet [Nitrostat 0.4 MG Tablet] 0.4 mg PO Q5MIN PRN MR X 3 PRN 03/28/21 [History] Rivaroxaban [Xarelto] 15 mg PO HS 03/28/21 [History] Hx Tetanus, Diphtheria Vaccination/Date Given: No Hx Influenza Vaccination/Date Given: No Hx Pneumococcal Vaccination/Date Given: No Immunizations Up to Date: No Travel Risk - International Travel Have you traveled outside of the country in past 3 weeks: No - Coronavirus Screening Are you exhibiting any of the following symptoms?: Yes Symptoms: Fever, Shortness of Breath, Vomiting/Diarrhea Close contact with a COVID-19 positive Pt in past 14-21 Days: No - Vaccine Status Have you recieved a Covid-19 vaccination: Yes Hospital Administrative Assistant: Moderna - Vaccination Dates Date of 2cond Vaccination (if applicable): unknown - Review of Systems Constitutional: No Symptoms, Fatigue, Lethargy Eyes: No Symptoms Ears, Nose, & Throat: No Symptoms Respiratory: No Symptoms Cardiac: No Symptoms Abdominal/Gastrointestinal: No Symptoms, Abdominal Pain, Nausea, Vomiting, Diarrhea Genitourinary Symptoms: No Symptoms Musculoskeletal: No Symptoms Skin: No Symptoms Neurological: No Symptoms Psychological: No Symptoms Endocrine: No Symptoms Hematologic/Lymphatic: No Symptoms Immunological/Allergic: No Symptoms - Past Medical History Pertinent Past Medical History: Yes Neurological History: Other ENT History: No Pertinent History Cardiac History: Arrhythmia, Hypertension Respiratory History: No Pertinent History Endocrine Medical History: Hypothyroidism Musculoskeletal History: Osteoarthritis, Osteoporosis GI Medical History: Other History: No Pertinent History Psycho-Social History: No Pertinent History Female Reproductive Disorders: Breast Cancer Other Medical History: ESSENTIAL TREMORS, 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, BREAST CA IN 2003, AFIB, PACEMAKER, - Past Surgical History Past Surgical History: Yes Neuro Surgical History: No Pertinent History Cardiac: CABG, Cardiac Catheterization, Pacemaker Respiratory: No Pertinent History Gastrointestinal: No Pertinent History Genitourinary: No Pertinent History Musculoskeletal: Orthopedic Surgery Female Surgical History: Lumpectomy Other Surgical History: lumbar fusion with plate, stimulator implant - Social History Smoking Status: Never smoker Exposure to second hand smoke: No Drug Use: none Patient Lives Alone: Yes Significant Family History: no pertinent family hx - Nursing Vital Signs Nursing Vital Signs: Initial Vital Signs Temperature 99.5 F 03/28/21 15:37 Pulse Rate 96 H 03/28/21 15:37 Respiratory Rate 20 03/28/21 15:37 Blood Pressure 194/117 03/28/21 15:37 O2 Sat by Pulse Oximetry 91 L 03/28/21 15:37 Pain Scale Pain Intensity 5 Hypertensive - Physical Exam General Appearance: no apparent distress, lethargy Eye Exam: PERRL/EOMI, eyes nml inspection Ears, Nose, Throat Exam: normal ENT inspection, TMs normal, pharynx normal, moist mucous membranes Neck Exam: normal inspection, non-tender, supple, full range of motion, No meningismus, No mass, No Brudzinski, No Kernig's Respiratory Exam: airway intact, crackles/rales (Rales B bases), No respiratory distress Cardiovascular Exam: regular rate/rhythm, murmur (2/6 LONNIE) Gastrointestinal/Abdomen Exam: soft, normal bowel sounds (Large ecchymotic area on abdomen/Laparoscopy incisions clean,dry, and intact) Back Exam: normal inspection, normal range of motion, No CVA tenderness Extremity Exam: normal inspection, normal range of motion Neurologic Exam: alert, oriented x 3, cooperative, mixing machine feeder II-XII nml as tested, normal mood/affect, sensation nml Skin Exam: normal color Lymphatic Exam: No adenopathy SpO2 Interpretation: normal SpO2: 91 (Low) O2 Delivery: Room Air - Course Nursing assessment & vital signs reviewed: Yes - CT Exams Abdomen/Pelvis CT Interpretation: Discussed w/radiologist (s/p melissa/lumbar fusion hardware/large HH/uterine fibroid/fat containing LIH) Ordered Tests: Active Orders 24 hr Category Date Time Status EKG-ER Only STAT Care 03/28/21 15:43 Completed IV Insertion STAT Care 03/28/21 15:43 Completed Clear Liquid Diet 03/28/21 Breakfast Active ABDOMEN AND PELVIS W CONTRAST [CT] Stat Exams 03/28/21 18:23 Taken CHEST 1 VIEW (PORTABLE) Stat Exams 03/28/21 15:57 Completed AMYLASE Stat Lab 03/28/21 15:48 Completed CBC W DIFF AM.LAB Lab 03/29/21 04:00 Ordered CBC W DIFF Stat Lab 03/28/21 15:48 Completed CMP AM.LAB Lab 03/29/21 04:00 Ordered CMP Stat Lab 03/28/21 15:48 Completed LIPASE Stat Lab 03/28/21 15:48 Completed Lactic Acid Stat Lab 03/28/21 15:56 Completed TROPONIN Q3H Lab 03/28/21 15:48 Completed TROPONIN Q3H Lab 03/28/21 19:20 Completed TROPONIN Q3H Lab 03/28/21 21:46 Completed TROPONIN Q3H Lab 03/29/21 00:45 Ordered TROPONIN Q3H Lab 03/29/21 03:45 Ordered UA W/RFX UR CULTURE Stat Lab 03/28/21 20:25 Completed Transfer Order Routine Transfer 03/28/21 Completed Medication Summary Generic Name Dose Route Start Last Admin Trade Name Freq PRN Reason Stop Dose Admin Hydrocodone Bitart/Acetaminophen 1 tablet 03/28/21 22:44 03/28/21 23:15 Hydrocodone-Acetamin 10-325 Mg PO 04/02/21 22:43 1 tablet Q4H PRN PRN Administration PAIN Gabapentin 300 mg 03/28/21 22:43 03/28/21 23:17 Neurontin 300 Mg PO 04/27/21 22:42 300 mg TID TONYA Administration Sodium Chloride 1,000 mls @ 100 mls/hr 03/28/21 21:00 03/28/21 23:17 Sodium Chloride 0.9% 1000 Ml IV 04/27/21 20:59 100 mls/hr .Q10H TONYA Administration Metoprolol Succinate 50 mg 03/28/21 22:50 03/28/21 23:16 Toprol Xl 50 Mg PO 04/27/21 22:49 50 mg BID TONYA Administration Mirtazapine 15 mg 03/28/21 22:00 03/28/21 23:34 Remeron 30 Mg PO 04/27/21 21:59 Not Given HS TONYA Ondansetron HCl 4 mg 03/28/21 20:58 03/28/21 23:17 Zofran 4 Mg/2 Ml Vial IV 04/27/21 20:57 4 mg Q6H PRN PRN Administration NAUSEA/VOMITING Ranolazine 500 mg 03/28/21 22:52 03/28/21 23:34 Ranexa 500 Mg PO 04/27/21 22:51 Not Given Q12HT TONYA Sotalol HCl 80 mg 03/28/21 22:53 Betapace 80 Mg PO 04/27/21 22:52 BID TONYA Topiramate 50 mg 03/28/21 22:54 03/28/21 23:34 Topiramate PO 04/27/21 22:53 Not Given BID TONYA Discontinued Medications Generic Name Dose Route Start Last Admin Trade Name Freq PRN Reason Stop Dose Admin Sodium Chloride 1,000 mls @ 999 mls/hr 03/28/21 16:37 03/28/21 18:11 Sodium Chloride 0.9% 1000 Ml IV 03/28/21 17:37 Infused .Q1H1M STA Infusion Sodium Chloride Confirm 03/28/21 16:49 Sodium Chloride 0.9% 1000 Ml Administered 03/28/21 16:50 Dose 1,000 mls @ ud .ROUTE .STK-MED ONE Lab/Rad Data: Laboratory Result Diagrams 03/28/21 15:48 03/28/21 15:48 Laboratory Results 03/28/21 03/28/21 03/28/21 Range/Units 20:25 19:20 16:06 WBC (4.0-10.5) K/mm3 RBC (4.1-5.4) M/mm3 Hgb (12.0-16.0) gm/dl Hct (35-47) % MCV (78-100) fl MCH (26-32) pg MCHC (32-36) g/dl RDW (11.5-14.0) % Plt Count (150-450) K/mm3 MPV (7.5-11.0) fl Gran % (36.0-66.0) % Eos # (Auto) (0-0.5) Absolute Lymphs (auto) (1.0-4.6) Absolute Monos (auto) (0.0-1.3) Lymphocytes % (24.0-44.0) % Monocytes % (0.0-12.0) % Eosinophils % (0.00-5.0) % Basophils % (0.0-0.4) % Absolute Granulocytes (1.4-6.9) Basophils # (0-0.4) Sodium (137-145) mmol/L Potassium (3.5-5.1) mmol/L Chloride (98-107) mmol/L Carbon Dioxide (22-30) mmol/L Anion Gap (5-15) MEQ/L BUN (7-17) mg/dL Creatinine (0.52-1.04) mg/dL Estimated GFR ML/MIN Glucose (74-106) mg/dL Lactic Acid (0.4-2.0) Calcium (8.4-10.2) mg/dL Total Bilirubin (0.2-1.3) mg/dL AST (14-36) U/L ALT (0-35) U/L Alkaline Phosphatase (38-126) U/L Troponin I 0.015 (0.000-0.034) ng/mL Serum Total Protein (6.3-8.2) g/dL Albumin (3.5-5.0) g/dL Amylase (30-110) U/L Lipase (23-300) U/L Urine Color COLORLESS (YELLOW) Urine Appearance CLEAR (CLEAR) Urine pH 8.0 (5-6) Ur Specific [place] 1.013 (1.005-1.025) Urine Protein NEGATIVE (Negative) Urine Ketones NEGATIVE (NEGATIVE) Urine Blood NEGATIVE (0-5) [place]/ul Urine Nitrite NEGATIVE (NEGATIVE) Urine Bilirubin NEGATIVE (NEGATIVE) Urine Urobilinogen NEGATIVE (0-1) mg/dL Ur Leukocyte Esterase NEGATIVE (NEGATIVE) Urine WBC (Auto) 0-2 (0-5) /HPF Urine RBC (Auto) 0-2 (0-2) /HPF U Epithel Cells (Auto) RARE (FEW) /HPF Urine Mucus (Auto) SLIGHT (NEGATIVE) /HPF Urine Culture Reflexed NO (NO) Urine Glucose NEGATIVE (NEGATIVE) mg/dL SARS-CoV-2 (PCR) NEGATIVE (NEGATIVE) 03/28/21 03/28/21 03/28/21 Range/Units 15:56 15:48 15:48 WBC (4.0-10.5) K/mm3 RBC (4.1-5.4) M/mm3 Hgb (12.0-16.0) gm/dl Hct (35-47) % MCV (78-100) fl MCH (26-32) pg MCHC (32-36) g/dl RDW (11.5-14.0) % Plt Count (150-450) K/mm3 MPV (7.5-11.0) fl Gran % (36.0-66.0) % Eos # (Auto) (0-0.5) Absolute Lymphs (auto) (1.0-4.6) Absolute Monos (auto) (0.0-1.3) Lymphocytes % (24.0-44.0) % Monocytes % (0.0-12.0) % Eosinophils % (0.00-5.0) % Basophils % (0.0-0.4) % Absolute Granulocytes (1.4-6.9) Basophils # (0-0.4) Sodium 136 L (137-145) mmol/L Potassium 4.0 (3.5-5.1) mmol/L Chloride 99 (98-107) mmol/L Carbon Dioxide 29 (22-30) mmol/L Anion Gap 13.1 (5-15) MEQ/L BUN 13 (7-17) mg/dL Creatinine 0.75 (0.52-1.04) mg/dL Estimated GFR > 60.0 ML/MIN Glucose 99 (74-106) mg/dL Lactic Acid 1.5 (0.4-2.0) Calcium 9.0 (8.4-10.2) mg/dL Total Bilirubin 0.70 (0.2-1.3) mg/dL AST 41 H (14-36) U/L ALT 8 (0-35) U/L Alkaline Phosphatase 89 (38-126) U/L Troponin I 0.014 (0.000-0.034) ng/mL Serum Total Protein 7.5 (6.3-8.2) g/dL Albumin 4.0 (3.5-5.0) g/dL Amylase 56 (30-110) U/L Lipase 49 (23-300) U/L Urine Color (YELLOW) Urine Appearance (CLEAR) Urine pH (5-6) Ur Specific [place] (1.005-1.025) Urine Protein (Negative) Urine Ketones (NEGATIVE) Urine Blood (0-5) [place]/ul Urine Nitrite (NEGATIVE) Urine Bilirubin (NEGATIVE) Urine Urobilinogen (0-1) mg/dL Ur Leukocyte Esterase (NEGATIVE) Urine WBC (Auto) (0-5) /HPF Urine RBC (Auto) (0-2) /HPF U Epithel Cells (Auto) (FEW) /HPF Urine Mucus (Auto) (NEGATIVE) /HPF Urine Culture Reflexed (NO) Urine Glucose (NEGATIVE) mg/dL SARS-CoV-2 (PCR) (NEGATIVE) 03/28/21 Range/Units 15:48 WBC 5.6 (4.0-10.5) K/mm3 RBC 3.38 L (4.1-5.4) M/mm3 Hgb 11.2 L (12.0-16.0) gm/dl Hct 35.0 (35-47) % MCV 103.6 H (78-100) fl MCH 33.1 H (26-32) pg MCHC 32.0 (32-36) g/dl RDW 15.0 H (11.5-14.0) % Plt Count 335 (150-450) K/mm3 MPV 8.3 (7.5-11.0) fl Gran % 59.6 (36.0-66.0) % Eos # (Auto) 0.14 (0-0.5) Absolute Lymphs (auto) 1.27 (1.0-4.6) Absolute Monos (auto) 0.85 (0.0-1.3) Lymphocytes % 22.6 L (24.0-44.0) % Monocytes % 15.1 H (0.0-12.0) % Eosinophils % 2.5 (0.00-5.0) % Basophils % 0.2 (0.0-0.4) % Absolute Granulocytes 3.35 (1.4-6.9) Basophils # 0.01 (0-0.4) Sodium (137-145) mmol/L Potassium (3.5-5.1) mmol/L Chloride (98-107) mmol/L Carbon Dioxide (22-30) mmol/L Anion Gap (5-15) MEQ/L BUN (7-17) mg/dL Creatinine (0.52-1.04) mg/dL Estimated GFR ML/MIN Glucose (74-106) mg/dL Lactic Acid (0.4-2.0) Calcium (8.4-10.2) mg/dL Total Bilirubin (0.2-1.3) mg/dL AST (14-36) U/L ALT (0-35) U/L Alkaline Phosphatase (38-126) U/L Troponin I (0.000-0.034) ng/mL Serum Total Protein (6.3-8.2) g/dL Albumin (3.5-5.0) g/dL Amylase (30-110) U/L Lipase (23-300) U/L Urine Color (YELLOW) Urine Appearance (CLEAR) Urine pH (5-6) Ur Specific [place] (1.005-1.025) Urine Protein (Negative) Urine Ketones (NEGATIVE) Urine Blood (0-5) [place]/ul Urine Nitrite (NEGATIVE) Urine Bilirubin (NEGATIVE) Urine Urobilinogen (0-1) mg/dL Ur Leukocyte Esterase (NEGATIVE) Urine WBC (Auto) (0-5) /HPF Urine RBC (Auto) (0-2) /HPF U Epithel Cells (Auto) (FEW) /HPF Urine Mucus (Auto) (NEGATIVE) /HPF Urine Culture Reflexed (NO) Urine Glucose (NEGATIVE) mg/dL SARS-CoV-2 (PCR) (NEGATIVE) - Progress Progress Note: 03/28/21 20:[address] Ferrer Discussed with : Giuseppe Will see patient in: hospital (observation) Counseled pt/family regarding: lab results, diagnosis, rad results - Departure Departure Disposition: Observation Clinical Impression: Weakness, Vomiting and diarrhea, Dehydration Condition: Stable Critical Care Time: No
[2021-03-28] MEDS ORDERED: Sodium Chloride 0.9% 1000 ML 1,000 ML IV STA (16:37)
--- NOTE | 2021-03-28 16:41 | XRAY ---
Indication: Lethargy. Comparison: May 01, 2019. Portable chest again demonstrates focal eventration right hemidiaphragm. No focal infiltrate, consolidation, or large effusion. Heart remains enlarged again with CABG surgery and left pacemaker. Enlarging large hiatal hernia occupying medial left lung base. Bony thorax intact again with osteopenia, degenerative changes, scoliosis, and epidural stimulator leads terminating T8. Impression: Nonacute chest with chronic features.
[2021-03-28] MEDS ORDERED: Sodium Chloride 0.9% 1000 ML 1,000 ML ONE (16:49)
[2021-03-28 20:32] LABS: Appearance CLEAR (CLEAR); Bilirubin NEGATIVE (NEGATIVE); Blood NEGATIVE Ery/ul (0-5); Epithelial Cells RARE /HPF (FEW); Glucose NEGATIVE (NEGATIVE); Ketones NEGATIVE (NEGATIVE); Leukocyte Esterase NEGATIVE (NEGATIVE); Mucus SLIGHT /HPF (NEGATIVE); Nitrite NEGATIVE (NEGATIVE); Protein,Urine Dip NEGATIVE (Negative); RBC 0-2 /HPF (0-2); Specific Gravity 1.013 (1.005-1.025); Urobilinogen NEGATIVE mg/dL (0-1); WBC 0-2 /HPF (0-5)
[2021-03-28] MEDS: HYDROCODONE-ACETAMIN 10-325 MG PO PRN (23:15)
[2021-03-28] MEDS: Toprol Xl 50 MG PO SCH (23:16)
[2021-03-28] MEDS: Sodium Chloride 0.9% 1000 ML 1,000 ML IV SCH (23:17)
[2021-03-28] MEDS: NEURONTIN 300 MG PO SCH (23:17)
[2021-03-28] MEDS: Zofran 4 MG/2 ML VIAL IV PRN (23:17)
[2021-03-28] MEDS: TOPIRAMATE PO SCH (23:34)
[2021-03-28] MEDS: Ranexa 500 MG PO SCH (23:34)
[2021-03-28] MEDS: REMERON 30 MG PO SCH (23:34)
[2021-03-28] MEDS: XARELTO 10 MG TABLET PO SCH (23:41)
[2021-03-28] MEDS: Betapace 80 MG PO SCH (23:42)
[2021-03-29 05:23] LABS: Absolute Neutrophil Ct (ANC) 3.65 (1.4-6.9); BASOPHIL % 0.2 % (0.0-0.4); Basophil (Absolute #) 0.01 (0-0.4); Eosinophil % 0.6 % (0.00-5.0); Eosinophil (Absolute #) 0.03 (0-0.5); Hematocrit 35.4 % (35-47); Hemoglobin 11.4 gm/dl (12.0-16.0); Lymphocyte (Absolute #) 0.97 (1.0-4.6); Lymphocytes % 18.7 % (24.0-44.0); Mean Corpuscular Hemoglobin 32.9 pg (26-32); Mean Corpuscular Hgb Concent. 32.2 g/dl (32-36); Mean Platelet Volume 8.5 fl (7.5-11.0); Monocyte (Absolute #) 0.53 (0.0-1.3); Monocytes % 10.2 % (0.0-12.0); Neutrophil % 70.3 % (36.0-66.0); Platelet Count 319 K/mm3 (150-450); Red Blood Count 3.47 M/mm3 (4.1-5.4); Red Cell Distribution Width 14.8 % (11.5-14.0); White Blood Count 5.2 K/mm3 (4.0-10.5)
[2021-03-29 06:07] LABS: ALBUMIN 3.2 g/dL (3.5-5.0); ALKALINE PHOSPHATASE 76 U/L (38-126); ANION GAP 12.5 MEQ/L (5-15); BLOOD UREA NITROGEN 8 mg/dL (7-17); CHLORIDE 98 mmol/L (98-107); Carbon Dioxide 25 mmol/L (22-30); Creatinine 1 0.68 mg/dL (0.52-1.04); EST GLOMERULAR FILTRATION RATE > 60.0 ML/MIN; Glucose 102 mg/dL (74-106); Potassium 3.6 mmol/L (3.5-5.1); SGOT/AST 25 U/L (14-36); SGPT/ALT 6 U/L (0-35); SODIUM 132 mmol/L (137-145); Total Protein 6.3 g/dL (6.3-8.2)
--- NOTE | 2021-03-29 08:52 | PCM.HP ---
History of Present Illness - Chief Complaint Chief Complaint: weakness, N/V/D, dehydration History of Present Illness: is a 89 year old female who had a laparoscopic cholecystectomy last week at [facility], she came to ER yesterday with a 3 day history of nausea, vomiting and diarrhea, she is feeling weak. no chest pain or shortness of breath, no cough, has some soreness in abdomen from surgery but no severe abdominal pain. - Review of Systems Constitutional: No Fever, No Chills Respiratory: No Cough, No Short Of Breath Cardiac: No Chest Pain, No Edema, No Syncope Abdominal/Gastrointestinal: Nausea, Vomiting, Diarrhea, No Abdominal Pain Genitourinary Symptoms: No Dysuria Skin: No Rash All Other Systems: Reviewed and Negative Medications & Allergies Home Medications: Home Medication List Gabapentin 300 mg PO TID 01/24/17 [History Confirmed 03/28/21] Ranolazine 500 MG [Ranexa 500 MG] 500 mg PO BID 01/24/17 [History Confirmed 03/28/21] Cyanocobalamin (Vitamin B-12) [B-12] 1,000 mcg PO DAILY 05/08/17 [History Confirmed 03/28/21] Furosemide 20 mg [Lasix 20 mg] 20 mg PO DAILY 01/15/18 [History Confirmed 03/28/21] Metoprolol Succinate 50 mg [Toprol Xl 50 MG] 50 mg PO BID 01/15/18 [History Confirmed 03/28/21] Pramipexole Di-HCl [Mirapex] 0.5 mg PO HS 01/15/18 [History Confirmed 03/28/21] Pyridoxine HCl (Vitamin B6) [Vitamin B-6] 100 mg PO DAILY 01/15/18 [History Confirmed 03/28/21] Calcium Carb/Vitamin D3/Vit K1 [Calcium + D Soft Chewable Tab] 1 each PO DAILY 12/04/20 [History Confirmed 03/28/21] L.acidoph,Paracasei, B.lactis [Probiotic] 1 each PO DAILY 12/04/20 [History Confirmed 03/28/21] Melatonin 3 mg PO HS 12/04/20 [History Confirmed 03/28/21] Methimazole 5 mg PO BID 12/04/20 [History Confirmed 03/28/21] Mirtazapine [Remeron] 15 mg PO HS 12/04/20 [History Confirmed 03/28/21] PANTOPRAZOLE 40 mg Tablet [Protonix 40MG Tablet] 40 mg PO QAM 12/04/20 [History Confirmed 03/28/21] Paroxetine HCl 20 mg [Paxil 20 MG] 20 mg PO DAILY 12/04/20 [History Confirmed 03/28/21] Sotalol HCl 80 mg [Betapace 80 MG] 80 mg PO BID 12/04/20 [History Confirmed 03/28/21] Topiramate 50 mg PO BID 12/04/20 [History Confirmed 03/28/21] Hydrocodone/Acetaminophen [Hydrocodone-Acetamin 10-325 mg] 1 tab PO QID PRN PRN 03/28/21 [History Confirmed 03/28/21] Nitroglycerin 0.4 mg Tablet [Nitrostat 0.4 MG Tablet] 0.4 mg PO Q5MIN PRN MR X 3 PRN 03/28/21 [History Confirmed 03/28/21] Rivaroxaban [Xarelto] 15 mg PO HS 03/28/21 [History Confirmed 03/28/21] Allergies/Adverse Reactions: Allergies Allergy/AdvReac Type Severity Reaction Status Date / Time No Known Drug Allergies Allergy Verified 03/28/21 15:44 - Past Medical History Past Medical History: Yes Neurological History: Other ENT History: No Pertinent History Cardiac History: Arrhythmia, Hypertension Respiratory History: No Pertinent History Endocrine Medical History: Hypothyroidism Musculoskelatal History: Osteoarthritis, Osteoporosis GI Medical History: Other History: No Pertinent History Pyscho-Social History: No Pertinent History Reproductive Disorders: Breast Cancer Comment: ESSENTIAL TREMORS, 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, BREAST CA IN 2003, AFIB, PACEMAKER, - Past Surgical History Past Surgical History: Yes Neuro Surgical History: No Pertinent History Cardiac History: CABG, Cardiac Catheterization, Pacemaker Respiratory Surgery: No Pertinent History GI Surgical History: No Pertinent History Genitourinary Surgical Hx: No Pertinent History Musculskeletal Surgical Hx: Orthopedic Surgery Female Surgical History: Lumpectomy Other Surgical History: lumbar fusion with plate, stimulator implant - Social History Smoking Status: Never smoker Exposure to second hand smoke: No Alcohol: None Drug Use: none Significant Family History: no pertinent family hx - Physical Exam Vital Signs: Vital Signs - 24 hr Temp Pulse Resp BP BP Pulse Ox 03/29/21 07:10 98.6 F 65 16 128/71 94 L 03/29/21 07:00 94 L 03/29/21 06:59 85 L 03/29/21 04:00 98.0 F 68 20 135/76 95 03/29/21 00:30 98.9 F 90 24 179/99 98 03/28/21 23:36 91 L 03/28/21 21:56 98.0 F 85 20 199/94 97 03/28/21 21:45 97 03/28/21 20:00 83 18 156/90 99 03/28/21 19:00 78 18 167/124 98 03/28/21 18:04 70 18 159/80 96 03/28/21 17:38 85 18 172/118 96 03/28/21 15:37 99.5 F 96 H 20 194/117 91 L General Appearance: no apparent distress Neurologic Exam: alert, oriented x 3, cooperative Respiratory Exam: normal breath sounds, lungs clear, No respiratory distress Cardiovascular Exam: regular rate/rhythm, normal heart sounds, normal peripheral pulses Gastrointestinal/Abdomen Exam: soft, normal bowel sounds, other (well healing port sites, bruising present. no significant tenderness) Results - Labs Lab/Micro Results: Lab Results-Last 24 Hours 03/28/21 03/28/21 03/28/21 Range/Units 15:48 15:48 15:48 WBC 5.6 (4.0-10.5) K/mm3 RBC 3.38 L (4.1-5.4) M/mm3 Hgb 11.2 L (12.0-16.0) gm/dl Hct 35.0 (35-47) % MCV 103.6 H (78-100) fl MCH 33.1 H (26-32) pg MCHC 32.0 (32-36) g/dl RDW 15.0 H (11.5-14.0) % Plt Count 335 (150-450) K/mm3 MPV 8.3 (7.5-11.0) fl Gran % 59.6 (36.0-66.0) % Eos # (Auto) 0.14 (0-0.5) Absolute Lymphs (auto) 1.27 (1.0-4.6) Absolute Monos (auto) 0.85 (0.0-1.3) Lymphocytes % 22.6 L (24.0-44.0) % Monocytes % 15.1 H (0.0-12.0) % Eosinophils % 2.5 (0.00-5.0) % Basophils % 0.2 (0.0-0.4) % Absolute Granulocytes 3.35 (1.4-6.9) Basophils # 0.01 (0-0.4) Sodium 136 L (137-145) mmol/L Potassium 4.0 (3.5-5.1) mmol/L Chloride 99 (98-107) mmol/L Carbon Dioxide 29 (22-30) mmol/L Anion Gap 13.1 (5-15) MEQ/L BUN 13 (7-17) mg/dL Creatinine 0.75 (0.52-1.04) mg/dL Estimated GFR > 60.0 ML/MIN Glucose 99 (74-106) mg/dL Lactic Acid (0.4-2.0) Calcium 9.0 (8.4-10.2) mg/dL Total Bilirubin 0.70 (0.2-1.3) mg/dL AST 41 H (14-36) U/L ALT 8 (0-35) U/L Alkaline Phosphatase 89 (38-126) U/L Troponin I 0.014 (0.000-0.034) ng/mL Serum Total Protein 7.5 (6.3-8.2) g/dL Albumin 4.0 (3.5-5.0) g/dL Amylase 56 (30-110) U/L Lipase 49 (23-300) U/L Urine Color (YELLOW) Urine Appearance (CLEAR) Urine pH (5-6) Ur Specific [place] (1.005-1.025) Urine Protein (Negative) Urine Ketones (NEGATIVE) Urine Blood (0-5) [place]/ul Urine Nitrite (NEGATIVE) Urine Bilirubin (NEGATIVE) Urine Urobilinogen (0-1) mg/dL Ur Leukocyte Esterase (NEGATIVE) Urine WBC (Auto) (0-5) /HPF Urine RBC (Auto) (0-2) /HPF U Epithel Cells (Auto) (FEW) /HPF Urine Mucus (Auto) (NEGATIVE) /HPF Urine Culture Reflexed (NO) Urine Glucose (NEGATIVE) mg/dL SARS-CoV-2 (PCR) (NEGATIVE) 03/28/21 03/28/21 03/28/21 Range/Units 15:56 16:06 19:20 WBC (4.0-10.5) K/mm3 RBC (4.1-5.4) M/mm3 Hgb (12.0-16.0) gm/dl Hct (35-47) % MCV (78-100) fl MCH (26-32) pg MCHC (32-36) g/dl RDW (11.5-14.0) % Plt Count (150-450) K/mm3 MPV (7.5-11.0) fl Gran % (36.0-66.0) % Eos # (Auto) (0-0.5) Absolute Lymphs (auto) (1.0-4.6) Absolute Monos (auto) (0.0-1.3) Lymphocytes % (24.0-44.0) % Monocytes % (0.0-12.0) % Eosinophils % (0.00-5.0) % Basophils % (0.0-0.4) % Absolute Granulocytes (1.4-6.9) Basophils # (0-0.4) Sodium (137-145) mmol/L Potassium (3.5-5.1) mmol/L Chloride (98-107) mmol/L Carbon Dioxide (22-30) mmol/L Anion Gap (5-15) MEQ/L BUN (7-17) mg/dL Creatinine (0.52-1.04) mg/dL Estimated GFR ML/MIN Glucose (74-106) mg/dL Lactic Acid 1.5 (0.4-2.0) Calcium (8.4-10.2) mg/dL Total Bilirubin (0.2-1.3) mg/dL AST (14-36) U/L ALT (0-35) U/L Alkaline Phosphatase (38-126) U/L Troponin I 0.015 (0.000-0.034) ng/mL Serum Total Protein (6.3-8.2) g/dL Albumin (3.5-5.0) g/dL Amylase (30-110) U/L Lipase (23-300) U/L Urine Color (YELLOW) Urine Appearance (CLEAR) Urine pH (5-6) Ur Specific [place] (1.005-1.025) Urine Protein (Negative) Urine Ketones (NEGATIVE) Urine Blood (0-5) [place]/ul Urine Nitrite (NEGATIVE) Urine Bilirubin (NEGATIVE) Urine Urobilinogen (0-1) mg/dL Ur Leukocyte Esterase (NEGATIVE) Urine WBC (Auto) (0-5) /HPF Urine RBC (Auto) (0-2) /HPF U Epithel Cells (Auto) (FEW) /HPF Urine Mucus (Auto) (NEGATIVE) /HPF Urine Culture Reflexed (NO) Urine Glucose (NEGATIVE) mg/dL SARS-CoV-2 (PCR) NEGATIVE (NEGATIVE) 03/28/21 03/28/21 03/29/21 Range/Units 20:25 21:46 01:40 WBC (4.0-10.5) K/mm3 RBC (4.1-5.4) M/mm3 Hgb (12.0-16.0) gm/dl Hct (35-47) % MCV (78-100) fl MCH (26-32) pg MCHC (32-36) g/dl RDW (11.5-14.0) % Plt Count (150-450) K/mm3 MPV (7.5-11.0) fl Gran % (36.0-66.0) % Eos # (Auto) (0-0.5) Absolute Lymphs (auto) (1.0-4.6) Absolute Monos (auto) (0.0-1.3) Lymphocytes % (24.0-44.0) % Monocytes % (0.0-12.0) % Eosinophils % (0.00-5.0) % Basophils % (0.0-0.4) % Absolute Granulocytes (1.4-6.9) Basophils # (0-0.4) Sodium (137-145) mmol/L Potassium (3.5-5.1) mmol/L Chloride (98-107) mmol/L Carbon Dioxide (22-30) mmol/L Anion Gap (5-15) MEQ/L BUN (7-17) mg/dL Creatinine (0.52-1.04) mg/dL Estimated GFR ML/MIN Glucose (74-106) mg/dL Lactic Acid (0.4-2.0) Calcium (8.4-10.2) mg/dL Total Bilirubin (0.2-1.3) mg/dL AST (14-36) U/L ALT (0-35) U/L Alkaline Phosphatase (38-126) U/L Troponin I 0.020 0.027 (0.000-0.034) ng/mL Serum Total Protein (6.3-8.2) g/dL Albumin (3.5-5.0) g/dL Amylase (30-110) U/L Lipase (23-300) U/L Urine Color COLORLESS (YELLOW) Urine Appearance CLEAR (CLEAR) Urine pH 8.0 (5-6) Ur Specific [place] 1.013 (1.005-1.025) Urine Protein NEGATIVE (Negative) Urine Ketones NEGATIVE (NEGATIVE) Urine Blood NEGATIVE (0-5) [place]/ul Urine Nitrite NEGATIVE (NEGATIVE) Urine Bilirubin NEGATIVE (NEGATIVE) Urine Urobilinogen NEGATIVE (0-1) mg/dL Ur Leukocyte Esterase NEGATIVE (NEGATIVE) Urine WBC (Auto) 0-2 (0-5) /HPF Urine RBC (Auto) 0-2 (0-2) /HPF U Epithel Cells (Auto) RARE (FEW) /HPF Urine Mucus (Auto) SLIGHT (NEGATIVE) /HPF Urine Culture Reflexed NO (NO) Urine Glucose NEGATIVE (NEGATIVE) mg/dL SARS-CoV-2 (PCR) (NEGATIVE) 03/29/21 03/29/21 03/29/21 Range/Units 05:05 05:05 05:05 WBC 5.2 (4.0-10.5) K/mm3 RBC 3.47 L (4.1-5.4) M/mm3 Hgb 11.4 L (12.0-16.0) gm/dl Hct 35.4 (35-47) % MCV 102.0 H (78-100) fl MCH 32.9 H (26-32) pg MCHC 32.2 (32-36) g/dl RDW 14.8 H (11.5-14.0) % Plt Count 319 (150-450) K/mm3 MPV 8.5 (7.5-11.0) fl Gran % 70.3 H (36.0-66.0) % Eos # (Auto) 0.03 (0-0.5) Absolute Lymphs (auto) 0.97 L (1.0-4.6) Absolute Monos (auto) 0.53 (0.0-1.3) Lymphocytes % 18.7 L (24.0-44.0) % Monocytes % 10.2 (0.0-12.0) % Eosinophils % 0.6 (0.00-5.0) % Basophils % 0.2 (0.0-0.4) % Absolute Granulocytes 3.65 (1.4-6.9) Basophils # 0.01 (0-0.4) Sodium 132 L (137-145) mmol/L Potassium 3.6 (3.5-5.1) mmol/L Chloride 98 (98-107) mmol/L Carbon Dioxide 25 (22-30) mmol/L Anion Gap 12.5 (5-15) MEQ/L BUN 8 (7-17) mg/dL Creatinine 0.68 (0.52-1.04) mg/dL Estimated GFR > 60.0 ML/MIN Glucose 102 (74-106) mg/dL Lactic Acid (0.4-2.0) Calcium 8.0 L (8.4-10.2) mg/dL Total Bilirubin 0.40 (0.2-1.3) mg/dL AST 25 (14-36) U/L ALT 6 (0-35) U/L Alkaline Phosphatase 76 (38-126) U/L Troponin I 0.044 H* (0.000-0.034) ng/mL Serum Total Protein 6.3 (6.3-8.2) g/dL Albumin 3.2 L (3.5-5.0) g/dL Amylase (30-110) U/L Lipase (23-300) U/L Urine Color (YELLOW) Urine Appearance (CLEAR) Urine pH (5-6) Ur Specific [place] (1.005-1.025) Urine Protein (Negative) Urine Ketones (NEGATIVE) Urine Blood (0-5) [place]/ul Urine Nitrite (NEGATIVE) Urine Bilirubin (NEGATIVE) Urine Urobilinogen (0-1) mg/dL Ur Leukocyte Esterase (NEGATIVE) Urine WBC (Auto) (0-5) /HPF Urine RBC (Auto) (0-2) /HPF U Epithel Cells (Auto) (FEW) /HPF Urine Mucus (Auto) (NEGATIVE) /HPF Urine Culture Reflexed (NO) Urine Glucose (NEGATIVE) mg/dL SARS-CoV-2 (PCR) (NEGATIVE) - Radiology Impressions Radiology Exams & Impressions: Radiology Procedures Category Date Time Status ABDOMEN AND PELVIS W CONTRAST [CT] Stat Exams 03/28/21 18:23 Taken CHEST 1 VIEW (PORTABLE) Stat Exams 03/28/21 15:57 Completed - Other Procedures and Tests Respiratory Therapy 03/28/21 20:58 Oxygen Nasal Cannula 2 lpm Assessment/Plan (1) Vomiting and diarrhea Current Visit: Yes Status: Acute Assessment & Plan: check stool GI panel, prior hx of c diff Code(s): R11.10 - VOMITING, UNSPECIFIED; R19.7 - DIARRHEA, UNSPECIFIED (2) Dehydration Current Visit: Yes Status: Acute Code(s): E86.0 - DEHYDRATION (3) Weakness Current Visit: Yes Status: Acute Code(s): R53.1 - WEAKNESS
--- NOTE | 2021-03-29 09:02 | XRAY ---
Indication: Abdomen pain, nausea, vomiting, and diarrhea. Status post cholecystectomy 4 days ago. Multiple contiguous axial images obtained through the abdomen and pelvis using 80 cc Isovue 370 contrast. Comparison: February 08, 2021. Lung bases again demonstrates large hiatal hernia with intrathoracic stomach occupying the left base with subsequent left lower lobe compressive atelectasis. No infiltrate or effusion. Heart remains enlarged with partially visualized pacer leads. Right lower back stimulator device and bilateral L4-L5 posterior spinal fusion hardware again produces beam artifact limiting these levels. Noncontrasted stomach and bowel loops nonobstructed. Interval cholecystectomy with again prominent common bile duct measuring 11 mm. No choledochal stone. No free fluid/air. Stable calcified uterine fibroid. Remaining liver, pancreas, spleen, adrenal glands, kidneys, ureters, and bladder are unremarkable. There remains moderate aortoiliac calcifications with tortuous/ectatic aorta. No AAA or pathologic retroperitoneal lymphadenopathy. 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 Stable moderate fatty left inguinal hernia. Abdominal wall demonstrates new mild diffuse subcutaneous emphysema with subcutaneous fatty induration all presumed postoperative. Impression: 1. Again beam artifact 2. Status post cholecystectomy with abdominal wall postsurgical changes. 3. Stable large hiatal hernia with intrathoracic stomach occupying left lung base. 4. Again incidental cardiomegaly, calcified uterine fibroid, fatty left inguinal hernia, and chronic bony findings.
[2021-03-29] MEDS ORDERED: Nitrostat 0.4 MG Tablet SL PRN (09:34)
[2021-03-29] MEDS: Sodium Chloride 0.9% 1000 ML 1,000 ML IV SCH ×3 (09:42→20:41)
[2021-03-29] MEDS: Toprol Xl 50 MG PO SCH ×2 (09:43→21:48)
[2021-03-29] MEDS: TOPIRAMATE PO SCH ×2 (09:43→21:47)
[2021-03-29] MEDS: Ranexa 500 MG PO SCH ×2 (09:43→21:47)
[2021-03-29] MEDS: Betapace 80 MG PO SCH ×2 (09:43→21:47)
[2021-03-29] MEDS: NEURONTIN 300 MG PO SCH ×3 (09:43→21:48)
[2021-03-29] MEDS: HYDROCODONE-ACETAMIN 10-325 MG PO PRN ×2 (09:46→14:37)
[2021-03-29] MEDS: Paxil 20 MG PO SCH (09:47)
[2021-03-29] MEDS: Zofran 4 MG/2 ML VIAL IV PRN ×2 (09:47→20:41)
[2021-03-29] MEDS ORDERED: MEDICATION INTERVENTION MC SCH (10:00)
[2021-03-29] MEDS ORDERED: METHIMAZOLE 5 MG PO SCH (10:00)
[2021-03-29] MEDS ORDERED: NON-FORMULARY ITEM (Cyanocobalamin (Vitamin B-12) [B-12] 1,000 MCG) PO SCH (10:00)
[2021-03-29] MEDS ORDERED: NON-FORMULARY ITEM (L.Acidoph,Paracasei, B.Lactis [Probiotic] 1 EACH) PO SCH (10:00)
[2021-03-29] MEDS: Protonix 40MG Tablet PO SCH (11:03)
[2021-03-29] MEDS: Vitamin B-12 500 MCG PO SCH (11:03)
[2021-03-29] MEDS: Acidophilus TABLET PO SCH (11:03)
[2021-03-29] MEDS ORDERED: Lasix 20 MG/2 ML ONE (21:45)
[2021-03-29] MEDS: XARELTO 10 MG TABLET PO SCH (21:47)
[2021-03-29] MEDS: REMERON 30 MG PO SCH (21:47)
[2021-03-29] MEDS ORDERED: NON-FORMULARY ITEM (Rivaroxaban [Xarelto] 15 MG) PO SCH (22:00)
[2021-03-29] MEDS ORDERED: XARELTO 10 MG TABLET PO SCH (22:00)
[2021-03-29] MEDS ORDERED: PRAMIPEXOLE DI HCL 0.5 MG PO SCH (22:00)
[2021-03-29] MEDS ORDERED: Mirapex 0.5 MG Tablet PO SCH (22:00)
[2021-03-29] MEDS ORDERED: Lasix 20 MG/2 ML IV ONE (22:00)
[2021-03-29] MEDS ORDERED: Sodium Chloride 0.9% 10 ML FLUSH Syringe IV PRN (22:13)
[2021-03-30] MEDS: HYDROCODONE-ACETAMIN 10-325 MG PO PRN (00:39)
[2021-03-30 05:49] LABS: Absolute Neutrophil Ct (ANC) 3.62 (1.4-6.9); BASOPHIL % 0.3 % (0.0-0.4); Basophil (Absolute #) 0.02 (0-0.4); Eosinophil % 3.8 % (0.00-5.0); Eosinophil (Absolute #) 0.24 (0-0.5); Hematocrit 34.6 % (35-47); Hemoglobin 10.8 gm/dl (12.0-16.0); Lymphocyte (Absolute #) 1.58 (1.0-4.6); Lymphocytes % 25.1 % (24.0-44.0); Mean Cell Volume 105.5 fl (78-100); Mean Corpuscular Hemoglobin 32.9 pg (26-32); Mean Corpuscular Hgb Concent. 31.2 g/dl (32-36); Mean Platelet Volume 8.8 fl (7.5-11.0); Monocyte (Absolute #) 0.83 (0.0-1.3); Monocytes % 13.2 % (0.0-12.0); Neutrophil % 57.6 % (36.0-66.0); Platelet Count 322 K/mm3 (150-450); Red Blood Count 3.28 M/mm3 (4.1-5.4); Red Cell Distribution Width 15.1 % (11.5-14.0); White Blood Count 6.3 K/mm3 (4.0-10.5)
[2021-03-30] MEDS ORDERED: Sodium Chloride 0.9% 10 ML FLUSH Syringe IV SCH (06:00)
[2021-03-30 06:11] LABS: ALBUMIN 3.5 g/dL (3.5-5.0); ANION GAP 11.8 MEQ/L (5-15); BILIRUBIN,TOTAL 0.3 mg/dL (0.2-1.3); Calcium 7.8 mg/dL (8.4-10.2); Creatinine 1 0.95 mg/dL (0.52-1.04); EST GLOMERULAR FILTRATION RATE 58.9 ML/MIN; MAGNESIUM 1.7 mg/dL (1.6-2.3); Potassium 3.3 mmol/L (3.5-5.1); Total Protein 6.7 g/dL (6.3-8.2)
[2021-03-30 08:08] VITALS: O2SAT 93
[2021-03-30 08:32] VITALS: BP 113/62; PULSE 60
--- NOTE | 2021-03-30 08:46 | PCM.DS ---
Discharge Summary Date of Admission: 03/28/21 21:15 Admitting Physician: BERTRAND BURDICK Primary Care Provider: BERTRAND BURDICK Allergies Allergies No Known Drug Allergies Allergy (Verified 03/28/21 15:44) Hospital Summary - Hospital Course Hospital Course: patient was admitted 1 week post-op from lap. cholecystectomy. she was nauseated, vomiting, had some diarrhea and weak. found to have dehydration, she is improved now and more steady on her feet and taking po regular diet without any complaints. clinically looks much better and requests to go home today. - Vitals & Intake/Output Vital Signs: Vital Signs Temperature 98.3 F 03/30/21 08:00 Pulse Rate 60 03/30/21 08:00 Respiratory Rate 15 03/30/21 08:00 Blood Pressure 113/62 03/30/21 08:00 O2 Sat by Pulse Oximetry 93 L 03/30/21 08:00 Intake & Output: Intake & Output 03/27/21 03/28/21 03/29/21 03/30/21 11:59 11:59 11:59 11:59 Intake Total 1066 2334 Balance 1066 2334 Weight 78 kg - Lab Result Diagrams: 03/30/21 04:20 03/30/21 04:20 Lab Results-Last 24 Hrs: Lab Results-Last 24 Hours 03/30/21 03/30/21 Range/Units 04:20 04:20 WBC 6.3 (4.0-10.5) K/mm3 RBC 3.28 L (4.1-5.4) M/mm3 Hgb 10.8 L (12.0-16.0) gm/dl Hct 34.6 L (35-47) % MCV 105.5 H (78-100) fl MCH 32.9 H (26-32) pg MCHC 31.2 L (32-36) g/dl RDW 15.1 H (11.5-14.0) % Plt Count 322 (150-450) K/mm3 MPV 8.8 (7.5-11.0) fl Gran % 57.6 (36.0-66.0) % Eos # (Auto) 0.24 (0-0.5) Absolute Lymphs (auto) 1.58 (1.0-4.6) Absolute Monos (auto) 0.83 (0.0-1.3) Lymphocytes % 25.1 (24.0-44.0) % Monocytes % 13.2 H (0.0-12.0) % Eosinophils % 3.8 (0.00-5.0) % Basophils % 0.3 (0.0-0.4) % Absolute Granulocytes 3.62 (1.4-6.9) Basophils # 0.02 (0-0.4) Sodium 136 L (137-145) mmol/L Potassium 3.3 L (3.5-5.1) mmol/L Chloride 99 (98-107) mmol/L Carbon Dioxide 29 (22-30) mmol/L Anion Gap 11.8 (5-15) MEQ/L BUN 14 (7-17) mg/dL Creatinine 0.95 (0.52-1.04) mg/dL Estimated GFR 58.9 ML/MIN Glucose 81 (74-106) mg/dL Calcium 7.8 L (8.4-10.2) mg/dL Magnesium 1.7 (1.6-2.3) mg/dL Total Bilirubin 0.30 (0.2-1.3) mg/dL AST 27 (14-36) U/L ALT 5 (0-35) U/L Alkaline Phosphatase 71 (38-126) U/L Serum Total Protein 6.7 (6.3-8.2) g/dL Albumin 3.5 (3.5-5.0) g/dL - Radiology Exams Ordered Rad Exams-Entire Visit: Radiology Procedures Category Date Time Status ABDOMEN AND PELVIS W CONTRAST [CT] Stat Exams 03/28/21 18:23 Completed CHEST 1 VIEW (PORTABLE) Stat Exams 03/28/21 15:57 Completed - Procedures and Test Procedures and Tests throughout Hospitalization: Therapy Orders & Screens 03/28/21 20:58 Oxygen Nasal Cannula 2 lpm Comment: Discharge Exam General Appearance: no apparent distress Neurologic Exam: alert, oriented x 3 Respiratory Exam: normal breath sounds, lungs clear, No respiratory distress Cardiovascular Exam: regular rate/rhythm, normal heart sounds Gastrointestinal/Abdomen Exam: soft, other (port sites clean and dry, bruising present), No tenderness, No mass Extremity Exam: normal inspection, normal range of motion Final Diagnosis/Problem List - Final Discharge Diagnosis/Problem (1) Vomiting and diarrhea Current Visit: Yes Status: Acute Assessment & Plan: resolved, clinically looks great and tolerating po with no complaints on date of discharge. Code(s): R11.10 - VOMITING, UNSPECIFIED; R19.7 - DIARRHEA, UNSPECIFIED (2) Dehydration Current Visit: Yes Status: Acute Code(s): E86.0 - DEHYDRATION (3) Weakness Current Visit: Yes Status: Acute Code(s): R53.1 - WEAKNESS - Discharge Disposition: Home, Self-Care Condition: Stable Prescriptions: Continue Ranolazine 500 MG [Ranexa 500 MG] 500 mg PO BID Gabapentin 300 mg PO TID Cyanocobalamin (Vitamin B-12) [B-12] 1,000 mcg PO DAILY Pyridoxine HCl (Vitamin B6) [Vitamin B-6] 100 mg PO DAILY Furosemide 20 mg [Lasix 20 mg] 20 mg PO DAILY Pramipexole Di-HCl [Mirapex] 0.5 mg PO HS Metoprolol Succinate 50 mg [Toprol Xl 50 MG] 50 mg PO BID Paroxetine HCl 20 mg [Paxil 20 MG] 20 mg PO DAILY PANTOPRAZOLE 40 mg Tablet [Protonix 40MG Tablet] 40 mg PO QAM Methimazole 5 mg PO BID Mirtazapine [Remeron] 15 mg PO HS Melatonin 3 mg PO HS Calcium Carb/Vitamin D3/Vit K1 [Calcium + D Soft Chewable Tab] 1 each PO DAILY L.acidoph,Paracasei, B.lactis [Probiotic] 1 each PO DAILY Sotalol HCl 80 mg [Betapace 80 MG] 80 mg PO BID Topiramate 50 mg PO BID Nitroglycerin 0.4 mg Tablet [Nitrostat 0.4 MG Tablet] 0.4 mg PO Q5MIN PRN MR X 3 PRN PRN Reason: Chest Pain Hydrocodone/Acetaminophen [Hydrocodone-Acetamin 10-325 mg] 1 tab PO QID PRN PRN PRN Reason: Pain Rivaroxaban [Xarelto] 15 mg PO HS Follow up with: BERTRAND BURDICK MD [Primary Care Provider] -
[2021-03-30] MEDS: Protonix 40MG Tablet PO SCH (09:32)
[2021-03-30] MEDS: Ranexa 500 MG PO SCH (09:33)
[2021-03-30] MEDS: Paxil 20 MG PO SCH (09:33)
[2021-03-30] MEDS: NEURONTIN 300 MG PO SCH (09:33)
[2021-03-30] MEDS: Acidophilus TABLET PO SCH (09:33)
[2021-03-30] MEDS: Betapace 80 MG PO SCH (09:33)
[2021-03-30] MEDS: TOPIRAMATE PO SCH (09:33)
[2021-03-30] MEDS: Toprol Xl 50 MG PO SCH (09:33)
[2021-03-30] MEDS: Vitamin B-12 500 MCG PO SCH (09:33)
[2021-03-30] MEDS ORDERED: Lasix 20 MG/2 ML IV ONE (22:00)
== END 2021-03-30 10:40 | disposition home or self-care (01) ==
LOC: ED 15:29 → MED SURG 21:15
PROVIDERS: ADMIT Family Medicine; ATTEND Family Medicine
DX: R11.2 Nausea with vomiting, unspecified (principal); R19.7 Diarrhea, unspecified; E86.0 Dehydration; R53.1 Weakness; R53.83 Other fatigue; Z79.899 Other long term (current) drug therapy; I10 Essential (primary) hypertension; Z20.822 Contact with and (suspected) exposure to COVID-19
CPT/HCPCS: 36000; 36415; 71045; 74177; 80053; 81001; 82150; 83605; 83690; 83735; 84484; 85025; 93005; 94760; 96360; 99285; G0378; P9612; U0003; J1940; J2405; A9270-GY